=== PATIENT | female | born 1950 | race Caucasian/White ===

== ENCOUNTER 2017-06-02 19:44 | Inpatient (IN) | payer MEDICARE, OTHER ==
--- NOTE | 2017-06-02 22:15 | ED Physician Chart ---
ED Chief Complaint/HPI - Patient Information Date Seen:: 06/02/17 Time Seen:: 19:45 Chief Complaint:: Agitation History of Present Illness:: onset x one day of agitation and AMS; no report of trauma, H/As, neck pain, C/P , SOB, Abd. Pain, A/N/V/D/C, fever, chills, urinary s/s, or SIs Allergies:: Allergies Allergy/AdvReac Type Severity Reaction Status Date / Time chlorpromazine Allergy Verified 01/19/17 20:15 [From Thorazine] haloperidol [From Haldol] Allergy Verified 01/19/17 20:15 Vitals:: Vital Signs - 8 hr 06/02/17 19:48 Temp 97.8 F HR 50 RR 18 BP 130/63 O2 Sat % 95 Historian:: Patient, EMS Review:: Nurse's Note Reviewed, EMS run form Reviewed ED Review of Systems - Review of Systems General/Constitutional: No fever, No chills, No weight loss, No weakness, No diaphoresis, No edema, No loss of appetite Skin: No skin lesions, No rash, No bruising Head: No headache, No light-headedness Eyes: No loss of vision, No pain, No diplopia ENT: No earache, No nasal drainage, No sore throat, No tinnitus Neck: No neck pain, No swelling, No thyromegaly, No stiffness, No mass noted Cardio Vascular: No chest pain, No palpitations, No PND, No orthopnea, No edema Pulmonary: No SOB, No cough, No sputum, No wheezing GI: No nausea, No vomiting, No diarrhea, No pain, No melena, No hematochezia, No constipation, No hematemesis G/U: No dysuria, No frequency, No hematuria Musculoskeletal: No bone or joint pain, No back pain, No muscle pain Endocrine: Polyuria, Polydipsia Psychiatric: Prior psych history, Depression, Anxiety, No suicidal ideation, No homicidal ideation, Auditory hallucination, No visual hallucination Hematopoietic: No bruising, No lymphadenopathy Allergic/Immuno: No urticaria, No angioedema Neurological: No syncope, No focal symptoms, Weakness, No paresthesia, No headache, No seizure, No dizziness, Confusion, No vertigo ED Past Medical History - Past Medical History Obtainable: Yes Past Medical History: HTN, DM, Dyslipidemia, Thyroid disorder Family History: Diabetes Melitus, HTN Social History: Non Smoker, No Alcohol, No Drug Use, Single, Care Facility Surgical History: None Psychiatricy History: Depression, Schizophrenia, Bipolar Medication: Reviewed Family Medical History - Family Member Mother History Unknown: Yes ED Physical Exam - Physical Examination General/Constitutional: Awake, Well-developed, well-nourished, Alert, No distress, GCS 15, Non-toxic appearing, Ambulatory Head: Atraumatic Eyes: Lids, conjuctiva normal, PERRL, EOMI Skin: Nl inspection, No rash, No skin lesions, No ecchymosis, Well hydrated, No lymphadenopathy ENMT: External ears, nose nl, Nasal exam nl, Lips, teeth, gums nl Neck: Nontender, Full ROM w/o pain, No JVD, No nuchal rigidity, No bruit, No mass, No stridor Respiratory: Nl effort/Exclusion, Clear to Auscultation, No Wheeze/Rhonchi/Rales Cardio Vascular: RRR, No murmur, gallop, rubs, NL S1 S2 GI: No tenderness/rebounding/guarding, No organomegaly, No hernia, Normal BS's, Nondistended, No mass/bruits, No McBurney tenderness : No CVA tenderness Extremities: No tenderness or effusion, Full ROM, normal strength in all extremities, No edema, Normal digits & nails Neuro/Psych: Alert/oriented, DTR's symmetric, Normal sensory exam, Normal motor strength, Judgement/insight normal, Mood normal, Normal gait, No focal deficits Other Neuro/Psych comments:: + Psychomotor Agitation; no SIs Misc: Normal back, No paraspinal tenderness ED Labs/Radiology/EKG Results - EKG Interpretations EKG Time:: 20:05 Rate & Rhythm: 51; SB Comments:: non-specific st-t changes ED Septic Shock - . Is Septic Shock (SBP<90, OR Lactate>4 mmol\L) present?: No - <6hrs of presentation: Vital Signs: Vital Signs - 8 hr 06/02/17 19:48 Temp 97.8 F HR 50 RR 18 BP 130/63 O2 Sat % 95 ED Reassessment (Disposition) - Reassessment Reassessment Condition:: Improved - Diagnosis Diagnosis:: Schizophrenia; Agitation; AMS; BiPolar Disorder; Schiz-Affective Disorder - Aftercare/Follow up Instructions Aftercare/Follow-Up Instructions:: Counseled pt regarding lab results/diagnosis & need follow up, Counseled pt & family regarding lab results/diagnosis & need follow up - Patient Disposition Discharge/Transfer:: Acute Care w/in this hosp Accepting Physician:: Dr. Griffith Time Called:: 2029 Time Responded:: 20:30 Admitted to:: [facility] Spoke to:: Dr. Griffith Admitting Medical Physician:: Dr. Griffith Admitting Psych Physician:: Saba Kenny Condition at Disposition:: Stable, Improved
[2017-06-02 23:32] VITALS: BP 127/80
[2017-06-02] MEDS ORDERED: Maalox 30 mL Cup PO PRN ×2 (23:32)
[2017-06-03] MEDS: Multivitamin Tab PO SCH ×2 (09:00)
--- NOTE | 2017-06-03 13:50 | History & Physical ---
ADMIT DATE: 06/03/2017 CHIEF COMPLAINT: Increasing agitation. HISTORY OF PRESENT ILLNESS: This is a 66-year-old female with history of diabetes, hypertension, CAD, seizure, with breast CA, hypothyroidism, hypercholesterolemia, was admitted from nursing facility secondary to not taking any and all medication, patient not compliant, fighting with the nursing staff in the ER, refused blood tests, refused to be examined by Dr. Domingo. I saw the patient, placed on hold and admitted to psychiatric unit. PAST MEDICAL HISTORY: As mentioned in history present illness. PAST SURGICAL HISTORY: Status post breast surgery. ALLERGIES: PROMETHAZINE. MEDICATIONS: Atorvastatin, calcium, Donepezil, Lopid, Keppra, insulin sliding scale, magnesium hydroxide, multivitamin, Risperdal, and Ambien. FAMILY HISTORY: Noncontributory. SOCIAL HISTORY: The patient lives at residential requiring 24-hour total care. REVIEW OF SYSTEMS: The patient was just getting feel of injection, sensory agitations patient is in bed, seen with a female staff. ____ that she ____ does not want to go at this time. We will try to perform review of system at a later time. PHYSICAL EXAMINATION: VITAL SIGNS: Blood pressure 130/65, respirations 18, pulse 59, respirations 71. GENERAL: Elderly female, morbidly obese. NECK: Supple. No mass. LUNGS: Equal breath sounds, few rhonchi. HEART: Regular rate and rhythm with systolic ejection murmur. ABDOMEN: Soft, globular, positive bowel sounds. EXTREMITIES: Positive excoriations. NEUROLOGIC: Limited. LABORATORY DATA: There is none, all are pending. ASSESSMENT AND PLAN: Obesity, diabetes, hypertension, CAD, seizure, breast CA, hypothyroidism, hypercholesterolemia. We will go through the medicine reconciliation. We are still awaiting the results of labs that were ordered in the Emergency Room. Continue antiepileptic medications. Continue statin medications. Continue on insulin sliding scale. We will continue and monitor the patient closely. We will follow with Dr. Kenny. JOB# [id number]
[2017-06-03] MEDS: INSULIN ASPART, RECOMBINANT 100 UNITS/ML SUBQ SCH ×4 (17:06→20:08)
[2017-06-03] MEDS: Atorvastatin Calcium 10 MG TAB PO SCH ×2 (20:23)
--- NOTE | 2017-06-03 22:10 | Progress Notes ---
DATE: 06/03/2017 The patient is a 66-year-old woman, resident of [facility]. Information obtained by directly interviewing the patient as well as reviewing the admission papers. JUSTIFICATION OF HOSPITALIZATION: The patient is admitted on a voluntary basis in view of her acute agitation and bizarre behavior. CHIEF COMPLAINT: "I don't know, I need to look for something in here. Leave me alone". HISTORY OF PRESENT ILLNESS: This is one of multiple psychiatric hospitalizations for this patient who happened to be seen by me in January for a consultation. The patient has been screaming and yelling and agitated and could not be continued to a lower level of care and has been brought over here for stabilization. The patient is very busy looking for something through the trash pins and is not willing to sit in there and then give me much of any information. PAST PSYCHIATRIC HISTORY: Please refer to the above details about prior psychiatric hospitalizations, details are not known but this seems to be one of multiple psychiatric hospitalizations. MEDICAL HISTORY: Physical examination is as per Dr. Griffith. SUBSTANCE ABUSE HISTORY: None. PHYSICAL AND SEXUAL ABUSE HISTORY: None. LEGAL PROBLEMS: None at this time. STRENGTHS AND ASSETS: The patient is a 66-year-old, looking her stated age, moderately obese, superficially cooperative. Eye contact is poor. Mood is noted to be irritable. Affect is constricted. The patient is pacing most of the time on the unit. Insight and judgment at this time noted to be still impaired. Impulse control seems to be poor. The patient has paranoid delusions. The patient is not able to contract for safety. The patient is acting very bizarre and has been digging into the trash cans. The patient is actively responding to internal stimuli. The patient is alert and oriented x 3. Insight and judgment noted to be very much impaired at this time. DIAGNOSTIC IMPRESSION: AXIS I: Schizophrenia, chronic paranoid type with acute exacerbation. AXIS II: None. AXIS III: As per Dr. Griffith. IMMEDIATE TREATMENT PLAN: The patient is going to be observed on inpatient unit, provided with supportive psychotherapy. The patient is going to be closely monitored. Once stabilized, the patient is going to be discharged to be followed up on an outpatient basis. ASSESSMENT: The patient is going to be started on low dose of Seroquel and will be encouraged. [facility]# [id number]
[2017-06-04] MEDS: INSULIN ASPART, RECOMBINANT 100 UNITS/ML SUBQ SCH ×8 (06:38→21:29)
[2017-06-04] MEDS: Levothyroxine 0.15 Mg Tab PO SCH ×2 (06:39)
[2017-06-04] MEDS ORDERED: Non-Formulary Item 1 EA (Multivitamin [Multivitamins] 1 CAP) PO SCH ×2 (09:00)
[2017-06-04] MEDS: Calcium Carb/Vit D 500 mg/200 U Tab PO SCH ×2 (09:26)
[2017-06-04] MEDS: Multivitamin Tab PO SCH ×2 (09:26)
--- NOTE | 2017-06-04 12:54 | Internal Medicine Prog Note ---
Internal Medicine Subjective - Subjective Patient seen and examined:: with staff, chart reviewed Patient is:: awake, verbal, interactive Per staff patient has:: no adverse event, no episodes of fall, poor appetite, agitated, noncompliant, tolerating meds Internal Medicine Objective - Results Recent Labs: Laboratory Last Values POC Glucose 114 MG/DL (70 - 105) H 06/04/17 06:25 - Physical Exam Vitals and I&O: Vital Signs Temp 97.7 F 06/04/17 06:54 Pulse 61 06/04/17 06:54 Resp 18 06/04/17 06:54 BP 135/68 06/04/17 09:26 Pulse Ox 98 06/04/17 06:54 Intake & Output 06/03/17 06/04/17 06/04/17 18:59 06:59 18:59 Intake Total 120 Balance 120 Intake: Oral 120 Other: # Voids 3 Active Medications: Current Medications Acetaminophen (Tylenol) 650 mg PO Q4HR PRN PRN Reason: Mild Pain / Temp above 100 Stop: 08/01/17 23:31 Acetaminophen (Tylenol) 650 mg PO Q4H PRN PRN Reason: Mild Pain Or Fever above 101 Stop: 08/02/17 13:21 Al Hydrox/Mg Hydrox/Simethicone (Maalox) 30 ml PO Q4HR PRN PRN Reason: GI DISTRESS Stop: 08/01/17 23:31 Anastrozole (Arimidex) 1 mg PO DAILY CORAZON PRN Reason: Protocol Stop: 08/03/17 08:59 Last Admin: 06/04/17 09:26 Dose: 1 mg Atorvastatin Calcium (Lipitor) 10 mg PO HS CORAZON PRN Reason: Protocol Stop: 08/02/17 20:59 Last Admin: 06/03/17 20:23 Dose: 10 mg Calcium/Vitamin D (Oscal W/Vitamin D) 1 tab PO DAILY CORAZON Stop: 08/03/17 08:59 Last Admin: 06/04/17 09:26 Dose: 1 tab Docusate Sodium (Colace) 100 mg PO DAILY CORAZON Stop: 08/03/17 08:59 Last Admin: 06/04/17 09:26 Dose: 100 mg Donepezil HCl (Aricept) 5 mg PO HS CORAZON Stop: 08/02/17 20:59 Last Admin: 06/03/17 20:23 Dose: 5 mg Furosemide (Lasix) 20 mg PO DAILY CORAZON Stop: 08/03/17 08:59 Last Admin: 06/04/17 09:26 Dose: 20 mg Gemfibrozil (Lopid) 600 mg PO BID CORAZON Stop: 08/02/17 16:59 Last Admin: 06/04/17 09:26 Dose: 600 mg Insulin Aspart (Novolog) 0 units SUBQ ACHS CORAZON PRN Reason: Protocol Stop: 08/02/17 16:29 Last Admin: 06/04/17 11:36 Dose: Not Given Levetiracetam (Keppra) 500 mg PO BID CORAZON Stop: 08/02/17 16:59 Last Admin: 06/04/17 09:26 Dose: 500 mg Levothyroxine Sodium (Synthroid) 0.15 mg PO QDAC CORAZON Stop: 08/03/17 07:29 Last Admin: 06/04/17 06:39 Dose: Not Given Lorazepam (Ativan) 0.5 mg PO Q4HR PRN; Protocol PRN Reason: Anxiety Stop: 07/02/17 23:31 Lorazepam (Ativan) 0.5 mg PO Q6HR PRN; Protocol PRN Reason: Anxiety Stop: 08/02/17 13:21 Magnesium Hydroxide (Milk Of Magnesia) 30 ml PO HS PRN PRN Reason: Constipation Stop: 08/01/17 22:55 Multivitamins/Vitamin C (Theragran) 1 tab PO DAILY CORAZON Stop: 08/02/17 08:59 Last Admin: 06/04/17 09:26 Dose: 1 tab Risperidone (Risperdal) 2 mg PO BID CORAZON PRN Reason: Protocol Stop: 08/03/17 16:59 Zolpidem Tartrate (Ambien) 5 mg PO HS PRN PRN Reason: Insomnia Stop: 08/01/17 22:55 General: demented HEENT: NC/AT, PERRLA, EOMI Neck: Supple, No JVD, No LAD Lungs: CTAB, congested Cardiovascular: RRR, Normal S1, Normal S2, with murmur Abdomen: soft, non-tender, non-distended Extremities: excoriation, contracture Neurological: no change, disorganized Internal Medicine Assmt/Plan - Assessment Assessment: obesity dm htn r breast ca agitation, sad sz disorder - Plan Plan: cont on ada diet cont on aed fall precaution will titrate bp meds dw rn will review meds once they become available
[2017-06-04] MEDS: Atorvastatin Calcium 10 MG TAB PO SCH ×2 (21:29)
--- NOTE | 2017-06-04 22:39 | Progress Notes ---
DATE: 06/04/2017 SUBJECTIVE: Staff was spoken to. The patient is interviewed. Mood is noted to be irritable. Affect is constricted. The patient is acting very bizarre. The patient's coping skills are noted to be very poor. The patient has been trying to put a cream over her body and also trying to masturbate appropriately. The patient has no insight into her illness. Coping skills are noted to be extremely poor at this time. The patient is currently on risperidone 2 mg on a daily basis. Plan to increase the risperidone to 2 mg twice a day and follow the patient up with supportive therapy. The patient is still grossly psychotic and is not able to be discharged to a lower level of care yet. ASSESSMENT: The patient is still psychotic and acting very bizarre. PLAN: To continue the patient with the supportive therapy and consider possibly for a mood stabilizer if risperidone alone is not going to help the patient. The patient's blood work has pain noted today, the patient was noted to be still running high for the patient. JOB# [id number]
[2017-06-05] MEDS: INSULIN ASPART, RECOMBINANT 100 UNITS/ML SUBQ SCH ×8 (06:31→20:44)
[2017-06-05] MEDS: Levothyroxine 0.15 Mg Tab PO SCH ×2 (06:32)
[2017-06-05] MEDS: Calcium Carb/Vit D 500 mg/200 U Tab PO SCH ×2 (09:08)
[2017-06-05] MEDS: Multivitamin Tab PO SCH ×2 (09:09)
--- NOTE | 2017-06-05 15:26 | Internal Medicine Prog Note ---
Internal Medicine Subjective - Subjective Service Date: 06/05/17 Patient is:: awake, verbal, interactive Per staff patient has:: no adverse event, no episodes of fall, poor appetite, agitated, noncompliant, tolerating meds Internal Medicine Objective - Results Recent Labs: Laboratory Last Values POC Glucose 141 MG/DL (70 - 105) H 06/05/17 11:22 - Physical Exam Vitals and I&O: Vital Signs Temp 98 F 06/05/17 14:00 Pulse 95 06/05/17 14:00 Resp 20 06/05/17 14:00 BP 124/60 06/05/17 14:00 Pulse Ox 95 06/05/17 14:00 Intake & Output 06/04/17 06/05/17 06/05/17 18:59 06:59 18:59 Intake Total 1200 Balance 1200 Intake: Oral 1200 Other: # Voids 3 # Bowel Movements 1 0 Active Medications: Current Medications Acetaminophen (Tylenol) 650 mg PO Q4HR PRN PRN Reason: Mild Pain / Temp above 100 Stop: 08/01/17 23:31 Acetaminophen (Tylenol) 650 mg PO Q4H PRN PRN Reason: Mild Pain Or Fever above 101 Stop: 08/02/17 13:21 Al Hydrox/Mg Hydrox/Simethicone (Maalox) 30 ml PO Q4HR PRN PRN Reason: GI DISTRESS Stop: 08/01/17 23:31 Anastrozole (Arimidex) 1 mg PO DAILY CORAZON PRN Reason: Protocol Stop: 08/03/17 08:59 Last Admin: 06/05/17 09:38 Dose: 1 mg Atorvastatin Calcium (Lipitor) 10 mg PO HS CORAZON PRN Reason: Protocol Stop: 08/02/17 20:59 Last Admin: 06/04/17 21:29 Dose: 10 mg Calcium/Vitamin D (Oscal W/Vitamin D) 1 tab PO DAILY CORAOZN Stop: 08/03/17 08:59 Last Admin: 06/05/17 09:08 Dose: 1 tab Docusate Sodium (Colace) 100 mg PO DAILY CORAZON Stop: 08/03/17 08:59 Last Admin: 06/05/17 09:08 Dose: 100 mg Donepezil HCl (Aricept) 5 mg PO HS CORAZON Stop: 08/02/17 20:59 Last Admin: 06/04/17 21:29 Dose: 5 mg Furosemide (Lasix) 20 mg PO DAILY CORAZON Stop: 08/03/17 08:59 Last Admin: 06/05/17 09:09 Dose: 20 mg Gemfibrozil (Lopid) 600 mg PO BID CORAZON Stop: 08/02/17 16:59 Last Admin: 06/05/17 09:41 Dose: 600 mg Insulin Aspart (Novolog) 0 units SUBQ ACHS CORAZON PRN Reason: Protocol Stop: 08/02/17 16:29 Last Admin: 06/05/17 11:25 Dose: Not Given Levetiracetam (Keppra) 500 mg PO BID CORAZON Stop: 08/02/17 16:59 Last Admin: 06/05/17 09:08 Dose: 500 mg Levothyroxine Sodium (Synthroid) 0.15 mg PO QDAC CORAZON Stop: 08/03/17 07:29 Last Admin: 06/05/17 06:32 Dose: Not Given Lorazepam (Ativan) 0.5 mg PO Q4HR PRN; Protocol PRN Reason: Anxiety Stop: 07/02/17 23:31 Lorazepam (Ativan) 0.5 mg PO Q6HR PRN; Protocol PRN Reason: Anxiety Stop: 08/02/17 13:21 Magnesium Hydroxide (Milk Of Magnesia) 30 ml PO HS PRN PRN Reason: Constipation Stop: 08/01/17 22:55 Multivitamins/Vitamin C (Theragran) 1 tab PO DAILY CORAZON Stop: 08/02/17 08:59 Last Admin: 06/05/17 09:09 Dose: 1 tab Risperidone (Risperdal) 2 mg PO BID CORAZON PRN Reason: Protocol Stop: 08/03/17 16:59 Last Admin: 06/05/17 09:08 Dose: 2 mg Zolpidem Tartrate (Ambien) 5 mg PO HS PRN PRN Reason: Insomnia Stop: 08/01/17 22:55 Last Admin: 06/05/17 00:58 Dose: 5 mg General: demented HEENT: NC/AT, PERRLA, EOMI Neck: Supple, No JVD, No LAD Lungs: CTAB, congested Cardiovascular: RRR, Normal S1, Normal S2, with murmur Abdomen: soft, non-tender, non-distended Extremities: excoriation, contracture Neurological: no change, disorganized Internal Medicine Assmt/Plan - Assessment Assessment: obesity dm htn r breast ca agitation, sad sz disorder - Plan Plan: monitor glucose fall precautions continue plan of care
[2017-06-05] MEDS: Atorvastatin Calcium 10 MG TAB PO SCH ×2 (20:40)
--- NOTE | 2017-06-05 21:45 | Progress Notes ---
DATE: 06/05/2017 SUBJECTIVE: Staff was spoken to. Patient is interviewed. Mood is irritable. Affect is constricted. The patient's coping skills are noted to be very poor. The patient is acting very bizarre and has been trying to masturbate in public. The patient's coping skills are noted to be poor. Insight and judgment are noted to be impaired. Impulse control is noted to be poor. Coping skills are also noted to be poor. The patient has been having difficult time to cope with the stress. ASSESSMENT: The patient is still grossly psychotic and impulsive. PLAN: To continue the patient with supportive therapy. I encouraged the patient to verbalize the concerns rather than to act out. [facility]# [id number]
--- NOTE | 2017-06-05 21:45 | Progress Notes ---
DATE: 06/05/2017 SUBJECTIVE: Staff was spoken to. Patient is interviewed. Mood is irritable. Affect is constricted. The patient's coping skills are noted to be very poor. The patient is acting very bizarre and has been trying to masturbate in public. The patient's coping skills are noted to be poor. Insight and judgment are noted to be impaired. Impulse control is noted to be poor. Coping skills are also noted to be poor. The patient has been having difficult time to cope with the stress. ASSESSMENT: The patient is still grossly psychotic and impulsive. PLAN: To continue the patient with supportive therapy. I encouraged the patient to verbalize the concerns rather than to act out. [facility]# [id number]
[2017-06-06] MEDS: INSULIN ASPART, RECOMBINANT 100 UNITS/ML SUBQ SCH ×8 (06:47→21:34)
[2017-06-06] MEDS: Multivitamin Tab PO SCH ×2 (09:34)
[2017-06-06] MEDS: Calcium Carb/Vit D 500 mg/200 U Tab PO SCH ×2 (09:35)
[2017-06-06] MEDS: Levothyroxine 0.15 Mg Tab PO SCH ×2 (10:04)
--- NOTE | 2017-06-06 13:10 | Internal Medicine Prog Note ---
Internal Medicine Subjective - Subjective Service Date: 06/06/17 Patient is:: awake, verbal, interactive Per staff patient has:: no adverse event, no episodes of fall, poor appetite, agitated, noncompliant, tolerating meds Internal Medicine Objective - Results Recent Labs: Laboratory Last Values POC Glucose 144 MG/DL (70 - 105) H 06/06/17 11:05 - Physical Exam Vitals and I&O: Vital Signs Temp 97.9 F 06/05/17 20:34 Pulse 58 06/06/17 08:00 Resp 18 06/06/17 08:00 BP 133/74 06/06/17 09:58 Pulse Ox 97 06/05/17 20:34 Intake & Output 06/05/17 06/06/17 06/06/17 18:59 06:59 18:59 Intake Total 1200 240 Output Total 1 Balance 1199 240 Intake: Oral 1200 240 Output: Stool 1 Other: # Voids 1 Active Medications: Current Medications Acetaminophen (Tylenol) 650 mg PO Q4HR PRN PRN Reason: Mild Pain / Temp above 100 Stop: 08/01/17 23:31 Acetaminophen (Tylenol) 650 mg PO Q4H PRN PRN Reason: Mild Pain Or Fever above 101 Stop: 08/02/17 13:21 Al Hydrox/Mg Hydrox/Simethicone (Maalox) 30 ml PO Q4HR PRN PRN Reason: GI DISTRESS Stop: 08/01/17 23:31 Anastrozole (Arimidex) 1 mg PO DAILY CORAZON PRN Reason: Protocol Stop: 08/03/17 08:59 Last Admin: 06/06/17 09:40 Dose: 1 mg Atorvastatin Calcium (Lipitor) 10 mg PO HS CORAZON PRN Reason: Protocol Stop: 08/02/17 20:59 Last Admin: 06/05/17 20:40 Dose: Not Given Calcium/Vitamin D (Oscal W/Vitamin D) 1 tab PO DAILY CORAZON Stop: 08/03/17 08:59 Last Admin: 06/06/17 09:35 Dose: 1 tab Docusate Sodium (Colace) 100 mg PO DAILY CORAZON Stop: 08/03/17 08:59 Last Admin: 06/06/17 09:35 Dose: 100 mg Donepezil HCl (Aricept) 5 mg PO HS CORAZON Stop: 08/02/17 20:59 Last Admin: 06/05/17 20:40 Dose: Not Given Furosemide (Lasix) 20 mg PO DAILY CORAZON Stop: 08/03/17 08:59 Last Admin: 06/06/17 09:58 Dose: 20 mg Gemfibrozil (Lopid) 600 mg PO BID CORAZON Stop: 08/02/17 16:59 Last Admin: 06/06/17 09:35 Dose: 600 mg Insulin Aspart (Novolog) 0 units SUBQ ACHS CORAZON PRN Reason: Protocol Stop: 08/02/17 16:29 Last Admin: 06/06/17 11:33 Dose: Not Given Levetiracetam (Keppra) 500 mg PO BID CORAZON Stop: 08/02/17 16:59 Last Admin: 06/06/17 09:35 Dose: 500 mg Levothyroxine Sodium (Synthroid) 0.15 mg PO QDAC CORAZON Stop: 08/03/17 07:29 Last Admin: 06/06/17 10:04 Dose: Not Given Lorazepam (Ativan) 0.5 mg PO Q4HR PRN; Protocol PRN Reason: Anxiety Stop: 07/02/17 23:31 Last Admin: 06/06/17 09:35 Dose: 0.5 mg Lorazepam (Ativan) 0.5 mg PO Q6HR PRN; Protocol PRN Reason: Anxiety Stop: 08/02/17 13:21 Magnesium Hydroxide (Milk Of Magnesia) 30 ml PO HS PRN PRN Reason: Constipation Stop: 08/01/17 22:55 Multivitamins/Vitamin C (Theragran) 1 tab PO DAILY CORAZON Stop: 08/02/17 08:59 Last Admin: 06/06/17 09:34 Dose: 1 tab Risperidone (Risperdal) 2 mg PO BID CORAZON PRN Reason: Protocol Stop: 08/03/17 16:59 Last Admin: 06/06/17 09:35 Dose: 2 mg Zolpidem Tartrate (Ambien) 5 mg PO HS PRN PRN Reason: Insomnia Stop: 08/01/17 22:55 Last Admin: 06/05/17 00:58 Dose: 5 mg General: demented HEENT: NC/AT, PERRLA, EOMI Neck: Supple, No JVD, No LAD Lungs: CTAB, congested Cardiovascular: RRR, Normal S1, Normal S2, with murmur Abdomen: soft, non-tender, non-distended Extremities: excoriation, contracture Neurological: no change, disorganized Internal Medicine Assmt/Plan - Assessment Assessment: obesity dm htn r breast ca agitation, sad sz disorder - Plan Plan: monitor glucose fall precautions continue plan of care
[2017-06-06] MEDS: Atorvastatin Calcium 10 MG TAB PO SCH ×2 (21:22)
--- NOTE | 2017-06-07 03:42 | Progress Notes ---
DATE: 06/06/2017 SUBJECTIVE: Staff was spoken to. The patient is interviewed. Mood is noted to be irritable. Affect is constricted. The patient is still acting very bizarre. Insight and judgment at this time are noted to be still impaired. Impulse control seems to be limited. OBJECTIVE: The patient tends to scream and yell, and the patient is hard to be redirected. ASSESSMENT AND PLAN: The patient is currently on Risperdal 2 mg twice a day. In view of her mood swings, it is decided add the Depakote which is going to be given at 250 mg twice a day and the patient is going to be followed up with the supportive therapy. Please note that the patient is not ready to be discharged to a lower level of care yet. JOB# [id number]
[2017-06-07] MEDS: Levothyroxine 0.15 Mg Tab PO SCH ×2 (06:33)
[2017-06-07] MEDS: INSULIN ASPART, RECOMBINANT 100 UNITS/ML SUBQ SCH ×8 (06:51→20:53)
[2017-06-07] MEDS: Multivitamin Tab PO SCH ×2 (09:37)
[2017-06-07] MEDS: Magnesium Hydroxide (MOM) 30 mL UDC PO PRN ×2 (09:37)
[2017-06-07] MEDS: Calcium Carb/Vit D 500 mg/200 U Tab PO SCH ×2 (09:37)
--- NOTE | 2017-06-07 12:54 | Internal Medicine Prog Note ---
Internal Medicine Subjective - Subjective Service Date: 06/07/17 Patient is:: awake, verbal, interactive Per staff patient has:: no adverse event, no episodes of fall, poor appetite, agitated, noncompliant, tolerating meds Internal Medicine Objective - Results Recent Labs: Laboratory Last Values POC Glucose 147 MG/DL (70 - 105) H 06/07/17 11:57 - Physical Exam Vitals and I&O: Vital Signs Temp 97.9 F 06/07/17 06:24 Pulse 70 06/07/17 06:24 Resp 19 06/07/17 06:24 BP 143/80 06/07/17 09:37 Pulse Ox 97 06/07/17 06:24 Intake & Output 06/06/17 06/07/17 06/07/17 18:59 06:59 18:59 Intake Total 540 Balance 540 Intake: Oral 540 Other: # Voids 1 # Bowel Movements 0 Active Medications: Current Medications Acetaminophen (Tylenol) 650 mg PO Q4HR PRN PRN Reason: Mild Pain / Temp above 100 Stop: 08/01/17 23:31 Acetaminophen (Tylenol) 650 mg PO Q4H PRN PRN Reason: Mild Pain Or Fever above 101 Stop: 08/02/17 13:21 Al Hydrox/Mg Hydrox/Simethicone (Maalox) 30 ml PO Q4HR PRN PRN Reason: GI DISTRESS Stop: 08/01/17 23:31 Anastrozole (Arimidex) 1 mg PO DAILY CORAZON PRN Reason: Protocol Stop: 08/03/17 08:59 Last Admin: 06/06/17 09:40 Dose: 1 mg Atorvastatin Calcium (Lipitor) 10 mg PO HS CORAZON PRN Reason: Protocol Stop: 08/02/17 20:59 Last Admin: 06/06/17 21:22 Dose: 10 mg Calcium/Vitamin D (Oscal W/Vitamin D) 1 tab PO DAILY CORAZON Stop: 08/03/17 08:59 Last Admin: 06/07/17 09:37 Dose: 1 tab Divalproex Sodium (Depakote Dr) 250 mg PO BID CORAZON PRN Reason: Protocol Stop: 08/05/17 16:59 Last Admin: 06/07/17 09:37 Dose: 250 mg Docusate Sodium (Colace) 100 mg PO DAILY CORAZON Stop: 08/03/17 08:59 Last Admin: 06/07/17 09:37 Dose: 100 mg Donepezil HCl (Aricept) 5 mg PO HS CORAZON Stop: 08/02/17 20:59 Last Admin: 06/06/17 21:22 Dose: 5 mg Furosemide (Lasix) 20 mg PO DAILY CORAZON Stop: 08/03/17 08:59 Last Admin: 06/07/17 09:37 Dose: 20 mg Gemfibrozil (Lopid) 600 mg PO BID CORAZON Stop: 08/02/17 16:59 Last Admin: 06/07/17 09:37 Dose: 600 mg Insulin Aspart (Novolog) 0 units SUBQ ACHS CORAZON PRN Reason: Protocol Stop: 08/02/17 16:29 Last Admin: 06/07/17 06:51 Dose: Not Given Levetiracetam (Keppra) 500 mg PO BID CORAZON Stop: 08/02/17 16:59 Last Admin: 06/07/17 09:37 Dose: 500 mg Levothyroxine Sodium (Synthroid) 0.15 mg PO QDAC CORAZON Stop: 08/03/17 07:29 Last Admin: 06/07/17 06:33 Dose: Not Given Lorazepam (Ativan) 0.5 mg PO Q4HR PRN; Protocol PRN Reason: Anxiety Stop: 07/02/17 23:31 Last Admin: 06/07/17 06:34 Dose: 0.5 mg Lorazepam (Ativan) 0.5 mg PO Q6HR PRN; Protocol PRN Reason: Anxiety Stop: 08/02/17 13:21 Magnesium Hydroxide (Milk Of Magnesia) 30 ml PO HS PRN PRN Reason: Constipation Stop: 08/01/17 22:55 Last Admin: 06/07/17 09:37 Dose: 30 ml Multivitamins/Vitamin C (Theragran) 1 tab PO DAILY CORAZON Stop: 08/02/17 08:59 Last Admin: 06/07/17 09:37 Dose: 1 tab Risperidone (Risperdal) 2 mg PO BID CORAZON PRN Reason: Protocol Stop: 08/03/17 16:59 Last Admin: 06/07/17 09:37 Dose: 2 mg Zolpidem Tartrate (Ambien) 5 mg PO HS PRN PRN Reason: Insomnia Stop: 08/01/17 22:55 Last Admin: 06/06/17 21:23 Dose: 5 mg General: demented HEENT: NC/AT, PERRLA, EOMI Neck: Supple, No JVD, No LAD Lungs: CTAB, congested Cardiovascular: RRR, Normal S1, Normal S2, with murmur Abdomen: soft, non-tender, non-distended Extremities: excoriation, contracture Neurological: no change, disorganized Internal Medicine Assmt/Plan - Assessment Assessment: obesity dm htn r breast ca agitation, sad sz disorder - Plan Plan: monitor glucose fall precautions continue plan of care
--- NOTE | 2017-06-07 20:49 | Progress Notes ---
DATE: 06/07/2017 SUBJECTIVE: Staff was spoken to. The patient is interviewed. Mood is noted to be irritable. Affect is constricted. Insight and judgment are noted to be still impaired. The patient has been very, very aggressive with her behavior. The patient has been trying to take the diaper out. The patient has no insight into his illness. The patient is screaming and yelling at this time. No side effects to the medications are noted. The patient has been started on the Depakote yesterday, which is going to be gradually increased. ASSESSMENT: The patient is still grossly psychotic and impulsive. PLAN: To continue the patient with the current medications. I encouraged the patient to verbalize the concerns rather than to act out. JOB# [id number]
[2017-06-07] MEDS: Atorvastatin Calcium 10 MG TAB PO SCH ×2 (20:50)
[2017-06-08] MEDS: INSULIN ASPART, RECOMBINANT 100 UNITS/ML SUBQ SCH ×6 (06:52→21:30)
[2017-06-08] MEDS: Levothyroxine 0.15 Mg Tab PO SCH ×2 (06:53)
[2017-06-08] MEDS: Multivitamin Tab PO SCH ×2 (09:41)
[2017-06-08] MEDS: Calcium Carb/Vit D 500 mg/200 U Tab PO SCH ×2 (09:41)
--- NOTE | 2017-06-08 12:57 | Internal Medicine Prog Note ---
Internal Medicine Subjective - Subjective Service Date: 06/08/17 Patient is:: awake, verbal, interactive Per staff patient has:: no adverse event, no episodes of fall, poor appetite, agitated, noncompliant, tolerating meds Internal Medicine Objective - Results Recent Labs: Laboratory Last Values POC Glucose 174 MG/DL (70 - 105) H 06/08/17 12:09 - Physical Exam Vitals and I&O: Vital Signs Temp 98.1 F 06/07/17 20:17 Pulse 57 06/07/17 20:17 Resp 19 06/07/17 20:17 BP 130/78 06/08/17 09:42 Pulse Ox 96 06/07/17 20:17 Intake & Output 06/07/17 06/08/17 06/08/17 18:59 06:59 18:59 Intake Total 540 Balance 540 Intake: Oral 540 Other: # Voids 3 # Bowel Movements 1 Active Medications: Current Medications Acetaminophen (Tylenol) 650 mg PO Q4HR PRN PRN Reason: Mild Pain / Temp above 100 Stop: 08/01/17 23:31 Acetaminophen (Tylenol) 650 mg PO Q4H PRN PRN Reason: Mild Pain Or Fever above 101 Stop: 08/02/17 13:21 Al Hydrox/Mg Hydrox/Simethicone (Maalox) 30 ml PO Q4HR PRN PRN Reason: GI DISTRESS Stop: 08/01/17 23:31 Anastrozole (Arimidex) 1 mg PO DAILY CORAZON PRN Reason: Protocol Stop: 08/03/17 08:59 Last Admin: 06/08/17 09:41 Dose: 1 mg Atorvastatin Calcium (Lipitor) 10 mg PO HS CORAZON PRN Reason: Protocol Stop: 08/02/17 20:59 Last Admin: 06/07/17 20:50 Dose: 10 mg Calcium/Vitamin D (Oscal W/Vitamin D) 1 tab PO DAILY CORAZON Stop: 08/03/17 08:59 Last Admin: 06/08/17 09:41 Dose: 1 tab Divalproex Sodium (Depakote Dr) 250 mg PO BID CORAZON PRN Reason: Protocol Stop: 08/05/17 16:59 Last Admin: 06/08/17 09:42 Dose: 250 mg Docusate Sodium (Colace) 100 mg PO DAILY CORAZON Stop: 08/03/17 08:59 Last Admin: 06/08/17 09:41 Dose: 100 mg Donepezil HCl (Aricept) 5 mg PO HS CORAZON Stop: 08/02/17 20:59 Last Admin: 06/07/17 20:50 Dose: 5 mg Furosemide (Lasix) 20 mg PO DAILY CORAZON Stop: 08/03/17 08:59 Last Admin: 06/08/17 09:42 Dose: 20 mg Gemfibrozil (Lopid) 600 mg PO BID CORAZON Stop: 08/02/17 16:59 Last Admin: 06/08/17 09:41 Dose: 600 mg Insulin Aspart (Novolog) 0 units SUBQ ACHS CORAZON PRN Reason: Protocol Stop: 08/02/17 16:29 Last Admin: 06/08/17 06:52 Dose: Not Given Levetiracetam (Keppra) 500 mg PO BID CORAZON Stop: 08/02/17 16:59 Last Admin: 06/08/17 09:41 Dose: 500 mg Levothyroxine Sodium (Synthroid) 0.15 mg PO QDAC CORAZON Stop: 08/03/17 07:29 Last Admin: 06/08/17 06:53 Dose: Not Given Lorazepam (Ativan) 0.5 mg PO Q4HR PRN; Protocol PRN Reason: Anxiety Stop: 07/02/17 23:31 Last Admin: 06/08/17 09:47 Dose: 0.5 mg Lorazepam (Ativan) 0.5 mg PO Q6HR PRN; Protocol PRN Reason: Anxiety Stop: 08/02/17 13:21 Magnesium Hydroxide (Milk Of Magnesia) 30 ml PO HS PRN PRN Reason: Constipation Stop: 08/01/17 22:55 Last Admin: 06/07/17 09:37 Dose: 30 ml Multivitamins/Vitamin C (Theragran) 1 tab PO DAILY CORAZON Stop: 08/02/17 08:59 Last Admin: 06/08/17 09:41 Dose: 1 tab Risperidone (Risperdal) 2 mg PO BID CORAZON PRN Reason: Protocol Stop: 08/03/17 16:59 Last Admin: 06/08/17 09:43 Dose: 2 mg Zolpidem Tartrate (Ambien) 5 mg PO HS PRN PRN Reason: Insomnia Stop: 08/01/17 22:55 Last Admin: 06/07/17 20:50 Dose: 5 mg General: demented HEENT: NC/AT, PERRLA, EOMI Neck: Supple, No JVD, No LAD Lungs: CTAB, congested Cardiovascular: RRR, Normal S1, Normal S2, with murmur Abdomen: soft, non-tender, non-distended Extremities: excoriation, contracture Neurological: no change, disorganized Internal Medicine Assmt/Plan - Assessment Assessment: obesity dm htn r breast ca agitation, sad sz disorder - Plan Plan: monitor glucose fall precautions continue plan of care
--- NOTE | 2017-06-08 16:52 | Progress Notes ---
DATE: 06/08/2017 SUBJECTIVE: Staff was spoken to. The patient is interviewed. Mood is noted to be dysphoric. Coping skills are noted to be poor. The patient is screaming and yelling. The patient needs to be treated. The patient's coping skills are noted to be extremely poor. The patient, however, has been able to tolerate the Risperdal and then the Depakote. No side effects to the medications are noted. ASSESSMENT: The patient is still grossly psychotic. PLAN: To continue the patient with the current medications and follow up. JOB# [id number]
[2017-06-08] MEDS: Atorvastatin Calcium 10 MG TAB PO SCH ×2 (21:04)
[2017-06-09] MEDS: INSULIN ASPART, RECOMBINANT 100 UNITS/ML SUBQ SCH ×8 (06:43→21:12)
[2017-06-09] MEDS: Levothyroxine 0.15 Mg Tab PO SCH ×2 (06:56)
[2017-06-09] MEDS: Calcium Carb/Vit D 500 mg/200 U Tab PO SCH ×2 (08:06)
[2017-06-09] MEDS: Multivitamin Tab PO SCH ×2 (08:07)
--- NOTE | 2017-06-09 12:15 | Internal Medicine Prog Note ---
Internal Medicine Subjective - Subjective Service Date: 06/09/17 Patient is:: awake, verbal, interactive Per staff patient has:: no adverse event, no episodes of fall, poor appetite, agitated, noncompliant, tolerating meds Internal Medicine Objective - Results Recent Labs: Laboratory Last Values POC Glucose 157 MG/DL (70 - 105) H 06/09/17 11:51 - Physical Exam Vitals and I&O: Vital Signs Temp 98.4 F 06/09/17 06:00 Pulse 70 06/09/17 11:05 Resp 18 06/09/17 11:05 BP 114/64 06/09/17 08:08 Pulse Ox 97 06/09/17 06:00 Active Medications: Current Medications Acetaminophen (Tylenol) 650 mg PO Q4HR PRN PRN Reason: Mild Pain / Temp above 100 Stop: 08/01/17 23:31 Acetaminophen (Tylenol) 650 mg PO Q4H PRN PRN Reason: Mild Pain Or Fever above 101 Stop: 08/02/17 13:21 Al Hydrox/Mg Hydrox/Simethicone (Maalox) 30 ml PO Q4HR PRN PRN Reason: GI DISTRESS Stop: 08/01/17 23:31 Anastrozole (Arimidex) 1 mg PO DAILY CORAZON PRN Reason: Protocol Stop: 08/03/17 08:59 Last Admin: 06/09/17 08:08 Dose: 1 mg Atorvastatin Calcium (Lipitor) 10 mg PO HS CORAZON PRN Reason: Protocol Stop: 08/02/17 20:59 Last Admin: 06/08/17 21:04 Dose: 10 mg Calcium/Vitamin D (Oscal W/Vitamin D) 1 tab PO DAILY CORAZON Stop: 08/03/17 08:59 Last Admin: 06/09/17 08:06 Dose: 1 tab Divalproex Sodium (Depakote Dr) 250 mg PO BID CORAZON PRN Reason: Protocol Stop: 08/05/17 16:59 Last Admin: 06/09/17 08:11 Dose: 250 mg Docusate Sodium (Colace) 100 mg PO DAILY CORAZON Stop: 08/03/17 08:59 Last Admin: 06/09/17 08:09 Dose: 100 mg Donepezil HCl (Aricept) 5 mg PO HS CORAZON Stop: 08/02/17 20:59 Last Admin: 06/08/17 21:04 Dose: 5 mg Furosemide (Lasix) 20 mg PO DAILY CORAZON Stop: 08/03/17 08:59 Last Admin: 06/09/17 08:08 Dose: 20 mg Gemfibrozil (Lopid) 600 mg PO BID CORAZON Stop: 08/02/17 16:59 Last Admin: 06/09/17 08:09 Dose: 600 mg Insulin Aspart (Novolog) 0 units SUBQ ACHS CORAZON PRN Reason: Protocol Stop: 08/02/17 16:29 Last Admin: 06/09/17 11:55 Dose: Not Given Levetiracetam (Keppra) 500 mg PO BID CORAZON Stop: 08/02/17 16:59 Last Admin: 06/09/17 08:07 Dose: 500 mg Levothyroxine Sodium (Synthroid) 0.15 mg PO QDAC CORAZON Stop: 08/03/17 07:29 Last Admin: 06/09/17 06:56 Dose: Not Given Lorazepam (Ativan) 0.5 mg PO Q4HR PRN; Protocol PRN Reason: Anxiety Stop: 07/02/17 23:31 Last Admin: 06/09/17 08:07 Dose: 0.5 mg Lorazepam (Ativan) 0.5 mg PO Q6HR PRN; Protocol PRN Reason: Anxiety Stop: 08/02/17 13:21 Magnesium Hydroxide (Milk Of Magnesia) 30 ml PO HS PRN PRN Reason: Constipation Stop: 08/01/17 22:55 Last Admin: 06/07/17 09:37 Dose: 30 ml Multivitamins/Vitamin C (Theragran) 1 tab PO DAILY CORAZON Stop: 08/02/17 08:59 Last Admin: 06/09/17 08:07 Dose: 1 tab Risperidone (Risperdal) 2 mg PO BID CORAZON PRN Reason: Protocol Stop: 08/03/17 16:59 Last Admin: 06/09/17 08:06 Dose: 2 mg Zolpidem Tartrate (Ambien) 5 mg PO HS PRN PRN Reason: Insomnia Stop: 08/01/17 22:55 Last Admin: 06/07/17 20:50 Dose: 5 mg General: demented HEENT: NC/AT, PERRLA, EOMI Neck: Supple, No JVD, No LAD Lungs: CTAB, congested Cardiovascular: RRR, Normal S1, Normal S2, with murmur Abdomen: soft, non-tender, non-distended Extremities: excoriation, contracture Neurological: no change, disorganized Internal Medicine Assmt/Plan - Assessment Assessment: obesity dm htn r breast ca agitation, sad sz disorder - Plan Plan: monitor glucose fall precautions continue plan of care Nutritional Asmnt/Malnutr-PDOC - Dietary Evaluation Malnutrition Findings (Please click <Entered> for more info): Nutritional Asmnt/Malnutrition Start: 06/08/17 15: 31 Text: Status: Active Freq: Document 06/08/17 15:03 OFELIA (Rec: 06/08/17 15:[address] [id number] Nutritional Asmnt/Malnutrition Patient General Information Nutritional Screening Moderate Risk Screening Diagnosis psychosis Pertinent Medical Hx/Surgical Hx DM, HTN, CAD, Seizure, Breast Cancer, Hypothyroidism, Hypercholestolemia Subjective Information Pt is confused, disoriented, not appropriate to visit. Pt was living at detention per H&P. Current Diet Order/ Nutrition Support Mechanical Soft CHopped, NSA, CCHO Patient / S.O Not Indicated Pertinent Medications Vitamin D, Calcium, Colace, Lasix, Novolog, Synthroid, MVI , Vitamin C Pertinent Labs POC: 114-206 since admitted Nutritional Hx/Data Height 5 ft 7 in Height (Calculated Centimeters) 170.2 Current Weight (lbs) 243 lb Weight (Calculated Kilograms) 110.2 Weight (Calculated Grams) 972975.9 [place] Body Weight 135 % [place] Body Weight 180 Weight Status Obese GI Symptoms GI Symptoms None Food Allergies No Skin Integrity/Comment: intact Current %PO Good (75-100%) Estimated Nutritional Goals BEE in Kcals: Adj wt of IBW Calories/Kcals/Kg 25-30 Kcals Calculated 1841-2209kcal Protein: Adj wt of IBW Protein g/k Protein Calculated 74g Fluid: ml 1841-2209ml (1ml/kcal) Nutritional Problem 1. Problem Problem Altered nutrition related lab values Etiology DM Signs/Symptoms: POC 114-206 Malnutrition Alert Protein-Calorie Malnutrition N/A Is there a minimum of two criteria No selected? Query Text:Check all the applicable criteria. A minimum of two criteria are recommended for diagnosis of either severe or non-severe malnutrition. Intervention/Recommendation Comments 1. Continue current diet as ordered 2. Monitor glucose level Expected Outcomes/Goals Expected Outcomes/Goals Goals: pt to have improved glycemic control, wt stablity, skin to remain intact
[2017-06-09] MEDS: Atorvastatin Calcium 10 MG TAB PO SCH ×2 (20:54)
--- NOTE | 2017-06-10 01:33 | Progress Notes ---
DATE: 06/09/2017 SUBJECTIVE: Staff was spoken to. The patient is interviewed. The patient is noted to be irritable. Affect is constricted. The patient's insight and judgment are noted to be still impaired. Impulse control is noted to be poor. The patient has been screaming and yelling and has to be given an IM dose of medications this morning. The patient is currently on Risperdal 2 mg twice a day and also has been given the Haldol once before and patient has been placed on the valproic acid 220 mg twice a day. Even with this one, the patient has been having difficult time and hence I have decided to increase the dose on the Depakote to 250 mg 3 times a day and will follow through with the Depakote level later. ASSESSMENT: The patient is still grossly psychotic and impulsive. PLAN: To continue the patient with the supportive therapy. I encouraged the patient to verbalize the concerns rather than to act out. The patient is not ready to be discharged to a lower level of care yet. JOB# [id number]
[2017-06-10] MEDS: INSULIN ASPART, RECOMBINANT 100 UNITS/ML SUBQ SCH ×8 (06:42→21:31)
[2017-06-10] MEDS: Levothyroxine 0.15 Mg Tab PO SCH ×2 (06:42)
[2017-06-10] MEDS: Multivitamin Tab PO SCH ×2 (08:04)
[2017-06-10] MEDS: Calcium Carb/Vit D 500 mg/200 U Tab PO SCH ×2 (08:04)
--- NOTE | 2017-06-10 11:18 | Internal Medicine Prog Note ---
Internal Medicine Subjective - Subjective Service Date: 06/10/17 Patient is:: awake, verbal, interactive Per staff patient has:: no adverse event, no episodes of fall, poor appetite, agitated, noncompliant, tolerating meds Internal Medicine Objective - Results Recent Labs: Laboratory Last Values POC Glucose 170 MG/DL (70 - 105) H 06/09/17 16:27 - Physical Exam Vitals and I&O: Vital Signs Temp 97.9 F 06/10/17 06:37 Pulse 71 06/10/17 06:37 Resp 19 06/10/17 06:37 BP 120/59 06/10/17 08:04 Pulse Ox 98 06/10/17 06:37 Intake & Output 06/09/17 06/10/17 06/10/17 18:59 06:59 18:59 Intake Total 800 120 Balance 800 120 Intake: Oral 800 120 Other: # Voids 3 3 # Bowel Movements 0 Active Medications: Current Medications Acetaminophen (Tylenol) 650 mg PO Q4H PRN PRN Reason: Mild Pain Or Fever above 101 Stop: 08/02/17 13:21 Last Admin: 06/10/17 04:09 Dose: 650 mg Al Hydrox/Mg Hydrox/Simethicone (Maalox) 30 ml PO Q4HR PRN PRN Reason: GI DISTRESS Stop: 08/01/17 23:31 Anastrozole (Arimidex) 1 mg PO DAILY CORAZON PRN Reason: Protocol Stop: 08/03/17 08:59 Last Admin: 06/10/17 08:04 Dose: 1 mg Atorvastatin Calcium (Lipitor) 10 mg PO HS CORAZON PRN Reason: Protocol Stop: 08/02/17 20:59 Last Admin: 06/09/17 20:54 Dose: 10 mg Calcium/Vitamin D (Oscal W/Vitamin D) 1 tab PO DAILY CORAZON Stop: 08/03/17 08:59 Last Admin: 06/10/17 08:04 Dose: 1 tab Divalproex Sodium (Depakote Dr) 250 mg PO TID CORAZON PRN Reason: Protocol Stop: 08/08/17 20:59 Last Admin: 06/10/17 08:03 Dose: 250 mg Docusate Sodium (Colace) 100 mg PO DAILY CORAZON Stop: 08/03/17 08:59 Last Admin: 06/10/17 08:03 Dose: 100 mg Donepezil HCl (Aricept) 5 mg PO HS CORAZON Stop: 08/02/17 20:59 Last Admin: 06/09/17 20:54 Dose: 5 mg Furosemide (Lasix) 20 mg PO DAILY CORAZON Stop: 08/03/17 08:59 Last Admin: 06/10/17 08:04 Dose: 20 mg Gemfibrozil (Lopid) 600 mg PO BID CORAZON Stop: 08/02/17 16:59 Last Admin: 06/10/17 08:05 Dose: 600 mg Insulin Aspart (Novolog) 0 units SUBQ ACHS CORAZON PRN Reason: Protocol Stop: 08/02/17 16:29 Last Admin: 06/10/17 06:42 Dose: Not Given Levetiracetam (Keppra) 500 mg PO BID CORAZON Stop: 08/02/17 16:59 Last Admin: 06/10/17 08:04 Dose: 500 mg Levothyroxine Sodium (Synthroid) 0.15 mg PO QDAC CORAZON Stop: 08/03/17 07:29 Last Admin: 06/10/17 06:42 Dose: Not Given Lorazepam (Ativan) 0.5 mg PO Q4HR PRN; Protocol PRN Reason: Anxiety Stop: 07/02/17 23:31 Last Admin: 06/10/17 08:05 Dose: 0.5 mg Lorazepam (Ativan) 0.5 mg PO Q6HR PRN; Protocol PRN Reason: Anxiety Stop: 08/02/17 13:21 Magnesium Hydroxide (Milk Of Magnesia) 30 ml PO HS PRN PRN Reason: Constipation Stop: 08/01/17 22:55 Last Admin: 06/07/17 09:37 Dose: 30 ml Multivitamins/Vitamin C (Theragran) 1 tab PO DAILY CORAZON Stop: 08/02/17 08:59 Last Admin: 06/10/17 08:04 Dose: 1 tab Risperidone (Risperdal) 2 mg PO BID CORAZON PRN Reason: Protocol Stop: 08/03/17 16:59 Last Admin: 06/10/17 08:04 Dose: 2 mg Zolpidem Tartrate (Ambien) 5 mg PO HS PRN PRN Reason: Insomnia Stop: 08/01/17 22:55 Last Admin: 06/07/17 20:50 Dose: 5 mg General: demented HEENT: NC/AT, PERRLA, EOMI Neck: Supple, No JVD, No LAD Lungs: CTAB, congested Cardiovascular: RRR, Normal S1, Normal S2, with murmur Abdomen: soft, non-tender, non-distended Extremities: excoriation, contracture Neurological: no change, disorganized Internal Medicine Assmt/Plan - Assessment Assessment: obesity dm htn r breast ca agitation, sad sz disorder - Plan Plan: monitor glucose fall precautions continue plan of care Nutritional Asmnt/Malnutr-PDOC - Dietary Evaluation Malnutrition Findings (Please click <Entered> for more info): Nutritional Asmnt/Malnutrition Start: 06/08/17 15: 31 Text: Status: Active Freq: Document 06/08/17 15:03 RAYMUNDO (Rec: 06/08/17 15:20 [id number]) Nutritional Asmnt/Malnutrition Patient General Information Nutritional Screening Moderate Risk Screening Diagnosis psychosis Pertinent Medical Hx/Surgical Hx DM, HTN, CAD, Seizure, Breast Cancer, Hypothyroidism, Hypercholestolemia Subjective Information Pt is confused, disoriented, not appropriate to visit. Pt was living at residential per H&P. Current Diet Order/ Nutrition Support Mechanical Soft CHopped, NSA, CCHO Patient / S.O Not Indicated Pertinent Medications Vitamin D, Calcium, Colace, Lasix, Novolog, Synthroid, MVI , Vitamin C Pertinent Labs POC: 114-206 since admitted Nutritional Hx/Data Height 5 ft 7 in Height (Calculated Centimeters) 170.2 Current Weight (lbs) 243 lb Weight (Calculated Kilograms) 110.2 Weight (Calculated Grams) 018890.9 [place] Body Weight 135 % [place] Body Weight 180 Weight Status Obese GI Symptoms GI Symptoms None Food Allergies No Skin Integrity/Comment: intact Current %PO Good (75-100%) Estimated Nutritional Goals BEE in Kcals: Adj wt of IBW Calories/Kcals/Kg 25-30 Kcals Calculated 1841-2209kcal Protein: Adj wt of IBW Protein g/k Protein Calculated 74g Fluid: ml 1841-2209ml (1ml/kcal) Nutritional Problem 1. Problem Problem Altered nutrition related lab values Etiology DM Signs/Symptoms: POC 114-206 Malnutrition Alert Protein-Calorie Malnutrition N/A Is there a minimum of two criteria No selected? Query Text:Check all the applicable criteria. A minimum of two criteria are recommended for diagnosis of either severe or non-severe malnutrition. Intervention/Recommendation Comments 1. Continue current diet as ordered 2. Monitor glucose level Expected Outcomes/Goals Expected Outcomes/Goals Goals: pt to have improved glycemic control, wt stablity, skin to remain intact
[2017-06-10] MEDS: Magnesium Hydroxide (MOM) 30 mL UDC PO PRN ×2 (18:37)
[2017-06-10] MEDS: Atorvastatin Calcium 10 MG TAB PO SCH ×2 (21:09)
--- NOTE | 2017-06-10 23:14 | Progress Notes ---
DATE: 06/10/2017 SUBJECTIVE: Staff was spoken to. The patient is interviewed. Mood is noted to be irritable. Affect is constricted. The patient is very disruptive. The patient is not responding to Zyprexa and the patient is allergic to Thorazine, we cannot give it and hence it is decided to try the patient on Mellaril, but Mellaril is not available at this time. ASSESSMENT: The patient is still grossly psychotic and impulsive. PLAN: To continue the patient with Zyprexa and followup. JOB# [id number]
[2017-06-11] MEDS: INSULIN ASPART, RECOMBINANT 100 UNITS/ML SUBQ SCH ×8 (06:39→20:52)
[2017-06-11] MEDS: Levothyroxine 0.15 Mg Tab PO SCH ×2 (06:39)
[2017-06-11] MEDS: Multivitamin Tab PO SCH ×2 (09:54)
[2017-06-11] MEDS: Calcium Carb/Vit D 500 mg/200 U Tab PO SCH ×2 (09:54)
--- NOTE | 2017-06-11 11:38 | Internal Medicine Prog Note ---
Internal Medicine Subjective - Subjective Service Date: 06/11/17 Patient is:: awake, verbal, interactive Per staff patient has:: no adverse event, no episodes of fall, poor appetite, agitated, noncompliant, tolerating meds Internal Medicine Objective - Results Recent Labs: Laboratory Last Values POC Glucose 131 MG/DL (70 - 105) H 06/11/17 06:25 - Physical Exam Vitals and I&O: Vital Signs Temp 98.2 F 06/11/17 00:52 Pulse 57 06/11/17 00:52 Resp 18 06/11/17 00:52 BP 140/76 06/11/17 09:55 Pulse Ox 99 06/11/17 00:52 Intake & Output 06/10/17 06/11/17 06/11/17 18:59 06:59 18:59 Intake Total 1200 Balance 1200 Intake: Oral 1200 Other: # Bowel Movements 1 Active Medications: Current Medications Acetaminophen (Tylenol) 650 mg PO Q4H PRN PRN Reason: Mild Pain Or Fever above 101 Stop: 08/02/17 13:21 Last Admin: 06/10/17 04:09 Dose: 650 mg Al Hydrox/Mg Hydrox/Simethicone (Maalox) 30 ml PO Q4HR PRN PRN Reason: GI DISTRESS Stop: 08/01/17 23:31 Anastrozole (Arimidex) 1 mg PO DAILY CORAZON PRN Reason: Protocol Stop: 08/03/17 08:59 Last Admin: 06/10/17 08:04 Dose: 1 mg Atorvastatin Calcium (Lipitor) 10 mg PO HS CORAZON PRN Reason: Protocol Stop: 08/02/17 20:59 Last Admin: 06/10/17 21:09 Dose: 10 mg Calcium/Vitamin D (Oscal W/Vitamin D) 1 tab PO DAILY CORAZON Stop: 08/03/17 08:59 Last Admin: 06/11/17 09:54 Dose: 1 tab Divalproex Sodium (Depakote Dr) 250 mg PO TID CORAZON PRN Reason: Protocol Stop: 08/08/17 20:59 Last Admin: 06/11/17 09:54 Dose: 250 mg Docusate Sodium (Colace) 100 mg PO DAILY CORAZON Stop: 08/03/17 08:59 Last Admin: 06/11/17 09:55 Dose: 100 mg Donepezil HCl (Aricept) 5 mg PO HS CORAZON Stop: 08/02/17 20:59 Last Admin: 06/10/17 21:09 Dose: 5 mg Furosemide (Lasix) 20 mg PO DAILY CORAZON Stop: 08/03/17 08:59 Last Admin: 06/11/17 09:55 Dose: 20 mg Gemfibrozil (Lopid) 600 mg PO BID CORAZON Stop: 08/02/17 16:59 Last Admin: 06/11/17 09:54 Dose: 600 mg Insulin Aspart (Novolog) 0 units SUBQ ACHS CORAZON PRN Reason: Protocol Stop: 08/02/17 16:29 Last Admin: 06/11/17 06:39 Dose: Not Given Levetiracetam (Keppra) 500 mg PO BID CORAZON Stop: 08/02/17 16:59 Last Admin: 06/11/17 09:54 Dose: 500 mg Levothyroxine Sodium (Synthroid) 0.15 mg PO QDAC CORAZON Stop: 08/03/17 07:29 Last Admin: 06/11/17 06:39 Dose: Not Given Lorazepam (Ativan) 0.5 mg PO Q4HR PRN; Protocol PRN Reason: Anxiety Stop: 07/02/17 23:31 Last Admin: 06/10/17 08:05 Dose: 0.5 mg Lorazepam (Ativan) 0.5 mg PO Q6HR PRN; Protocol PRN Reason: Anxiety Stop: 08/02/17 13:21 Magnesium Hydroxide (Milk Of Magnesia) 30 ml PO HS PRN PRN Reason: Constipation Stop: 08/01/17 22:55 Last Admin: 06/10/17 18:37 Dose: 30 ml Multivitamins/Vitamin C (Theragran) 1 tab PO DAILY CORAZON Stop: 08/02/17 08:59 Last Admin: 06/11/17 09:54 Dose: 1 tab Risperidone (Risperdal) 2 mg PO BID CORAZON PRN Reason: Protocol Stop: 08/03/17 16:59 Last Admin: 06/11/17 09:54 Dose: 2 mg Zolpidem Tartrate (Ambien) 5 mg PO HS PRN PRN Reason: Insomnia Stop: 08/01/17 22:55 Last Admin: 06/07/17 20:50 Dose: 5 mg General: demented HEENT: NC/AT, PERRLA, EOMI Neck: Supple, No JVD, No LAD Lungs: CTAB, congested Cardiovascular: RRR, Normal S1, Normal S2, with murmur Abdomen: soft, non-tender, non-distended Extremities: excoriation, contracture Neurological: no change, disorganized Internal Medicine Assmt/Plan - Assessment Assessment: obesity dm htn r breast ca agitation, sad sz disorder - Plan Plan: monitor glucose fall precautions continue plan of care Nutritional Asmnt/Malnutr-PDOC - Dietary Evaluation Malnutrition Findings (Please click <Entered> for more info): Nutritional Asmnt/Malnutrition Start: 06/08/17 15: 31 Text: Status: Active Freq: Document 06/08/17 15:03 RAYMUNDO (Rec: 06/08/17 15:20 [id number]) Nutritional Asmnt/Malnutrition Patient General Information Nutritional Screening Moderate Risk Diagnosis psychosis Pertinent Medical Hx/Surgical Hx DM, HTN, CAD, Seizure, Breast Cancer, Hypothyroidism, Hypercholestolemia Subjective Information Pt is confused, disoriented, not appropriate to visit. Pt was living at longterm per H&P. Current Diet Order/ Nutrition Support Mechanical Soft CHopped, NSA, CCHO Patient / S.O Not Indicated Pertinent Medications Vitamin D, Calcium, Colace, Lasix, Novolog, Synthroid, MVI , Vitamin C Pertinent Labs POC: 114-206 since admitted Nutritional Hx/Data Height 5 ft 7 in Height (Calculated Centimeters) 170.2 Current Weight (lbs) 243 lb Weight (Calculated Kilograms) 110.2 Weight (Calculated Grams) 186864.9 [place] Body Weight 135 % [place] Body Weight 180 Weight Status Obese GI Symptoms GI Symptoms None Food Allergies No Skin Integrity/Comment: intact Current %PO Good (75-100%) Estimated Nutritional Goals BEE in Kcals: Adj wt of IBW Calories/Kcals/Kg 25-30 Kcals Calculated 1841-2209kcal Protein: Adj wt of IBW Protein g/k Protein Calculated 74g Fluid: ml 1841-2209ml (1ml/kcal) Nutritional Problem 1. Problem Problem Altered nutrition related lab values Etiology DM Signs/Symptoms: POC 114-206 Malnutrition Alert Protein-Calorie Malnutrition N/A Is there a minimum of two criteria No selected? Query Text:Check all the applicable criteria. A minimum of two criteria are recommended for diagnosis of either severe or non-severe malnutrition. Intervention/Recommendation Comments 1. Continue current diet as ordered 2. Monitor glucose level Expected Outcomes/Goals Expected Outcomes/Goals Goals: pt to have improved glycemic control, wt stablity, skin to remain intact
[2017-06-11] MEDS: Atorvastatin Calcium 10 MG TAB PO SCH ×2 (20:51)
--- NOTE | 2017-06-12 04:11 | Progress Notes ---
DATE: 06/11/2017 SUBJECTIVE: Staff was spoken to. The patient is interviewed. Mood is noted to be irritable. Affect is constricted. The patient is still acting very bizarre and has no insight into her illness. Coping skills are noted to be extremely poor. Sleep and appetite are also noted to be very poor. The patient has been screaming and yelling and becoming difficult to contain the patient's behavior. The patient has been on Depakote 250 mg 3 times a day and the patient is going to be placed on 500 mg twice a day and the patient is going to be followed up with supportive therapy. The patient is currently on Risperdal 2 mg along with it. ASSESSMENT: The patient is still psychotic. PLAN: To continue the patient with supportive therapy. Encouraged the patient to verbalize the concerns rather than to act out. JOB# [id number]
[2017-06-12] MEDS: INSULIN ASPART, RECOMBINANT 100 UNITS/ML SUBQ SCH ×8 (06:42→20:00)
[2017-06-12] MEDS: Levothyroxine 0.15 Mg Tab PO SCH ×2 (06:43)
[2017-06-12] MEDS: Multivitamin Tab PO SCH ×2 (09:49)
[2017-06-12] MEDS: Calcium Carb/Vit D 500 mg/200 U Tab PO SCH ×2 (09:50)
--- NOTE | 2017-06-12 19:50 | Internal Medicine Prog Note ---
Internal Medicine Subjective - Subjective Patient seen and examined:: with staff, chart reviewed Patient is:: awake, verbal, interactive Per staff patient has:: no adverse event, no episodes of fall, poor appetite, agitated, noncompliant, tolerating meds Internal Medicine Objective - Results Recent Labs: Laboratory Last Values POC Glucose 147 MG/DL (70 - 105) H 06/11/17 20:23 - Physical Exam Vitals and I&O: Vital Signs Temp 97.6 F 06/12/17 07:07 Pulse 69 06/12/17 07:07 Resp 19 06/12/17 07:07 BP 160/78 06/12/17 09:51 Pulse Ox 98 06/12/17 07:07 Intake & Output 06/12/17 06/12/17 06/13/17 06:59 18:59 05:59 Intake Total 120 Output Total 1 Balance 119 Intake: Oral 120 Output: Stool 1 Other: # Voids 1 Active Medications: Current Medications Acetaminophen (Tylenol) 650 mg PO Q4H PRN PRN Reason: Mild Pain Or Fever above 101 Stop: 08/02/17 13:21 Last Admin: 06/10/17 04:09 Dose: 650 mg Al Hydrox/Mg Hydrox/Simethicone (Maalox) 30 ml PO Q4HR PRN PRN Reason: GI DISTRESS Stop: 08/01/17 23:31 Anastrozole (Arimidex) 1 mg PO DAILY CORAZON PRN Reason: Protocol Stop: 08/03/17 08:59 Last Admin: 06/12/17 09:48 Dose: 1 mg Atorvastatin Calcium (Lipitor) 10 mg PO HS CORAZON PRN Reason: Protocol Stop: 08/02/17 20:59 Last Admin: 06/11/17 20:51 Dose: 10 mg Calcium/Vitamin D (Oscal W/Vitamin D) 1 tab PO DAILY CORAZON Stop: 08/03/17 08:59 Last Admin: 06/12/17 09:50 Dose: 1 tab Divalproex Sodium (Depakote Dr) 500 mg PO BID CORAZON PRN Reason: Protocol Stop: 08/11/17 08:59 Last Admin: 06/12/17 17:08 Dose: 500 mg Docusate Sodium (Colace) 100 mg PO DAILY CORAZON Stop: 08/03/17 08:59 Last Admin: 06/12/17 09:49 Dose: 100 mg Donepezil HCl (Aricept) 5 mg PO HS CORAZON Stop: 08/02/17 20:59 Last Admin: 06/11/17 20:51 Dose: 5 mg Furosemide (Lasix) 20 mg PO DAILY CORAZON Stop: 08/03/17 08:59 Last Admin: 06/12/17 09:51 Dose: 20 mg Gemfibrozil (Lopid) 600 mg PO BID CORAZON Stop: 08/02/17 16:59 Last Admin: 06/12/17 17:02 Dose: Not Given Insulin Aspart (Novolog) 0 units SUBQ ACHS CORAZON PRN Reason: Protocol Stop: 08/02/17 16:29 Last Admin: 06/12/17 16:26 Dose: Not Given Levetiracetam (Keppra) 500 mg PO BID CORAZON Stop: 08/02/17 16:59 Last Admin: 06/12/17 17:09 Dose: 500 mg Levothyroxine Sodium (Synthroid) 0.15 mg PO QDAC CORAZON Stop: 08/03/17 07:29 Last Admin: 06/12/17 06:43 Dose: Not Given Lorazepam (Ativan) 0.5 mg PO Q4HR PRN; Protocol PRN Reason: Anxiety Stop: 07/02/17 23:31 Last Admin: 06/12/17 02:52 Dose: 0.5 mg Lorazepam (Ativan) 0.5 mg PO Q6HR PRN; Protocol PRN Reason: Anxiety Stop: 08/02/17 13:21 Magnesium Hydroxide (Milk Of Magnesia) 30 ml PO HS PRN PRN Reason: Constipation Stop: 08/01/17 22:55 Last Admin: 06/10/17 18:37 Dose: 30 ml Multivitamins/Vitamin C (Theragran) 1 tab PO DAILY CORAZON Stop: 08/02/17 08:59 Last Admin: 06/12/17 09:49 Dose: 1 tab Olanzapine (Zyprexa) 10 mg PO BID CORAZON PRN Reason: Protocol Stop: 08/11/17 08:59 Last Admin: 06/12/17 17:08 Dose: 10 mg Zolpidem Tartrate (Ambien) 5 mg PO HS PRN PRN Reason: Insomnia Stop: 08/01/17 22:55 Last Admin: 06/11/17 20:51 Dose: 5 mg General: demented HEENT: NC/AT, PERRLA, EOMI Neck: Supple, No JVD, No LAD Lungs: CTAB, congested Cardiovascular: RRR, Normal S1, Normal S2, with murmur Abdomen: soft, non-tender, non-distended Extremities: excoriation, contracture Neurological: no change, disorganized Internal Medicine Assmt/Plan - Assessment Assessment: obesity dm htn r breast ca agitation, sad sz disorder - Plan Plan: cont on ada diet cont on aed fall precaution will titrate bp meds dw rn will review meds once they become available Nutritional Asmnt/Malnutr-PDOC - Dietary Evaluation Malnutrition Findings (Please click <Entered> for more info): Nutritional Asmnt/Malnutrition Start: 06/08/17 15: 31 Text: Status: Active Freq: Document 06/08/17 15:03 RAYMUNDO (Rec: 06/08/17 15:20 [id number]) Nutritional Asmnt/Malnutrition Patient General Information Nutritional Screening Moderate Risk Diagnosis psychosis Pertinent Medical Hx/Surgical Hx DM, HTN, CAD, Seizure, Breast Cancer, Hypothyroidism, Hypercholestolemia Subjective Information Pt is confused, disoriented, not appropriate to visit. Pt was living at half-way per H&P. Current Diet Order/ Nutrition Support Mechanical Soft CHopped, NSA, CCHO Patient / S.O Not Indicated Pertinent Medications Vitamin D, Calcium, Colace, Lasix, Novolog, Synthroid, MVI , Vitamin C Pertinent Labs POC: 114-206 since admitted Nutritional Hx/Data Height 1.7 m Height (Calculated Centimeters) 170.2 Current Weight (lbs) 110.223 kg Weight (Calculated Kilograms) 110.2 Weight (Calculated Grams) 634298.9 [place] Body Weight 135 % [place] Body Weight 180 Weight Status Obese GI Symptoms GI Symptoms None Food Allergies No Skin Integrity/Comment: intact Current %PO Good (75-100%) Estimated Nutritional Goals BEE in Kcals: Adj wt of IBW Calories/Kcals/Kg 25-30 Kcals Calculated 1841-2209kcal Protein: Adj wt of IBW Protein g/k Protein Calculated 74g Fluid: ml 1841-2209ml (1ml/kcal) Nutritional Problem 1. Problem Problem Altered nutrition related lab values Etiology DM Signs/Symptoms: POC 114-206 Malnutrition Alert Protein-Calorie Malnutrition N/A Is there a minimum of two criteria No selected? Query Text:Check all the applicable criteria. A minimum of two criteria are recommended for diagnosis of either severe or non-severe malnutrition. Intervention/Recommendation Comments 1. Continue current diet as ordered 2. Monitor glucose level Expected Outcomes/Goals Expected Outcomes/Goals Goals: pt to have improved glycemic control, wt stablity, skin to remain intact
[2017-06-12] MEDS: Atorvastatin Calcium 10 MG TAB PO SCH ×2 (20:04)
--- NOTE | 2017-06-13 01:47 | Progress Notes ---
DATE: 06/12/2017 PSYCHIATRIC PROGRESS NOTE SUBJECTIVE: Staff was spoken to. The patient is interviewed. Mood is noted to be irritable. Affect is constricted. The patient is very paranoid and has been accusing that people are killing other people and the patient is very much worried that her life is in danger here. The patient has been having difficult time to cope with the stress at this time. The patient has been pacing most of the time. ASSESSMENT: The patient is still grossly psychotic and has been impulsive. PLAN: To continue the patient with the supportive therapy. The patient is still impulsive and paranoid. Plan to increase the dose on the Seroquel and the Zyprexa to 10 mg twice a day and follow the patient with the supportive therapy. JOB# [id number]
[2017-06-13] MEDS: Levothyroxine 0.15 Mg Tab PO SCH ×2 (06:31)
[2017-06-13] MEDS: INSULIN ASPART, RECOMBINANT 100 UNITS/ML SUBQ SCH ×8 (06:31→20:59)
[2017-06-13] MEDS: Calcium Carb/Vit D 500 mg/200 U Tab PO SCH ×2 (08:08)
[2017-06-13] MEDS: Multivitamin Tab PO SCH ×2 (08:09)
[2017-06-13] MEDS: Atorvastatin Calcium 10 MG TAB PO SCH ×2 (20:57)
--- NOTE | 2017-06-13 20:58 | Internal Medicine Prog Note ---
Internal Medicine Subjective - Subjective Patient seen and examined:: with staff, chart reviewed Patient is:: awake, verbal, interactive Per staff patient has:: no adverse event, no episodes of fall, poor appetite, agitated, noncompliant, tolerating meds Internal Medicine Objective - Results Recent Labs: Laboratory Last Values POC Glucose 175 MG/DL (70 - 105) H 06/13/17 20:02 - Physical Exam Vitals and I&O: Vital Signs Temp 97.9 F 06/13/17 08:00 Pulse 57 06/13/17 08:00 Resp 19 06/13/17 08:00 BP 140/92 06/13/17 08:09 Pulse Ox 96 06/13/17 08:00 Intake & Output 06/13/17 06/13/17 06/14/17 06:59 18:59 06:59 Intake Total 60 Balance 60 Intake: Oral 60 Other: # Voids 1 # Bowel Movements 0 Active Medications: Current Medications Acetaminophen (Tylenol) 650 mg PO Q4H PRN PRN Reason: Mild Pain Or Fever above 101 Stop: 08/02/17 13:21 Last Admin: 06/10/17 04:09 Dose: 650 mg Al Hydrox/Mg Hydrox/Simethicone (Maalox) 30 ml PO Q4HR PRN PRN Reason: GI DISTRESS Stop: 08/01/17 23:31 Anastrozole (Arimidex) 1 mg PO DAILY CORAZON PRN Reason: Protocol Stop: 08/03/17 08:59 Last Admin: 06/13/17 08:08 Dose: 1 mg Atorvastatin Calcium (Lipitor) 10 mg PO HS CORAZON PRN Reason: Protocol Stop: 08/02/17 20:59 Last Admin: 06/12/17 20:04 Dose: 10 mg Calcium/Vitamin D (Oscal W/Vitamin D) 1 tab PO DAILY CORAZON Stop: 08/03/17 08:59 Last Admin: 06/13/17 08:08 Dose: 1 tab Divalproex Sodium (Depakote Dr) 500 mg PO BID CORAZON PRN Reason: Protocol Stop: 08/11/17 08:59 Last Admin: 06/13/17 16:29 Dose: Not Given Docusate Sodium (Colace) 100 mg PO DAILY CORAZON Stop: 08/03/17 08:59 Last Admin: 06/13/17 08:09 Dose: 100 mg Donepezil HCl (Aricept) 5 mg PO HS CORAZON Stop: 08/02/17 20:59 Last Admin: 06/12/17 20:04 Dose: 5 mg Furosemide (Lasix) 20 mg PO DAILY CORAZON Stop: 08/03/17 08:59 Last Admin: 06/13/17 08:09 Dose: 20 mg Gemfibrozil (Lopid) 600 mg PO BID CORAZON Stop: 08/02/17 16:59 Last Admin: 06/13/17 16:29 Dose: Not Given Insulin Aspart (Novolog) 0 units SUBQ ACHS CORAZON PRN Reason: Protocol Stop: 08/02/17 16:29 Last Admin: 06/13/17 16:29 Dose: Not Given Levetiracetam (Keppra) 500 mg PO BID CORAZON Stop: 08/02/17 16:59 Last Admin: 06/13/17 16:29 Dose: Not Given Levothyroxine Sodium (Synthroid) 0.15 mg PO QDAC CORAZON Stop: 08/03/17 07:29 Last Admin: 06/13/17 06:31 Dose: Not Given Lorazepam (Ativan) 0.5 mg PO Q4HR PRN; Protocol PRN Reason: Anxiety Stop: 07/02/17 23:31 Last Admin: 06/13/17 16:12 Dose: 0.5 mg Lorazepam (Ativan) 0.5 mg PO Q6HR PRN; Protocol PRN Reason: Anxiety Stop: 08/02/17 13:21 Magnesium Hydroxide (Milk Of Magnesia) 30 ml PO HS PRN PRN Reason: Constipation Stop: 08/01/17 22:55 Last Admin: 06/10/17 18:37 Dose: 30 ml Multivitamins/Vitamin C (Theragran) 1 tab PO DAILY CORAZON Stop: 08/02/17 08:59 Last Admin: 06/13/17 08:09 Dose: 1 tab Olanzapine (Zyprexa) 10 mg PO BID CORAZON PRN Reason: Protocol Stop: 08/11/17 08:59 Last Admin: 06/13/17 16:29 Dose: Not Given Zolpidem Tartrate (Ambien) 5 mg PO HS PRN PRN Reason: Insomnia Stop: 08/01/17 22:55 Last Admin: 06/12/17 21:25 Dose: 5 mg General: demented HEENT: NC/AT, PERRLA, EOMI Neck: Supple, No JVD, No LAD Lungs: CTAB, congested Cardiovascular: RRR, Normal S1, Normal S2, with murmur Abdomen: soft, non-tender, non-distended Extremities: excoriation, contracture Neurological: no change, disorganized Internal Medicine Assmt/Plan - Assessment Assessment: obesity dm htn r breast ca agitation, sad sz disorder - Plan Plan: cont on ada diet cont on aed fall precaution will titrate bp meds dw rn will review meds once they become available Nutritional Asmnt/Malnutr-PDOC - Dietary Evaluation Malnutrition Findings (Please click <Entered> for more info): Nutritional Asmnt/Malnutrition Start: 06/08/17 15: 31 Text: Status: Active Freq: Document 06/08/17 15:03 RAYMUNDO (Rec: 06/08/17 15:20 MARY ELLENG [id number]) Nutritional Asmnt/Malnutrition Patient General Information Nutritional Screening Moderate Risk Diagnosis psychosis Pertinent Medical Hx/Surgical Hx DM, HTN, CAD, Seizure, Breast Cancer, Hypothyroidism, Hypercholestolemia Subjective Information Pt is confused, disoriented, not appropriate to visit. Pt was living at shelter per H&P. Current Diet Order/ Nutrition Support Mechanical Soft CHopped, NSA, CCHO Patient / S.O Not Indicated Pertinent Medications Vitamin D, Calcium, Colace, Lasix, Novolog, Synthroid, MVI , Vitamin C Pertinent Labs POC: 114-206 since admitted Nutritional Hx/Data Height 1.7 m Height (Calculated Centimeters) 170.2 Current Weight (lbs) 110.223 kg Weight (Calculated Kilograms) 110.2 Weight (Calculated Grams) 684807.9 [place] Body Weight 135 % [place] Body Weight 180 Weight Status Obese GI Symptoms GI Symptoms None Food Allergies No Skin Integrity/Comment: intact Current %PO Good (75-100%) Estimated Nutritional Goals BEE in Kcals: Adj wt of IBW Calories/Kcals/Kg 25-30 Kcals Calculated 1841-2209kcal Protein: Adj wt of IBW Protein g/k Protein Calculated 74g Fluid: ml 1841-2209ml (1ml/kcal) Nutritional Problem 1. Problem Problem Altered nutrition related lab values Etiology DM Signs/Symptoms: POC 114-206 Malnutrition Alert Protein-Calorie Malnutrition N/A Is there a minimum of two criteria No selected? Query Text:Check all the applicable criteria. A minimum of two criteria are recommended for diagnosis of either severe or non-severe malnutrition. Intervention/Recommendation Comments 1. Continue current diet as ordered 2. Monitor glucose level Expected Outcomes/Goals Expected Outcomes/Goals Goals: pt to have improved glycemic control, wt stablity, skin to remain intact
--- NOTE | 2017-06-13 23:46 | Progress Notes ---
DATE: 06/13/2017 PSYCHIATRIC PROGRESS NOTE SUBJECTIVE: Staff was spoken to. The patient is interviewed. Mood is noted to be irritable. Affect is constricted. The patient is screaming and yelling. The patient has to be given a dose of the Zyprexa. The patient is currently on Zyprexa 10 mg twice a day and Depakote 500 mg twice a day. The patient is still having difficult time to comply. The patient has been very paranoid and has been getting into other people's rooms. ASSESSMENT: The patient is still grossly psychotic. PLAN: To continue to monitor the patient with the Zyprexa that is being given. JOB# [id number]
[2017-06-14] MEDS: INSULIN ASPART, RECOMBINANT 100 UNITS/ML SUBQ SCH ×8 (06:35→23:19)
[2017-06-14] MEDS: Levothyroxine 0.15 Mg Tab PO SCH ×2 (06:37)
[2017-06-14] MEDS: Multivitamin Tab PO SCH ×2 (08:22)
[2017-06-14] MEDS: Calcium Carb/Vit D 500 mg/200 U Tab PO SCH ×2 (08:22)
--- NOTE | 2017-06-14 12:55 | Internal Medicine Prog Note ---
Internal Medicine Subjective - Subjective Service Date: 06/14/17 Patient is:: awake, verbal, interactive Per staff patient has:: no adverse event, no episodes of fall, poor appetite, agitated, noncompliant, tolerating meds Internal Medicine Objective - Results Recent Labs: Laboratory Last Values POC Glucose 138 MG/DL (70 - 105) H 06/14/17 11:52 - Physical Exam Vitals and I&O: Vital Signs Temp 97.9 F 06/13/17 08:00 Pulse 55 06/14/17 10:47 Resp 19 06/13/17 08:00 BP 130/75 06/14/17 08:26 Pulse Ox 96 06/13/17 08:00 Intake & Output 06/13/17 06/14/17 06/14/17 18:59 06:59 18:59 Intake Total 60 Balance 60 Intake: Oral 60 Other: # Voids 1 # Bowel Movements 0 Active Medications: Current Medications Acetaminophen (Tylenol) 650 mg PO Q4H PRN PRN Reason: Mild Pain Or Fever above 101 Stop: 08/02/17 13:21 Last Admin: 06/10/17 04:09 Dose: 650 mg Al Hydrox/Mg Hydrox/Simethicone (Maalox) 30 ml PO Q4HR PRN PRN Reason: GI DISTRESS Stop: 08/01/17 23:31 Anastrozole (Arimidex) 1 mg PO DAILY CORAZON PRN Reason: Protocol Stop: 08/03/17 08:59 Last Admin: 06/14/17 08:22 Dose: 1 mg Atorvastatin Calcium (Lipitor) 10 mg PO HS CORAZON PRN Reason: Protocol Stop: 08/02/17 20:59 Last Admin: 06/13/17 20:57 Dose: 10 mg Calcium/Vitamin D (Oscal W/Vitamin D) 1 tab PO DAILY CORAZON Stop: 08/03/17 08:59 Last Admin: 06/14/17 08:22 Dose: 1 tab Divalproex Sodium (Depakote Dr) 500 mg PO BID CORAZON Stop: 08/13/17 16:59 Docusate Sodium (Colace) 100 mg PO DAILY CORAZON Stop: 08/03/17 08:59 Last Admin: 06/14/17 08:23 Dose: 100 mg Donepezil HCl (Aricept) 5 mg PO HS CORAZON Stop: 08/02/17 20:59 Last Admin: 06/13/17 20:57 Dose: 5 mg Furosemide (Lasix) 20 mg PO DAILY CORAZON Stop: 08/03/17 08:59 Last Admin: 06/14/17 08:26 Dose: 20 mg Gemfibrozil (Lopid) 600 mg PO BID CORAZON Stop: 08/02/17 16:59 Last Admin: 06/14/17 08:22 Dose: 600 mg Insulin Aspart (Novolog) 0 units SUBQ ACHS CORAZON PRN Reason: Protocol Stop: 08/02/17 16:29 Last Admin: 06/14/17 12:00 Dose: Not Given Levetiracetam (Keppra) 500 mg PO BID CORAZON Stop: 08/02/17 16:59 Last Admin: 06/14/17 08:23 Dose: 500 mg Levothyroxine Sodium (Synthroid) 0.15 mg PO QDAC CORAZON Stop: 08/03/17 07:29 Last Admin: 06/14/17 06:37 Dose: Not Given Lorazepam (Ativan) 0.5 mg PO Q6HR PRN; Protocol PRN Reason: Anxiety Stop: 08/02/17 13:21 Magnesium Hydroxide (Milk Of Magnesia) 30 ml PO HS PRN PRN Reason: Constipation Stop: 08/01/17 22:55 Last Admin: 06/10/17 18:37 Dose: 30 ml Multivitamins/Vitamin C (Theragran) 1 tab PO DAILY CORAZON Stop: 08/02/17 08:59 Last Admin: 06/14/17 08:22 Dose: 1 tab Olanzapine (Zyprexa) 10 mg PO BID CORAZON PRN Reason: Protocol Stop: 08/11/17 08:59 Last Admin: 06/14/17 08:22 Dose: 10 mg Zolpidem Tartrate (Ambien) 5 mg PO HS PRN PRN Reason: Insomnia Stop: 08/01/17 22:55 Last Admin: 06/13/17 20:57 Dose: 5 mg General: demented HEENT: NC/AT, PERRLA, EOMI Neck: Supple, No JVD, No LAD Lungs: CTAB, congested Cardiovascular: RRR, Normal S1, Normal S2, with murmur Abdomen: soft, non-tender, non-distended Extremities: excoriation, contracture Neurological: no change, disorganized Internal Medicine Assmt/Plan - Assessment Assessment: obesity dm htn r breast ca agitation, sad sz disorder - Plan Plan: monitor glucose fall precautions continue plan of care Nutritional Asmnt/Malnutr-PDOC - Dietary Evaluation Malnutrition Findings (Please click <Entered> for more info): Nutritional Asmnt/Malnutrition Start: 06/08/17 15: 31 Text: Status: Active Freq: Document 06/08/17 15:03 RAYMUNDO (Rec: 06/08/17 15:20 RAYMUNDO [id number]) Nutritional Asmnt/Malnutrition Patient General Information Nutritional Screening Moderate Risk Diagnosis psychosis Pertinent Medical Hx/Surgical Hx DM, HTN, CAD, Seizure, Breast Cancer, Hypothyroidism, Hypercholestolemia Subjective Information Pt is confused, disoriented, not appropriate to visit. [facility]&P. Current Diet Order/ Nutrition Support Mechanical Soft CHopped, NSA, CCHO Patient / S.O Not Indicated Pertinent Medications Vitamin D, Calcium, Colace, Lasix, Novolog, Synthroid, MVI , Vitamin C Pertinent Labs POC: 114-206 since admitted Nutritional Hx/Data Height 5 ft 7 in Height (Calculated Centimeters) 170.2 Current Weight (lbs) 243 lb Weight (Calculated Kilograms) 110.2 Weight (Calculated Grams) 462882.9 [place] Body Weight 135 % [place] Body Weight 180 Weight Status Obese GI Symptoms GI Symptoms None Food Allergies No Skin Integrity/Comment: intact Current %PO Good (75-100%) Estimated Nutritional Goals BEE in Kcals: Adj wt of IBW Calories/Kcals/Kg 25-30 Kcals Calculated 1841-2209kcal Protein: Adj wt of IBW Protein g/k Protein Calculated 74g Fluid: ml 1841-2209ml (1ml/kcal) Nutritional Problem 1. Problem Problem Altered nutrition related lab values Etiology DM Signs/Symptoms: POC 114-206 Malnutrition Alert Protein-Calorie Malnutrition N/A Is there a minimum of two criteria No selected? Query Text:Check all the applicable criteria. A minimum of two criteria are recommended for diagnosis of either severe or non-severe malnutrition. Intervention/Recommendation Comments 1. Continue current diet as ordered 2. Monitor glucose level Expected Outcomes/Goals Expected Outcomes/Goals Goals: pt to have improved glycemic control, wt stablity, skin to remain intact
[2017-06-14] MEDS: Atorvastatin Calcium 10 MG TAB PO SCH ×2 (20:23)
--- NOTE | 2017-06-14 21:02 | Progress Notes ---
DATE: 06/14/2017 SUBJECTIVE: Staff was spoken to. The patient is interviewed. Mood is noted to be irritable. Affect is constricted. The patient's insight and judgment at this time are noted to be still impaired. The patient is currently on 10 mg twice a day of olanzapine and 500 mg twice a day of valproic acid. Even with these medications, the patient has been having difficult time to comply with the treatment. The patient has been screaming and yelling. The patient could not be redirected. The patient has no insight into her illness. ASSESSMENT: The patient is still grossly psychotic and impulsive. The patient has to be given a dose of medication this morning. PLAN: To continue the patient with the supportive therapy. I encouraged the patient to verbalize the concerns rather than to act out. JOB# [id number]
[2017-06-15] MEDS: Multivitamin Tab PO SCH ×2 (08:37)
[2017-06-15] MEDS: Calcium Carb/Vit D 500 mg/200 U Tab PO SCH ×2 (08:38)
--- NOTE | 2017-06-15 11:28 | Internal Medicine Prog Note ---
Internal Medicine Subjective - Subjective Service Date: 06/15/17 Patient is:: awake, verbal, interactive Per staff patient has:: no adverse event, no episodes of fall, poor appetite, agitated, noncompliant, tolerating meds Internal Medicine Objective - Results Recent Labs: Laboratory Last Values POC Glucose 146 MG/DL (70 - 105) H 06/14/17 21:03 - Physical Exam Vitals and I&O: Vital Signs Temp 98.6 F 06/14/17 20:29 Pulse 51 06/14/17 20:29 Resp 18 06/14/17 20:29 BP 149/71 06/14/17 20:29 Pulse Ox 93 06/14/17 20:29 Intake & Output 06/14/17 06/15/17 06/15/17 18:59 06:59 18:59 Intake Total 360 Balance 360 Intake: Oral 360 Other: # Voids 2 # Bowel Movements 1 Active Medications: Current Medications Acetaminophen (Tylenol) 650 mg PO Q4H PRN PRN Reason: Mild Pain Or Fever above 101 Stop: 08/02/17 13:21 Last Admin: 06/10/17 04:09 Dose: 650 mg Al Hydrox/Mg Hydrox/Simethicone (Maalox) 30 ml PO Q4HR PRN PRN Reason: GI DISTRESS Stop: 08/01/17 23:31 Anastrozole (Arimidex) 1 mg PO DAILY CORAZON PRN Reason: Protocol Stop: 08/03/17 08:59 Last Admin: 06/15/17 08:37 Dose: 1 mg Atorvastatin Calcium (Lipitor) 10 mg PO HS CORAZON PRN Reason: Protocol Stop: 08/02/17 20:59 Last Admin: 06/14/17 20:23 Dose: 10 mg Calcium/Vitamin D (Oscal W/Vitamin D) 1 tab PO DAILY CORAZON Stop: 08/03/17 08:59 Last Admin: 06/15/17 08:38 Dose: 1 tab Divalproex Sodium (Depakote Dr) 500 mg PO BID CORAZON Stop: 08/13/17 16:59 Last Admin: 06/15/17 08:37 Dose: 500 mg Docusate Sodium (Colace) 100 mg PO DAILY CORAZON Stop: 08/03/17 08:59 Last Admin: 06/15/17 08:38 Dose: 100 mg Donepezil HCl (Aricept) 5 mg PO HS CORAZON Stop: 08/02/17 20:59 Last Admin: 06/14/17 20:23 Dose: 5 mg Furosemide (Lasix) 20 mg PO DAILY CORAZON Stop: 08/03/17 08:59 Last Admin: 06/15/17 08:38 Dose: Not Given Gemfibrozil (Lopid) 600 mg PO BID CORAZON Stop: 08/02/17 16:59 Last Admin: 06/15/17 08:38 Dose: 600 mg Insulin Aspart (Novolog) 0 units SUBQ ACHS CORAZON PRN Reason: Protocol Stop: 08/02/17 16:29 Last Admin: 06/14/17 23:19 Dose: Not Given Levetiracetam (Keppra) 500 mg PO BID CORAZON Stop: 08/02/17 16:59 Last Admin: 06/15/17 08:37 Dose: 500 mg Levothyroxine Sodium (Synthroid) 0.15 mg PO QDAC CORAZON Stop: 08/03/17 07:29 Last Admin: 06/14/17 06:37 Dose: Not Given Lorazepam (Ativan) 0.5 mg PO Q6HR PRN; Protocol PRN Reason: Anxiety Stop: 08/02/17 13:21 Magnesium Hydroxide (Milk Of Magnesia) 30 ml PO HS PRN PRN Reason: Constipation Stop: 08/01/17 22:55 Last Admin: 06/10/17 18:37 Dose: 30 ml Multivitamins/Vitamin C (Theragran) 1 tab PO DAILY CORAZON Stop: 08/02/17 08:59 Last Admin: 06/15/17 08:37 Dose: 1 tab Olanzapine (Zyprexa) 10 mg PO BID CORAZON PRN Reason: Protocol Stop: 08/11/17 08:59 Last Admin: 06/15/17 08:38 Dose: 10 mg Zolpidem Tartrate (Ambien) 5 mg PO HS PRN PRN Reason: Insomnia Stop: 08/01/17 22:55 Last Admin: 06/14/17 20:23 Dose: 5 mg General: demented HEENT: NC/AT, PERRLA, EOMI Neck: Supple, No JVD, No LAD Lungs: CTAB, congested Cardiovascular: RRR, Normal S1, Normal S2, with murmur Abdomen: soft, non-tender, non-distended Extremities: excoriation, contracture Neurological: no change, disorganized Internal Medicine Assmt/Plan - Assessment Assessment: obesity dm htn r breast ca agitation, sad sz disorder - Plan Plan: monitor glucose fall precautions continue plan of care Nutritional Asmnt/Malnutr-PDOC - Dietary Evaluation Malnutrition Findings (Please click <Entered> for more info): Nutritional Asmnt/Malnutrition Start: 06/08/17 15: 31 Text: Status: Active Freq: Document 06/08/17 15:03 NATOSENAIT (Rec: 06/08/17 15:20 LCSENAIT [id number]) Nutritional Asmnt/Malnutrition Patient General Information Nutritional Screening Moderate Risk Diagnosis psychosis Pertinent Medical Hx/Surgical Hx DM, HTN, CAD, Seizure, Breast Cancer, Hypothyroidism, Hypercholestolemia Subjective Information Pt is confused, disoriented, not appropriate to visit. Pt was living at skilled nursing per H&P. Current Diet Order/ Nutrition Support Mechanical Soft CHopped, NSA, CCHO Patient / S.O Not Indicated Pertinent Medications Vitamin D, Calcium, Colace, Lasix, Novolog, Synthroid, MVI , Vitamin C Pertinent Labs POC: 114-206 since admitted Nutritional Hx/Data Height 5 ft 7 in Height (Calculated Centimeters) 170.2 Current Weight (lbs) 243 lb Weight (Calculated Kilograms) 110.2 Weight (Calculated Grams) 999920.9 [place] Body Weight 135 % [place] Body Weight 180 Weight Status Obese GI Symptoms GI Symptoms None Food Allergies No Skin Integrity/Comment: intact Current %PO Good (75-100%) Estimated Nutritional Goals BEE in Kcals: Adj wt of IBW Calories/Kcals/Kg 25-30 Kcals Calculated 1841-2209kcal Protein: Adj wt of IBW Protein g/k Protein Calculated 74g Fluid: ml 1841-2209ml (1ml/kcal) Nutritional Problem 1. Problem Problem Altered nutrition related lab values Etiology DM Signs/Symptoms: POC 114-206 Malnutrition Alert Protein-Calorie Malnutrition N/A Is there a minimum of two criteria No selected? Query Text:Check all the applicable criteria. A minimum of two criteria are recommended for diagnosis of either severe or non-severe malnutrition. Intervention/Recommendation Comments 1. Continue current diet as ordered 2. Monitor glucose level Expected Outcomes/Goals Expected Outcomes/Goals Goals: pt to have improved glycemic control, wt stablity, skin to remain intact
[2017-06-15] MEDS: INSULIN ASPART, RECOMBINANT 100 UNITS/ML SUBQ SCH ×6 (11:31→20:49)
--- NOTE | 2017-06-15 20:06 | Progress Notes ---
DATE: 06/15/2017 SUBJECTIVE: Staff was spoken to. The patient is interviewed. Mood is noted to be irritable. Affect is constricted. Personal hygiene is noted to be poor. The patient is pacing most of the time on the unit. Insight and judgment at this time are noted to be very much impaired. Impulse control seems to be limited. The patient has been currently on Zyprexa and Depakote and has been able to tolerate the medication. ASSESSMENT: The patient is still psychotic. PLAN: To continue the patient with the supportive therapy. I encouraged the patient to verbalize the concerns rather than to act out. JOB# [id number]
[2017-06-15] MEDS: Atorvastatin Calcium 10 MG TAB PO SCH ×4 (20:51→21:05)
[2017-06-16] MEDS ORDERED: Levothyroxine 0.05 Mg Tab ONE ×2 (05:57)
[2017-06-16] MEDS: INSULIN ASPART, RECOMBINANT 100 UNITS/ML SUBQ SCH ×4 (06:33→14:31)
[2017-06-16] MEDS: Levothyroxine 0.15 Mg Tab PO SCH ×2 (06:44)
[2017-06-16] MEDS: Calcium Carb/Vit D 500 mg/200 U Tab PO SCH ×2 (08:17)
[2017-06-16] MEDS: Multivitamin Tab PO SCH ×2 (08:17)
--- NOTE | 2017-06-16 09:49 | Progress Notes ---
DATE: 06/16/2017 PSYCHIATRIC PROGRESS NOTE SUBJECTIVE: Staff was spoken to. The patient is interviewed. Mood is noted to be anxious. Affect is constricted. The patient is confused at this time and has been pacing most of the time. Insight and judgment at this time are noted to be still impaired. Impulse control seems to be limited. The patient has been screaming and yelling and needs to be redirected. The patient is currently on 10 mg twice a day with the olanzapine along with 500 mg twice a day and Depakote. The patient is being closely monitored at this time and her Depakote level has been requested. ASSESSMENT: The patient is not ready to be going to a lower level of care in view of her agitation. We will be planning to closely monitor the patient. If the patient starts to stabilize, possibly the patient is going to be discharged back to the facility once she is stabilized. JOB# [id number]
--- NOTE | 2017-06-16 12:15 | Internal Medicine Prog Note ---
Internal Medicine Subjective - Subjective Service Date: 06/16/17 Patient is:: awake, verbal, interactive Per staff patient has:: no adverse event, no episodes of fall, poor appetite, agitated, noncompliant, tolerating meds Internal Medicine Objective - Results Recent Labs: Laboratory Last Values POC Glucose 146 MG/DL (70 - 105) H 06/14/17 21:03 - Physical Exam Vitals and I&O: Vital Signs Temp 97.8 F 06/16/17 06:44 Pulse 94 06/16/17 06:44 Resp 18 06/16/17 06:44 BP 134/78 06/16/17 08:17 Pulse Ox 97 06/16/17 06:44 Intake & Output 06/15/17 06/16/17 06/16/17 18:59 06:59 18:59 Intake Total 1440 Balance 1440 Intake: Oral 1440 Other: # Voids 4 # Bowel Movements 1 Stool Characteristics Soft Formed Active Medications: Current Medications Acetaminophen (Tylenol) 650 mg PO Q4H PRN PRN Reason: Mild Pain Or Fever above 101 Stop: 08/02/17 13:21 Last Admin: 06/10/17 04:09 Dose: 650 mg Al Hydrox/Mg Hydrox/Simethicone (Maalox) 30 ml PO Q4HR PRN PRN Reason: GI DISTRESS Stop: 08/01/17 23:31 Anastrozole (Arimidex) 1 mg PO DAILY CORAZON PRN Reason: Protocol Stop: 08/03/17 08:59 Last Admin: 06/16/17 08:20 Dose: Not Given Atorvastatin Calcium (Lipitor) 10 mg PO HS CORAZON PRN Reason: Protocol Stop: 08/02/17 20:59 Last Admin: 06/15/17 21:05 Dose: 10 mg Calcium/Vitamin D (Oscal W/Vitamin D) 1 tab PO DAILY CORAZON Stop: 08/03/17 08:59 Last Admin: 06/16/17 08:17 Dose: 1 tab Divalproex Sodium (Depakote Dr) 500 mg PO BID CORAZON Stop: 08/13/17 16:59 Last Admin: 06/16/17 08:16 Dose: 500 mg Docusate Sodium (Colace) 100 mg PO DAILY CORAZON Stop: 08/03/17 08:59 Last Admin: 06/16/17 08:16 Dose: 100 mg Donepezil HCl (Aricept) 5 mg PO HS CORAZON Stop: 08/02/17 20:59 Last Admin: 06/15/17 21:05 Dose: 5 mg Furosemide (Lasix) 20 mg PO DAILY CORAZON Stop: 08/03/17 08:59 Last Admin: 06/16/17 08:17 Dose: 20 mg Gemfibrozil (Lopid) 600 mg PO BID CORAZON Stop: 08/02/17 16:59 Last Admin: 06/16/17 08:17 Dose: 600 mg Insulin Aspart (Novolog) 0 units SUBQ ACHS CORAZON PRN Reason: Protocol Stop: 08/02/17 16:29 Last Admin: 06/16/17 06:33 Dose: Not Given Levetiracetam (Keppra) 500 mg PO BID CORAZON Stop: 08/02/17 16:59 Last Admin: 06/16/17 08:17 Dose: 500 mg Levothyroxine Sodium (Synthroid) 0.15 mg PO QDAC CORAZON Stop: 08/03/17 07:29 Last Admin: 06/16/17 06:44 Dose: 0.15 mg Lorazepam (Ativan) 0.5 mg PO Q6HR PRN; Protocol PRN Reason: Anxiety Stop: 08/02/17 13:21 Last Admin: 06/16/17 08:17 Dose: 0.5 mg Magnesium Hydroxide (Milk Of Magnesia) 30 ml PO HS PRN PRN Reason: Constipation Stop: 08/01/17 22:55 Last Admin: 06/10/17 18:37 Dose: 30 ml Multivitamins/Vitamin C (Theragran) 1 tab PO DAILY CORAZON Stop: 08/02/17 08:59 Last Admin: 06/16/17 08:17 Dose: 1 tab Olanzapine (Zyprexa) 10 mg PO BID CORAZON PRN Reason: Protocol Stop: 08/11/17 08:59 Last Admin: 06/16/17 08:17 Dose: 10 mg Zolpidem Tartrate (Ambien) 5 mg PO HS PRN PRN Reason: Insomnia Stop: 08/01/17 22:55 Last Admin: 06/16/17 00:55 Dose: 5 mg General: demented HEENT: NC/AT, PERRLA, EOMI Neck: Supple, No JVD, No LAD Lungs: CTAB, congested Cardiovascular: RRR, Normal S1, Normal S2, with murmur Abdomen: soft, non-tender, non-distended Extremities: excoriation, contracture Neurological: no change, disorganized Internal Medicine Assmt/Plan - Assessment Assessment: obesity dm htn r breast ca agitation, sad sz disorder - Plan Plan: monitor glucose fall precautions continue plan of care Nutritional Asmnt/Malnutr-PDOC - Dietary Evaluation Malnutrition Findings (Please click <Entered> for more info): Nutritional Asmnt/Malnutrition Start: 06/08/17 15: 31 Text: Status: Active Freq: Document 06/08/17 15:03 OFELIA (Rec: 06/08/17 15:20 [facility] [id number]) Nutritional Asmnt/Malnutrition Patient General Information Nutritional Screening Moderate Risk Diagnosis psychosis Pertinent Medical Hx/Surgical Hx DM, HTN, CAD, Seizure, Breast Cancer, Hypothyroidism, Hypercholestolemia Subjective Information Pt is confused, disoriented, not appropriate to visit. Pt was living at [facility] per H&P. Current Diet Order/ Nutrition Support Mechanical Soft CHopped, NSA, CCHO Patient / S.O Not Indicated Pertinent Medications Vitamin D, Calcium, Colace, Lasix, Novolog, Synthroid, MVI , Vitamin C Pertinent Labs POC: 114-206 since admitted Nutritional Hx/Data Height 5 ft 7 in Height (Calculated Centimeters) 170.2 Current Weight (lbs) 243 lb Weight (Calculated Kilograms) 110.2 Weight (Calculated Grams) 301650.9 [place] Body Weight 135 % [place] Body Weight 180 Weight Status Obese GI Symptoms GI Symptoms None Food Allergies No Skin Integrity/Comment: intact Current %PO Good (75-100%) Estimated Nutritional Goals BEE in Kcals: Adj wt of IBW Calories/Kcals/Kg 25-30 Kcals Calculated 1841-2209kcal Protein: Adj wt of IBW Protein g/k Protein Calculated 74g Fluid: ml 1841-2209ml (1ml/kcal) Nutritional Problem 1. Problem Problem Altered nutrition related lab values Etiology DM Signs/Symptoms: POC 114-206 Malnutrition Alert Protein-Calorie Malnutrition N/A Is there a minimum of two criteria No selected? Query Text:Check all the applicable criteria. A minimum of two criteria are recommended for diagnosis of either severe or non-severe malnutrition. Intervention/Recommendation Comments 1. Continue current diet as ordered 2. Monitor glucose level Expected Outcomes/Goals Expected Outcomes/Goals Goals: pt to have improved glycemic control, wt stablity, skin to remain intact
== END 2017-06-16 14:45 | DRG 885 ==
LOC: ER 19:44 → GERO 22:20
PROVIDERS: ADMIT Psychiatry & Neurology Psychiatry; ATTEND Psychiatry & Neurology Psychiatry
DX: F20.0 Paranoid schizophrenia (principal); E66.01 Morbid (severe) obesity due to excess calories; I10 Essential (primary) hypertension; E11.9 Type 2 diabetes mellitus without complications; F31.9 Bipolar disorder, unspecified; I25.10 Atherosclerotic heart disease of native coronary artery without angina pectoris; G40.909 Epilepsy, unspecified, not intractable, without status epilepticus; E78.5 Hyperlipidemia, unspecified; E03.9 Hypothyroidism, unspecified; Z88.8 Allergy status to other drugs, medicaments and biological substances; Z83.3 Family history of diabetes mellitus; Z68.38 Body mass index [BMI] 38.0-38.9, adult; Z85.3 Personal history of malignant neoplasm of breast; Z82.49 Family history of ischemic heart disease and other diseases of the circulatory system; Z79.899 Other long term (current) drug therapy
CPT/HCPCS: 71010-TC; 82948-90; 93005; A4216; J1200; J1815; J2060; J7051; Z7610

== ENCOUNTER 2017-08-18 12:42 | Inpatient (IN) | payer MEDICARE, OTHER ==
--- NOTE | 2017-08-18 13:20 | ED Physician Chart ---
ED Chief Complaint/HPI - Patient Information Date Seen:: 08/18/17 Time Seen:: 12:52 Chief Complaint:: Agitation History of Present Illness:: onset x 2 days of agitation and aggressive behavior; pt denies SIs, H/As, neck pain, C/P, SOB, Abd. Pain, A/N/V/D/C, fever, chills, or urinary s/s Allergies:: Allergies Allergy/AdvReac Type Severity Reaction Status Date / Time chlorpromazine Allergy Verified 01/19/17 20:15 [From Thorazine] haloperidol [From Haldol] Allergy Verified 01/19/17 20:15 Vitals:: Vital Signs - 8 hr 08/18/17 12:52 Temp 97.4 F HR 64 RR 16 BP 140/90 O2 Sat % 95 Historian:: Patient, EMS Review:: Nurse's Note Reviewed, Old Chart Reviewed, EMS run form Reviewed ED Past Medical History - Past Medical History Obtainable: Yes Past Medical History: HTN, DM, Dyslipidemia, Thyroid disorder, Dementia Family History: Diabetes Melitus, HTN Social History: Non Smoker, No Alcohol, No Drug Use, Single, Care Facility Surgical History: None Psychiatricy History: Depression, Schizophrenia, Bipolar, Dementia Medication: Reviewed Family Medical History - Family Member Mother History Unknown: Yes Ethnicity: Unknown Living Status: Unknown Hx Family Cancer: (Unknown) Hx Family Coronary Artery Disease: (Unknown) Hx Family Congestive Heart Failure: (Unknown) Hx Family Hypertension: (Unknown) Hx Family Stroke: (Unknown) Hx Family Diabetes: (Unknown) Hx Family Seizures: (Unknown) Hx Family Dementia: (Unknown) Hx Family AIDS: (Unknown) Hx Family COPD: (Unknown) Hx Family Hepatitis: (Unknown) Hx Family Psychiatric Problems: (Unknown) Hx Family Tuberculosis: (Unknown) ED Physical Exam - Physical Examination General/Constitutional: Awake, Well-developed, well-nourished, Alert, No distress, GCS 15, Non-toxic appearing, Ambulatory Head: Atraumatic Eyes: Lids, conjuctiva normal, PERRL, EOMI Skin: Nl inspection, No rash, No skin lesions, No ecchymosis, Well hydrated, No lymphadenopathy ENMT: External ears, nose nl, Nasal exam nl, Lips, teeth, gums nl Neck: Nontender, Full ROM w/o pain, No JVD, No nuchal rigidity, No bruit, No mass, No stridor Respiratory: Nl effort/Exclusion, Clear to Auscultation, No Wheeze/Rhonchi/Rales Cardio Vascular: RRR, No murmur, gallop, rubs, NL S1 S2, Carotid/Femoral/Distal pulses equal bilaterally GI: No tenderness/rebounding/guarding, No organomegaly, No hernia, Normal BS's, Nondistended, No mass/bruits, No McBurney tenderness : No CVA tenderness Extremities: No tenderness or effusion, Full ROM, normal strength in all extremities, No edema, Normal digits & nails Neuro/Psych: Alert/oriented, DTR's symmetric, Normal sensory exam, Normal motor strength, Normal gait, No focal deficits Other Neuro/Psych comments:: + Psychomotor Agitation; Mood/Affect: Labile; no SIs Misc: Normal back, No paraspinal tenderness ED Labs/Radiology/EKG Results - Lab Results Comments:: unremarkable ED Septic Shock - . Is Septic Shock (SBP<90, OR Lactate>4 mmol\L) present?: No - <6hrs of presentation: Vital Signs: Vital Signs - 8 hr 08/18/17 12:52 Temp 97.4 F HR 64 RR 16 BP 140/90 O2 Sat % 95 ED Reassessment (Disposition) - Reassessment Reassessment Condition:: Improved - Diagnosis Diagnosis:: Agitation; Bipolar Disorder - Aftercare/Follow up Instructions Aftercare/Follow-Up Instructions:: Counseled pt regarding lab results/diagnosis & need follow up, Counseled pt & family regarding lab results/diagnosis & need follow up - Patient Disposition Discharge/Transfer:: Acute Care w/in this hosp Admitted to:: [facility] Condition at Disposition:: Stable, Improved
[2017-08-18 13:58] LABS: URINE MICROSCOPIC INDICATED? YES; URINE SOURCE CLEAN C
[2017-08-18 14:02] LABS: % BASOPHILS 0.8 % (0.0-2.0); % EOSINOPHILS 4.1 % (0.0-5.0); % LYMPHOCYTES 24.9 % (20.0-50.0); % MONOCYTES 9.6 % (2.0-10.0); % NEUTROPHILS 60.6 % (40.0-80.0); BASOPHILE ABSOLUTE 0.1 Th/cumm (0-0.2); EOSINOPHILE ABSOLUTE 0.3 Th/cmm (0.1-0.4); HEMOGLOBIN 13.1 gm/dL (12-16); MEAN CORPUSCULAR HEMOGLOBIN 30.9 pg (27.0-31.0); MEAN CORPUSCULAR HGB CONC 33.5 pg (28.0-36.0); MEAN PLATELET VOLUME 8.8 fl; MONOCYTE ABSOLUTE 0.8 Th/cmm (0.3-1.0); NEUTROPHILE ABSOLUTE 4.7 Th/cmm (1.8-8.0); RED BLOOD COUNT 4.23 Mil/cmm (3.80-5.20); RED CELL DISTRIBUTION WIDTH 14.1 % (11.5-20.0); WHITE BLOOD COUNT 7.9 Th/cmm (4.8-10.8)
[2017-08-18 14:03] LABS: URINE BILIRUBIN NEGATIVE (NEGATIVE); URINE BLOOD NEGATIVE (NEGATIVE); URINE GLUCOSE (UA) NEGATIVE (NEGATIVE); URINE KETONE NEGATIVE (NEGATIVE); URINE LEUKOCYTE ESTERASE NEGATIVE (NEGATIVE); URINE NITRATE NEGATIVE (NEGATIVE); URINE PH 5.5 (4.6 - 8.0); URINE PROTEIN NEGATIVE (NEGATIVE); URINE UROBILINOGEN 0.2 E.U./dL (0.2 - 1.0)
[2017-08-18 14:09] LABS: PLATELET COUNT 257 Th/cmm (150-400)
[2017-08-18 14:11] LABS: URINE CLARITY CLEAR (CLEAR); URINE COLOR YELLOW
[2017-08-18 14:12] LABS: URINE BACTERIA NONE SEEN /hpf (NONE SEEN); URINE EPITHELIAL CELLS NONE SEEN /lpf (FEW); URINE RBC NONE SEEN /hpf (0-5); URINE WBC NONE SEEN /hpf (0-5)
[2017-08-18 14:12] LABS: ALB/GLOB RATIO 1.3 (1.0-1.8); ALBUMIN 4.7 gm/dL (3.7-5.3); ALKALINE PHOSPHATASE 101 U/L (34-104); ANION GAP 13.6 (7.0-16.0); BILIRUBIN,TOTAL 0.5 mg/dL (0.3-1.0); BUN - UREA NITROGEN 21 mg/dL (7-25); CALCIUM SERUM 9.8 mg/dL (8.6-10.3); CARBON DIOXIDE 23.3 mEq/L (21.0-31.0); CHLORIDE 102 mEq/L (98-107); CHOLESTEROL 176 mg/dL (<200); CREATININE - SERUM 0.8 mg/dL (0.6-1.2); GFR AFRICAN-AMERICAN > 60.0 ml/min (>90); GFR NON AFRICAN-AMERICAN > 60.0 ml/min; GLUCOSE 164 mg/dL (70-105); HDL -HIGH DENSITY LIPOPROTEIN 38 mg/dL (23-92); POTASSIUM SERUM 3.9 mEq/L (3.5-5.1); SGOT 16 U/L (13-39); SGPT/ALT 10 U/L (7-52); SODIUM SERUM 135 mEq/L (136-145); TOTAL PROTEIN,SERUM 8.2 gm/dL (6.0-8.3); TRIGLYCERIDES 243 mg/dL (<150)
[2017-08-18 15:58] VITALS: BP 128/59
[2017-08-18] MEDS ORDERED: Magnesium Hydroxide (MOM) 30 mL UDC PO PRN (20:15)
[2017-08-18] MEDS ORDERED: VALPROIC ACID 250 MG PO SCH (21:00)
[2017-08-18] MEDS ORDERED: Maalox 30 mL Cup PO PRN (21:36)
[2017-08-19] MEDS: INSULIN ASPART SLIDING SCALE 100 UNITS/ML UNIT SUBQ SCH ×5 (06:34→21:18)
[2017-08-19] MEDS: Levothyroxine 0.075 Mg Tab PO SCH (06:35)
[2017-08-19] MEDS: Levothyroxine 0.1 Mg Tab PO SCH (06:35)
[2017-08-19] MEDS ORDERED: Levothyroxine 0.15 Mg Tab PO SCH (07:30)
[2017-08-19] MEDS ORDERED: PROSTAT SF PO SCH (09:00)
[2017-08-19] MEDS: Multivitamin Tab PO SCH (09:48)
[2017-08-19] MEDS: Calcium Carb/Vit D 500 mg/200 U Tab PO SCH (09:48)
--- NOTE | 2017-08-19 13:35 | Internal Medicine Prog Note ---
Internal Medicine Subjective - Subjective Service Date: 08/19/17 Internal Medicine Objective - Results Result Diagrams: 08/18/17 13:47 08/18/17 13:47 Recent Labs: Laboratory Last Values WBC 7.9 Th/cmm (4.8-10.8) 08/18/17 13:47 RBC 4.23 Mil/cmm (3.80-5.20) 08/18/17 13:47 Hgb 13.1 gm/dL (12-16) 08/18/17 13:47 Hct 39.0 % (41.0-60) L 08/18/17 13:47 MCV 92.0 fl (81-100) 08/18/17 13:47 MCH 30.9 pg (27.0-31.0) 08/18/17 13:47 MCHC Differential 33.5 pg (28.0-36.0) 08/18/17 13:47 RDW 14.1 % (11.5-20.0) 08/18/17 13:47 Plt Count 257 Th/cmm (150-400) D 08/18/17 13:47 MPV 8.8 fl 08/18/17 13:47 Neutrophils % 60.6 % (40.0-80.0) 08/18/17 13:47 Lymphocytes % 24.9 % (20.0-50.0) 08/18/17 13:47 Monocytes % 9.6 % (2.0-10.0) 08/18/17 13:47 Eosinophils % 4.1 % (0.0-5.0) 08/18/17 13:47 Basophils % 0.8 % (0.0-2.0) 08/18/17 13:47 Sodium 135 mEq/L (136-145) L 08/18/17 13:47 Potassium 3.9 mEq/L (3.5-5.1) 08/18/17 13:47 Chloride 102 mEq/L (98-107) 08/18/17 13:47 Carbon Dioxide 23.3 mEq/L (21.0-31.0) 08/18/17 13:47 Anion Gap 13.6 (7.0-16.0) 08/18/17 13:47 BUN 21 mg/dL (7-25) 08/18/17 13:47 Creatinine 0.8 mg/dL (0.6-1.2) 08/18/17 13:47 Est GFR ( Amer) > 60.0 ml/min (>90) 08/18/17 13:47 Est GFR (Non-Af Amer) > 60.0 ml/min 08/18/17 13:47 BUN/Creatinine Ratio 26.3 08/18/17 13:47 Glucose 164 mg/dL (70-105) H 08/18/17 13:47 Calcium 9.8 mg/dL (8.6-10.3) 08/18/17 13:47 Total Bilirubin 0.5 mg/dL (0.3-1.0) 08/18/17 13:47 AST 16 U/L (13-39) 08/18/17 13:47 ALT 10 U/L (7-52) 08/18/17 13:47 Alkaline Phosphatase 101 U/L (34-104) 08/18/17 13:47 Total Protein 8.2 gm/dL (6.0-8.3) 08/18/17 13:47 Albumin 4.7 gm/dL (3.7-5.3) 08/18/17 13:47 Globulin 3.5 gm/dL 08/18/17 13:47 Albumin/Globulin Ratio 1.3 (1.0-1.8) 08/18/17 13:47 Triglycerides 243 mg/dL (<150) H 08/18/17 13:47 Cholesterol 176 mg/dL (<200) 08/18/17 13:47 LDL Cholesterol Direct 128 mg/dL (75-193) 08/18/17 13:47 HDL Cholesterol 38 mg/dL (23-92) 08/18/17 13:47 TSH > 100.00 uIU/ml (0.34-5.60) H 08/18/17 13:47 Urine Source CLEAN C 08/18/17 13:55 Urine Color YELLOW 08/18/17 13:55 Urine Clarity CLEAR (CLEAR) 08/18/17 13:55 Urine pH 5.5 (4.6 - 8.0) 08/18/17 13:55 Ur Specific [place] <= 1.005 (1.005-1.030) 08/18/17 13:55 Urine Protein NEGATIVE mg/dL (NEGATIVE) 08/18/17 13:55 Urine Glucose (UA) NEGATIVE mg/dL (NEGATIVE) 08/18/17 13:55 Urine Ketones NEGATIVE mg/dL (NEGATIVE) 08/18/17 13:55 Urine Blood NEGATIVE (NEGATIVE) 08/18/17 13:55 Urine Nitrate NEGATIVE (NEGATIVE) 08/18/17 13:55 Urine Bilirubin NEGATIVE (NEGATIVE) 08/18/17 13:55 Urine Urobilinogen 0.2 E.U./dL (0.2 - 1.0) 08/18/17 13:55 Ur Leukocyte Esterase NEGATIVE (NEGATIVE) 08/18/17 13:55 Urine RBC NONE SEEN /hpf (0-5) 08/18/17 13:55 Urine WBC NONE SEEN /hpf (0-5) 08/18/17 13:55 Ur Epithelial Cells NONE SEEN /lpf (FEW) 08/18/17 13:55 Urine Bacteria NONE SEEN /hpf (NONE SEEN) 08/18/17 13:55 - Physical Exam Vitals and I&O: Vital Signs Temp 98.8 F 08/19/17 06:43 Pulse 70 08/19/17 06:43 Resp 20 08/19/17 06:43 BP 108/76 08/19/17 06:43 Pulse Ox 97 08/19/17 06:43 Intake & Output 08/18/17 08/19/17 08/19/17 18:59 06:59 18:59 Intake Total 240 120 Balance 240 120 Weight (lbs) 243 lb Intake: Oral 240 120 Other: # Voids 2 3 # Bowel Movements 0 Active Medications: Current Medications Acetaminophen (Tylenol) 650 mg PO Q4H PRN PRN Reason: Mild Pain Or Fever above 101 Stop: 10/17/17 21:35 Al Hydrox/Mg Hydrox/Simethicone (Maalox) 30 ml PO Q4HR PRN PRN Reason: GI DISTRESS Stop: 10/17/17 21:35 Anastrozole (Arimidex) 1 mg PO DAILY [facility] PRN Reason: Protocol Stop: 10/18/17 08:59 Last Admin: 08/19/17 09:48 Dose: Not Given Atorvastatin Calcium (Lipitor) 10 mg PO HS [facility] PRN Reason: Protocol Stop: 10/18/17 20:59 Calcium/Vitamin D (Oscal W/Vitamin D) 1 tab PO DAILY [facility] Stop: 10/18/17 08:59 Last Admin: 08/19/17 09:48 Dose: Not Given Divalproex Sodium (Depakote Dr) 250 mg PO BID [facility] Stop: 10/18/17 08:59 Last Admin: 08/19/17 09:48 Dose: Not Given Docusate Sodium (Colace) 100 mg PO DAILY [facility] Stop: 10/18/17 08:59 Last Admin: 08/19/17 09:48 Dose: Not Given Donepezil HCl (Aricept) 5 mg PO HS [facility] Stop: 10/18/17 20:59 Furosemide (Lasix) 20 mg PO DAILY [facility] Stop: 10/18/17 08:59 Last Admin: 08/19/17 09:48 Dose: Not Given Gemfibrozil (Lopid) 600 mg PO BID [facility] Stop: 10/18/17 08:59 Last Admin: 08/19/17 09:48 Dose: Not Given Insulin Aspart (Novolog Insulin Sliding Scale) 0 units SUBQ ACHS [facility] PRN Reason: Protocol Stop: 10/18/17 07:29 Last Admin: 08/19/17 11:41 Dose: Not Given Levetiracetam (Keppra) 500 mg PO BID [facility] Stop: 10/18/17 08:59 Last Admin: 08/19/17 09:48 Dose: Not Given Levothyroxine Sodium (Synthroid) 0.1 mg PO QDAC [facility] Stop: 10/18/17 07:29 Last Admin: 08/19/17 06:35 Dose: Not Given Levothyroxine Sodium (Synthroid) 0.075 mg PO QDAC [facility] Stop: 10/18/17 07:29 Last Admin: 08/19/17 06:35 Dose: Not Given Magnesium Hydroxide (Milk Of Magnesia) 30 ml PO HS PRN PRN Reason: Constipation Stop: 10/17/17 20:14 Multivitamins/Vitamin C (Theragran) 1 tab PO DAILY [facility] Stop: 10/18/17 08:59 Last Admin: 08/19/17 09:48 Dose: Not Given Olanzapine (Zyprexa) 2.5 mg PO BID [facility] PRN Reason: Protocol Stop: 10/18/17 08:59 Last Admin: 08/19/17 09:48 Dose: Not Given Olanzapine (Zyprexa) 10 mg PO BID [facility] Stop: 10/18/17 08:59 Last Admin: 08/19/17 09:49 Dose: Not Given Zolpidem Tartrate (Ambien) 5 mg PO HS PRN PRN Reason: Insomnia Stop: 10/17/17 22:01 Last Admin: 08/18/17 23:13 Dose: 5 mg Internal Medicine Assmt/Plan - Assessment Assessment: agitation htn dementia
--- NOTE | 2017-08-19 14:05 | History & Physical ---
ADMIT DATE: 08/19/[address] Juancho Griffith. CHIEF COMPLAINT: Agitation. HISTORY OF PRESENT ILLNESS: This is a 67-year-old female who is admitted to the Geropsych Unit. The patient is a [facility] resident due to agitation and aggressive behavior towards nursing staff. PAST MEDICAL HISTORY: Hypertension, diabetes, dyslipidemia, thyroid disorder, dementia. FAMILY HISTORY: Noncontributory. SOCIAL HISTORY: The patient is a [facility] resident, requiring 24-hour nursing care. MEDICATIONS: Please see medication reconciliation. REVIEW OF SYSTEMS: GENERAL: Denies any fevers or any chills. CARDIOVASCULAR: Denies chest pain. RESPIRATORY: Denies shortness of breath. GASTROINTESTINAL: Denies nausea, vomiting, abdominal pain. GENITOURINARY: Denies increased frequency or dysuria. NEUROLOGIC: No headaches, seizures, or syncope. All other systems are reviewed and are negative. PHYSICAL EXAMINATION: GENERAL: This is an elderly female, awake, alert with some confusion. No apparent distress. VITAL SIGNS: Temperature 99.8, heart rate 70, blood pressure 108/76, respirations 20, O2 97%. HEENT: Head: Normocephalic, atraumatic. NECK: Supple. No mass. LUNGS: Clear bilaterally. HEART: Regular rate and rhythm. ABDOMEN: Soft, nontender. LABORATORY DATA: WBC 7.9, H and H 13.1 and 39.0, platelets 257. Sodium 135, potassium 3.9, chloride 102, BUN 21, creatinine 0.8. ASSESSMENT: Agitation, hypothyroid, hypertension, diabetes, dyslipidemia, dementia. PLAN: The patient to be admitted to the Geropsych Unit. The patient to continue medications from the [facility]. We will continue to follow this patient. JOB# [id number]
[2017-08-19] MEDS: Atorvastatin Calcium 10 MG TAB PO SCH (21:18)
--- NOTE | 2017-08-19 23:21 | Psychosocial Evaluation ---
DATE OF SERVICE: 08/18/2017 IDENTIFYING DATA: The patient is a 67-year-old woman, resident of a retirement facility that is in [facility]. Information obtained by directly interviewing the patient as well as reviewing the admission papers. The patient is reported to have been getting out of control, screaming and yelling and not able to be contained at a lower level of care. The patient had to be referred over here for further stabilization. Prior to the hospitalization, the patient was reported to have been on Risperdal and the patient's compliance with the medication is noted to be very poor. PAST PSYCHIATRIC HISTORY: The patient was hospitalized under my care in 01/2017. MEDICAL HISTORY AND PHYSICAL EXAMINATION: Requested to be done by Dr. Griffith. SUBSTANCE ABUSE HISTORY: None. PHYSICAL OR SEXUAL ABUSE HISTORY: None. MENTAL STATUS EXAMINATION: The patient is a 67-year-old woman, looking her stated age, superficially cooperative. Eye contact is poor. Mood is noted to be irritable. Affect is constricted. Insight and judgment at this time are noted to be still impaired. Impulse control seems to be limited. The patient has been having a difficult time to cope with the stress. The patient tends to scream and yell. The patient has to be medicated with Depakote, which is going to be given 250 mg twice a day. The patient is going to be continued on the olanzapine 2.5 mg twice a day and the patient is going to be followed up with supportive therapy. The patient at this time is receiving the medications on a regular basis in here. The patient's short and long-term are noted to be tested and they are noted to be within normal limits. The patient is of average intelligence. The patient's behavior is likely a danger to self at this time. The patient is not able to contract for safety. The patient has no insight into her illness. DIAGNOSTIC IMPRESSION: AXIS I: Psychotic disorder, not otherwise specified, rule out schizoaffective disorder. AXIS II: None. AXIS III: As per Dr. Griffith. IMMEDIATE TREATMENT PLAN: The patient is going to be observed on inpatient unit, provide with supportive psychotherapy. The patient is going to be continued on Depakote and Zyprexa. ESTIMATED LENGTH OF STAY: Three to five days. DISCHARGE CRITERIA: When she no longer is a threat to self or others and be able to cope up with the stress. [facility]# [id number]
[2017-08-20] MEDS: Levothyroxine 0.1 Mg Tab PO SCH (06:31)
[2017-08-20] MEDS: INSULIN ASPART SLIDING SCALE 100 UNITS/ML UNIT SUBQ SCH ×4 (06:31→20:37)
[2017-08-20] MEDS: Levothyroxine 0.075 Mg Tab PO SCH (06:32)
[2017-08-20] MEDS: Multivitamin Tab PO SCH (08:07)
[2017-08-20] MEDS: Calcium Carb/Vit D 500 mg/200 U Tab PO SCH (08:08)
--- NOTE | 2017-08-20 11:48 | Progress Notes ---
DATE: 08/20/2017 Staff was spoken to. The patient is interviewed. Mood is noted to be irritable. Affect is constricted. Insight and judgment noted to be still impaired. Impulse control is poor. Coping skills are noted to be very poor. The patient has been acting very bizarre and has been exposing herself and the patient has been having difficult time to cope with the stress. No side effects to the medications are noted. The patient is currently on olanzapine 2.5 mg b.i.d. and it is going to be increased to 5 mg and the patient is going to be closely monitored. Once stabilized, the patient is going to be discharged to self. The patient at this time is ____. [facility]# [id number]
[2017-08-20] MEDS: Atorvastatin Calcium 10 MG TAB PO SCH (21:16)
[2017-08-21] MEDS: INSULIN ASPART SLIDING SCALE 100 UNITS/ML UNIT SUBQ SCH ×4 (06:51→21:42)
[2017-08-21] MEDS: Levothyroxine 0.1 Mg Tab PO SCH (06:52)
[2017-08-21] MEDS: Levothyroxine 0.075 Mg Tab PO SCH (06:53)
[2017-08-21] MEDS: Calcium Carb/Vit D 500 mg/200 U Tab PO SCH (08:59)
[2017-08-21] MEDS: Multivitamin Tab PO SCH (09:01)
--- NOTE | 2017-08-21 16:45 | Internal Medicine Prog Note ---
Internal Medicine Subjective - Subjective Service Date: 08/21/17 Patient seen and examined:: with staff Patient is:: awake Per staff patient has:: tolerating meds Internal Medicine Objective - Results Result Diagrams: 08/18/17 13:47 08/18/17 13:47 Recent Labs: Laboratory Last Values WBC 7.9 Th/cmm (4.8-10.8) 08/18/17 13:47 RBC 4.23 Mil/cmm (3.80-5.20) 08/18/17 13:47 Hgb 13.1 gm/dL (12-16) 08/18/17 13:47 Hct 39.0 % (41.0-60) L 08/18/17 13:47 MCV 92.0 fl (81-100) 08/18/17 13:47 MCH 30.9 pg (27.0-31.0) 08/18/17 13:47 MCHC Differential 33.5 pg (28.0-36.0) 08/18/17 13:47 RDW 14.1 % (11.5-20.0) 08/18/17 13:47 Plt Count 257 Th/cmm (150-400) D 08/18/17 13:47 MPV 8.8 fl 08/18/17 13:47 Neutrophils % 60.6 % (40.0-80.0) 08/18/17 13:47 Lymphocytes % 24.9 % (20.0-50.0) 08/18/17 13:47 Monocytes % 9.6 % (2.0-10.0) 08/18/17 13:47 Eosinophils % 4.1 % (0.0-5.0) 08/18/17 13:47 Basophils % 0.8 % (0.0-2.0) 08/18/17 13:47 Sodium 135 mEq/L (136-145) L 08/18/17 13:47 Potassium 3.9 mEq/L (3.5-5.1) 08/18/17 13:47 Chloride 102 mEq/L (98-107) 08/18/17 13:47 Carbon Dioxide 23.3 mEq/L (21.0-31.0) 08/18/17 13:47 Anion Gap 13.6 (7.0-16.0) 08/18/17 13:47 BUN 21 mg/dL (7-25) 08/18/17 13:47 Creatinine 0.8 mg/dL (0.6-1.2) 08/18/17 13:47 Est GFR ( Amer) > 60.0 ml/min (>90) 08/18/17 13:47 Est GFR (Non-Af Amer) > 60.0 ml/min 08/18/17 13:47 BUN/Creatinine Ratio 26.3 08/18/17 13:47 Glucose 164 mg/dL (70-105) H 08/18/17 13:47 Calcium 9.8 mg/dL (8.6-10.3) 08/18/17 13:47 Total Bilirubin 0.5 mg/dL (0.3-1.0) 08/18/17 13:47 AST 16 U/L (13-39) 08/18/17 13:47 ALT 10 U/L (7-52) 08/18/17 13:47 Alkaline Phosphatase 101 U/L (34-104) 08/18/17 13:47 Total Protein 8.2 gm/dL (6.0-8.3) 08/18/17 13:47 Albumin 4.7 gm/dL (3.7-5.3) 08/18/17 13:47 Globulin 3.5 gm/dL 08/18/17 13:47 Albumin/Globulin Ratio 1.3 (1.0-1.8) 08/18/17 13:47 Triglycerides 243 mg/dL (<150) H 08/18/17 13:47 Cholesterol 176 mg/dL (<200) 08/18/17 13:47 LDL Cholesterol Direct 128 mg/dL (75-193) 08/18/17 13:47 HDL Cholesterol 38 mg/dL (23-92) 08/18/17 13:47 TSH > 100.00 uIU/ml (0.34-5.60) H 08/18/17 13:47 Urine Source CLEAN C 08/18/17 13:55 Urine Color YELLOW 08/18/17 13:55 Urine Clarity CLEAR (CLEAR) 08/18/17 13:55 Urine pH 5.5 (4.6 - 8.0) 08/18/17 13:55 Ur Specific [place] <= 1.005 (1.005-1.030) 08/18/17 13:55 Urine Protein NEGATIVE mg/dL (NEGATIVE) 08/18/17 13:55 Urine Glucose (UA) NEGATIVE mg/dL (NEGATIVE) 08/18/17 13:55 Urine Ketones NEGATIVE mg/dL (NEGATIVE) 08/18/17 13:55 Urine Blood NEGATIVE (NEGATIVE) 08/18/17 13:55 Urine Nitrate NEGATIVE (NEGATIVE) 08/18/17 13:55 Urine Bilirubin NEGATIVE (NEGATIVE) 08/18/17 13:55 Urine Urobilinogen 0.2 E.U./dL (0.2 - 1.0) 08/18/17 13:55 Ur Leukocyte Esterase NEGATIVE (NEGATIVE) 08/18/17 13:55 Urine RBC NONE SEEN /hpf (0-5) 08/18/17 13:55 Urine WBC NONE SEEN /hpf (0-5) 08/18/17 13:55 Ur Epithelial Cells NONE SEEN /lpf (FEW) 08/18/17 13:55 Urine Bacteria NONE SEEN /hpf (NONE SEEN) 08/18/17 13:55 - Physical Exam Vitals and I&O: Vital Signs Temp 98.4 F 08/20/17 15:07 Pulse 69 08/20/17 15:07 Resp 18 08/20/17 15:07 BP 133/89 08/21/17 09:00 Pulse Ox 97 08/20/17 15:07 Intake & Output 08/20/17 08/21/17 08/21/17 18:59 06:59 18:59 Intake Total 1200 240 Balance 1200 240 Intake: Oral 1200 240 Other: # Voids 3 1 Active Medications: Current Medications Acetaminophen (Tylenol) 650 mg PO Q4H PRN PRN Reason: Mild Pain Or Fever above 101 Stop: 10/17/17 21:35 Al Hydrox/Mg Hydrox/Simethicone (Maalox) 30 ml PO Q4HR PRN PRN Reason: GI DISTRESS Stop: 10/17/17 21:35 Anastrozole (Arimidex) 1 mg PO DAILY [facility] PRN Reason: Protocol Stop: 10/18/17 08:59 Last Admin: 08/21/17 13:19 Dose: Not Given Atorvastatin Calcium (Lipitor) 10 mg PO HS [facility] PRN Reason: Protocol Stop: 10/18/17 20:59 Last Admin: 08/20/17 21:16 Dose: 10 mg Calcium/Vitamin D (Oscal W/Vitamin D) 1 tab PO DAILY [facility] Stop: 10/18/17 08:59 Last Admin: 08/21/17 08:59 Dose: 1 tab Divalproex Sodium (Depakote Dr) 250 mg PO BID [facility] Stop: 10/18/17 08:59 Last Admin: 08/21/17 08:59 Dose: 250 mg Docusate Sodium (Colace) 100 mg PO DAILY [facility] Stop: 10/18/17 08:59 Last Admin: 08/21/17 09:01 Dose: 100 mg Donepezil HCl (Aricept) 5 mg PO HS [facility] Stop: 10/18/17 20:59 Last Admin: 08/20/17 21:16 Dose: 5 mg Furosemide (Lasix) 20 mg PO DAILY [facility] Stop: 10/18/17 08:59 Last Admin: 08/21/17 09:00 Dose: 20 mg Gemfibrozil (Lopid) 600 mg PO BID [facility] Stop: 10/18/17 08:59 Last Admin: 08/21/17 09:02 Dose: 600 mg Insulin Aspart (Novolog Insulin Sliding Scale) 0 units SUBQ ACHS [facility] PRN Reason: Protocol Stop: 10/18/17 07:29 Last Admin: 08/21/17 15:44 Dose: Not Given Levetiracetam (Keppra) 500 mg PO BID [facility] Stop: 10/18/17 08:59 Last Admin: 08/21/17 09:02 Dose: 500 mg Levothyroxine Sodium (Synthroid) 0.1 mg PO QDAC [facility] Stop: 10/18/17 07:29 Last Admin: 08/21/17 06:52 Dose: 0.1 mg Levothyroxine Sodium (Synthroid) 0.075 mg PO QDAC [facility] Stop: 10/18/17 07:29 Last Admin: 08/21/17 06:53 Dose: 0.075 mg Magnesium Hydroxide (Milk Of Magnesia) 30 ml PO HS PRN PRN Reason: Constipation Stop: 10/17/17 20:14 Multivitamins/Vitamin C (Theragran) 1 tab PO DAILY [facility] Stop: 10/18/17 08:59 Last Admin: 08/21/17 09:01 Dose: 1 tab Olanzapine (Zyprexa) 5 mg PO BID [facility] PRN Reason: Protocol Stop: 10/18/17 08:59 Last Admin: 08/21/17 09:01 Dose: 5 mg Zolpidem Tartrate (Ambien) 5 mg PO HS PRN PRN Reason: Insomnia Stop: 10/17/17 22:01 Last Admin: 08/19/17 22:02 Dose: 5 mg General: weak HEENT: PERRLA Lungs: CTAB Cardiovascular: RRR, Normal S1, Normal S2 Abdomen: soft, non-tender, non-distended, positive bowel sound Neurological: alert Internal Medicine Assmt/Plan - Assessment Assessment: agitation htn dementia - Plan Plan: safety precautions continue current plan of care
--- NOTE | 2017-08-21 17:18 | Progress Notes ---
DATE: 08/21/2017 SUBJECTIVE: Staff was spoken to. The patient is interviewed. Mood is noted to be irritable. Affect is constricted. Coping skills at this time are noted to be very poor. The patient has been very impulsive and needs to be redirected. No side effects to the medications are noted. ASSESSMENT: The patient is still impulsive and psychotic. PLAN: To continue the patient with the valproic acid and olanzapine and encouraged the patient to verbalize the concerns rather than to act out. JOB# [id number]
[2017-08-21] MEDS: Atorvastatin Calcium 10 MG TAB PO SCH (21:42)
[2017-08-22] MEDS: Levothyroxine 0.1 Mg Tab PO SCH (06:54)
[2017-08-22] MEDS: INSULIN ASPART SLIDING SCALE 100 UNITS/ML UNIT SUBQ SCH ×3 (06:54→20:27)
[2017-08-22] MEDS: Levothyroxine 0.075 Mg Tab PO SCH (06:55)
[2017-08-22] MEDS: Multivitamin Tab PO SCH (09:45)
[2017-08-22] MEDS: Calcium Carb/Vit D 500 mg/200 U Tab PO SCH (11:56)
--- NOTE | 2017-08-22 13:32 | Internal Medicine Prog Note ---
Internal Medicine Subjective - Subjective Service Date: 08/22/17 Patient is:: awake Per staff patient has:: tolerating meds Internal Medicine Objective - Results Result Diagrams: 08/18/17 13:47 08/18/17 13:47 Recent Labs: Laboratory Last Values WBC 7.9 Th/cmm (4.8-10.8) 08/18/17 13:47 RBC 4.23 Mil/cmm (3.80-5.20) 08/18/17 13:47 Hgb 13.1 gm/dL (12-16) 08/18/17 13:47 Hct 39.0 % (41.0-60) L 08/18/17 13:47 MCV 92.0 fl (81-100) 08/18/17 13:47 MCH 30.9 pg (27.0-31.0) 08/18/17 13:47 MCHC Differential 33.5 pg (28.0-36.0) 08/18/17 13:47 RDW 14.1 % (11.5-20.0) 08/18/17 13:47 Plt Count 257 Th/cmm (150-400) D 08/18/17 13:47 MPV 8.8 fl 08/18/17 13:47 Neutrophils % 60.6 % (40.0-80.0) 08/18/17 13:47 Lymphocytes % 24.9 % (20.0-50.0) 08/18/17 13:47 Monocytes % 9.6 % (2.0-10.0) 08/18/17 13:47 Eosinophils % 4.1 % (0.0-5.0) 08/18/17 13:47 Basophils % 0.8 % (0.0-2.0) 08/18/17 13:47 Sodium 135 mEq/L (136-145) L 08/18/17 13:47 Potassium 3.9 mEq/L (3.5-5.1) 08/18/17 13:47 Chloride 102 mEq/L (98-107) 08/18/17 13:47 Carbon Dioxide 23.3 mEq/L (21.0-31.0) 08/18/17 13:47 Anion Gap 13.6 (7.0-16.0) 08/18/17 13:47 BUN 21 mg/dL (7-25) 08/18/17 13:47 Creatinine 0.8 mg/dL (0.6-1.2) 08/18/17 13:47 Est GFR ( Amer) > 60.0 ml/min (>90) 08/18/17 13:47 Est GFR (Non-Af Amer) > 60.0 ml/min 08/18/17 13:47 BUN/Creatinine Ratio 26.3 08/18/17 13:47 Glucose 164 mg/dL (70-105) H 08/18/17 13:47 Calcium 9.8 mg/dL (8.6-10.3) 08/18/17 13:47 Total Bilirubin 0.5 mg/dL (0.3-1.0) 08/18/17 13:47 AST 16 U/L (13-39) 08/18/17 13:47 ALT 10 U/L (7-52) 08/18/17 13:47 Alkaline Phosphatase 101 U/L (34-104) 08/18/17 13:47 Total Protein 8.2 gm/dL (6.0-8.3) 08/18/17 13:47 Albumin 4.7 gm/dL (3.7-5.3) 08/18/17 13:47 Globulin 3.5 gm/dL 08/18/17 13:47 Albumin/Globulin Ratio 1.3 (1.0-1.8) 08/18/17 13:47 Triglycerides 243 mg/dL (<150) H 08/18/17 13:47 Cholesterol 176 mg/dL (<200) 08/18/17 13:47 LDL Cholesterol Direct 128 mg/dL (75-193) 08/18/17 13:47 HDL Cholesterol 38 mg/dL (23-92) 08/18/17 13:47 TSH > 100.00 uIU/ml (0.34-5.60) H 08/18/17 13:47 Urine Source CLEAN C 08/18/17 13:55 Urine Color YELLOW 08/18/17 13:55 Urine Clarity CLEAR (CLEAR) 08/18/17 13:55 Urine pH 5.5 (4.6 - 8.0) 08/18/17 13:55 Ur Specific [place] <= 1.005 (1.005-1.030) 08/18/17 13:55 Urine Protein NEGATIVE mg/dL (NEGATIVE) 08/18/17 13:55 Urine Glucose (UA) NEGATIVE mg/dL (NEGATIVE) 08/18/17 13:55 Urine Ketones NEGATIVE mg/dL (NEGATIVE) 08/18/17 13:55 Urine Blood NEGATIVE (NEGATIVE) 08/18/17 13:55 Urine Nitrate NEGATIVE (NEGATIVE) 08/18/17 13:55 Urine Bilirubin NEGATIVE (NEGATIVE) 08/18/17 13:55 Urine Urobilinogen 0.2 E.U./dL (0.2 - 1.0) 08/18/17 13:55 Ur Leukocyte Esterase NEGATIVE (NEGATIVE) 08/18/17 13:55 Urine RBC NONE SEEN /hpf (0-5) 08/18/17 13:55 Urine WBC NONE SEEN /hpf (0-5) 08/18/17 13:55 Ur Epithelial Cells NONE SEEN /lpf (FEW) 08/18/17 13:55 Urine Bacteria NONE SEEN /hpf (NONE SEEN) 08/18/17 13:55 - Physical Exam Vitals and I&O: Vital Signs Temp 97.9 F 08/21/17 21:28 Pulse 60 08/21/17 21:28 Resp 22 08/21/17 21:28 BP 106/48 08/21/17 21:28 Pulse Ox 95 08/21/17 21:28 Intake & Output 08/21/17 08/22/17 08/22/17 18:59 06:59 18:59 Intake Total 120 240 Balance 120 240 Intake: Oral 120 240 Other: # Voids 3 Active Medications: Current Medications Acetaminophen (Tylenol) 650 mg PO Q4H PRN PRN Reason: Mild Pain Or Fever above 101 Stop: 10/17/17 21:35 Al Hydrox/Mg Hydrox/Simethicone (Maalox) 30 ml PO Q4HR PRN PRN Reason: GI DISTRESS Stop: 10/17/17 21:35 Anastrozole (Arimidex) 1 mg PO DAILY [facility] PRN Reason: Protocol Stop: 10/18/17 08:59 Last Admin: 08/22/17 09:44 Dose: Not Given Atorvastatin Calcium (Lipitor) 10 mg PO HS [facility] PRN Reason: Protocol Stop: 10/18/17 20:59 Last Admin: 08/21/17 21:42 Dose: Not Given Calcium/Vitamin D (Oscal W/Vitamin D) 1 tab PO DAILY [facility] Stop: 10/18/17 08:59 Last Admin: 08/22/17 11:56 Dose: Not Given Divalproex Sodium (Depakote Dr) 250 mg PO BID [facility] Stop: 10/18/17 08:59 Last Admin: 08/22/17 09:44 Dose: Not Given Docusate Sodium (Colace) 100 mg PO DAILY [facility] Stop: 10/18/17 08:59 Last Admin: 08/22/17 09:49 Dose: Not Given Donepezil HCl (Aricept) 5 mg PO HS [facility] Stop: 10/18/17 20:59 Last Admin: 08/21/17 21:42 Dose: Not Given Furosemide (Lasix) 20 mg PO DAILY [facility] Stop: 10/18/17 08:59 Last Admin: 08/22/17 09:45 Dose: Not Given Gemfibrozil (Lopid) 600 mg PO BID [facility] Stop: 10/18/17 08:59 Last Admin: 08/22/17 09:44 Dose: Not Given Insulin Aspart (Novolog Insulin Sliding Scale) 0 units SUBQ ACHS [facility] PRN Reason: Protocol Stop: 10/18/17 07:29 Last Admin: 08/22/17 06:54 Dose: Not Given Levetiracetam (Keppra) 500 mg PO BID [facility] Stop: 10/18/17 08:59 Last Admin: 08/22/17 09:45 Dose: Not Given Levothyroxine Sodium (Synthroid) 0.1 mg PO QDAC [facility] Stop: 10/18/17 07:29 Last Admin: 08/22/17 06:54 Dose: Not Given Levothyroxine Sodium (Synthroid) 0.075 mg PO QDAC [facility] Stop: 10/18/17 07:29 Last Admin: 08/22/17 06:55 Dose: Not Given Magnesium Hydroxide (Milk Of Magnesia) 30 ml PO HS PRN PRN Reason: Constipation Stop: 10/17/17 20:14 Multivitamins/Vitamin C (Theragran) 1 tab PO DAILY [facility] Stop: 10/18/17 08:59 Last Admin: 08/22/17 09:45 Dose: Not Given Olanzapine (Zyprexa) 5 mg PO BID [facility] PRN Reason: Protocol Stop: 10/18/17 08:59 Last Admin: 01/14/18 09:44 Dose: Not Given Zolpidem Tartrate (Ambien) 5 mg PO HS PRN PRN Reason: Insomnia Stop: 10/17/17 22:01 Last Admin: 08/19/17 22:02 Dose: 5 mg General: weak HEENT: PERRLA Lungs: CTAB Cardiovascular: RRR, Normal S1, Normal S2 Abdomen: soft, non-tender, non-distended, positive bowel sound Neurological: alert Internal Medicine Assmt/Plan - Assessment Assessment: agitation htn dementia - Plan Plan: safety precautions continue current plan of care
[2017-08-22] MEDS ORDERED: Haloperidol Lactate 5 mg/mL 1mL Vial IM ONE (14:40)
[2017-08-22] MEDS ORDERED: Haloperidol Lactate 5 mg/mL 1mL Vial ONE (14:41)
--- NOTE | 2017-08-22 19:59 | Progress Notes ---
DATE: 08/22/2017 SUBJECTIVE: Staff was spoken to. The patient is interviewed. Mood is noted to be irritable. Affect is constricted. Insight and judgment at this time are noted to be still impaired. Impulse control seems to be poor. Coping skills are also noted to be poor. The patient has been having difficult time to cope with the stress. The patient is screaming and yelling at this time. The patient is not able to contract for safety. The patient has been offered to take the medication by mouth and has been refusing for no reason. The patient is getting easily agitated. ASSESSMENT: The patient is still impulsive. PLAN: To continue patient with the supportive therapy and followup. JOB# [id number]
[2017-08-22] MEDS: Atorvastatin Calcium 10 MG TAB PO SCH (20:27)
[2017-08-23] MEDS: Levothyroxine 0.075 Mg Tab PO SCH (06:31)
[2017-08-23] MEDS: INSULIN ASPART SLIDING SCALE 100 UNITS/ML UNIT SUBQ SCH ×4 (06:32→21:17)
[2017-08-23] MEDS: Levothyroxine 0.1 Mg Tab PO SCH (06:32)
[2017-08-23] MEDS ORDERED: Haloperidol Lactate 5 mg/mL 1mL Vial IM ONE (09:00)
[2017-08-23] MEDS: Calcium Carb/Vit D 500 mg/200 U Tab PO SCH ×2 (11:30→13:02)
[2017-08-23] MEDS: Multivitamin Tab PO SCH ×2 (11:33→13:03)
--- NOTE | 2017-08-23 12:05 | Progress Notes ---
DATE: 08/23/2017 SUBJECTIVE: Staff was spoken to. The patient is interviewed. Mood is noted to be irritable. The patient tends to scream and yell and has no insight into her illness. The patient has been given a dose of Haldol, Benadryl and Ativan yesterday to contain her agitation. The patient is currently on 250 mg of the Depakote, which she is receiving twice a day and it is decided to increase the dose on the Depakote to 500 mg twice a day and ____ patient with the supportive therapy. The patient is not ready to be discharged to a lower level of care in view of her acute mood swings and impulsivity. ASSESSMENT: The patient is still impulsive and psychotic. PLAN: To continue the patient with the supportive therapy and followup. JOB# [id number]
--- NOTE | 2017-08-23 15:00 | Internal Medicine Prog Note ---
Internal Medicine Subjective - Subjective Patient seen and examined:: with staff, chart reviewed Patient is:: awake, verbal, interactive Per staff patient has:: no adverse event, no episodes of fall, confused, tolerating meds Internal Medicine Objective - Results Result Diagrams: 08/18/17 13:47 08/18/17 13:47 Recent Labs: Laboratory Last Values WBC 7.9 Th/cmm (4.8-10.8) 08/18/17 13:47 RBC 4.23 Mil/cmm (3.80-5.20) 08/18/17 13:47 Hgb 13.1 gm/dL (12-16) 08/18/17 13:47 Hct 39.0 % (41.0-60) L 08/18/17 13:47 MCV 92.0 fl (81-100) 08/18/17 13:47 MCH 30.9 pg (27.0-31.0) 08/18/17 13:47 MCHC Differential 33.5 pg (28.0-36.0) 08/18/17 13:47 RDW 14.1 % (11.5-20.0) 08/18/17 13:47 Plt Count 257 Th/cmm (150-400) D 08/18/17 13:47 MPV 8.8 fl 08/18/17 13:47 Neutrophils % 60.6 % (40.0-80.0) 08/18/17 13:47 Lymphocytes % 24.9 % (20.0-50.0) 08/18/17 13:47 Monocytes % 9.6 % (2.0-10.0) 08/18/17 13:47 Eosinophils % 4.1 % (0.0-5.0) 08/18/17 13:47 Basophils % 0.8 % (0.0-2.0) 08/18/17 13:47 Sodium 135 mEq/L (136-145) L 08/18/17 13:47 Potassium 3.9 mEq/L (3.5-5.1) 08/18/17 13:47 Chloride 102 mEq/L (98-107) 08/18/17 13:47 Carbon Dioxide 23.3 mEq/L (21.0-31.0) 08/18/17 13:47 Anion Gap 13.6 (7.0-16.0) 08/18/17 13:47 BUN 21 mg/dL (7-25) 08/18/17 13:47 Creatinine 0.8 mg/dL (0.6-1.2) 08/18/17 13:47 Est GFR ( Amer) > 60.0 ml/min (>90) 08/18/17 13:47 Est GFR (Non-Af Amer) > 60.0 ml/min 08/18/17 13:47 BUN/Creatinine Ratio 26.3 08/18/17 13:47 Glucose 164 mg/dL (70-105) H 08/18/17 13:47 Calcium 9.8 mg/dL (8.6-10.3) 08/18/17 13:47 Total Bilirubin 0.5 mg/dL (0.3-1.0) 08/18/17 13:47 AST 16 U/L (13-39) 08/18/17 13:47 ALT 10 U/L (7-52) 08/18/17 13:47 Alkaline Phosphatase 101 U/L (34-104) 08/18/17 13:47 Total Protein 8.2 gm/dL (6.0-8.3) 08/18/17 13:47 Albumin 4.7 gm/dL (3.7-5.3) 08/18/17 13:47 Globulin 3.5 gm/dL 08/18/17 13:47 Albumin/Globulin Ratio 1.3 (1.0-1.8) 08/18/17 13:47 Triglycerides 243 mg/dL (<150) H 08/18/17 13:47 Cholesterol 176 mg/dL (<200) 08/18/17 13:47 LDL Cholesterol Direct 128 mg/dL (75-193) 08/18/17 13:47 HDL Cholesterol 38 mg/dL (23-92) 08/18/17 13:47 TSH > 100.00 uIU/ml (0.34-5.60) H 08/18/17 13:47 Urine Source CLEAN C 08/18/17 13:55 Urine Color YELLOW 08/18/17 13:55 Urine Clarity CLEAR (CLEAR) 08/18/17 13:55 Urine pH 5.5 (4.6 - 8.0) 08/18/17 13:55 Ur Specific [place] <= 1.005 (1.005-1.030) 08/18/17 13:55 Urine Protein NEGATIVE mg/dL (NEGATIVE) 08/18/17 13:55 Urine Glucose (UA) NEGATIVE mg/dL (NEGATIVE) 08/18/17 13:55 Urine Ketones NEGATIVE mg/dL (NEGATIVE) 08/18/17 13:55 Urine Blood NEGATIVE (NEGATIVE) 08/18/17 13:55 Urine Nitrate NEGATIVE (NEGATIVE) 08/18/17 13:55 Urine Bilirubin NEGATIVE (NEGATIVE) 08/18/17 13:55 Urine Urobilinogen 0.2 E.U./dL (0.2 - 1.0) 08/18/17 13:55 Ur Leukocyte Esterase NEGATIVE (NEGATIVE) 08/18/17 13:55 Urine RBC NONE SEEN /hpf (0-5) 08/18/17 13:55 Urine WBC NONE SEEN /hpf (0-5) 08/18/17 13:55 Ur Epithelial Cells NONE SEEN /lpf (FEW) 08/18/17 13:55 Urine Bacteria NONE SEEN /hpf (NONE SEEN) 08/18/17 13:55 - Physical Exam Vitals and I&O: Vital Signs Temp 98.3 F 08/22/17 20:00 Pulse 71 08/22/17 20:00 Resp 19 08/22/17 20:00 BP 140/68 08/22/17 20:00 Pulse Ox 97 08/22/17 20:00 Intake & Output 08/22/17 08/23/17 08/23/17 18:59 06:59 18:59 Intake Total 1140 120 Balance 1140 120 Intake: Oral 1140 120 Other: # Voids 3 3 # Bowel Movements 1 Active Medications: Current Medications Acetaminophen (Tylenol) 650 mg PO Q4H PRN PRN Reason: Mild Pain Or Fever above 101 Stop: 10/17/17 21:35 Al Hydrox/Mg Hydrox/Simethicone (Maalox) 30 ml PO Q4HR PRN PRN Reason: GI DISTRESS Stop: 10/17/17 21:35 Anastrozole (Arimidex) 1 mg PO DAILY CORAZON PRN Reason: Protocol Stop: 10/18/17 08:59 Last Admin: 08/23/17 13:02 Dose: 1 mg Atorvastatin Calcium (Lipitor) 10 mg PO HS CORAZON PRN Reason: Protocol Stop: 10/18/17 20:59 Last Admin: 08/22/17 20:27 Dose: Not Given Calcium/Vitamin D (Oscal W/Vitamin D) 1 tab PO DAILY CORAZON Stop: 10/18/17 08:59 Last Admin: 08/23/17 13:02 Dose: 1 tab Divalproex Sodium (Depakote Dr) 500 mg PO BID CORAZON Stop: 10/18/17 09:29 Last Admin: 08/23/17 13:03 Dose: 500 mg Docusate Sodium (Colace) 100 mg PO DAILY CORAZON Stop: 10/18/17 08:59 Last Admin: 08/23/17 13:03 Dose: 100 mg Donepezil HCl (Aricept) 5 mg PO HS CORAZON Stop: 10/18/17 20:59 Last Admin: 08/22/17 20:27 Dose: Not Given Furosemide (Lasix) 20 mg PO DAILY CORAZON Stop: 10/18/17 08:59 Last Admin: 08/23/17 11:31 Dose: Not Given Gemfibrozil (Lopid) 600 mg PO BID CORAZON Stop: 10/18/17 08:59 Last Admin: 08/23/17 13:01 Dose: 600 mg Insulin Aspart (Novolog Insulin Sliding Scale) 0 units SUBQ ACHS CORAZON PRN Reason: Protocol Stop: 10/18/17 07:29 Last Admin: 08/23/17 12:51 Dose: Not Given Levetiracetam (Keppra) 500 mg PO BID CORAZON Stop: 10/18/17 08:59 Last Admin: 08/23/17 13:01 Dose: 500 mg Levothyroxine Sodium (Synthroid) 0.1 mg PO QDAC CORAZON Stop: 10/18/17 07:29 Last Admin: 08/23/17 06:32 Dose: 0.1 mg Levothyroxine Sodium (Synthroid) 0.075 mg PO QDAC CORAZON Stop: 10/18/17 07:29 Last Admin: 08/23/17 06:31 Dose: 0.075 mg Magnesium Hydroxide (Milk Of Magnesia) 30 ml PO HS PRN PRN Reason: Constipation Stop: 10/17/17 20:14 Multivitamins/Vitamin C (Theragran) 1 tab PO DAILY CORAZON Stop: 10/18/17 08:59 Last Admin: 08/23/17 13:03 Dose: 1 tab Olanzapine (Zyprexa) 5 mg PO BID CORAZON PRN Reason: Protocol Stop: 10/18/17 08:59 Last Admin: 08/23/17 13:02 Dose: 5 mg Zolpidem Tartrate (Ambien) 5 mg PO HS PRN PRN Reason: Insomnia Stop: 10/17/17 22:01 Last Admin: 08/22/17 20:27 Dose: 5 mg General: weak HEENT: PERRLA Lungs: CTAB Cardiovascular: RRR, Normal S1, Normal S2 Abdomen: soft, non-tender, non-distended, positive bowel sound Neurological: disorganized Internal Medicine Assmt/Plan - Assessment Assessment: agitation htn dementia - Plan Plan: safety precautions continue current plan of care will monitor and titrate bp meds dw rn - Plan Plan: cpm Nutritional Asmnt/Malnutr-PDOC - Dietary Evaluation Malnutrition Findings (Please click <Entered> for more info): Nutritional Asmnt/Malnutrition Start: 08/23/17 14: 20 Text: Status: Complete Freq: Document 08/23/17 14:21 RAYMUNDO (Rec: 08/23/17 14:24 [email or web address] Nutritional Asmnt/Malnutrition Patient General Information Nutritional Screening Moderate Risk Diagnosis psychosis Pertinent Medical Hx/Surgical Hx HTN, DM, dyslipidemia, thyroidism, dementia Subjective Information Pt seen sitting in dining room . Per notes, PO intake 100%. Current Diet Order/ Nutrition Support mech soft chopped, CCHO 60gm, RIAZ Pertinent Medications calcium, vitamin D, colace, lasix, novolog, synthroid, theragran Pertinent Labs 08/18 Na 135, K 3.9, Cl 102, BUN 21, Cr 0.8, Glucose 164 Nutritional Hx/Data Height 1.7 m Height (Calculated Centimeters) 170.2 Current Weight (lbs) 110.223 kg Weight (Calculated Kilograms) 110.2 Weight (Calculated Grams) 368407.9 [place] Body Weight 135 % [place] Body Weight 180 Body Mass Index (BMI) 38.0 Weight Status Obese GI Symptoms GI Symptoms None Last BM 08/22 Difficult in: None Skin Integrity/Comment: intact Current %PO Good (75-100%) Estimated Nutritional Goals BEE in Kcals: Adj wt of IBW Calories/Kcals/Kg 25-30 Kcals Calculated 3862-0564 Protein: Adj wt of IBW Protein g/k Protein Calculated 74 Fluid: ml 1850-2220ml (1ml/kcal) Nutritional Problem 1. Problem Problem altered nutrition related lab values Etiology hx of DM Signs/Symptoms: glucose 164 Malnutrition Alert Protein-Calorie Malnutrition N/A Is there a minimum of two criteria No selected? Query Text:Check all the applicable criteria. A minimum of two criteria are recommended for diagnosis of either severe or non-severe malnutrition. Intervention/Recommendation Comments 1. Continue with current diet as ordered. 2. Monitor PO intake, wt, labs and skin integrity 3. F/U as low risk in 7 days, 08/30 Expected Outcomes/Goals Expected Outcomes/Goals 1. PO intake to meet at least 75% of nutritional needs. 2. Wt stability, skin to remain intact, labs to approach WNL.
[2017-08-23] MEDS: Atorvastatin Calcium 10 MG TAB PO SCH (20:25)
[2017-08-24] MEDS: INSULIN ASPART SLIDING SCALE 100 UNITS/ML UNIT SUBQ SCH ×4 (06:43→20:50)
[2017-08-24] MEDS: Levothyroxine 0.1 Mg Tab PO SCH (06:52)
[2017-08-24] MEDS: Levothyroxine 0.075 Mg Tab PO SCH (06:52)
[2017-08-24] MEDS: Calcium Carb/Vit D 500 mg/200 U Tab PO SCH (08:57)
[2017-08-24] MEDS: Multivitamin Tab PO SCH (08:57)
--- NOTE | 2017-08-24 16:57 | Progress Notes ---
DATE: 08/24/2017 PSYCHIATRIC PROGRESS NOTE SUBJECTIVE: Staff was spoken to. The patient is interviewed. Mood is noted to be anxious. Affect is constricted. The patient is screaming and yelling and has been testing the limits. The patient tends to be very impulsive. The patient is not ready to be discharged to a lower level of care. ASSESSMENT: The patient is still grossly psychotic. PLAN: To continue the patient with the supportive therapy and followup. [facility]# [id number]
--- NOTE | 2017-08-24 17:37 | Internal Medicine Prog Note ---
Internal Medicine Subjective - Subjective Service Date: 08/24/17 Patient is:: awake, verbal, interactive Per staff patient has:: no adverse event, no episodes of fall, confused, tolerating meds Internal Medicine Objective - Results Result Diagrams: 08/18/17 13:47 08/18/17 13:47 Recent Labs: Laboratory Last Values WBC 7.9 Th/cmm (4.8-10.8) 08/18/17 13:47 RBC 4.23 Mil/cmm (3.80-5.20) 08/18/17 13:47 Hgb 13.1 gm/dL (12-16) 08/18/17 13:47 Hct 39.0 % (41.0-60) L 08/18/17 13:47 MCV 92.0 fl (81-100) 08/18/17 13:47 MCH 30.9 pg (27.0-31.0) 08/18/17 13:47 MCHC Differential 33.5 pg (28.0-36.0) 08/18/17 13:47 RDW 14.1 % (11.5-20.0) 08/18/17 13:47 Plt Count 257 Th/cmm (150-400) D 08/18/17 13:47 MPV 8.8 fl 08/18/17 13:47 Neutrophils % 60.6 % (40.0-80.0) 08/18/17 13:47 Lymphocytes % 24.9 % (20.0-50.0) 08/18/17 13:47 Monocytes % 9.6 % (2.0-10.0) 08/18/17 13:47 Eosinophils % 4.1 % (0.0-5.0) 08/18/17 13:47 Basophils % 0.8 % (0.0-2.0) 08/18/17 13:47 Sodium 135 mEq/L (136-145) L 08/18/17 13:47 Potassium 3.9 mEq/L (3.5-5.1) 08/18/17 13:47 Chloride 102 mEq/L (98-107) 08/18/17 13:47 Carbon Dioxide 23.3 mEq/L (21.0-31.0) 08/18/17 13:47 Anion Gap 13.6 (7.0-16.0) 08/18/17 13:47 BUN 21 mg/dL (7-25) 08/18/17 13:47 Creatinine 0.8 mg/dL (0.6-1.2) 08/18/17 13:47 Est GFR ( Amer) > 60.0 ml/min (>90) 08/18/17 13:47 Est GFR (Non-Af Amer) > 60.0 ml/min 08/18/17 13:47 BUN/Creatinine Ratio 26.3 08/18/17 13:47 Glucose 164 mg/dL (70-105) H 08/18/17 13:47 Calcium 9.8 mg/dL (8.6-10.3) 08/18/17 13:47 Total Bilirubin 0.5 mg/dL (0.3-1.0) 08/18/17 13:47 AST 16 U/L (13-39) 08/18/17 13:47 ALT 10 U/L (7-52) 08/18/17 13:47 Alkaline Phosphatase 101 U/L (34-104) 08/18/17 13:47 Total Protein 8.2 gm/dL (6.0-8.3) 08/18/17 13:47 Albumin 4.7 gm/dL (3.7-5.3) 08/18/17 13:47 Globulin 3.5 gm/dL 08/18/17 13:47 Albumin/Globulin Ratio 1.3 (1.0-1.8) 08/18/17 13:47 Triglycerides 243 mg/dL (<150) H 08/18/17 13:47 Cholesterol 176 mg/dL (<200) 08/18/17 13:47 LDL Cholesterol Direct 128 mg/dL (75-193) 08/18/17 13:47 HDL Cholesterol 38 mg/dL (23-92) 08/18/17 13:47 TSH > 100.00 uIU/ml (0.34-5.60) H 08/18/17 13:47 Urine Source CLEAN C 08/18/17 13:55 Urine Color YELLOW 08/18/17 13:55 Urine Clarity CLEAR (CLEAR) 08/18/17 13:55 Urine pH 5.5 (4.6 - 8.0) 08/18/17 13:55 Ur Specific [place] <= 1.005 (1.005-1.030) 08/18/17 13:55 Urine Protein NEGATIVE mg/dL (NEGATIVE) 08/18/17 13:55 Urine Glucose (UA) NEGATIVE mg/dL (NEGATIVE) 08/18/17 13:55 Urine Ketones NEGATIVE mg/dL (NEGATIVE) 08/18/17 13:55 Urine Blood NEGATIVE (NEGATIVE) 08/18/17 13:55 Urine Nitrate NEGATIVE (NEGATIVE) 08/18/17 13:55 Urine Bilirubin NEGATIVE (NEGATIVE) 08/18/17 13:55 Urine Urobilinogen 0.2 E.U./dL (0.2 - 1.0) 08/18/17 13:55 Ur Leukocyte Esterase NEGATIVE (NEGATIVE) 08/18/17 13:55 Urine RBC NONE SEEN /hpf (0-5) 08/18/17 13:55 Urine WBC NONE SEEN /hpf (0-5) 08/18/17 13:55 Ur Epithelial Cells NONE SEEN /lpf (FEW) 08/18/17 13:55 Urine Bacteria NONE SEEN /hpf (NONE SEEN) 08/18/17 13:55 RPR NONREACTIVE (NONREACTIVE) 08/18/17 13:47 - Physical Exam Vitals and I&O: Vital Signs Temp 98.3 F 08/24/17 15:43 Pulse 46 08/24/17 15:43 Resp 20 08/24/17 15:43 BP 103/49 08/24/17 15:43 Pulse Ox 95 08/24/17 15:43 Intake & Output 08/23/17 08/24/17 08/24/17 18:59 06:59 18:59 Intake Total 1200 600 Output Total 1 Balance 1200 599 Intake: Oral 1200 600 Output: Stool 1 Other: # Voids 3 2 # Bowel Movements 1 Active Medications: Current Medications Acetaminophen (Tylenol) 650 mg PO Q4H PRN PRN Reason: Mild Pain Or Fever above 101 Stop: 10/17/17 21:35 Al Hydrox/Mg Hydrox/Simethicone (Maalox) 30 ml PO Q4HR PRN PRN Reason: GI DISTRESS Stop: 10/17/17 21:35 Anastrozole (Arimidex) 1 mg PO DAILY CORAZON PRN Reason: Protocol Stop: 10/18/17 08:59 Last Admin: 08/24/17 09:13 Dose: 1 mg Atorvastatin Calcium (Lipitor) 10 mg PO HS CORAZON PRN Reason: Protocol Stop: 10/18/17 20:59 Last Admin: 08/23/17 20:25 Dose: 10 mg Calcium/Vitamin D (Oscal W/Vitamin D) 1 tab PO DAILY CORAZON Stop: 10/18/17 08:59 Last Admin: 08/24/17 08:57 Dose: 1 tab Divalproex Sodium (Depakote Dr) 500 mg PO BID CORAZON Stop: 10/18/17 09:29 Last Admin: 08/24/17 17:33 Dose: 500 mg Docusate Sodium (Colace) 100 mg PO DAILY CORAZON Stop: 10/18/17 08:59 Last Admin: 08/24/17 08:57 Dose: 100 mg Donepezil HCl (Aricept) 5 mg PO HS CORAZON Stop: 10/18/17 20:59 Last Admin: 08/23/17 20:25 Dose: 5 mg Furosemide (Lasix) 20 mg PO DAILY CORAZON Stop: 10/18/17 08:59 Last Admin: 08/24/17 09:10 Dose: Not Given Gemfibrozil (Lopid) 600 mg PO BID CORAZON Stop: 10/18/17 08:59 Last Admin: 08/24/17 17:33 Dose: 600 mg Insulin Aspart (Novolog Insulin Sliding Scale) 0 units SUBQ ACHS CORAZON PRN Reason: Protocol Stop: 10/18/17 07:29 Last Admin: 08/24/17 16:54 Dose: Not Given Levetiracetam (Keppra) 500 mg PO BID CORAZON Stop: 10/18/17 08:59 Last Admin: 08/24/17 17:33 Dose: 500 mg Levothyroxine Sodium (Synthroid) 0.1 mg PO QDAC CORAZON Stop: 10/18/17 07:29 Last Admin: 08/24/17 06:52 Dose: Not Given Levothyroxine Sodium (Synthroid) 0.075 mg PO QDAC CORAZON Stop: 10/18/17 07:29 Last Admin: 08/24/17 06:52 Dose: Not Given Magnesium Hydroxide (Milk Of Magnesia) 30 ml PO HS PRN PRN Reason: Constipation Stop: 10/17/17 20:14 Multivitamins/Vitamin C (Theragran) 1 tab PO DAILY CORAZON Stop: 10/18/17 08:59 Last Admin: 08/24/17 08:57 Dose: 1 tab Olanzapine (Zyprexa) 5 mg PO BID CORAZON PRN Reason: Protocol Stop: 10/18/17 08:59 Last Admin: 08/24/17 17:33 Dose: 5 mg Zolpidem Tartrate (Ambien) 5 mg PO HS PRN PRN Reason: Insomnia Stop: 10/17/17 22:01 Last Admin: 08/23/17 20:30 Dose: 5 mg General: weak HEENT: PERRLA Lungs: CTAB Cardiovascular: RRR, Normal S1, Normal S2 Abdomen: soft, non-tender, non-distended, positive bowel sound Neurological: disorganized Internal Medicine Assmt/Plan - Assessment Assessment: agitation htn dementia - Plan Plan: safety precautions continue current plan of care Nutritional Asmnt/Malnutr-PDOC - Dietary Evaluation Malnutrition Findings (Please click <Entered> for more info): Nutritional Asmnt/Malnutrition Start: 08/23/17 14: 20 Text: Status: Complete Freq: Document 08/23/17 14:21 RAYMUNDO (Rec: 08/23/17 14:24 [email or web address]) Nutritional Asmnt/Malnutrition Patient General Information Nutritional Screening Moderate Risk Diagnosis psychosis Pertinent Medical Hx/Surgical Hx HTN, DM, dyslipidemia, thyroidism, dementia Subjective Information Pt seen sitting in dining room . Per notes, PO intake 100%. Current Diet Order/ Nutrition Support mech soft chopped, CCHO 60gm, RIAZ Pertinent Medications calcium, vitamin D, colace, lasix, novolog, synthroid, theragran Pertinent Labs 08/18 Na 135, K 3.9, Cl 102, BUN 21, Cr 0.8, Glucose 164 Nutritional Hx/Data Height 5 ft 7 in Height (Calculated Centimeters) 170.2 Current Weight (lbs) 243 lb Weight (Calculated Kilograms) 110.2 Weight (Calculated Grams) 918100.9 [place] Body Weight 135 % [place] Body Weight 180 Body Mass Index (BMI) 38.0 Weight Status Obese GI Symptoms GI Symptoms None Last BM 08/22 Difficult in: None Skin Integrity/Comment: intact Current %PO Good (75-100%) Estimated Nutritional Goals BEE in Kcals: Adj wt of IBW Calories/Kcals/Kg 25-30 Kcals Calculated 2464-1230 Protein: Adj wt of IBW Protein g/k Protein Calculated 74 Fluid: ml 1850-2220ml (1ml/kcal) Nutritional Problem 1. Problem Problem altered nutrition related lab values Etiology hx of DM Signs/Symptoms: glucose 164 Malnutrition Alert Protein-Calorie Malnutrition N/A Is there a minimum of two criteria No selected? Query Text:Check all the applicable criteria. A minimum of two criteria are recommended for diagnosis of either severe or non-severe malnutrition. Intervention/Recommendation Comments 1. Continue with current diet as ordered. 2. Monitor PO intake, wt, labs and skin integrity 3. F/U as low risk in 7 days, 08/30 Expected Outcomes/Goals Expected Outcomes/Goals 1. PO intake to meet at least 75% of nutritional needs. 2. Wt stability, skin to remain intact, labs to approach WNL.
[2017-08-24] MEDS: Atorvastatin Calcium 10 MG TAB PO SCH (20:43)
[2017-08-25] MEDS: Levothyroxine 0.075 Mg Tab PO SCH (06:54)
[2017-08-25] MEDS: Levothyroxine 0.1 Mg Tab PO SCH (06:55)
[2017-08-25] MEDS: INSULIN ASPART SLIDING SCALE 100 UNITS/ML UNIT SUBQ SCH ×3 (06:58→21:00)
[2017-08-25] MEDS: Calcium Carb/Vit D 500 mg/200 U Tab PO SCH (09:39)
[2017-08-25] MEDS: Multivitamin Tab PO SCH (09:40)
--- NOTE | 2017-08-25 13:46 | Internal Medicine Prog Note ---
Internal Medicine Subjective - Subjective Service Date: 08/25/17 Patient is:: awake, verbal, interactive Per staff patient has:: no adverse event, no episodes of fall, confused, tolerating meds Internal Medicine Objective - Results Result Diagrams: 08/18/17 13:47 08/18/17 13:47 Recent Labs: Laboratory Last Values WBC 7.9 Th/cmm (4.8-10.8) 08/18/17 13:47 RBC 4.23 Mil/cmm (3.80-5.20) 08/18/17 13:47 Hgb 13.1 gm/dL (12-16) 08/18/17 13:47 Hct 39.0 % (41.0-60) L 08/18/17 13:47 MCV 92.0 fl (81-100) 08/18/17 13:47 MCH 30.9 pg (27.0-31.0) 08/18/17 13:47 MCHC Differential 33.5 pg (28.0-36.0) 08/18/17 13:47 RDW 14.1 % (11.5-20.0) 08/18/17 13:47 Plt Count 257 Th/cmm (150-400) D 08/18/17 13:47 MPV 8.8 fl 08/18/17 13:47 Neutrophils % 60.6 % (40.0-80.0) 08/18/17 13:47 Lymphocytes % 24.9 % (20.0-50.0) 08/18/17 13:47 Monocytes % 9.6 % (2.0-10.0) 08/18/17 13:47 Eosinophils % 4.1 % (0.0-5.0) 08/18/17 13:47 Basophils % 0.8 % (0.0-2.0) 08/18/17 13:47 Sodium 135 mEq/L (136-145) L 08/18/17 13:47 Potassium 3.9 mEq/L (3.5-5.1) 08/18/17 13:47 Chloride 102 mEq/L (98-107) 08/18/17 13:47 Carbon Dioxide 23.3 mEq/L (21.0-31.0) 08/18/17 13:47 Anion Gap 13.6 (7.0-16.0) 08/18/17 13:47 BUN 21 mg/dL (7-25) 08/18/17 13:47 Creatinine 0.8 mg/dL (0.6-1.2) 08/18/17 13:47 Est GFR ( Amer) > 60.0 ml/min (>90) 08/18/17 13:47 Est GFR (Non-Af Amer) > 60.0 ml/min 08/18/17 13:47 BUN/Creatinine Ratio 26.3 08/18/17 13:47 Glucose 164 mg/dL (70-105) H 08/18/17 13:47 Calcium 9.8 mg/dL (8.6-10.3) 08/18/17 13:47 Total Bilirubin 0.5 mg/dL (0.3-1.0) 08/18/17 13:47 AST 16 U/L (13-39) 08/18/17 13:47 ALT 10 U/L (7-52) 08/18/17 13:47 Alkaline Phosphatase 101 U/L (34-104) 08/18/17 13:47 Total Protein 8.2 gm/dL (6.0-8.3) 08/18/17 13:47 Albumin 4.7 gm/dL (3.7-5.3) 08/18/17 13:47 Globulin 3.5 gm/dL 08/18/17 13:47 Albumin/Globulin Ratio 1.3 (1.0-1.8) 08/18/17 13:47 Triglycerides 243 mg/dL (<150) H 08/18/17 13:47 Cholesterol 176 mg/dL (<200) 08/18/17 13:47 LDL Cholesterol Direct 128 mg/dL (75-193) 08/18/17 13:47 HDL Cholesterol 38 mg/dL (23-92) 08/18/17 13:47 TSH > 100.00 uIU/ml (0.34-5.60) H 08/18/17 13:47 Urine Source CLEAN C 08/18/17 13:55 Urine Color YELLOW 08/18/17 13:55 Urine Clarity CLEAR (CLEAR) 08/18/17 13:55 Urine pH 5.5 (4.6 - 8.0) 08/18/17 13:55 Ur Specific [place] <= 1.005 (1.005-1.030) 08/18/17 13:55 Urine Protein NEGATIVE mg/dL (NEGATIVE) 08/18/17 13:55 Urine Glucose (UA) NEGATIVE mg/dL (NEGATIVE) 08/18/17 13:55 Urine Ketones NEGATIVE mg/dL (NEGATIVE) 08/18/17 13:55 Urine Blood NEGATIVE (NEGATIVE) 08/18/17 13:55 Urine Nitrate NEGATIVE (NEGATIVE) 08/18/17 13:55 Urine Bilirubin NEGATIVE (NEGATIVE) 08/18/17 13:55 Urine Urobilinogen 0.2 E.U./dL (0.2 - 1.0) 08/18/17 13:55 Ur Leukocyte Esterase NEGATIVE (NEGATIVE) 08/18/17 13:55 Urine RBC NONE SEEN /hpf (0-5) 08/18/17 13:55 Urine WBC NONE SEEN /hpf (0-5) 08/18/17 13:55 Ur Epithelial Cells NONE SEEN /lpf (FEW) 08/18/17 13:55 Urine Bacteria NONE SEEN /hpf (NONE SEEN) 08/18/17 13:55 RPR NONREACTIVE (NONREACTIVE) 08/18/17 13:47 - Physical Exam Vitals and I&O: Vital Signs Temp 98.1 F 08/24/17 20:26 Pulse 69 08/24/17 20:26 Resp 20 08/24/17 20:26 BP 126/77 08/24/17 20:26 Pulse Ox 95 08/24/17 20:26 Intake & Output 08/24/17 08/25/17 08/25/17 18:59 06:59 18:59 Intake Total 950 300 Balance 950 300 Intake: Oral 950 300 Other: # Voids 4 2 # Bowel Movements 0 1 Active Medications: Current Medications Acetaminophen (Tylenol) 650 mg PO Q4H PRN PRN Reason: Mild Pain Or Fever above 101 Stop: 10/17/17 21:35 Al Hydrox/Mg Hydrox/Simethicone (Maalox) 30 ml PO Q4HR PRN PRN Reason: GI DISTRESS Stop: 10/17/17 21:35 Anastrozole (Arimidex) 1 mg PO DAILY CORAZON PRN Reason: Protocol Stop: 10/18/17 08:59 Last Admin: 08/25/17 09:39 Dose: Not Given Atorvastatin Calcium (Lipitor) 10 mg PO HS CORAZON PRN Reason: Protocol Stop: 10/18/17 20:59 Last Admin: 08/24/17 20:43 Dose: 10 mg Calcium/Vitamin D (Oscal W/Vitamin D) 1 tab PO DAILY CORAZON Stop: 10/18/17 08:59 Last Admin: 08/25/17 09:39 Dose: Not Given Divalproex Sodium (Depakote Dr) 500 mg PO BID CORAZON Stop: 10/18/17 09:29 Last Admin: 08/25/17 09:40 Dose: Not Given Docusate Sodium (Colace) 100 mg PO DAILY CORAZON Stop: 10/18/17 08:59 Last Admin: 08/25/17 09:40 Dose: Not Given Donepezil HCl (Aricept) 5 mg PO HS CORAZON Stop: 10/18/17 20:59 Last Admin: 08/24/17 20:43 Dose: 5 mg Furosemide (Lasix) 20 mg PO DAILY CORAZON Stop: 10/18/17 08:59 Last Admin: 08/25/17 09:40 Dose: Not Given Gemfibrozil (Lopid) 600 mg PO BID CORAZON Stop: 10/18/17 08:59 Last Admin: 08/25/17 09:39 Dose: Not Given Insulin Aspart (Novolog Insulin Sliding Scale) 0 units SUBQ ACHS CORAZON PRN Reason: Protocol Stop: 10/18/17 07:29 Last Admin: 08/25/17 13:02 Dose: Not Given Levetiracetam (Keppra) 500 mg PO BID CORAZON Stop: 10/18/17 08:59 Last Admin: 08/25/17 09:39 Dose: Not Given Levothyroxine Sodium (Synthroid) 0.1 mg PO QDAC CORAZON Stop: 10/18/17 07:29 Last Admin: 08/25/17 06:55 Dose: Not Given Levothyroxine Sodium (Synthroid) 0.075 mg PO QDAC CORAZON Stop: 10/18/17 07:29 Last Admin: 08/25/17 06:54 Dose: Not Given Magnesium Hydroxide (Milk Of Magnesia) 30 ml PO HS PRN PRN Reason: Constipation Stop: 10/17/17 20:14 Multivitamins/Vitamin C (Theragran) 1 tab PO DAILY CORAZON Stop: 10/18/17 08:59 Last Admin: 08/25/17 09:40 Dose: Not Given Olanzapine (Zyprexa) 5 mg PO BID CORAZON PRN Reason: Protocol Stop: 10/18/17 08:59 Last Admin: 08/25/17 09:41 Dose: Not Given Zolpidem Tartrate (Ambien) 5 mg PO HS PRN PRN Reason: Insomnia Stop: 10/17/17 22:01 Last Admin: 08/24/17 20:44 Dose: 5 mg General: weak HEENT: PERRLA Lungs: CTAB Cardiovascular: RRR, Normal S1, Normal S2 Abdomen: soft, non-tender, non-distended, positive bowel sound Neurological: disorganized Internal Medicine Assmt/Plan - Assessment Assessment: agitation htn dementia - Plan Plan: safety precautions continue current plan of care Nutritional Asmnt/Malnutr-PDOC - Dietary Evaluation Malnutrition Findings (Please click <Entered> for more info): Nutritional Asmnt/Malnutrition Start: 08/23/17 14: 20 Text: Status: Complete Freq: Document 08/23/17 14:21 [email or web address] (Rec: 08/23/17 14:24 [email or web address] Nutritional Asmnt/Malnutrition Patient General Information Nutritional Screening Moderate Risk Diagnosis psychosis Pertinent Medical Hx/Surgical Hx HTN, DM, dyslipidemia, thyroidism, dementia Subjective Information Pt seen sitting in dining room . Per notes, PO intake 100%. Current Diet Order/ Nutrition Support mech soft chopped, CCHO 60gm, RIAZ Pertinent Medications calcium, vitamin D, colace, lasix, novolog, synthroid, theragran Pertinent Labs 08/18 Na 135, K 3.9, Cl 102, BUN 21, Cr 0.8, Glucose 164 Nutritional Hx/Data Height 5 ft 7 in Height (Calculated Centimeters) 170.2 Current Weight (lbs) 243 lb Weight (Calculated Kilograms) 110.2 Weight (Calculated Grams) 569189.9 [place] Body Weight 135 % [place] Body Weight 180 Body Mass Index (BMI) 38.0 Weight Status Obese GI Symptoms GI Symptoms None Last BM 08/22 Difficult in: None Skin Integrity/Comment: intact Current %PO Good (75-100%) Estimated Nutritional Goals BEE in Kcals: Adj wt of IBW Calories/Kcals/Kg 25-30 Kcals Calculated 4634-8841 Protein: Adj wt of IBW Protein g/k Protein Calculated 74 Fluid: ml 1850-2220ml (1ml/kcal) Nutritional Problem 1. Problem Problem altered nutrition related lab values Etiology hx of DM Signs/Symptoms: glucose 164 Malnutrition Alert Protein-Calorie Malnutrition N/A Is there a minimum of two criteria No selected? Query Text:Check all the applicable criteria. A minimum of two criteria are recommended for diagnosis of either severe or non-severe malnutrition. Intervention/Recommendation Comments 1. Continue with current diet as ordered. 2. Monitor PO intake, wt, labs and skin integrity 3. F/U as low risk in 7 days, 08/30 Expected Outcomes/Goals Expected Outcomes/Goals 1. PO intake to meet at least 75% of nutritional needs. 2. Wt stability, skin to remain intact, labs to approach WNL.
[2017-08-25] MEDS: Atorvastatin Calcium 10 MG TAB PO SCH (21:07)
--- NOTE | 2017-08-25 23:28 | Progress Notes ---
DATE: 08/25/2017 PSYCHIATRIC PROGRESS NOTE SUBJECTIVE: Staff was spoken to. Patient was interviewed. Mood is noted to be labile. The patient has been screaming and yelling. The patient is currently on 500 mg twice a day of the Depakote. The patient is also getting the olanzapine 5 mg twice a day. The patient has been able to tolerate the medications. No side effects to the medications are noted and patient is being closely monitored. I encouraged to verbalize the concerns rather than to act out. The patient still is testing the limits. PLAN: To continue the patient with the current medications and request for Depakote level tomorrow. JOB# [id number]
[2017-08-26] MEDS: INSULIN ASPART SLIDING SCALE 100 UNITS/ML UNIT SUBQ SCH ×4 (06:31→21:53)
[2017-08-26] MEDS: Levothyroxine 0.075 Mg Tab PO SCH (06:32)
[2017-08-26] MEDS: Levothyroxine 0.1 Mg Tab PO SCH (06:32)
[2017-08-26] MEDS: Multivitamin Tab PO SCH (09:50)
[2017-08-26] MEDS: Calcium Carb/Vit D 500 mg/200 U Tab PO SCH (09:50)
--- NOTE | 2017-08-26 13:31 | Internal Medicine Prog Note ---
Internal Medicine Subjective - Subjective Service Date: 08/26/17 Patient is:: awake, verbal, interactive Per staff patient has:: no adverse event, no episodes of fall, confused, tolerating meds Internal Medicine Objective - Results Result Diagrams: 08/18/17 13:47 08/18/17 13:47 Recent Labs: Laboratory Last Values WBC 7.9 Th/cmm (4.8-10.8) 08/18/17 13:47 RBC 4.23 Mil/cmm (3.80-5.20) 08/18/17 13:47 Hgb 13.1 gm/dL (12-16) 08/18/17 13:47 Hct 39.0 % (41.0-60) L 08/18/17 13:47 MCV 92.0 fl (81-100) 08/18/17 13:47 MCH 30.9 pg (27.0-31.0) 08/18/17 13:47 MCHC Differential 33.5 pg (28.0-36.0) 08/18/17 13:47 RDW 14.1 % (11.5-20.0) 08/18/17 13:47 Plt Count 257 Th/cmm (150-400) D 08/18/17 13:47 MPV 8.8 fl 08/18/17 13:47 Neutrophils % 60.6 % (40.0-80.0) 08/18/17 13:47 Lymphocytes % 24.9 % (20.0-50.0) 08/18/17 13:47 Monocytes % 9.6 % (2.0-10.0) 08/18/17 13:47 Eosinophils % 4.1 % (0.0-5.0) 08/18/17 13:47 Basophils % 0.8 % (0.0-2.0) 08/18/17 13:47 Sodium 135 mEq/L (136-145) L 08/18/17 13:47 Potassium 3.9 mEq/L (3.5-5.1) 08/18/17 13:47 Chloride 102 mEq/L (98-107) 08/18/17 13:47 Carbon Dioxide 23.3 mEq/L (21.0-31.0) 08/18/17 13:47 Anion Gap 13.6 (7.0-16.0) 08/18/17 13:47 BUN 21 mg/dL (7-25) 08/18/17 13:47 Creatinine 0.8 mg/dL (0.6-1.2) 08/18/17 13:47 Est GFR ( Amer) > 60.0 ml/min (>90) 08/18/17 13:47 Est GFR (Non-Af Amer) > 60.0 ml/min 08/18/17 13:47 BUN/Creatinine Ratio 26.3 08/18/17 13:47 Glucose 164 mg/dL (70-105) H 08/18/17 13:47 POC Glucose 153 MG/DL (70 - 105) H 08/25/17 17:41 Calcium 9.8 mg/dL (8.6-10.3) 08/18/17 13:47 Total Bilirubin 0.5 mg/dL (0.3-1.0) 08/18/17 13:47 AST 16 U/L (13-39) 08/18/17 13:47 ALT 10 U/L (7-52) 08/18/17 13:47 Alkaline Phosphatase 101 U/L (34-104) 08/18/17 13:47 Total Protein 8.2 gm/dL (6.0-8.3) 08/18/17 13:47 Albumin 4.7 gm/dL (3.7-5.3) 08/18/17 13:47 Globulin 3.5 gm/dL 08/18/17 13:47 Albumin/Globulin Ratio 1.3 (1.0-1.8) 08/18/17 13:47 Triglycerides 243 mg/dL (<150) H 08/18/17 13:47 Cholesterol 176 mg/dL (<200) 08/18/17 13:47 LDL Cholesterol Direct 128 mg/dL (75-193) 08/18/17 13:47 HDL Cholesterol 38 mg/dL (23-92) 08/18/17 13:47 TSH > 100.00 uIU/ml (0.34-5.60) H 08/18/17 13:47 Urine Source CLEAN C 08/18/17 13:55 Urine Color YELLOW 08/18/17 13:55 Urine Clarity CLEAR (CLEAR) 08/18/17 13:55 Urine pH 5.5 (4.6 - 8.0) 08/18/17 13:55 Ur Specific [place] <= 1.005 (1.005-1.030) 08/18/17 13:55 Urine Protein NEGATIVE mg/dL (NEGATIVE) 08/18/17 13:55 Urine Glucose (UA) NEGATIVE mg/dL (NEGATIVE) 08/18/17 13:55 Urine Ketones NEGATIVE mg/dL (NEGATIVE) 08/18/17 13:55 Urine Blood NEGATIVE (NEGATIVE) 08/18/17 13:55 Urine Nitrate NEGATIVE (NEGATIVE) 08/18/17 13:55 Urine Bilirubin NEGATIVE (NEGATIVE) 08/18/17 13:55 Urine Urobilinogen 0.2 E.U./dL (0.2 - 1.0) 08/18/17 13:55 Ur Leukocyte Esterase NEGATIVE (NEGATIVE) 08/18/17 13:55 Urine RBC NONE SEEN /hpf (0-5) 08/18/17 13:55 Urine WBC NONE SEEN /hpf (0-5) 08/18/17 13:55 Ur Epithelial Cells NONE SEEN /lpf (FEW) 08/18/17 13:55 Urine Bacteria NONE SEEN /hpf (NONE SEEN) 08/18/17 13:55 Valproic Acid 48.0 ug/mL (50.0-100.0) L 08/25/17 21:41 RPR NONREACTIVE (NONREACTIVE) 08/18/17 13:47 - Physical Exam Vitals and I&O: Vital Signs Temp 97.6 F 08/25/17 14:00 Pulse 76 08/25/17 14:00 Resp 20 08/25/17 14:00 BP 163/76 08/25/17 14:00 Pulse Ox 98 08/25/17 14:00 Intake & Output 08/25/17 08/26/17 08/26/17 18:59 06:59 18:59 Intake Total 1000 240 Balance 1000 240 Intake: Oral 1000 240 Other: # Voids 4 3 # Bowel Movements 1 Active Medications: Current Medications Acetaminophen (Tylenol) 650 mg PO Q4H PRN PRN Reason: Mild Pain Or Fever above 101 Stop: 10/17/17 21:35 Al Hydrox/Mg Hydrox/Simethicone (Maalox) 30 ml PO Q4HR PRN PRN Reason: GI DISTRESS Stop: 10/17/17 21:35 Last Admin: 08/26/17 12:28 Dose: 30 ml Anastrozole (Arimidex) 1 mg PO DAILY CORAZON PRN Reason: Protocol Stop: 10/18/17 08:59 Last Admin: 08/26/17 09:50 Dose: Not Given Atorvastatin Calcium (Lipitor) 10 mg PO HS CORAZON PRN Reason: Protocol Stop: 10/18/17 20:59 Last Admin: 08/25/17 21:07 Dose: 10 mg Calcium/Vitamin D (Oscal W/Vitamin D) 1 tab PO DAILY CORAZON Stop: 10/18/17 08:59 Last Admin: 08/26/17 09:50 Dose: Not Given Divalproex Sodium (Depakote Dr) 500 mg PO BID CORAZON Stop: 10/18/17 09:29 Last Admin: 08/26/17 09:50 Dose: Not Given Docusate Sodium (Colace) 100 mg PO DAILY CORAZON Stop: 10/18/17 08:59 Last Admin: 08/26/17 09:50 Dose: Not Given Donepezil HCl (Aricept) 5 mg PO HS CORAZON Stop: 10/18/17 20:59 Last Admin: 08/25/17 21:07 Dose: 5 mg Furosemide (Lasix) 20 mg PO DAILY CORAZON Stop: 10/18/17 08:59 Last Admin: 08/26/17 09:50 Dose: Not Given Gemfibrozil (Lopid) 600 mg PO BID CORAZON Stop: 10/18/17 08:59 Last Admin: 08/26/17 09:49 Dose: Not Given Insulin Aspart (Novolog Insulin Sliding Scale) 0 units SUBQ ACHS CORAZON PRN Reason: Protocol Stop: 10/18/17 07:29 Last Admin: 08/26/17 11:18 Dose: Not Given Levetiracetam (Keppra) 500 mg PO BID CORAZON Stop: 10/18/17 08:59 Last Admin: 08/26/17 09:49 Dose: Not Given Levothyroxine Sodium (Synthroid) 0.1 mg PO QDAC CORAZON Stop: 10/18/17 07:29 Last Admin: 08/26/17 06:32 Dose: Not Given Levothyroxine Sodium (Synthroid) 0.075 mg PO QDAC CORAZON Stop: 10/18/17 07:29 Last Admin: 08/26/17 06:32 Dose: Not Given Lorazepam (Ativan) 1 mg PO Q6HR PRN; Protocol PRN Reason: Anxiety Stop: 10/25/17 08:45 Magnesium Hydroxide (Milk Of Magnesia) 30 ml PO HS PRN PRN Reason: Constipation Stop: 10/17/17 20:14 Multivitamins/Vitamin C (Theragran) 1 tab PO DAILY CORAZON Stop: 10/18/17 08:59 Last Admin: 08/26/17 09:50 Dose: Not Given Olanzapine (Zyprexa) 5 mg PO BID CORAZON PRN Reason: Protocol Stop: 10/18/17 08:59 Last Admin: 08/26/17 09:51 Dose: Not Given Zolpidem Tartrate (Ambien) 5 mg PO HS PRN PRN Reason: Insomnia Stop: 10/17/17 22:01 Last Admin: 08/24/17 20:44 Dose: 5 mg General: weak HEENT: PERRLA Lungs: CTAB Cardiovascular: RRR, Normal S1, Normal S2 Abdomen: soft, non-tender, non-distended, positive bowel sound Neurological: disorganized Internal Medicine Assmt/Plan - Assessment Assessment: agitation htn dementia - Plan Plan: safety precautions continue current plan of care Nutritional Asmnt/Malnutr-PDOC - Dietary Evaluation Malnutrition Findings (Please click <Entered> for more info): Nutritional Asmnt/Malnutrition Start: 08/23/17 14: 20 Text: Status: Complete Freq: Document 08/23/17 14:21 HEN (Rec: 08/23/17 14:24 [email or web address]) Nutritional Asmnt/Malnutrition Patient General Information Nutritional Screening Moderate Risk Diagnosis psychosis Pertinent Medical Hx/Surgical Hx HTN, DM, dyslipidemia, thyroidism, dementia Subjective Information Pt seen sitting in dining room . Per notes, PO intake 100%. Current Diet Order/ Nutrition Support mech soft chopped, CCHO 60gm, RIAZ Pertinent Medications calcium, vitamin D, colace, lasix, novolog, synthroid, theragran Pertinent Labs 08/18 Na 135, K 3.9, Cl 102, BUN 21, Cr 0.8, Glucose 164 Nutritional Hx/Data Height 5 ft 7 in Height (Calculated Centimeters) 170.2 Current Weight (lbs) 243 lb Weight (Calculated Kilograms) 110.2 Weight (Calculated Grams) 573249.9 [place] Body Weight 135 % [place] Body Weight 180 Body Mass Index (BMI) 38.0 Weight Status Obese GI Symptoms GI Symptoms None Last BM 08/22 Difficult in: None Skin Integrity/Comment: intact Current %PO Good (75-100%) Estimated Nutritional Goals BEE in Kcals: Adj wt of IBW Calories/Kcals/Kg 25-30 Kcals Calculated 1460-5098 Protein: Adj wt of IBW Protein g/k Protein Calculated 74 Fluid: ml 1850-2220ml (1ml/kcal) Nutritional Problem 1. Problem Problem altered nutrition related lab values Etiology hx of DM Signs/Symptoms: glucose 164 Malnutrition Alert Protein-Calorie Malnutrition N/A Is there a minimum of two criteria No selected? Query Text:Check all the applicable criteria. A minimum of two criteria are recommended for diagnosis of either severe or non-severe malnutrition. Intervention/Recommendation Comments 1. Continue with current diet as ordered. 2. Monitor PO intake, wt, labs and skin integrity 3. F/U as low risk in 7 days, 08/30 Expected Outcomes/Goals Expected Outcomes/Goals 1. PO intake to meet at least 75% of nutritional needs. 2. Wt stability, skin to remain intact, labs to approach WNL.
--- NOTE | 2017-08-26 15:15 | Progress Notes ---
DATE: 08/26/2017 Staff was spoken to. The patient is interviewed. Mood is noted to be irritable. Affect is constricted. Insight and judgment at this time are noted to be very much impaired. Impulse control is noted to be poor. Coping skills are noted to be very poor. The patient is screaming and yelling. The patient has no insight into her illness. The patient has been having difficult time with the agitation and hence the patient is going to be started on the Ativan on a p.r.n. basis and the patient is going to be followed up with the supportive therapy. The patient is not ready to be discharged to a lower level of care in view of her out of control behavior. [facility]# [id number]
[2017-08-26] MEDS: Atorvastatin Calcium 10 MG TAB PO SCH (21:30)
[2017-08-27] MEDS: INSULIN ASPART SLIDING SCALE 100 UNITS/ML UNIT SUBQ SCH ×4 (06:33→21:04)
[2017-08-27] MEDS: Levothyroxine 0.075 Mg Tab PO SCH (06:34)
[2017-08-27] MEDS: Levothyroxine 0.1 Mg Tab PO SCH (06:34)
[2017-08-27] MEDS: Multivitamin Tab PO SCH (08:56)
[2017-08-27] MEDS: Calcium Carb/Vit D 500 mg/200 U Tab PO SCH (08:57)
--- NOTE | 2017-08-27 14:08 | Internal Medicine Prog Note ---
Internal Medicine Subjective - Subjective Service Date: 08/27/17 Patient is:: awake, verbal, interactive Per staff patient has:: no adverse event, no episodes of fall, confused, tolerating meds Internal Medicine Objective - Results Result Diagrams: 08/18/17 13:47 08/18/17 13:47 Recent Labs: Laboratory Last Values WBC 7.9 Th/cmm (4.8-10.8) 08/18/17 13:47 RBC 4.23 Mil/cmm (3.80-5.20) 08/18/17 13:47 Hgb 13.1 gm/dL (12-16) 08/18/17 13:47 Hct 39.0 % (41.0-60) L 08/18/17 13:47 MCV 92.0 fl (81-100) 08/18/17 13:47 MCH 30.9 pg (27.0-31.0) 08/18/17 13:47 MCHC Differential 33.5 pg (28.0-36.0) 08/18/17 13:47 RDW 14.1 % (11.5-20.0) 08/18/17 13:47 Plt Count 257 Th/cmm (150-400) D 08/18/17 13:47 MPV 8.8 fl 08/18/17 13:47 Neutrophils % 60.6 % (40.0-80.0) 08/18/17 13:47 Lymphocytes % 24.9 % (20.0-50.0) 08/18/17 13:47 Monocytes % 9.6 % (2.0-10.0) 08/18/17 13:47 Eosinophils % 4.1 % (0.0-5.0) 08/18/17 13:47 Basophils % 0.8 % (0.0-2.0) 08/18/17 13:47 Sodium 135 mEq/L (136-145) L 08/18/17 13:47 Potassium 3.9 mEq/L (3.5-5.1) 08/18/17 13:47 Chloride 102 mEq/L (98-107) 08/18/17 13:47 Carbon Dioxide 23.3 mEq/L (21.0-31.0) 08/18/17 13:47 Anion Gap 13.6 (7.0-16.0) 08/18/17 13:47 BUN 21 mg/dL (7-25) 08/18/17 13:47 Creatinine 0.8 mg/dL (0.6-1.2) 08/18/17 13:47 Est GFR ( Amer) > 60.0 ml/min (>90) 08/18/17 13:47 Est GFR (Non-Af Amer) > 60.0 ml/min 08/18/17 13:47 BUN/Creatinine Ratio 26.3 08/18/17 13:47 Glucose 164 mg/dL (70-105) H 08/18/17 13:47 POC Glucose 153 MG/DL (70 - 105) H 08/25/17 17:41 Calcium 9.8 mg/dL (8.6-10.3) 08/18/17 13:47 Total Bilirubin 0.5 mg/dL (0.3-1.0) 08/18/17 13:47 AST 16 U/L (13-39) 08/18/17 13:47 ALT 10 U/L (7-52) 08/18/17 13:47 Alkaline Phosphatase 101 U/L (34-104) 08/18/17 13:47 Total Protein 8.2 gm/dL (6.0-8.3) 08/18/17 13:47 Albumin 4.7 gm/dL (3.7-5.3) 08/18/17 13:47 Globulin 3.5 gm/dL 08/18/17 13:47 Albumin/Globulin Ratio 1.3 (1.0-1.8) 08/18/17 13:47 Triglycerides 243 mg/dL (<150) H 08/18/17 13:47 Cholesterol 176 mg/dL (<200) 08/18/17 13:47 LDL Cholesterol Direct 128 mg/dL (75-193) 08/18/17 13:47 HDL Cholesterol 38 mg/dL (23-92) 08/18/17 13:47 TSH > 100.00 uIU/ml (0.34-5.60) H 08/18/17 13:47 Urine Source CLEAN C 08/18/17 13:55 Urine Color YELLOW 08/18/17 13:55 Urine Clarity CLEAR (CLEAR) 08/18/17 13:55 Urine pH 5.5 (4.6 - 8.0) 08/18/17 13:55 Ur Specific [place] <= 1.005 (1.005-1.030) 08/18/17 13:55 Urine Protein NEGATIVE mg/dL (NEGATIVE) 08/18/17 13:55 Urine Glucose (UA) NEGATIVE mg/dL (NEGATIVE) 08/18/17 13:55 Urine Ketones NEGATIVE mg/dL (NEGATIVE) 08/18/17 13:55 Urine Blood NEGATIVE (NEGATIVE) 08/18/17 13:55 Urine Nitrate NEGATIVE (NEGATIVE) 08/18/17 13:55 Urine Bilirubin NEGATIVE (NEGATIVE) 08/18/17 13:55 Urine Urobilinogen 0.2 E.U./dL (0.2 - 1.0) 08/18/17 13:55 Ur Leukocyte Esterase NEGATIVE (NEGATIVE) 08/18/17 13:55 Urine RBC NONE SEEN /hpf (0-5) 08/18/17 13:55 Urine WBC NONE SEEN /hpf (0-5) 08/18/17 13:55 Ur Epithelial Cells NONE SEEN /lpf (FEW) 08/18/17 13:55 Urine Bacteria NONE SEEN /hpf (NONE SEEN) 08/18/17 13:55 Valproic Acid 48.0 ug/mL (50.0-100.0) L 08/25/17 21:41 RPR NONREACTIVE (NONREACTIVE) 08/18/17 13:47 - Physical Exam Vitals and I&O: Vital Signs Temp 98.4 F 08/26/17 16:05 Pulse 60 08/26/17 16:05 Resp 20 08/26/17 16:05 BP 133/60 08/26/17 16:05 Pulse Ox 96 08/26/17 16:05 Intake & Output 08/26/17 08/27/17 08/27/17 18:59 06:59 18:59 Intake Total 1200 320 Balance 1200 320 Intake: Oral 1200 320 Other: # Voids 3 3 Active Medications: Current Medications Acetaminophen (Tylenol) 650 mg PO Q4H PRN PRN Reason: Mild Pain Or Fever above 101 Stop: 10/17/17 21:35 Al Hydrox/Mg Hydrox/Simethicone (Maalox) 30 ml PO Q4HR PRN PRN Reason: GI DISTRESS Stop: 10/17/17 21:35 Last Admin: 08/26/17 12:28 Dose: 30 ml Anastrozole (Arimidex) 1 mg PO DAILY CORAZON PRN Reason: Protocol Stop: 10/18/17 08:59 Last Admin: 08/27/17 10:05 Dose: 1 mg Atorvastatin Calcium (Lipitor) 10 mg PO HS CORAZON PRN Reason: Protocol Stop: 10/18/17 20:59 Last Admin: 08/26/17 21:30 Dose: 10 mg Calcium/Vitamin D (Oscal W/Vitamin D) 1 tab PO DAILY CORAZON Stop: 10/18/17 08:59 Last Admin: 08/27/17 08:57 Dose: 1 tab Divalproex Sodium (Depakote Dr) 500 mg PO BID CORAZON Stop: 10/18/17 09:29 Last Admin: 08/27/17 08:57 Dose: 500 mg Docusate Sodium (Colace) 100 mg PO DAILY CORAZON Stop: 10/18/17 08:59 Last Admin: 08/27/17 08:57 Dose: 100 mg Donepezil HCl (Aricept) 5 mg PO HS CORAZON Stop: 10/18/17 20:59 Last Admin: 08/26/17 21:30 Dose: 5 mg Furosemide (Lasix) 20 mg PO DAILY CORAZON Stop: 10/18/17 08:59 Last Admin: 08/27/17 09:04 Dose: Not Given Gemfibrozil (Lopid) 600 mg PO BID CORAZON Stop: 10/18/17 08:59 Last Admin: 08/27/17 09:32 Dose: 600 mg Insulin Aspart (Novolog Insulin Sliding Scale) 0 units SUBQ ACHS CORAZON PRN Reason: Protocol Stop: 10/18/17 07:29 Last Admin: 08/27/17 12:24 Dose: Not Given Levetiracetam (Keppra) 500 mg PO BID CORAZON Stop: 10/18/17 08:59 Last Admin: 08/27/17 08:56 Dose: 500 mg Levothyroxine Sodium (Synthroid) 0.1 mg PO QDAC CORAZON Stop: 10/18/17 07:29 Last Admin: 08/27/17 06:34 Dose: Not Given Levothyroxine Sodium (Synthroid) 0.075 mg PO QDAC CORAZON Stop: 10/18/17 07:29 Last Admin: 08/27/17 06:34 Dose: Not Given Lorazepam (Ativan) 1 mg PO Q6HR PRN; Protocol PRN Reason: Anxiety Stop: 10/25/17 08:45 Last Admin: 08/27/17 08:57 Dose: 1 mg Magnesium Hydroxide (Milk Of Magnesia) 30 ml PO HS PRN PRN Reason: Constipation Stop: 10/17/17 20:14 Multivitamins/Vitamin C (Theragran) 1 tab PO DAILY CORAZON Stop: 10/18/17 08:59 Last Admin: 08/27/17 08:56 Dose: 1 tab Olanzapine (Zyprexa) 5 mg PO BID CORAZON PRN Reason: Protocol Stop: 10/18/17 08:59 Last Admin: 08/27/17 08:57 Dose: 5 mg Zolpidem Tartrate (Ambien) 5 mg PO HS PRN PRN Reason: Insomnia Stop: 10/17/17 22:01 Last Admin: 08/26/17 23:15 Dose: 5 mg General: weak HEENT: PERRLA Lungs: CTAB Cardiovascular: RRR, Normal S1, Normal S2 Abdomen: soft, non-tender, non-distended, positive bowel sound Neurological: disorganized Internal Medicine Assmt/Plan - Assessment Assessment: agitation htn dementia - Plan Plan: safety precautions continue current plan of care Nutritional Asmnt/Malnutr-PDOC - Dietary Evaluation Malnutrition Findings (Please click <Entered> for more info): Nutritional Asmnt/Malnutrition Start: 08/23/17 14: 20 Text: Status: Complete Freq: Document 08/23/17 14:21 LCHENG (Rec: 08/23/17 14:24 [email or web address]) Nutritional Asmnt/Malnutrition Patient General Information Nutritional Screening Moderate Risk Diagnosis psychosis Pertinent Medical Hx/Surgical Hx HTN, DM, dyslipidemia, thyroidism, dementia Subjective Information Pt seen sitting in dining room . Per notes, PO intake 100%. Current Diet Order/ Nutrition Support mech soft chopped, CCHO 60gm, RIAZ Pertinent Medications calcium, vitamin D, colace, lasix, novolog, synthroid, theragran Pertinent Labs 08/18 Na 135, K 3.9, Cl 102, BUN 21, Cr 0.8, Glucose 164 Nutritional Hx/Data Height 5 ft 7 in Height (Calculated Centimeters) 170.2 Current Weight (lbs) 243 lb Weight (Calculated Kilograms) 110.2 Weight (Calculated Grams) 466278.9 [place] Body Weight 135 % [place] Body Weight 180 Body Mass Index (BMI) 38.0 Weight Status Obese GI Symptoms GI Symptoms None Last BM 08/22 Difficult in: None Skin Integrity/Comment: intact Current %PO Good (75-100%) Estimated Nutritional Goals BEE in Kcals: Adj wt of IBW Calories/Kcals/Kg 25-30 Kcals Calculated 8294-0125 Protein: Adj wt of IBW Protein g/k Protein Calculated 74 Fluid: ml 1850-2220ml (1ml/kcal) Nutritional Problem 1. Problem Problem altered nutrition related lab values Etiology hx of DM Signs/Symptoms: glucose 164 Malnutrition Alert Protein-Calorie Malnutrition N/A Is there a minimum of two criteria No selected? Query Text:Check all the applicable criteria. A minimum of two criteria are recommended for diagnosis of either severe or non-severe malnutrition. Intervention/Recommendation Comments 1. Continue with current diet as ordered. 2. Monitor PO intake, wt, labs and skin integrity 3. F/U as low risk in 7 days, 08/30 Expected Outcomes/Goals Expected Outcomes/Goals 1. PO intake to meet at least 75% of nutritional needs. 2. Wt stability, skin to remain intact, labs to approach WNL.
[2017-08-27] MEDS: Atorvastatin Calcium 10 MG TAB PO SCH (21:00)
--- NOTE | 2017-08-27 22:09 | Progress Notes ---
DATE: 08/27/2017 SUBJECTIVE: Staff was spoken to. The patient is interviewed. Mood is noted to be irritable. Affect is constricted. The patient is screaming and yelling. The patient has no insight into her illness. The patient has been going off on the nursing staff as the patient has been noted to be very paranoid. Personal hygiene continues to be very poor. ASSESSMENT: The patient is still grossly psychotic and impulsive. PLAN: To continue the patient with the current medications. The patient had to be given a dose of Ativan to calm her down. The patient at this time is not ready to be discharged. The patient is currently on the ____ acid 500 mg twice a day and is also receiving the olanzapine 5 mg twice a day. The patient is going to be closely monitored and the dose is going to be gradually increased. JOB# [id number]
[2017-08-28] MEDS: Levothyroxine 0.075 Mg Tab PO SCH (06:41)
[2017-08-28] MEDS: Levothyroxine 0.1 Mg Tab PO SCH (06:41)
[2017-08-28] MEDS: Calcium Carb/Vit D 500 mg/200 U Tab PO SCH (08:01)
[2017-08-28] MEDS: Multivitamin Tab PO SCH (08:02)
[2017-08-28] MEDS ORDERED: Haloperidol Lactate 5 mg/mL 1mL Vial ONE (10:29)
[2017-08-28] MEDS ORDERED: Haloperidol Lactate 5 mg/mL 1mL Vial IM ONE (10:35)
[2017-08-28] MEDS: INSULIN ASPART SLIDING SCALE 100 UNITS/ML UNIT SUBQ SCH ×4 (12:09→21:58)
--- NOTE | 2017-08-28 14:41 | Progress Notes ---
DATE: 08/28/2017 PSYCHIATRIC PROGRESS NOTE SUBJECTIVE: Staff was spoken to. The patient is interviewed. Mood is noted to be irritable. Affect is constricted. The patient is screaming and yelling at the staff members. The patient has no insight into her illness. Coping skills at this time are noted to be very poor. ASSESSMENT: The patient is still psychotic. PLAN: To continue the patient with the supportive therapy and followup. [facility]# [id number]
--- NOTE | 2017-08-28 15:55 | Internal Medicine Prog Note ---
Internal Medicine Subjective - Subjective Service Date: 08/28/17 Patient is:: awake, verbal, interactive Per staff patient has:: no adverse event, no episodes of fall, confused, tolerating meds Internal Medicine Objective - Results Result Diagrams: 08/18/17 13:47 08/18/17 13:47 Recent Labs: Laboratory Last Values WBC 7.9 Th/cmm (4.8-10.8) 08/18/17 13:47 RBC 4.23 Mil/cmm (3.80-5.20) 08/18/17 13:47 Hgb 13.1 gm/dL (12-16) 08/18/17 13:47 Hct 39.0 % (41.0-60) L 08/18/17 13:47 MCV 92.0 fl (81-100) 08/18/17 13:47 MCH 30.9 pg (27.0-31.0) 08/18/17 13:47 MCHC Differential 33.5 pg (28.0-36.0) 08/18/17 13:47 RDW 14.1 % (11.5-20.0) 08/18/17 13:47 Plt Count 257 Th/cmm (150-400) D 08/18/17 13:47 MPV 8.8 fl 08/18/17 13:47 Neutrophils % 60.6 % (40.0-80.0) 08/18/17 13:47 Lymphocytes % 24.9 % (20.0-50.0) 08/18/17 13:47 Monocytes % 9.6 % (2.0-10.0) 08/18/17 13:47 Eosinophils % 4.1 % (0.0-5.0) 08/18/17 13:47 Basophils % 0.8 % (0.0-2.0) 08/18/17 13:47 Sodium 135 mEq/L (136-145) L 08/18/17 13:47 Potassium 3.9 mEq/L (3.5-5.1) 08/18/17 13:47 Chloride 102 mEq/L (98-107) 08/18/17 13:47 Carbon Dioxide 23.3 mEq/L (21.0-31.0) 08/18/17 13:47 Anion Gap 13.6 (7.0-16.0) 08/18/17 13:47 BUN 21 mg/dL (7-25) 08/18/17 13:47 Creatinine 0.8 mg/dL (0.6-1.2) 08/18/17 13:47 Est GFR ( Amer) > 60.0 ml/min (>90) 08/18/17 13:47 Est GFR (Non-Af Amer) > 60.0 ml/min 08/18/17 13:47 BUN/Creatinine Ratio 26.3 08/18/17 13:47 Glucose 164 mg/dL (70-105) H 08/18/17 13:47 POC Glucose 88 MG/DL (70 - 105) 08/28/17 06:08 Calcium 9.8 mg/dL (8.6-10.3) 08/18/17 13:47 Total Bilirubin 0.5 mg/dL (0.3-1.0) 08/18/17 13:47 AST 16 U/L (13-39) 08/18/17 13:47 ALT 10 U/L (7-52) 08/18/17 13:47 Alkaline Phosphatase 101 U/L (34-104) 08/18/17 13:47 Total Protein 8.2 gm/dL (6.0-8.3) 08/18/17 13:47 Albumin 4.7 gm/dL (3.7-5.3) 08/18/17 13:47 Globulin 3.5 gm/dL 08/18/17 13:47 Albumin/Globulin Ratio 1.3 (1.0-1.8) 08/18/17 13:47 Triglycerides 243 mg/dL (<150) H 08/18/17 13:47 Cholesterol 176 mg/dL (<200) 08/18/17 13:47 LDL Cholesterol Direct 128 mg/dL (75-193) 08/18/17 13:47 HDL Cholesterol 38 mg/dL (23-92) 08/18/17 13:47 TSH > 100.00 uIU/ml (0.34-5.60) H 08/18/17 13:47 Urine Source CLEAN C 08/18/17 13:55 Urine Color YELLOW 08/18/17 13:55 Urine Clarity CLEAR (CLEAR) 08/18/17 13:55 Urine pH 5.5 (4.6 - 8.0) 08/18/17 13:55 Ur Specific [place] <= 1.005 (1.005-1.030) 08/18/17 13:55 Urine Protein NEGATIVE mg/dL (NEGATIVE) 08/18/17 13:55 Urine Glucose (UA) NEGATIVE mg/dL (NEGATIVE) 08/18/17 13:55 Urine Ketones NEGATIVE mg/dL (NEGATIVE) 08/18/17 13:55 Urine Blood NEGATIVE (NEGATIVE) 08/18/17 13:55 Urine Nitrate NEGATIVE (NEGATIVE) 08/18/17 13:55 Urine Bilirubin NEGATIVE (NEGATIVE) 08/18/17 13:55 Urine Urobilinogen 0.2 E.U./dL (0.2 - 1.0) 08/18/17 13:55 Ur Leukocyte Esterase NEGATIVE (NEGATIVE) 08/18/17 13:55 Urine RBC NONE SEEN /hpf (0-5) 08/18/17 13:55 Urine WBC NONE SEEN /hpf (0-5) 08/18/17 13:55 Ur Epithelial Cells NONE SEEN /lpf (FEW) 08/18/17 13:55 Urine Bacteria NONE SEEN /hpf (NONE SEEN) 08/18/17 13:55 Valproic Acid 48.0 ug/mL (50.0-100.0) L 08/25/17 21:41 RPR NONREACTIVE (NONREACTIVE) 08/18/17 13:47 - Physical Exam Vitals and I&O: Vital Signs Temp 97 F 08/28/17 14:00 Pulse 73 08/28/17 14:00 Resp 18 08/28/17 14:00 BP 111/55 08/28/17 14:00 Pulse Ox 96 08/28/17 14:00 Intake & Output 08/27/17 08/28/17 08/28/17 18:59 06:59 18:59 Intake Total 1200 Balance 1200 Intake: Oral 1200 Other: # Voids 4 Active Medications: Current Medications Acetaminophen (Tylenol) 650 mg PO Q4H PRN PRN Reason: Mild Pain Or Fever above 101 Stop: 10/17/17 21:35 Al Hydrox/Mg Hydrox/Simethicone (Maalox) 30 ml PO Q4HR PRN PRN Reason: GI DISTRESS Stop: 10/17/17 21:35 Last Admin: 08/26/17 12:28 Dose: 30 ml Anastrozole (Arimidex) 1 mg PO DAILY CORAZON PRN Reason: Protocol Stop: 10/18/17 08:59 Last Admin: 08/28/17 08:02 Dose: 1 mg Atorvastatin Calcium (Lipitor) 10 mg PO HS CORAZON PRN Reason: Protocol Stop: 10/18/17 20:59 Last Admin: 08/27/17 21:00 Dose: 10 mg Calcium/Vitamin D (Oscal W/Vitamin D) 1 tab PO DAILY CORAZON Stop: 10/18/17 08:59 Last Admin: 08/28/17 08:01 Dose: 1 tab Divalproex Sodium (Depakote Dr) 500 mg PO BID CORAZON Stop: 10/18/17 09:29 Last Admin: 08/28/17 08:01 Dose: 500 mg Docusate Sodium (Colace) 100 mg PO DAILY CORAZON Stop: 10/18/17 08:59 Last Admin: 08/28/17 08:01 Dose: 100 mg Donepezil HCl (Aricept) 5 mg PO HS CORAZON Stop: 10/18/17 20:59 Last Admin: 08/27/17 21:00 Dose: 5 mg Furosemide (Lasix) 20 mg PO DAILY CORAZON Stop: 10/18/17 08:59 Last Admin: 08/28/17 08:07 Dose: Not Given Gemfibrozil (Lopid) 600 mg PO BID CORAZON Stop: 10/18/17 08:59 Last Admin: 08/28/17 08:01 Dose: 600 mg Insulin Aspart (Novolog Insulin Sliding Scale) 0 units SUBQ ACHS CORAZON PRN Reason: Protocol Stop: 10/18/17 07:29 Last Admin: 08/28/17 12:09 Dose: 4 units Levetiracetam (Keppra) 500 mg PO BID CORAZON Stop: 10/18/17 08:59 Last Admin: 08/28/17 08:01 Dose: 500 mg Levothyroxine Sodium (Synthroid) 0.1 mg PO QDAC CORAZON Stop: 10/18/17 07:29 Last Admin: 08/28/17 06:41 Dose: Not Given Levothyroxine Sodium (Synthroid) 0.075 mg PO QDAC CORAZON Stop: 10/18/17 07:29 Last Admin: 08/28/17 06:41 Dose: Not Given Lorazepam (Ativan) 1 mg PO Q6HR PRN; Protocol PRN Reason: Anxiety Stop: 10/25/17 08:45 Last Admin: 08/28/17 08:02 Dose: 1 mg Magnesium Hydroxide (Milk Of Magnesia) 30 ml PO HS PRN PRN Reason: Constipation Stop: 10/17/17 20:14 Last Admin: 08/27/17 16:29 Dose: 30 ml Multivitamins/Vitamin C (Theragran) 1 tab PO DAILY CORAZON Stop: 10/18/17 08:59 Last Admin: 08/28/17 08:02 Dose: 1 tab Olanzapine (Zyprexa) 5 mg PO BID CORAZON PRN Reason: Protocol Stop: 10/18/17 08:59 Last Admin: 08/28/17 08:02 Dose: 5 mg Zolpidem Tartrate (Ambien) 5 mg PO HS PRN PRN Reason: Insomnia Stop: 10/17/17 22:01 Last Admin: 08/26/17 23:15 Dose: 5 mg General: weak HEENT: PERRLA Lungs: CTAB Cardiovascular: RRR, Normal S1, Normal S2 Abdomen: soft, non-tender, non-distended, positive bowel sound Neurological: disorganized Internal Medicine Assmt/Plan - Assessment Assessment: agitation htn dementia - Plan Plan: safety precautions continue current plan of care Nutritional Asmnt/Malnutr-PDOC - Dietary Evaluation Malnutrition Findings (Please click <Entered> for more info): Nutritional Asmnt/Malnutrition Start: 08/23/17 14: 20 Text: Status: Complete Freq: Document 08/23/17 14:21 LCHENG (Rec: 08/23/17 14:24 [email or web address]) Nutritional Asmnt/Malnutrition Patient General Information Nutritional Screening Moderate Risk Diagnosis psychosis Pertinent Medical Hx/Surgical Hx HTN, DM, dyslipidemia, thyroidism, dementia Subjective Information Pt seen sitting in dining room . Per notes, PO intake 100%. Current Diet Order/ Nutrition Support mech soft chopped, CCHO 60gm, RIAZ Pertinent Medications calcium, vitamin D, colace, lasix, novolog, synthroid, theragran Pertinent Labs 08/18 Na 135, K 3.9, Cl 102, BUN 21, Cr 0.8, Glucose 164 Nutritional Hx/Data Height 5 ft 7 in Height (Calculated Centimeters) 170.2 Current Weight (lbs) 243 lb Weight (Calculated Kilograms) 110.2 Weight (Calculated Grams) 940994.9 [place] Body Weight 135 % [place] Body Weight 180 Body Mass Index (BMI) 38.0 Weight Status Obese GI Symptoms GI Symptoms None Last BM 08/22 Difficult in: None Skin Integrity/Comment: intact Current %PO Good (75-100%) Estimated Nutritional Goals BEE in Kcals: Adj wt of IBW Calories/Kcals/Kg 25-30 Kcals Calculated 2597-6095 Protein: Adj wt of IBW Protein g/k Protein Calculated 74 Fluid: ml 1850-2220ml (1ml/kcal) Nutritional Problem 1. Problem Problem altered nutrition related lab values Etiology hx of DM Signs/Symptoms: glucose 164 Malnutrition Alert Protein-Calorie Malnutrition N/A Is there a minimum of two criteria No selected? Query Text:Check all the applicable criteria. A minimum of two criteria are recommended for diagnosis of either severe or non-severe malnutrition. Intervention/Recommendation Comments 1. Continue with current diet as ordered. 2. Monitor PO intake, wt, labs and skin integrity 3. F/U as low risk in 7 days, 08/30 Expected Outcomes/Goals Expected Outcomes/Goals 1. PO intake to meet at least 75% of nutritional needs. 2. Wt stability, skin to remain intact, labs to approach WNL.
[2017-08-28] MEDS: Atorvastatin Calcium 10 MG TAB PO SCH (21:50)
[2017-08-29] MEDS: INSULIN ASPART SLIDING SCALE 100 UNITS/ML UNIT SUBQ SCH ×4 (06:57→20:29)
[2017-08-29] MEDS: Levothyroxine 0.1 Mg Tab PO SCH (07:02)
[2017-08-29] MEDS: Levothyroxine 0.075 Mg Tab PO SCH (07:02)
[2017-08-29] MEDS: Multivitamin Tab PO SCH (08:44)
[2017-08-29] MEDS: Calcium Carb/Vit D 500 mg/200 U Tab PO SCH (08:47)
--- NOTE | 2017-08-29 09:03 | Progress Notes ---
DATE: 08/29/2017 SUBJECTIVE: Staff was spoken to. The patient is interviewed. Mood is noted to be irritable. Affect is constricted. The patient has to be kept in the GD chair because the patient is not enough to other people's rooms and has been very screaming, yelling and demanding. The patient has no insight into her illness. The patient is currently on valproic acid and olanzapine and has been able to tolerate the medications. No side effects to the medications are noted. ASSESSMENT: The patient is stabilizing. PLAN: The plan to continue the patient with the current medications. I encouraged the patient to verbalize the concerns rather than to act out. JOB# [id number]
--- NOTE | 2017-08-29 13:37 | Internal Medicine Prog Note ---
Internal Medicine Subjective - Subjective Service Date: 08/29/17 Patient is:: awake, verbal, interactive Per staff patient has:: no adverse event, no episodes of fall, confused, tolerating meds Internal Medicine Objective - Results Result Diagrams: 08/18/17 13:47 08/18/17 13:47 Recent Labs: Laboratory Last Values WBC 7.9 Th/cmm (4.8-10.8) 08/18/17 13:47 RBC 4.23 Mil/cmm (3.80-5.20) 08/18/17 13:47 Hgb 13.1 gm/dL (12-16) 08/18/17 13:47 Hct 39.0 % (41.0-60) L 08/18/17 13:47 MCV 92.0 fl (81-100) 08/18/17 13:47 MCH 30.9 pg (27.0-31.0) 08/18/17 13:47 MCHC Differential 33.5 pg (28.0-36.0) 08/18/17 13:47 RDW 14.1 % (11.5-20.0) 08/18/17 13:47 Plt Count 257 Th/cmm (150-400) D 08/18/17 13:47 MPV 8.8 fl 08/18/17 13:47 Neutrophils % 60.6 % (40.0-80.0) 08/18/17 13:47 Lymphocytes % 24.9 % (20.0-50.0) 08/18/17 13:47 Monocytes % 9.6 % (2.0-10.0) 08/18/17 13:47 Eosinophils % 4.1 % (0.0-5.0) 08/18/17 13:47 Basophils % 0.8 % (0.0-2.0) 08/18/17 13:47 Sodium 135 mEq/L (136-145) L 08/18/17 13:47 Potassium 3.9 mEq/L (3.5-5.1) 08/18/17 13:47 Chloride 102 mEq/L (98-107) 08/18/17 13:47 Carbon Dioxide 23.3 mEq/L (21.0-31.0) 08/18/17 13:47 Anion Gap 13.6 (7.0-16.0) 08/18/17 13:47 BUN 21 mg/dL (7-25) 08/18/17 13:47 Creatinine 0.8 mg/dL (0.6-1.2) 08/18/17 13:47 Est GFR ( Amer) > 60.0 ml/min (>90) 08/18/17 13:47 Est GFR (Non-Af Amer) > 60.0 ml/min 08/18/17 13:47 BUN/Creatinine Ratio 26.3 08/18/17 13:47 Glucose 164 mg/dL (70-105) H 08/18/17 13:47 POC Glucose 176 MG/DL (70 - 105) H 08/29/17 11:58 Calcium 9.8 mg/dL (8.6-10.3) 08/18/17 13:47 Total Bilirubin 0.5 mg/dL (0.3-1.0) 08/18/17 13:47 AST 16 U/L (13-39) 08/18/17 13:47 ALT 10 U/L (7-52) 08/18/17 13:47 Alkaline Phosphatase 101 U/L (34-104) 08/18/17 13:47 Total Protein 8.2 gm/dL (6.0-8.3) 08/18/17 13:47 Albumin 4.7 gm/dL (3.7-5.3) 08/18/17 13:47 Globulin 3.5 gm/dL 08/18/17 13:47 Albumin/Globulin Ratio 1.3 (1.0-1.8) 08/18/17 13:47 Triglycerides 243 mg/dL (<150) H 08/18/17 13:47 Cholesterol 176 mg/dL (<200) 08/18/17 13:47 LDL Cholesterol Direct 128 mg/dL (75-193) 08/18/17 13:47 HDL Cholesterol 38 mg/dL (23-92) 08/18/17 13:47 TSH > 100.00 uIU/ml (0.34-5.60) H 08/18/17 13:47 Urine Source CLEAN C 08/18/17 13:55 Urine Color YELLOW 08/18/17 13:55 Urine Clarity CLEAR (CLEAR) 08/18/17 13:55 Urine pH 5.5 (4.6 - 8.0) 08/18/17 13:55 Ur Specific [place] <= 1.005 (1.005-1.030) 08/18/17 13:55 Urine Protein NEGATIVE mg/dL (NEGATIVE) 08/18/17 13:55 Urine Glucose (UA) NEGATIVE mg/dL (NEGATIVE) 08/18/17 13:55 Urine Ketones NEGATIVE mg/dL (NEGATIVE) 08/18/17 13:55 Urine Blood NEGATIVE (NEGATIVE) 08/18/17 13:55 Urine Nitrate NEGATIVE (NEGATIVE) 08/18/17 13:55 Urine Bilirubin NEGATIVE (NEGATIVE) 08/18/17 13:55 Urine Urobilinogen 0.2 E.U./dL (0.2 - 1.0) 08/18/17 13:55 Ur Leukocyte Esterase NEGATIVE (NEGATIVE) 08/18/17 13:55 Urine RBC NONE SEEN /hpf (0-5) 08/18/17 13:55 Urine WBC NONE SEEN /hpf (0-5) 08/18/17 13:55 Ur Epithelial Cells NONE SEEN /lpf (FEW) 08/18/17 13:55 Urine Bacteria NONE SEEN /hpf (NONE SEEN) 08/18/17 13:55 Valproic Acid 48.0 ug/mL (50.0-100.0) L 08/25/17 21:41 RPR NONREACTIVE (NONREACTIVE) 08/18/17 13:47 - Physical Exam Vitals and I&O: Vital Signs Temp 98.1 F 08/29/17 06:36 Pulse 58 08/29/17 11:12 Resp 20 08/29/17 11:12 BP 155/62 08/29/17 08:44 Pulse Ox 97 08/29/17 06:36 Intake & Output 08/28/17 08/29/17 08/29/17 18:59 06:59 18:59 Intake Total 1200 480 Output Total 2 Balance 1200 478 Intake: Oral 1200 480 Output: Stool 2 Other: # Voids 1 # Bowel Movements 1 Active Medications: Current Medications Acetaminophen (Tylenol) 650 mg PO Q4H PRN PRN Reason: Mild Pain Or Fever above 101 Stop: 10/17/17 21:35 Al Hydrox/Mg Hydrox/Simethicone (Maalox) 30 ml PO Q4HR PRN PRN Reason: GI DISTRESS Stop: 10/17/17 21:35 Last Admin: 08/26/17 12:28 Dose: 30 ml Anastrozole (Arimidex) 1 mg PO DAILY CORAZON PRN Reason: Protocol Stop: 10/18/17 08:59 Last Admin: 08/29/17 08:44 Dose: 1 mg Atorvastatin Calcium (Lipitor) 10 mg PO HS CORAZON PRN Reason: Protocol Stop: 10/18/17 20:59 Last Admin: 08/28/17 21:50 Dose: 10 mg Calcium/Vitamin D (Oscal W/Vitamin D) 1 tab PO DAILY CORAZON Stop: 10/18/17 08:59 Last Admin: 08/29/17 08:47 Dose: 1 tab Divalproex Sodium (Depakote Dr) 500 mg PO BID CORAZON Stop: 10/18/17 09:29 Last Admin: 08/29/17 08:55 Dose: 500 mg Docusate Sodium (Colace) 100 mg PO DAILY CORAZON Stop: 10/18/17 08:59 Last Admin: 08/29/17 08:44 Dose: 100 mg Donepezil HCl (Aricept) 5 mg PO HS CORAZON Stop: 10/18/17 20:59 Last Admin: 08/28/17 21:50 Dose: 5 mg Furosemide (Lasix) 20 mg PO DAILY CORAZON Stop: 10/18/17 08:59 Last Admin: 08/29/17 08:44 Dose: 20 mg Gemfibrozil (Lopid) 600 mg PO BID CORAZON Stop: 10/18/17 08:59 Last Admin: 08/29/17 08:44 Dose: 600 mg Insulin Aspart (Novolog Insulin Sliding Scale) 0 units SUBQ ACHS CORAZON PRN Reason: Protocol Stop: 10/18/17 07:29 Last Admin: 08/29/17 12:45 Dose: 2 units Levetiracetam (Keppra) 500 mg PO BID CORAZON Stop: 10/18/17 08:59 Last Admin: 08/29/17 08:47 Dose: 500 mg Levothyroxine Sodium (Synthroid) 0.1 mg PO QDAC CORAZON Stop: 10/18/17 07:29 Last Admin: 08/29/17 07:02 Dose: Not Given Levothyroxine Sodium (Synthroid) 0.075 mg PO QDAC CORAZON Stop: 10/18/17 07:29 Last Admin: 08/29/17 07:02 Dose: Not Given Lorazepam (Ativan) 1 mg PO Q6HR PRN; Protocol PRN Reason: Anxiety Stop: 10/25/17 08:45 Last Admin: 08/28/17 08:02 Dose: 1 mg Magnesium Hydroxide (Milk Of Magnesia) 30 ml PO HS PRN PRN Reason: Constipation Stop: 10/17/17 20:14 Last Admin: 08/27/17 16:29 Dose: 30 ml Multivitamins/Vitamin C (Theragran) 1 tab PO DAILY CORAZON Stop: 10/18/17 08:59 Last Admin: 08/29/17 08:44 Dose: 1 tab Olanzapine (Zyprexa) 5 mg PO BID CORAZON PRN Reason: Protocol Stop: 10/18/17 08:59 Last Admin: 08/29/17 08:44 Dose: 5 mg Zolpidem Tartrate (Ambien) 5 mg PO HS PRN PRN Reason: Insomnia Stop: 10/17/17 22:01 Last Admin: 08/26/17 23:15 Dose: 5 mg General: weak HEENT: PERRLA Lungs: CTAB Cardiovascular: RRR, Normal S1, Normal S2 Abdomen: soft, non-tender, non-distended, positive bowel sound Neurological: disorganized Internal Medicine Assmt/Plan - Assessment Assessment: agitation htn dementia - Plan Plan: safety precautions continue current plan of care Nutritional Asmnt/Malnutr-PDOC - Dietary Evaluation Malnutrition Findings (Please click <Entered> for more info): Nutritional Asmnt/Malnutrition Start: 08/23/17 14: 20 Text: Status: Complete Freq: Document 08/23/17 14:21 [email or web address] (Rec: 08/23/17 14:24 SENAIT [email or web address]) Nutritional Asmnt/Malnutrition Patient General Information Nutritional Screening Moderate Risk Diagnosis psychosis Pertinent Medical Hx/Surgical Hx HTN, DM, dyslipidemia, thyroidism, dementia Subjective Information Pt seen sitting in dining room . Per notes, PO intake 100%. Current Diet Order/ Nutrition Support mech soft chopped, CCHO 60gm, RIAZ Pertinent Medications calcium, vitamin D, colace, lasix, novolog, synthroid, theragran Pertinent Labs 08/18 Na 135, K 3.9, Cl 102, BUN 21, Cr 0.8, Glucose 164 Nutritional Hx/Data Height 5 ft 7 in Height (Calculated Centimeters) 170.2 Current Weight (lbs) 243 lb Weight (Calculated Kilograms) 110.2 Weight (Calculated Grams) 496102.9 [place] Body Weight 135 % [place] Body Weight 180 Body Mass Index (BMI) 38.0 Weight Status Obese GI Symptoms GI Symptoms None Last BM 08/22 Difficult in: None Skin Integrity/Comment: intact Current %PO Good (75-100%) Estimated Nutritional Goals BEE in Kcals: Adj wt of IBW Calories/Kcals/Kg 25-30 Kcals Calculated 8435-6964 Protein: Adj wt of IBW Protein g/k Protein Calculated 74 Fluid: ml 1850-2220ml (1ml/kcal) Nutritional Problem 1. Problem Problem altered nutrition related lab values Etiology hx of DM Signs/Symptoms: glucose 164 Malnutrition Alert Protein-Calorie Malnutrition N/A Is there a minimum of two criteria No selected? Query Text:Check all the applicable criteria. A minimum of two criteria are recommended for diagnosis of either severe or non-severe malnutrition. Intervention/Recommendation Comments 1. Continue with current diet as ordered. 2. Monitor PO intake, wt, labs and skin integrity 3. F/U as low risk in 7 days, 08/30 Expected Outcomes/Goals Expected Outcomes/Goals 1. PO intake to meet at least 75% of nutritional needs. 2. Wt stability, skin to remain intact, labs to approach WNL.
[2017-08-29] MEDS: Atorvastatin Calcium 10 MG TAB PO SCH (20:29)
[2017-08-30] MEDS: Levothyroxine 0.1 Mg Tab PO SCH (06:31)
[2017-08-30] MEDS: Levothyroxine 0.075 Mg Tab PO SCH (06:31)
[2017-08-30] MEDS: INSULIN ASPART SLIDING SCALE 100 UNITS/ML UNIT SUBQ SCH ×4 (06:31→21:01)
--- NOTE | 2017-08-30 13:37 | Internal Medicine Prog Note ---
Internal Medicine Subjective - Subjective Patient seen and examined:: with staff, chart reviewed Patient is:: awake, verbal, interactive Per staff patient has:: no adverse event, no episodes of fall, confused, tolerating meds Internal Medicine Objective - Results Result Diagrams: 08/18/17 13:47 08/18/17 13:47 Recent Labs: Laboratory Last Values WBC 7.9 Th/cmm (4.8-10.8) 08/18/17 13:47 RBC 4.23 Mil/cmm (3.80-5.20) 08/18/17 13:47 Hgb 13.1 gm/dL (12-16) 08/18/17 13:47 Hct 39.0 % (41.0-60) L 08/18/17 13:47 MCV 92.0 fl (81-100) 08/18/17 13:47 MCH 30.9 pg (27.0-31.0) 08/18/17 13:47 MCHC Differential 33.5 pg (28.0-36.0) 08/18/17 13:47 RDW 14.1 % (11.5-20.0) 08/18/17 13:47 Plt Count 257 Th/cmm (150-400) D 08/18/17 13:47 MPV 8.8 fl 08/18/17 13:47 Neutrophils % 60.6 % (40.0-80.0) 08/18/17 13:47 Lymphocytes % 24.9 % (20.0-50.0) 08/18/17 13:47 Monocytes % 9.6 % (2.0-10.0) 08/18/17 13:47 Eosinophils % 4.1 % (0.0-5.0) 08/18/17 13:47 Basophils % 0.8 % (0.0-2.0) 08/18/17 13:47 Sodium 135 mEq/L (136-145) L 08/18/17 13:47 Potassium 3.9 mEq/L (3.5-5.1) 08/18/17 13:47 Chloride 102 mEq/L (98-107) 08/18/17 13:47 Carbon Dioxide 23.3 mEq/L (21.0-31.0) 08/18/17 13:47 Anion Gap 13.6 (7.0-16.0) 08/18/17 13:47 BUN 21 mg/dL (7-25) 08/18/17 13:47 Creatinine 0.8 mg/dL (0.6-1.2) 08/18/17 13:47 Est GFR ( Amer) > 60.0 ml/min (>90) 08/18/17 13:47 Est GFR (Non-Af Amer) > 60.0 ml/min 08/18/17 13:47 BUN/Creatinine Ratio 26.3 08/18/17 13:47 Glucose 164 mg/dL (70-105) H 08/18/17 13:47 POC Glucose 167 MG/DL (70 - 105) H 08/29/17 19:47 Calcium 9.8 mg/dL (8.6-10.3) 08/18/17 13:47 Total Bilirubin 0.5 mg/dL (0.3-1.0) 08/18/17 13:47 AST 16 U/L (13-39) 08/18/17 13:47 ALT 10 U/L (7-52) 08/18/17 13:47 Alkaline Phosphatase 101 U/L (34-104) 08/18/17 13:47 Total Protein 8.2 gm/dL (6.0-8.3) 08/18/17 13:47 Albumin 4.7 gm/dL (3.7-5.3) 08/18/17 13:47 Globulin 3.5 gm/dL 08/18/17 13:47 Albumin/Globulin Ratio 1.3 (1.0-1.8) 08/18/17 13:47 Triglycerides 243 mg/dL (<150) H 08/18/17 13:47 Cholesterol 176 mg/dL (<200) 08/18/17 13:47 LDL Cholesterol Direct 128 mg/dL (75-193) 08/18/17 13:47 HDL Cholesterol 38 mg/dL (23-92) 08/18/17 13:47 TSH > 100.00 uIU/ml (0.34-5.60) H 08/18/17 13:47 Urine Source CLEAN C 08/18/17 13:55 Urine Color YELLOW 08/18/17 13:55 Urine Clarity CLEAR (CLEAR) 08/18/17 13:55 Urine pH 5.5 (4.6 - 8.0) 08/18/17 13:55 Ur Specific [place] <= 1.005 (1.005-1.030) 08/18/17 13:55 Urine Protein NEGATIVE mg/dL (NEGATIVE) 08/18/17 13:55 Urine Glucose (UA) NEGATIVE mg/dL (NEGATIVE) 08/18/17 13:55 Urine Ketones NEGATIVE mg/dL (NEGATIVE) 08/18/17 13:55 Urine Blood NEGATIVE (NEGATIVE) 08/18/17 13:55 Urine Nitrate NEGATIVE (NEGATIVE) 08/18/17 13:55 Urine Bilirubin NEGATIVE (NEGATIVE) 08/18/17 13:55 Urine Urobilinogen 0.2 E.U./dL (0.2 - 1.0) 08/18/17 13:55 Ur Leukocyte Esterase NEGATIVE (NEGATIVE) 08/18/17 13:55 Urine RBC NONE SEEN /hpf (0-5) 08/18/17 13:55 Urine WBC NONE SEEN /hpf (0-5) 08/18/17 13:55 Ur Epithelial Cells NONE SEEN /lpf (FEW) 08/18/17 13:55 Urine Bacteria NONE SEEN /hpf (NONE SEEN) 08/18/17 13:55 Valproic Acid 48.0 ug/mL (50.0-100.0) L 08/25/17 21:41 RPR NONREACTIVE (NONREACTIVE) 08/18/17 13:47 - Physical Exam Vitals and I&O: Vital Signs Temp 98.5 F 08/30/17 06:09 Pulse 50 08/30/17 06:09 Resp 20 08/30/17 06:09 BP 117/58 08/30/17 06:09 Pulse Ox 95 08/30/17 06:09 Intake & Output 08/29/17 08/30/17 08/30/17 18:59 06:59 18:59 Intake Total 1200 300 Output Total 1 Balance 1199 300 Intake: Oral 1200 300 Output: Stool 1 Other: # Voids 3 2 # Bowel Movements 0 Active Medications: Current Medications Acetaminophen (Tylenol) 650 mg PO Q4H PRN PRN Reason: Mild Pain Or Fever above 101 Stop: 10/17/17 21:35 Al Hydrox/Mg Hydrox/Simethicone (Maalox) 30 ml PO Q4HR PRN PRN Reason: GI DISTRESS Stop: 10/17/17 21:35 Last Admin: 08/26/17 12:28 Dose: 30 ml Anastrozole (Arimidex) 1 mg PO DAILY CORAZON PRN Reason: Protocol Stop: 10/18/17 08:59 Last Admin: 08/29/17 08:44 Dose: 1 mg Atorvastatin Calcium (Lipitor) 10 mg PO HS CORAZON PRN Reason: Protocol Stop: 10/18/17 20:59 Last Admin: 08/29/17 20:29 Dose: 10 mg Calcium/Vitamin D (Oscal W/Vitamin D) 1 tab PO DAILY CORAZON Stop: 10/18/17 08:59 Last Admin: 08/29/17 08:47 Dose: 1 tab Divalproex Sodium (Depakote Dr) 500 mg PO BID CORAZON Stop: 10/18/17 09:29 Last Admin: 08/29/17 16:49 Dose: 500 mg Docusate Sodium (Colace) 100 mg PO DAILY CORAZON Stop: 10/18/17 08:59 Last Admin: 08/29/17 08:44 Dose: 100 mg Donepezil HCl (Aricept) 5 mg PO HS CORAZON Stop: 10/18/17 20:59 Last Admin: 08/29/17 20:29 Dose: 5 mg Furosemide (Lasix) 20 mg PO DAILY CORAZON Stop: 10/18/17 08:59 Last Admin: 08/29/17 08:44 Dose: 20 mg Gemfibrozil (Lopid) 600 mg PO BID CORAZON Stop: 10/18/17 08:59 Last Admin: 08/29/17 16:49 Dose: 600 mg Insulin Aspart (Novolog Insulin Sliding Scale) 0 units SUBQ ACHS CORAZON PRN Reason: Protocol Stop: 10/18/17 07:29 Last Admin: 08/30/17 13:31 Dose: Not Given Levetiracetam (Keppra) 500 mg PO BID CORAZON Stop: 10/18/17 08:59 Last Admin: 08/29/17 16:49 Dose: 500 mg Levothyroxine Sodium (Synthroid) 0.1 mg PO QDAC CORAZON Stop: 10/18/17 07:29 Last Admin: 08/30/17 06:31 Dose: 0.1 mg Levothyroxine Sodium (Synthroid) 0.075 mg PO QDAC CORAZON Stop: 10/18/17 07:29 Last Admin: 08/30/17 06:31 Dose: 0.075 mg Lorazepam (Ativan) 1 mg PO Q6HR PRN; Protocol PRN Reason: Anxiety Stop: 10/25/17 08:45 Last Admin: 08/28/17 08:02 Dose: 1 mg Magnesium Hydroxide (Milk Of Magnesia) 30 ml PO HS PRN PRN Reason: Constipation Stop: 10/17/17 20:14 Last Admin: 08/27/17 16:29 Dose: 30 ml Multivitamins/Vitamin C (Theragran) 1 tab PO DAILY CORAZON Stop: 10/18/17 08:59 Last Admin: 08/29/17 08:44 Dose: 1 tab Olanzapine (Zyprexa) 5 mg PO BID CORAZON PRN Reason: Protocol Stop: 10/18/17 08:59 Last Admin: 08/29/17 16:49 Dose: 5 mg Zolpidem Tartrate (Ambien) 5 mg PO HS PRN PRN Reason: Insomnia Stop: 10/17/17 22:01 Last Admin: 08/29/17 21:42 Dose: 5 mg General: weak, demented HEENT: PERRLA Lungs: CTAB Cardiovascular: RRR, Normal S1, Normal S2 Abdomen: soft, non-tender, non-distended, positive bowel sound Neurological: disorganized Internal Medicine Assmt/Plan - Assessment Assessment: agitation htn dementia dm - Plan Plan: safety precautions continue current plan of care will monitor and titrate bp meds molly rn - Plan Plan: cpm Nutritional Asmnt/Malnutr-PDOC - Dietary Evaluation Malnutrition Findings (Please click <Entered> for more info): Nutritional Asmnt/Malnutrition Start: 08/23/17 14: 20 Text: Status: Complete Freq: Document 08/23/17 14:21 [email or web address] (Rec: 08/23/17 14:24 LCHENG [email or web address]) Nutritional Asmnt/Malnutrition Patient General Information Nutritional Screening Moderate Risk Diagnosis psychosis Pertinent Medical Hx/Surgical Hx HTN, DM, dyslipidemia, thyroidism, dementia Subjective Information Pt seen sitting in dining room . Per notes, PO intake 100%. Current Diet Order/ Nutrition Support mech soft chopped, CCHO 60gm, RIAZ Pertinent Medications calcium, vitamin D, colace, lasix, novolog, synthroid, theragran Pertinent Labs 08/18 Na 135, K 3.9, Cl 102, BUN 21, Cr 0.8, Glucose 164 Nutritional Hx/Data Height 1.7 m Height (Calculated Centimeters) 170.2 Current Weight (lbs) 110.223 kg Weight (Calculated Kilograms) 110.2 Weight (Calculated Grams) 433525.9 [place] Body Weight 135 % [place] Body Weight 180 Body Mass Index (BMI) 38.0 Weight Status Obese GI Symptoms GI Symptoms None Last BM 08/22 Difficult in: None Skin Integrity/Comment: intact Current %PO Good (75-100%) Estimated Nutritional Goals BEE in Kcals: Adj wt of IBW Calories/Kcals/Kg 25-30 Kcals Calculated 6302-5338 Protein: Adj wt of IBW Protein g/k Protein Calculated 74 Fluid: ml 1850-2220ml (1ml/kcal) Nutritional Problem 1. Problem Problem altered nutrition related lab values Etiology hx of DM Signs/Symptoms: glucose 164 Malnutrition Alert Protein-Calorie Malnutrition N/A Is there a minimum of two criteria No selected? Query Text:Check all the applicable criteria. A minimum of two criteria are recommended for diagnosis of either severe or non-severe malnutrition. Intervention/Recommendation Comments 1. Continue with current diet as ordered. 2. Monitor PO intake, wt, labs and skin integrity 3. F/U as low risk in 7 days, 08/30 Expected Outcomes/Goals Expected Outcomes/Goals 1. PO intake to meet at least 75% of nutritional needs. 2. Wt stability, skin to remain intact, labs to approach WNL.
[2017-08-30] MEDS: Calcium Carb/Vit D 500 mg/200 U Tab PO SCH (14:14)
[2017-08-30] MEDS: Multivitamin Tab PO SCH (17:01)
--- NOTE | 2017-08-30 20:19 | Progress Notes ---
DATE: 08/30/2017 PROGRESS NOTE SUBJECTIVE: Staff was spoken to. The patient is interviewed. Mood is noted to be irritable. Affect is constricted. Coping skills are noted to be poor. The patient is banging on the chair. The patient has to be redirected. No side effects to the medications are noted at this time. ASSESSMENT: The patient is still grossly psychotic and impulsive. PLAN: To continue the patient with the current medications and follow. JOB# [id number]
[2017-08-30] MEDS: Atorvastatin Calcium 10 MG TAB PO SCH (21:02)
[2017-08-31] MEDS: Levothyroxine 0.075 Mg Tab PO SCH (06:29)
[2017-08-31] MEDS: Levothyroxine 0.1 Mg Tab PO SCH (06:29)
[2017-08-31] MEDS: INSULIN ASPART SLIDING SCALE 100 UNITS/ML UNIT SUBQ SCH ×4 (06:29→21:05)
[2017-08-31] MEDS: Calcium Carb/Vit D 500 mg/200 U Tab PO SCH (11:12)
[2017-08-31] MEDS: Multivitamin Tab PO SCH (11:13)
--- NOTE | 2017-08-31 13:05 | Internal Medicine Prog Note ---
Internal Medicine Subjective - Subjective Patient seen and examined:: with staff, chart reviewed Patient is:: awake, verbal, interactive Per staff patient has:: no adverse event, no episodes of fall, confused, tolerating meds Internal Medicine Objective - Results Result Diagrams: 08/18/17 13:47 08/18/17 13:47 Recent Labs: Laboratory Last Values WBC 7.9 Th/cmm (4.8-10.8) 08/18/17 13:47 RBC 4.23 Mil/cmm (3.80-5.20) 08/18/17 13:47 Hgb 13.1 gm/dL (12-16) 08/18/17 13:47 Hct 39.0 % (41.0-60) L 08/18/17 13:47 MCV 92.0 fl (81-100) 08/18/17 13:47 MCH 30.9 pg (27.0-31.0) 08/18/17 13:47 MCHC Differential 33.5 pg (28.0-36.0) 08/18/17 13:47 RDW 14.1 % (11.5-20.0) 08/18/17 13:47 Plt Count 257 Th/cmm (150-400) D 08/18/17 13:47 MPV 8.8 fl 08/18/17 13:47 Neutrophils % 60.6 % (40.0-80.0) 08/18/17 13:47 Lymphocytes % 24.9 % (20.0-50.0) 08/18/17 13:47 Monocytes % 9.6 % (2.0-10.0) 08/18/17 13:47 Eosinophils % 4.1 % (0.0-5.0) 08/18/17 13:47 Basophils % 0.8 % (0.0-2.0) 08/18/17 13:47 Sodium 135 mEq/L (136-145) L 08/18/17 13:47 Potassium 3.9 mEq/L (3.5-5.1) 08/18/17 13:47 Chloride 102 mEq/L (98-107) 08/18/17 13:47 Carbon Dioxide 23.3 mEq/L (21.0-31.0) 08/18/17 13:47 Anion Gap 13.6 (7.0-16.0) 08/18/17 13:47 BUN 21 mg/dL (7-25) 08/18/17 13:47 Creatinine 0.8 mg/dL (0.6-1.2) 08/18/17 13:47 Est GFR ( Amer) > 60.0 ml/min (>90) 08/18/17 13:47 Est GFR (Non-Af Amer) > 60.0 ml/min 08/18/17 13:47 BUN/Creatinine Ratio 26.3 08/18/17 13:47 Glucose 164 mg/dL (70-105) H 08/18/17 13:47 POC Glucose 204 MG/DL (70 - 105) H 08/30/17 20:10 Calcium 9.8 mg/dL (8.6-10.3) 08/18/17 13:47 Total Bilirubin 0.5 mg/dL (0.3-1.0) 08/18/17 13:47 AST 16 U/L (13-39) 08/18/17 13:47 ALT 10 U/L (7-52) 08/18/17 13:47 Alkaline Phosphatase 101 U/L (34-104) 08/18/17 13:47 Total Protein 8.2 gm/dL (6.0-8.3) 08/18/17 13:47 Albumin 4.7 gm/dL (3.7-5.3) 08/18/17 13:47 Globulin 3.5 gm/dL 08/18/17 13:47 Albumin/Globulin Ratio 1.3 (1.0-1.8) 08/18/17 13:47 Triglycerides 243 mg/dL (<150) H 08/18/17 13:47 Cholesterol 176 mg/dL (<200) 08/18/17 13:47 LDL Cholesterol Direct 128 mg/dL (75-193) 08/18/17 13:47 HDL Cholesterol 38 mg/dL (23-92) 08/18/17 13:47 TSH > 100.00 uIU/ml (0.34-5.60) H 08/18/17 13:47 Urine Source CLEAN C 08/18/17 13:55 Urine Color YELLOW 08/18/17 13:55 Urine Clarity CLEAR (CLEAR) 08/18/17 13:55 Urine pH 5.5 (4.6 - 8.0) 08/18/17 13:55 Ur Specific [place] <= 1.005 (1.005-1.030) 08/18/17 13:55 Urine Protein NEGATIVE mg/dL (NEGATIVE) 08/18/17 13:55 Urine Glucose (UA) NEGATIVE mg/dL (NEGATIVE) 08/18/17 13:55 Urine Ketones NEGATIVE mg/dL (NEGATIVE) 08/18/17 13:55 Urine Blood NEGATIVE (NEGATIVE) 08/18/17 13:55 Urine Nitrate NEGATIVE (NEGATIVE) 08/18/17 13:55 Urine Bilirubin NEGATIVE (NEGATIVE) 08/18/17 13:55 Urine Urobilinogen 0.2 E.U./dL (0.2 - 1.0) 08/18/17 13:55 Ur Leukocyte Esterase NEGATIVE (NEGATIVE) 08/18/17 13:55 Urine RBC NONE SEEN /hpf (0-5) 08/18/17 13:55 Urine WBC NONE SEEN /hpf (0-5) 08/18/17 13:55 Ur Epithelial Cells NONE SEEN /lpf (FEW) 08/18/17 13:55 Urine Bacteria NONE SEEN /hpf (NONE SEEN) 08/18/17 13:55 Valproic Acid 48.0 ug/mL (50.0-100.0) L 08/25/17 21:41 RPR NONREACTIVE (NONREACTIVE) 08/18/17 13:47 - Physical Exam Vitals and I&O: Vital Signs Temp 0 F 08/31/17 06:11 Pulse 90 08/30/17 19:56 Resp 20 08/30/17 19:56 BP 135/89 08/31/17 11:12 Pulse Ox 97 08/30/17 19:56 Intake & Output 08/30/17 08/31/17 08/31/17 18:59 06:59 18:59 Other: # Voids 3 # Bowel Movements 0 Stool Characteristics Formed Active Medications: Current Medications Acetaminophen (Tylenol) 650 mg PO Q4H PRN PRN Reason: Mild Pain Or Fever above 101 Stop: 10/17/17 21:35 Al Hydrox/Mg Hydrox/Simethicone (Maalox) 30 ml PO Q4HR PRN PRN Reason: GI DISTRESS Stop: 10/17/17 21:35 Last Admin: 08/26/17 12:28 Dose: 30 ml Anastrozole (Arimidex) 1 mg PO DAILY CORAZON PRN Reason: Protocol Stop: 10/18/17 08:59 Last Admin: 08/31/17 11:09 Dose: 1 mg Atorvastatin Calcium (Lipitor) 10 mg PO HS CORAZON PRN Reason: Protocol Stop: 10/18/17 20:59 Last Admin: 08/30/17 21:02 Dose: Not Given Calcium/Vitamin D (Oscal W/Vitamin D) 1 tab PO DAILY CORAZON Stop: 10/18/17 08:59 Last Admin: 08/31/17 11:12 Dose: 1 tab Divalproex Sodium (Depakote Dr) 500 mg PO BID CORAZON Stop: 10/18/17 09:29 Last Admin: 08/31/17 11:09 Dose: 500 mg Docusate Sodium (Colace) 100 mg PO DAILY CORAZON Stop: 10/18/17 08:59 Last Admin: 08/31/17 11:12 Dose: 100 mg Donepezil HCl (Aricept) 5 mg PO HS CORAZON Stop: 10/18/17 20:59 Last Admin: 08/30/17 21:24 Dose: Not Given Furosemide (Lasix) 20 mg PO DAILY CORAZON Stop: 10/18/17 08:59 Last Admin: 08/31/17 11:12 Dose: 20 mg Gemfibrozil (Lopid) 600 mg PO BID CORAZON Stop: 10/18/17 08:59 Last Admin: 08/31/17 11:12 Dose: 600 mg Insulin Aspart (Novolog Insulin Sliding Scale) 0 units SUBQ ACHS CORAZON PRN Reason: Protocol Stop: 10/18/17 07:29 Last Admin: 08/31/17 10:51 Dose: Not Given Levetiracetam (Keppra) 500 mg PO BID CORAZON Stop: 10/18/17 08:59 Last Admin: 08/31/17 11:12 Dose: 500 mg Levothyroxine Sodium (Synthroid) 0.1 mg PO QDAC CORAZON Stop: 10/18/17 07:29 Last Admin: 08/31/17 06:29 Dose: 0.1 mg Levothyroxine Sodium (Synthroid) 0.075 mg PO QDAC CORAZON Stop: 10/18/17 07:29 Last Admin: 08/31/17 06:29 Dose: 0.075 mg Lorazepam (Ativan) 1 mg PO Q6HR PRN; Protocol PRN Reason: Anxiety Stop: 10/25/17 08:45 Last Admin: 08/31/17 11:10 Dose: 1 mg Magnesium Hydroxide (Milk Of Magnesia) 30 ml PO HS PRN PRN Reason: Constipation Stop: 10/17/17 20:14 Last Admin: 08/27/17 16:29 Dose: 30 ml Multivitamins/Vitamin C (Theragran) 1 tab PO DAILY CORAZON Stop: 10/18/17 08:59 Last Admin: 08/31/17 11:13 Dose: 1 tab Olanzapine (Zyprexa) 5 mg PO BID CORAZON PRN Reason: Protocol Stop: 10/18/17 08:59 Last Admin: 08/31/17 11:12 Dose: 5 mg Zolpidem Tartrate (Ambien) 5 mg PO HS PRN PRN Reason: Insomnia Stop: 10/17/17 22:01 Last Admin: 08/30/17 21:24 Dose: 5 mg General: weak, demented HEENT: PERRLA Lungs: CTAB Cardiovascular: RRR, Normal S1, Normal S2 Abdomen: soft, non-tender, non-distended, positive bowel sound Neurological: disorganized Internal Medicine Assmt/Plan - Assessment Assessment: agitation htn dementia dm - Plan Plan: safety precautions continue current plan of care will monitor and titrate bp meds molly rn - Plan Plan: cpm Nutritional Asmnt/Malnutr-PDOC - Dietary Evaluation Malnutrition Findings (Please click <Entered> for more info): Nutritional Asmnt/Malnutrition Start: 08/23/17 14: 20 Text: Status: Complete Freq: Document 08/23/17 14:21 LCOFELIA (Rec: 08/23/17 14:24 [id number] Nutritional Asmnt/Malnutrition Patient General Information Nutritional Screening Moderate Risk Diagnosis psychosis Pertinent Medical Hx/Surgical Hx HTN, DM, dyslipidemia, thyroidism, dementia Subjective Information Pt seen sitting in dining room . Per notes, PO intake 100%. Current Diet Order/ Nutrition Support mech soft chopped, CCHO 60gm, RIAZ Pertinent Medications calcium, vitamin D, colace, lasix, novolog, synthroid, theragran Pertinent Labs 08/18 Na 135, K 3.9, Cl 102, BUN 21, Cr 0.8, Glucose 164 Nutritional Hx/Data Height 1.7 m Height (Calculated Centimeters) 170.2 Current Weight (lbs) 110.223 kg Weight (Calculated Kilograms) 110.2 Weight (Calculated Grams) 640319.9 [place] Body Weight 135 % [place] Body Weight 180 Body Mass Index (BMI) 38.0 Weight Status Obese GI Symptoms GI Symptoms None Last BM 08/22 Difficult in: None Skin Integrity/Comment: intact Current %PO Good (75-100%) Estimated Nutritional Goals BEE in Kcals: Adj wt of IBW Calories/Kcals/Kg 25-30 Kcals Calculated 2519-1853 Protein: Adj wt of IBW Protein g/k Protein Calculated 74 Fluid: ml 1850-2220ml (1ml/kcal) Nutritional Problem 1. Problem Problem altered nutrition related lab values Etiology hx of DM Signs/Symptoms: glucose 164 Malnutrition Alert Protein-Calorie Malnutrition N/A Is there a minimum of two criteria No selected? Query Text:Check all the applicable criteria. A minimum of two criteria are recommended for diagnosis of either severe or non-severe malnutrition. Intervention/Recommendation Comments 1. Continue with current diet as ordered. 2. Monitor PO intake, wt, labs and skin integrity 3. F/U as low risk in 7 days, 08/30 Expected Outcomes/Goals Expected Outcomes/Goals 1. PO intake to meet at least 75% of nutritional needs. 2. Wt stability, skin to remain intact, labs to approach WNL.
[2017-08-31] MEDS: Atorvastatin Calcium 10 MG TAB PO SCH (20:49)
--- NOTE | 2017-09-01 03:41 | Progress Notes ---
DATE: 08/31/2017 SUBJECTIVE: Staff was spoken to. The patient is interviewed. Mood is noted to be irritable. Affect is constricted. Coping skills are noted to be still poor. The patient has been currently on 500 mg twice a day of the Depakote and patient has been also on Zyprexa 5 mg twice a day. The patient has been able to tolerate medications. No side effects to the medications are noted. Depakote level is noted to be 48 and that was done on 08/25/2017. Possibly, patient is going to be requested to have the Depakote level and that is going to be ordered for tomorrow. Please note that the patient is not ready yet for followup. The patient is not ready yet for discharge, for followup on outpatient basis in view of her acute mood swings. ASSESSMENT: The patient is still having mood swings. PLAN: To continue the patient with the supportive therapy. I encouraged the patient to verbalize the concerns rather than to act out. [facility]# [id number]
[2017-09-01] MEDS: INSULIN ASPART SLIDING SCALE 100 UNITS/ML UNIT SUBQ SCH ×3 (06:43→17:04)
[2017-09-01] MEDS: Levothyroxine 0.1 Mg Tab PO SCH (08:17)
[2017-09-01] MEDS: Multivitamin Tab PO SCH (08:17)
[2017-09-01] MEDS: Calcium Carb/Vit D 500 mg/200 U Tab PO SCH (08:17)
[2017-09-01] MEDS: Levothyroxine 0.075 Mg Tab PO SCH (08:21)
--- NOTE | 2017-09-01 13:44 | Internal Medicine Prog Note ---
Internal Medicine Subjective - Subjective Service Date: 09/01/17 Patient is:: awake, verbal, interactive Per staff patient has:: no adverse event, no episodes of fall, confused, tolerating meds Internal Medicine Objective - Results Result Diagrams: 08/18/17 13:47 08/18/17 13:47 Recent Labs: Laboratory Last Values WBC 7.9 Th/cmm (4.8-10.8) 08/18/17 13:47 RBC 4.23 Mil/cmm (3.80-5.20) 08/18/17 13:47 Hgb 13.1 gm/dL (12-16) 08/18/17 13:47 Hct 39.0 % (41.0-60) L 08/18/17 13:47 MCV 92.0 fl (81-100) 08/18/17 13:47 MCH 30.9 pg (27.0-31.0) 08/18/17 13:47 MCHC Differential 33.5 pg (28.0-36.0) 08/18/17 13:47 RDW 14.1 % (11.5-20.0) 08/18/17 13:47 Plt Count 257 Th/cmm (150-400) D 08/18/17 13:47 MPV 8.8 fl 08/18/17 13:47 Neutrophils % 60.6 % (40.0-80.0) 08/18/17 13:47 Lymphocytes % 24.9 % (20.0-50.0) 08/18/17 13:47 Monocytes % 9.6 % (2.0-10.0) 08/18/17 13:47 Eosinophils % 4.1 % (0.0-5.0) 08/18/17 13:47 Basophils % 0.8 % (0.0-2.0) 08/18/17 13:47 Sodium 135 mEq/L (136-145) L 08/18/17 13:47 Potassium 3.9 mEq/L (3.5-5.1) 08/18/17 13:47 Chloride 102 mEq/L (98-107) 08/18/17 13:47 Carbon Dioxide 23.3 mEq/L (21.0-31.0) 08/18/17 13:47 Anion Gap 13.6 (7.0-16.0) 08/18/17 13:47 BUN 21 mg/dL (7-25) 08/18/17 13:47 Creatinine 0.8 mg/dL (0.6-1.2) 08/18/17 13:47 Est GFR ( Amer) > 60.0 ml/min (>90) 08/18/17 13:47 Est GFR (Non-Af Amer) > 60.0 ml/min 08/18/17 13:47 BUN/Creatinine Ratio 26.3 08/18/17 13:47 Glucose 164 mg/dL (70-105) H 08/18/17 13:47 POC Glucose 204 MG/DL (70 - 105) H 08/30/17 20:10 Calcium 9.8 mg/dL (8.6-10.3) 08/18/17 13:47 Total Bilirubin 0.5 mg/dL (0.3-1.0) 08/18/17 13:47 AST 16 U/L (13-39) 08/18/17 13:47 ALT 10 U/L (7-52) 08/18/17 13:47 Alkaline Phosphatase 101 U/L (34-104) 08/18/17 13:47 Total Protein 8.2 gm/dL (6.0-8.3) 08/18/17 13:47 Albumin 4.7 gm/dL (3.7-5.3) 08/18/17 13:47 Globulin 3.5 gm/dL 08/18/17 13:47 Albumin/Globulin Ratio 1.3 (1.0-1.8) 08/18/17 13:47 Triglycerides 243 mg/dL (<150) H 08/18/17 13:47 Cholesterol 176 mg/dL (<200) 08/18/17 13:47 LDL Cholesterol Direct 128 mg/dL (75-193) 08/18/17 13:47 HDL Cholesterol 38 mg/dL (23-92) 08/18/17 13:47 TSH > 100.00 uIU/ml (0.34-5.60) H 08/18/17 13:47 Urine Source CLEAN C 08/18/17 13:55 Urine Color YELLOW 08/18/17 13:55 Urine Clarity CLEAR (CLEAR) 08/18/17 13:55 Urine pH 5.5 (4.6 - 8.0) 08/18/17 13:55 Ur Specific [place] <= 1.005 (1.005-1.030) 08/18/17 13:55 Urine Protein NEGATIVE mg/dL (NEGATIVE) 08/18/17 13:55 Urine Glucose (UA) NEGATIVE mg/dL (NEGATIVE) 08/18/17 13:55 Urine Ketones NEGATIVE mg/dL (NEGATIVE) 08/18/17 13:55 Urine Blood NEGATIVE (NEGATIVE) 08/18/17 13:55 Urine Nitrate NEGATIVE (NEGATIVE) 08/18/17 13:55 Urine Bilirubin NEGATIVE (NEGATIVE) 08/18/17 13:55 Urine Urobilinogen 0.2 E.U./dL (0.2 - 1.0) 08/18/17 13:55 Ur Leukocyte Esterase NEGATIVE (NEGATIVE) 08/18/17 13:55 Urine RBC NONE SEEN /hpf (0-5) 08/18/17 13:55 Urine WBC NONE SEEN /hpf (0-5) 08/18/17 13:55 Ur Epithelial Cells NONE SEEN /lpf (FEW) 08/18/17 13:55 Urine Bacteria NONE SEEN /hpf (NONE SEEN) 08/18/17 13:55 Valproic Acid 48.0 ug/mL (50.0-100.0) L 08/25/17 21:41 RPR NONREACTIVE (NONREACTIVE) 08/18/17 13:47 - Physical Exam Vitals and I&O: Vital Signs Temp 97.2 F 09/01/17 06:10 Pulse 76 09/01/17 06:10 Resp 19 09/01/17 06:10 BP 140/75 09/01/17 08:18 Pulse Ox 98 09/01/17 06:10 Intake & Output 08/31/17 09/01/17 09/01/17 18:59 06:59 18:59 Intake Total 240 Balance 240 Intake: Oral 240 Other: # Voids 2 # Bowel Movements 1 Active Medications: Current Medications Acetaminophen (Tylenol) 650 mg PO Q4H PRN PRN Reason: Mild Pain Or Fever above 101 Stop: 10/17/17 21:35 Al Hydrox/Mg Hydrox/Simethicone (Maalox) 30 ml PO Q4HR PRN PRN Reason: GI DISTRESS Stop: 10/17/17 21:35 Last Admin: 08/26/17 12:28 Dose: 30 ml Anastrozole (Arimidex) 1 mg PO DAILY CORAZON PRN Reason: Protocol Stop: 10/18/17 08:59 Last Admin: 08/31/17 11:09 Dose: 1 mg Atorvastatin Calcium (Lipitor) 10 mg PO HS CORAZON PRN Reason: Protocol Stop: 10/18/17 20:59 Last Admin: 08/31/17 20:49 Dose: 10 mg Calcium/Vitamin D (Oscal W/Vitamin D) 1 tab PO DAILY CORAZON Stop: 10/18/17 08:59 Last Admin: 09/01/17 08:17 Dose: 1 tab Divalproex Sodium (Depakote Dr) 500 mg PO BID CORAZON Stop: 10/18/17 09:29 Last Admin: 09/01/17 08:18 Dose: 500 mg Docusate Sodium (Colace) 100 mg PO DAILY CORAZON Stop: 10/18/17 08:59 Last Admin: 09/01/17 08:19 Dose: 100 mg Donepezil HCl (Aricept) 5 mg PO HS CORAZON Stop: 10/18/17 20:59 Last Admin: 08/31/17 20:49 Dose: 5 mg Furosemide (Lasix) 20 mg PO DAILY CORZAON Stop: 10/18/17 08:59 Last Admin: 09/01/17 08:18 Dose: 20 mg Gemfibrozil (Lopid) 600 mg PO BID CORAZON Stop: 10/18/17 08:59 Last Admin: 09/01/17 08:18 Dose: 600 mg Insulin Aspart (Novolog Insulin Sliding Scale) 0 units SUBQ ACHS CORAZON PRN Reason: Protocol Stop: 10/18/17 07:29 Last Admin: 09/01/17 11:30 Dose: Not Given Levetiracetam (Keppra) 500 mg PO BID CORAZON Stop: 10/18/17 08:59 Last Admin: 09/01/17 08:17 Dose: 500 mg Levothyroxine Sodium (Synthroid) 0.1 mg PO QDAC CORAZON Stop: 10/18/17 07:29 Last Admin: 09/01/17 08:17 Dose: 0.1 mg Levothyroxine Sodium (Synthroid) 0.075 mg PO QDAC CORAZON Stop: 10/18/17 07:29 Last Admin: 09/01/17 08:21 Dose: 0.075 mg Lorazepam (Ativan) 1 mg PO Q6HR PRN; Protocol PRN Reason: Anxiety Stop: 10/25/17 08:45 Last Admin: 09/01/17 08:19 Dose: 1 mg Magnesium Hydroxide (Milk Of Magnesia) 30 ml PO HS PRN PRN Reason: Constipation Stop: 10/17/17 20:14 Last Admin: 08/27/17 16:29 Dose: 30 ml Multivitamins/Vitamin C (Theragran) 1 tab PO DAILY CORAZON Stop: 10/18/17 08:59 Last Admin: 09/01/17 08:17 Dose: 1 tab Olanzapine (Zyprexa) 5 mg PO BID CORAZON PRN Reason: Protocol Stop: 10/18/17 08:59 Last Admin: 09/01/17 08:18 Dose: 5 mg Zolpidem Tartrate (Ambien) 5 mg PO HS PRN PRN Reason: Insomnia Stop: 10/17/17 22:01 Last Admin: 08/31/17 21:27 Dose: 5 mg General: weak, demented HEENT: PERRLA Lungs: CTAB Cardiovascular: RRR, Normal S1, Normal S2 Abdomen: soft, non-tender, non-distended, positive bowel sound Neurological: disorganized Internal Medicine Assmt/Plan - Assessment Assessment: agitation htn dementia - Plan Plan: safety precautions continue current plan of care Nutritional Asmnt/Malnutr-PDOC - Dietary Evaluation Malnutrition Findings (Please click <Entered> for more info): Nutritional Asmnt/Malnutrition Start: 08/23/17 14: 20 Text: Status: Complete Freq: Document 08/23/17 14:21 [email or web address] (Rec: 08/23/17 14:24 [email or web address] Nutritional Asmnt/Malnutrition Patient General Information Nutritional Screening Moderate Risk Diagnosis psychosis Pertinent Medical Hx/Surgical Hx HTN, DM, dyslipidemia, thyroidism, dementia Subjective Information Pt seen sitting in dining room . Per notes, PO intake 100%. Current Diet Order/ Nutrition Support mech soft chopped, CCHO 60gm, RIAZ Pertinent Medications calcium, vitamin D, colace, lasix, novolog, synthroid, theragran Pertinent Labs 08/18 Na 135, K 3.9, Cl 102, BUN 21, Cr 0.8, Glucose 164 Nutritional Hx/Data Height 5 ft 7 in Height (Calculated Centimeters) 170.2 Current Weight (lbs) 243 lb Weight (Calculated Kilograms) 110.2 Weight (Calculated Grams) 002160.9 [place] Body Weight 135 % [place] Body Weight 180 Body Mass Index (BMI) 38.0 Weight Status Obese GI Symptoms GI Symptoms None Last BM 08/22 Difficult in: None Skin Integrity/Comment: intact Current %PO Good (75-100%) Estimated Nutritional Goals BEE in Kcals: Adj wt of IBW Calories/Kcals/Kg 25-30 Kcals Calculated 6111-9498 Protein: Adj wt of IBW Protein g/k Protein Calculated 74 Fluid: ml 1850-2220ml (1ml/kcal) Nutritional Problem 1. Problem Problem altered nutrition related lab values Etiology hx of DM Signs/Symptoms: glucose 164 Malnutrition Alert Protein-Calorie Malnutrition N/A Is there a minimum of two criteria No selected? Query Text:Check all the applicable criteria. A minimum of two criteria are recommended for diagnosis of either severe or non-severe malnutrition. Intervention/Recommendation Comments 1. Continue with current diet as ordered. 2. Monitor PO intake, wt, labs and skin integrity 3. F/U as low risk in 7 days, 08/30 Expected Outcomes/Goals Expected Outcomes/Goals 1. PO intake to meet at least 75% of nutritional needs. 2. Wt stability, skin to remain intact, labs to approach WNL.
--- NOTE | 2017-09-01 14:55 | Progress Notes ---
DATE: 09/01/2017 SUBJECTIVE: Staff was spoken to. The patient is interviewed. Mood is noted to be irritable. Affect is constricted. The patient's insight and judgment are noted to be still impaired. Coping skills are noted to be poor. The patient is currently on olanzapine 5 mg twice a day and Depakote 500 mg twice a day. The patient has been requested to have the Depakote level. The patient is going to be closely monitored at this time. No side effects to the medications are noted. Mood swings are still an issue and the patient is not ready to be discharged yet. JOB# [id number]
[2017-09-01] MEDS: Atorvastatin Calcium 10 MG TAB PO SCH (21:29)
[2017-09-02] MEDS: INSULIN ASPART SLIDING SCALE 100 UNITS/ML UNIT SUBQ SCH ×4 (07:14→21:23)
[2017-09-02] MEDS: Calcium Carb/Vit D 500 mg/200 U Tab PO SCH ×2 (08:14→09:43)
[2017-09-02] MEDS: Levothyroxine 0.075 Mg Tab PO SCH ×2 (08:14→09:43)
[2017-09-02] MEDS: Levothyroxine 0.1 Mg Tab PO SCH ×2 (08:14→09:42)
[2017-09-02] MEDS: Multivitamin Tab PO SCH ×2 (08:16→09:44)
--- NOTE | 2017-09-02 15:21 | Internal Medicine Prog Note ---
Internal Medicine Subjective - Subjective Service Date: 09/02/17 Patient is:: awake, verbal, interactive Per staff patient has:: no adverse event, no episodes of fall, confused, tolerating meds Internal Medicine Objective - Results Result Diagrams: 08/18/17 13:47 08/18/17 13:47 Recent Labs: Laboratory Last Values WBC 7.9 Th/cmm (4.8-10.8) 08/18/17 13:47 RBC 4.23 Mil/cmm (3.80-5.20) 08/18/17 13:47 Hgb 13.1 gm/dL (12-16) 08/18/17 13:47 Hct 39.0 % (41.0-60) L 08/18/17 13:47 MCV 92.0 fl (81-100) 08/18/17 13:47 MCH 30.9 pg (27.0-31.0) 08/18/17 13:47 MCHC Differential 33.5 pg (28.0-36.0) 08/18/17 13:47 RDW 14.1 % (11.5-20.0) 08/18/17 13:47 Plt Count 257 Th/cmm (150-400) D 08/18/17 13:47 MPV 8.8 fl 08/18/17 13:47 Neutrophils % 60.6 % (40.0-80.0) 08/18/17 13:47 Lymphocytes % 24.9 % (20.0-50.0) 08/18/17 13:47 Monocytes % 9.6 % (2.0-10.0) 08/18/17 13:47 Eosinophils % 4.1 % (0.0-5.0) 08/18/17 13:47 Basophils % 0.8 % (0.0-2.0) 08/18/17 13:47 Sodium 135 mEq/L (136-145) L 08/18/17 13:47 Potassium 3.9 mEq/L (3.5-5.1) 08/18/17 13:47 Chloride 102 mEq/L (98-107) 08/18/17 13:47 Carbon Dioxide 23.3 mEq/L (21.0-31.0) 08/18/17 13:47 Anion Gap 13.6 (7.0-16.0) 08/18/17 13:47 BUN 21 mg/dL (7-25) 08/18/17 13:47 Creatinine 0.8 mg/dL (0.6-1.2) 08/18/17 13:47 Est GFR ( Amer) > 60.0 ml/min (>90) 08/18/17 13:47 Est GFR (Non-Af Amer) > 60.0 ml/min 08/18/17 13:47 BUN/Creatinine Ratio 26.3 08/18/17 13:47 Glucose 164 mg/dL (70-105) H 08/18/17 13:47 POC Glucose 169 MG/DL (70 - 105) H 09/01/17 16:13 Calcium 9.8 mg/dL (8.6-10.3) 08/18/17 13:47 Total Bilirubin 0.5 mg/dL (0.3-1.0) 08/18/17 13:47 AST 16 U/L (13-39) 08/18/17 13:47 ALT 10 U/L (7-52) 08/18/17 13:47 Alkaline Phosphatase 101 U/L (34-104) 08/18/17 13:47 Total Protein 8.2 gm/dL (6.0-8.3) 08/18/17 13:47 Albumin 4.7 gm/dL (3.7-5.3) 08/18/17 13:47 Globulin 3.5 gm/dL 08/18/17 13:47 Albumin/Globulin Ratio 1.3 (1.0-1.8) 08/18/17 13:47 Triglycerides 243 mg/dL (<150) H 08/18/17 13:47 Cholesterol 176 mg/dL (<200) 08/18/17 13:47 LDL Cholesterol Direct 128 mg/dL (75-193) 08/18/17 13:47 HDL Cholesterol 38 mg/dL (23-92) 08/18/17 13:47 TSH > 100.00 uIU/ml (0.34-5.60) H 08/18/17 13:47 Urine Source CLEAN C 08/18/17 13:55 Urine Color YELLOW 08/18/17 13:55 Urine Clarity CLEAR (CLEAR) 08/18/17 13:55 Urine pH 5.5 (4.6 - 8.0) 08/18/17 13:55 Ur Specific [place] <= 1.005 (1.005-1.030) 08/18/17 13:55 Urine Protein NEGATIVE mg/dL (NEGATIVE) 08/18/17 13:55 Urine Glucose (UA) NEGATIVE mg/dL (NEGATIVE) 08/18/17 13:55 Urine Ketones NEGATIVE mg/dL (NEGATIVE) 08/18/17 13:55 Urine Blood NEGATIVE (NEGATIVE) 08/18/17 13:55 Urine Nitrate NEGATIVE (NEGATIVE) 08/18/17 13:55 Urine Bilirubin NEGATIVE (NEGATIVE) 08/18/17 13:55 Urine Urobilinogen 0.2 E.U./dL (0.2 - 1.0) 08/18/17 13:55 Ur Leukocyte Esterase NEGATIVE (NEGATIVE) 08/18/17 13:55 Urine RBC NONE SEEN /hpf (0-5) 08/18/17 13:55 Urine WBC NONE SEEN /hpf (0-5) 08/18/17 13:55 Ur Epithelial Cells NONE SEEN /lpf (FEW) 08/18/17 13:55 Urine Bacteria NONE SEEN /hpf (NONE SEEN) 08/18/17 13:55 Valproic Acid 48.0 ug/mL (50.0-100.0) L 08/25/17 21:41 RPR NONREACTIVE (NONREACTIVE) 08/18/17 13:47 - Physical Exam Vitals and I&O: Vital Signs Temp 98 F 09/01/17 14:00 Pulse 67 09/01/17 14:00 Resp 18 09/01/17 14:00 BP 144/79 09/01/17 14:00 Pulse Ox 97 09/01/17 14:00 Intake & Output 09/01/17 09/02/17 09/02/17 18:59 06:59 18:59 Intake Total 1200 Balance 1200 Intake: Oral 1200 Other: # Bowel Movements 1 Active Medications: Current Medications Acetaminophen (Tylenol) 650 mg PO Q4H PRN PRN Reason: Mild Pain Or Fever above 101 Stop: 10/17/17 21:35 Last Admin: 09/01/17 15:45 Dose: 650 mg Al Hydrox/Mg Hydrox/Simethicone (Maalox) 30 ml PO Q4HR PRN PRN Reason: GI DISTRESS Stop: 10/17/17 21:35 Last Admin: 08/26/17 12:28 Dose: 30 ml Anastrozole (Arimidex) 1 mg PO DAILY CORAZON PRN Reason: Protocol Stop: 10/18/17 08:59 Last Admin: 09/02/17 09:42 Dose: Not Given Atorvastatin Calcium (Lipitor) 10 mg PO HS CORAZON PRN Reason: Protocol Stop: 10/18/17 20:59 Last Admin: 09/01/17 21:29 Dose: 10 mg Calcium/Vitamin D (Oscal W/Vitamin D) 1 tab PO DAILY CORAZON Stop: 10/18/17 08:59 Last Admin: 09/02/17 09:43 Dose: Not Given Divalproex Sodium (Depakote Dr) 500 mg PO BID CORAZON Stop: 10/18/17 09:29 Last Admin: 09/02/17 09:42 Dose: Not Given Docusate Sodium (Colace) 100 mg PO DAILY CORAZON Stop: 10/18/17 08:59 Last Admin: 09/02/17 09:44 Dose: Not Given Donepezil HCl (Aricept) 5 mg PO HS CORAZON Stop: 10/18/17 20:59 Last Admin: 09/01/17 21:29 Dose: 5 mg Furosemide (Lasix) 20 mg PO DAILY CORAZON Stop: 10/18/17 08:59 Last Admin: 09/02/17 08:17 Dose: Not Given Gemfibrozil (Lopid) 600 mg PO BID CORAZON Stop: 10/18/17 08:59 Last Admin: 09/02/17 09:42 Dose: Not Given Insulin Aspart (Novolog Insulin Sliding Scale) 0 units SUBQ ACHS CORAZON PRN Reason: Protocol Stop: 10/18/17 07:29 Last Admin: 09/02/17 11:04 Dose: Not Given Levetiracetam (Keppra) 500 mg PO BID CORAZON Stop: 10/18/17 08:59 Last Admin: 09/02/17 09:42 Dose: Not Given Levothyroxine Sodium (Synthroid) 0.1 mg PO QDAC CORAZON Stop: 10/18/17 07:29 Last Admin: 09/02/17 09:42 Dose: Not Given Levothyroxine Sodium (Synthroid) 0.075 mg PO QDAC CORAZON Stop: 10/18/17 07:29 Last Admin: 09/02/17 09:43 Dose: Not Given Lorazepam (Ativan) 1 mg PO Q6HR PRN; Protocol PRN Reason: Anxiety Stop: 10/25/17 08:45 Last Admin: 09/02/17 14:44 Dose: 1 mg Magnesium Hydroxide (Milk Of Magnesia) 30 ml PO HS PRN PRN Reason: Constipation Stop: 10/17/17 20:14 Last Admin: 08/27/17 16:29 Dose: 30 ml Multivitamins/Vitamin C (Theragran) 1 tab PO DAILY CORAZON Stop: 10/18/17 08:59 Last Admin: 09/02/17 09:44 Dose: Not Given Olanzapine (Zyprexa) 5 mg PO BID CORAZON PRN Reason: Protocol Stop: 10/18/17 08:59 Last Admin: 09/02/17 09:42 Dose: Not Given Zolpidem Tartrate (Ambien) 5 mg PO HS PRN PRN Reason: Insomnia Stop: 10/17/17 22:01 Last Admin: 09/02/17 01:26 Dose: 5 mg General: weak, demented HEENT: PERRLA Lungs: CTAB Cardiovascular: RRR, Normal S1, Normal S2 Abdomen: soft, non-tender, non-distended, positive bowel sound Neurological: disorganized Internal Medicine Assmt/Plan - Assessment Assessment: agitation htn dementia - Plan Plan: safety precautions continue current plan of care Nutritional Asmnt/Malnutr-PDOC - Dietary Evaluation Malnutrition Findings (Please click <Entered> for more info): Nutritional Asmnt/Malnutrition Start: 08/23/17 14: 20 Text: Status: Complete Freq: Document 08/23/17 14:21 RAYMUNDO (Rec: 08/23/17 14:24 SENAIT [email or web address]) Nutritional Asmnt/Malnutrition Patient General Information Nutritional Screening Moderate Risk Diagnosis psychosis Pertinent Medical Hx/Surgical Hx HTN, DM, dyslipidemia, thyroidism, dementia Subjective Information Pt seen sitting in dining room . Per notes, PO intake 100%. Current Diet Order/ Nutrition Support mech soft chopped, CCHO 60gm, RIAZ Pertinent Medications calcium, vitamin D, colace, lasix, novolog, synthroid, theragran Pertinent Labs 08/18 Na 135, K 3.9, Cl 102, BUN 21, Cr 0.8, Glucose 164 Nutritional Hx/Data Height 5 ft 7 in Height (Calculated Centimeters) 170.2 Current Weight (lbs) 243 lb Weight (Calculated Kilograms) 110.2 Weight (Calculated Grams) 650385.9 [place] Body Weight 135 % [place] Body Weight 180 Body Mass Index (BMI) 38.0 Weight Status Obese GI Symptoms GI Symptoms None Last BM 08/22 Difficult in: None Skin Integrity/Comment: intact Current %PO Good (75-100%) Estimated Nutritional Goals BEE in Kcals: Adj wt of IBW Calories/Kcals/Kg 25-30 Kcals Calculated 5936-4297 Protein: Adj wt of IBW Protein g/k Protein Calculated 74 Fluid: ml 1850-2220ml (1ml/kcal) Nutritional Problem 1. Problem Problem altered nutrition related lab values Etiology hx of DM Signs/Symptoms: glucose 164 Malnutrition Alert Protein-Calorie Malnutrition N/A Is there a minimum of two criteria No selected? Query Text:Check all the applicable criteria. A minimum of two criteria are recommended for diagnosis of either severe or non-severe malnutrition. Intervention/Recommendation Comments 1. Continue with current diet as ordered. 2. Monitor PO intake, wt, labs and skin integrity 3. F/U as low risk in 7 days, 08/30 Expected Outcomes/Goals Expected Outcomes/Goals 1. PO intake to meet at least 75% of nutritional needs. 2. Wt stability, skin to remain intact, labs to approach WNL.
[2017-09-02] MEDS: Atorvastatin Calcium 10 MG TAB PO SCH (21:24)
--- NOTE | 2017-09-03 01:42 | Progress Notes ---
DATE: 09/02/2017 PSYCHIATRIC PROGRESS NOTE SUBJECTIVE: Staff was spoken to. The patient is interviewed. Mood is noted to be irritable. Affect is constricted. Coping skills are noted to be poor. The patient is still pacing most of the time. The patient has no insight into her illness. The patient has been able to tolerate a mood stabilizer as well as antipsychotic medications. Sleep is noted to be improving. Appetite is noted to be fair. ASSESSMENT: The patient is still impulsive and having mood swings. PLAN: To continue the patient with the supportive therapy and encouraged the patient to verbalize the concerns rather than to act out. [facility]# [id number]
[2017-09-03] MEDS: INSULIN ASPART SLIDING SCALE 100 UNITS/ML UNIT SUBQ SCH ×2 (06:35→11:18)
[2017-09-03] MEDS: Levothyroxine 0.1 Mg Tab PO SCH (06:35)
[2017-09-03] MEDS: Levothyroxine 0.075 Mg Tab PO SCH (06:36)
[2017-09-03] MEDS: Calcium Carb/Vit D 500 mg/200 U Tab PO SCH (08:36)
[2017-09-03] MEDS: Multivitamin Tab PO SCH (08:37)
--- NOTE | 2017-09-03 13:23 | Internal Medicine Prog Note ---
Internal Medicine Subjective - Subjective Service Date: 09/03/17 Patient is:: awake, verbal, interactive Per staff patient has:: no adverse event, no episodes of fall, confused, tolerating meds Internal Medicine Objective - Results Result Diagrams: 08/18/17 13:47 08/18/17 13:47 Recent Labs: Laboratory Last Values WBC 7.9 Th/cmm (4.8-10.8) 08/18/17 13:47 RBC 4.23 Mil/cmm (3.80-5.20) 08/18/17 13:47 Hgb 13.1 gm/dL (12-16) 08/18/17 13:47 Hct 39.0 % (41.0-60) L 08/18/17 13:47 MCV 92.0 fl (81-100) 08/18/17 13:47 MCH 30.9 pg (27.0-31.0) 08/18/17 13:47 MCHC Differential 33.5 pg (28.0-36.0) 08/18/17 13:47 RDW 14.1 % (11.5-20.0) 08/18/17 13:47 Plt Count 257 Th/cmm (150-400) D 08/18/17 13:47 MPV 8.8 fl 08/18/17 13:47 Neutrophils % 60.6 % (40.0-80.0) 08/18/17 13:47 Lymphocytes % 24.9 % (20.0-50.0) 08/18/17 13:47 Monocytes % 9.6 % (2.0-10.0) 08/18/17 13:47 Eosinophils % 4.1 % (0.0-5.0) 08/18/17 13:47 Basophils % 0.8 % (0.0-2.0) 08/18/17 13:47 Sodium 135 mEq/L (136-145) L 08/18/17 13:47 Potassium 3.9 mEq/L (3.5-5.1) 08/18/17 13:47 Chloride 102 mEq/L (98-107) 08/18/17 13:47 Carbon Dioxide 23.3 mEq/L (21.0-31.0) 08/18/17 13:47 Anion Gap 13.6 (7.0-16.0) 08/18/17 13:47 BUN 21 mg/dL (7-25) 08/18/17 13:47 Creatinine 0.8 mg/dL (0.6-1.2) 08/18/17 13:47 Est GFR ( Amer) > 60.0 ml/min (>90) 08/18/17 13:47 Est GFR (Non-Af Amer) > 60.0 ml/min 08/18/17 13:47 BUN/Creatinine Ratio 26.3 08/18/17 13:47 Glucose 164 mg/dL (70-105) H 08/18/17 13:47 POC Glucose 169 MG/DL (70 - 105) H 09/01/17 16:13 Calcium 9.8 mg/dL (8.6-10.3) 08/18/17 13:47 Total Bilirubin 0.5 mg/dL (0.3-1.0) 08/18/17 13:47 AST 16 U/L (13-39) 08/18/17 13:47 ALT 10 U/L (7-52) 08/18/17 13:47 Alkaline Phosphatase 101 U/L (34-104) 08/18/17 13:47 Total Protein 8.2 gm/dL (6.0-8.3) 08/18/17 13:47 Albumin 4.7 gm/dL (3.7-5.3) 08/18/17 13:47 Globulin 3.5 gm/dL 08/18/17 13:47 Albumin/Globulin Ratio 1.3 (1.0-1.8) 08/18/17 13:47 Triglycerides 243 mg/dL (<150) H 08/18/17 13:47 Cholesterol 176 mg/dL (<200) 08/18/17 13:47 LDL Cholesterol Direct 128 mg/dL (75-193) 08/18/17 13:47 HDL Cholesterol 38 mg/dL (23-92) 08/18/17 13:47 TSH > 100.00 uIU/ml (0.34-5.60) H 08/18/17 13:47 Urine Source CLEAN C 08/18/17 13:55 Urine Color YELLOW 08/18/17 13:55 Urine Clarity CLEAR (CLEAR) 08/18/17 13:55 Urine pH 5.5 (4.6 - 8.0) 08/18/17 13:55 Ur Specific [place] <= 1.005 (1.005-1.030) 08/18/17 13:55 Urine Protein NEGATIVE mg/dL (NEGATIVE) 08/18/17 13:55 Urine Glucose (UA) NEGATIVE mg/dL (NEGATIVE) 08/18/17 13:55 Urine Ketones NEGATIVE mg/dL (NEGATIVE) 08/18/17 13:55 Urine Blood NEGATIVE (NEGATIVE) 08/18/17 13:55 Urine Nitrate NEGATIVE (NEGATIVE) 08/18/17 13:55 Urine Bilirubin NEGATIVE (NEGATIVE) 08/18/17 13:55 Urine Urobilinogen 0.2 E.U./dL (0.2 - 1.0) 08/18/17 13:55 Ur Leukocyte Esterase NEGATIVE (NEGATIVE) 08/18/17 13:55 Urine RBC NONE SEEN /hpf (0-5) 08/18/17 13:55 Urine WBC NONE SEEN /hpf (0-5) 08/18/17 13:55 Ur Epithelial Cells NONE SEEN /lpf (FEW) 08/18/17 13:55 Urine Bacteria NONE SEEN /hpf (NONE SEEN) 08/18/17 13:55 Valproic Acid 48.0 ug/mL (50.0-100.0) L 08/25/17 21:41 RPR NONREACTIVE (NONREACTIVE) 08/18/17 13:47 - Physical Exam Vitals and I&O: Vital Signs Temp 97.3 F 09/03/17 12:25 Pulse 59 09/03/17 12:25 Resp 20 09/03/17 12:25 BP 151/75 09/03/17 12:25 Pulse Ox 95 09/03/17 12:25 Intake & Output 09/02/17 09/03/17 09/03/17 18:59 06:59 18:59 Intake Total 1000 500 Balance 1000 500 Intake: Oral 1000 500 Other: # Voids 3 2 # Bowel Movements 0 0 Active Medications: Current Medications Acetaminophen (Tylenol) 650 mg PO Q4H PRN PRN Reason: Mild Pain Or Fever above 101 Stop: 10/17/17 21:35 Last Admin: 09/01/17 15:45 Dose: 650 mg Al Hydrox/Mg Hydrox/Simethicone (Maalox) 30 ml PO Q4HR PRN PRN Reason: GI DISTRESS Stop: 10/17/17 21:35 Last Admin: 08/26/17 12:28 Dose: 30 ml Anastrozole (Arimidex) 1 mg PO DAILY CORAZON PRN Reason: Protocol Stop: 10/18/17 08:59 Last Admin: 09/03/17 08:33 Dose: 1 mg Atorvastatin Calcium (Lipitor) 10 mg PO HS CORAZON PRN Reason: Protocol Stop: 10/18/17 20:59 Last Admin: 09/02/17 21:24 Dose: 10 mg Calcium/Vitamin D (Oscal W/Vitamin D) 1 tab PO DAILY CORAZON Stop: 10/18/17 08:59 Last Admin: 09/03/17 08:36 Dose: 1 tab Divalproex Sodium (Depakote Dr) 500 mg PO BID CORAZON Stop: 10/18/17 09:29 Last Admin: 09/03/17 08:35 Dose: 500 mg Docusate Sodium (Colace) 100 mg PO DAILY CORAZON Stop: 10/18/17 08:59 Last Admin: 09/03/17 08:36 Dose: 100 mg Donepezil HCl (Aricept) 5 mg PO HS CORAZON Stop: 10/18/17 20:59 Last Admin: 09/02/17 21:25 Dose: 5 mg Furosemide (Lasix) 20 mg PO DAILY CORAZON Stop: 10/18/17 08:59 Last Admin: 09/03/17 08:37 Dose: 20 mg Gemfibrozil (Lopid) 600 mg PO BID CORAZON Stop: 10/18/17 08:59 Last Admin: 09/03/17 08:35 Dose: 600 mg Insulin Aspart (Novolog Insulin Sliding Scale) 0 units SUBQ ACHS CORAZON PRN Reason: Protocol Stop: 10/18/17 07:29 Last Admin: 09/03/17 11:18 Dose: Not Given Levetiracetam (Keppra) 500 mg PO BID CORAZON Stop: 10/18/17 08:59 Last Admin: 09/03/17 08:35 Dose: 500 mg Levothyroxine Sodium (Synthroid) 0.1 mg PO QDAC CORAZON Stop: 10/18/17 07:29 Last Admin: 09/03/17 06:35 Dose: 0.1 mg Levothyroxine Sodium (Synthroid) 0.075 mg PO QDAC CORAZON Stop: 10/18/17 07:29 Last Admin: 09/03/17 06:36 Dose: 0.075 mg Lorazepam (Ativan) 1 mg PO Q6HR PRN; Protocol PRN Reason: Anxiety Stop: 10/25/17 08:45 Last Admin: 09/03/17 08:34 Dose: 1 mg Magnesium Hydroxide (Milk Of Magnesia) 30 ml PO HS PRN PRN Reason: Constipation Stop: 10/17/17 20:14 Last Admin: 08/27/17 16:29 Dose: 30 ml Multivitamins/Vitamin C (Theragran) 1 tab PO DAILY CORAZON Stop: 10/18/17 08:59 Last Admin: 09/03/17 08:37 Dose: 1 tab Olanzapine (Zyprexa) 5 mg PO BID CORAZON PRN Reason: Protocol Stop: 10/18/17 08:59 Last Admin: 09/03/17 08:43 Dose: 5 mg Zolpidem Tartrate (Ambien) 5 mg PO HS PRN PRN Reason: Insomnia Stop: 10/17/17 22:01 Last Admin: 09/02/17 21:25 Dose: 5 mg General: weak, demented HEENT: PERRLA Lungs: CTAB Cardiovascular: RRR, Normal S1, Normal S2 Abdomen: soft, non-tender, non-distended, positive bowel sound Neurological: disorganized Internal Medicine Assmt/Plan - Assessment Assessment: agitation htn dementia - Plan Plan: safety precautions continue current plan of care Nutritional Asmnt/Malnutr-PDOC - Dietary Evaluation Malnutrition Findings (Please click <Entered> for more info): Nutritional Asmnt/Malnutrition Start: 08/23/17 14: 20 Text: Status: Complete Freq: Document 08/23/17 14:21 OFELIA (Rec: 08/23/17 14:24 OFELIA [email or web address]) Nutritional Asmnt/Malnutrition Patient General Information Nutritional Screening Moderate Risk Diagnosis psychosis Pertinent Medical Hx/Surgical Hx HTN, DM, dyslipidemia, thyroidism, dementia Subjective Information Pt seen sitting in dining room . Per notes, PO intake 100%. Current Diet Order/ Nutrition Support mech soft chopped, CCHO 60gm, RIAZ Pertinent Medications calcium, vitamin D, colace, lasix, novolog, synthroid, theragran Pertinent Labs 08/18 Na 135, K 3.9, Cl 102, BUN 21, Cr 0.8, Glucose 164 Nutritional Hx/Data Height 5 ft 7 in Height (Calculated Centimeters) 170.2 Current Weight (lbs) 243 lb Weight (Calculated Kilograms) 110.2 Weight (Calculated Grams) 188367.9 [place] Body Weight 135 % [place] Body Weight 180 Body Mass Index (BMI) 38.0 Weight Status Obese GI Symptoms GI Symptoms None Last BM 08/22 Difficult in: None Skin Integrity/Comment: intact Current %PO Good (75-100%) Estimated Nutritional Goals BEE in Kcals: Adj wt of IBW Calories/Kcals/Kg 25-30 Kcals Calculated 2787-3927 Protein: Adj wt of IBW Protein g/k Protein Calculated 74 Fluid: ml 1850-2220ml (1ml/kcal) Nutritional Problem 1. Problem Problem altered nutrition related lab values Etiology hx of DM Signs/Symptoms: glucose 164 Malnutrition Alert Protein-Calorie Malnutrition N/A Is there a minimum of two criteria No selected? Query Text:Check all the applicable criteria. A minimum of two criteria are recommended for diagnosis of either severe or non-severe malnutrition. Intervention/Recommendation Comments 1. Continue with current diet as ordered. 2. Monitor PO intake, wt, labs and skin integrity 3. F/U as low risk in 7 days, 08/30 Expected Outcomes/Goals Expected Outcomes/Goals 1. PO intake to meet at least 75% of nutritional needs. 2. Wt stability, skin to remain intact, labs to approach WNL.
--- NOTE | 2017-09-03 17:35 | Discharge Summary ---
DATE OF DISCHARGE: 09/03/2017 IDENTIFYING DATA: The patient is a 67-year-old woman, resident of a snf facility that is [facility]. JUSTIFICATION OF HOSPITALIZATION: The patient is admitted here on a voluntary basis in view of her acute agitation and noncompliance with her medication. DIAGNOSES AT THE TIME OF ADMISSION: AXIS I: Psychotic disorder, not otherwise specified, rule out schizoaffective disorder. AXIS II: None. AXIS III: As per Dr. Griffith. HISTORY OF PRESENT ILLNESS: Please refer to the 08/19/2017 dictation done by me. Physical examination at the time of admission was done by Dr. Nacho Junior's associate and the patient has been diagnosed to have hypertension, diabetes, dyslipidemia. The lab studies done at the hospitalization have been reviewed by Dr. Griffith's group and the patient started to do fairly well and the patient has been placed on the valproic acid, which was given 500 mg twice a day and haloperidol has been going on a p.r.n. basis. Olanzapine has been 5 mg twice a day with these medications. The patient was observed and was noted to be doing fairly well. The psychosis started to resolve and the patient was discharged with recommendation that she is going to be seeking treatment on an outpatient basis. MENTAL STATUS EXAMINATION: At the time of the discharge, the patient noted to be less irritable. Affect is appropriate. Not suicidal or homicidal. Insight and judgment are noted to be fair. Impulse control is also noted to be fair. No side effects to the medications are noted at the time of discharge. CONDITION: At the time of discharge are noted to be stable. DIAGNOSES AT THE TIME OF DISCHARGE: AXIS I: Schizoaffective disorder. AXIS II: None. AXIS III: Diabetes mellitus, hypertension, and dyslipidemia. AFTERCARE PLAN: The patient is discharged to [facility] to be followed up on an outpatient basis. [facility]# [id number]
== END 2017-09-03 14:00 | disposition home or self-care (01) | DRG 885 ==
LOC: ER 12:42 → GERO 14:45
PROVIDERS: ADMIT Psychiatry & Neurology Psychiatry; ATTEND Psychiatry & Neurology Psychiatry
DX: F25.9 Schizoaffective disorder, unspecified (principal); F03.90 Unspecified dementia, unspecified severity, without behavioral disturbance, psychotic disturbance, mood disturbance, and anxiety; E11.9 Type 2 diabetes mellitus without complications; F29 Unspecified psychosis not due to a substance or known physiological condition; E03.9 Hypothyroidism, unspecified; E78.5 Hyperlipidemia, unspecified; I10 Essential (primary) hypertension; Z83.3 Family history of diabetes mellitus; Z88.8 Allergy status to other drugs, medicaments and biological substances; Z82.49 Family history of ischemic heart disease and other diseases of the circulatory system
CPT/HCPCS: 36415-UA; 80053-TC; 80061-TC; 80164-TC; 81001-TC; 82948-90; 84443-TC; 85025-TC; 86592-TC; G0410; J1200; J1630; J1631; J1815; J2060; J7051; Z7610

== ENCOUNTER 2017-10-23 23:35 | Inpatient (IN) | payer MEDICARE, OTHER ==
[2017-10-23] MEDS ORDERED: Haloperidol Lactate 5 mg/mL 1mL Vial IM STA (23:39)
--- NOTE | 2017-10-24 00:06 | ED Physician Chart ---
ED Chief Complaint/HPI - Patient Information Date Seen:: 10/23/17 Time Seen:: 23:55 Chief Complaint:: COMBATIVE History of Present Illness:: THIS IS A 67 YO OLD FEMALE PSYCH PATIENT WAS SENT HERE FROM A [facility] FOR TREATMENT OF HER AGGRESSIVE BEHAVIOR. SHE IS COMBATIVE AND UNCOOPERATIVE. SHE HAS A HISTORY OF DIABETES, HYPERTENSION, THYROID DISEASE, OBESITY AND PSYCHOSIS. Allergies:: Allergies Allergy/AdvReac Type Severity Reaction Status Date / Time chlorpromazine Allergy Verified 10/23/17 23:51 [From Thorazine] haloperidol [From Haldol] Allergy Verified 10/23/17 23:52 Vitals:: Vital Signs - 8 hr 10/23/17 23:35 Temp 98.0 F HR 60 RR 18 BP 135/69 O2 Sat % 97 Historian:: Patient, Medical Records Review:: Nurse's Note Reviewed, Old Chart Reviewed ED Review of Systems - Review of Systems General/Constitutional: Other (THE PATIENT IS UNCOOPERATIVE AND WILL NOT GIVE A REVIEW OF SYSTEMS.) ED Past Medical History - Past Medical History Obtainable: Yes Past Medical History: HTN, DM, Dyslipidemia, Thyroid disorder Family History: None Social History: Smoker, No Alcohol, No Drug Use, Care Facility Family Medical History - Family Member Mother History Unknown: Yes Ethnicity: Unknown Living Status: Unknown Hx Family Cancer: (Unknown) Hx Family Coronary Artery Disease: (Unknown) Hx Family Congestive Heart Failure: (Unknown) Hx Family Hypertension: (Unknown) Hx Family Stroke: (Unknown) Hx Family Diabetes: (Unknown) Hx Family Seizures: (Unknown) Hx Family Dementia: (Unknown) Hx Family AIDS: (Unknown) Hx Family COPD: (Unknown) Hx Family Hepatitis: (Unknown) Hx Family Psychiatric Problems: (Unknown) Hx Family Tuberculosis: (Unknown) ED Physical Exam - Physical Examination General/Constitutional: Awake, Well-developed, well-nourished, Alert, No distress, GCS 15, Non-toxic appearing, Ambulatory Other Gen/Cons comments:: AGGRESSIVE BEHAVIOR, STRIKING OUT AND DEMANDING TO SMOKE Head: Atraumatic Eyes: Lids, conjuctiva normal, PERRL, EOMI Skin: Nl inspection, No rash, No skin lesions, No ecchymosis, Well hydrated, No lymphadenopathy ENMT: External ears, nose nl, Nasal exam nl, Lips, teeth, gums nl Neck: Nontender, Full ROM w/o pain, No JVD, No nuchal rigidity, No bruit, No mass, No stridor Respiratory: Nl effort/Exclusion, Clear to Auscultation, No Wheeze/Rhonchi/Rales Cardio Vascular: RRR, No murmur, gallop, rubs, NL S1 S2 GI: No tenderness/rebounding/guarding, No organomegaly, No hernia, Normal BS's, Nondistended, No mass/bruits, No McBurney tenderness : No CVA tenderness Extremities: No tenderness or effusion, Full ROM, normal strength in all extremities, No edema, Normal digits & nails Neuro/Psych: Alert/oriented, DTR's symmetric, Normal sensory exam, Normal motor strength, Judgement/insight normal, Mood normal, Normal gait, No focal deficits Misc: Normal back, No paraspinal tenderness ED Labs/Radiology/EKG Results - Lab Results Results: Abnormal Lab Results 10/24/17 10/24/17 10/24/17 00:29 00:29 00:29 WBC 7.1 RBC 3.71 L Hgb 11.7 L Hct 33.9 L MCV 91.5 MCH 31.7 H MCHC Differential 34.6 RDW 13.0 Plt Count 237 MPV 9.1 Neutrophils % 51.7 Lymphocytes % 30.9 Monocytes % 11.7 H Eosinophils % 5.2 H Basophils % 0.5 PT 9.9 INR 0.95 Sodium 139 Potassium 3.5 Chloride 100 Carbon Dioxide 30.9 Anion Gap 11.6 BUN 24 Creatinine 0.8 Est GFR ( Amer) > 60.0 Est GFR (Non-Af Amer) > 60.0 BUN/Creatinine Ratio 30.0 Glucose 209 H Calcium 9.5 Total Bilirubin 0.4 AST 14 ALT 11 Alkaline Phosphatase 109 H Total Protein 7.3 Albumin 4.1 Globulin 3.2 Albumin/Globulin Ratio 1.3 - EKG Interpretations EKG Time:: 00:45 Rate & Rhythm: 56 NORMAL SINUS [place]: RIGHT AXIS ED Assessment - Assessment General Assessment: PSYCHOSIS ED Septic Shock - . Is Septic Shock (SBP<90, OR Lactate>4 mmol\L) present?: No - <6hrs of presentation: Vital Signs: Vital Signs - 8 hr 10/23/17 23:35 Temp 98.0 F HR 60 RR 18 BP 135/69 O2 Sat % 97 ED Reassessment (Disposition) - Reassessment Reassessment Condition:: Improved - Diagnosis Diagnosis:: PSYCHOSIS - Patient Disposition Discharge/Transfer:: Acute Care w/in this hosp Admitted to:: Med/Surg Admitting Medical Physician:: Juancho Griffith Admitting Psych Physician:: Saba Kenny Condition at Disposition:: Improved ED Discharge Plan - Patient Disposition Admit/Discharge/Transfer: Acute Care w/in this hosp Condition at Disposition: Improved
[2017-10-24 01:02] LABS: % BASOPHILS 0.5 % (0.0-2.0); % EOSINOPHILS 5.2 % (0.0-5.0); % LYMPHOCYTES 30.9 % (20.0-50.0); % MONOCYTES 11.7 % (2.0-10.0); % NEUTROPHILS 51.7 % (40.0-80.0); EOSINOPHILE ABSOLUTE 0.4 Th/cmm (0.1-0.4); HEMATOCRIT 33.9 % (41.0-60); HEMOGLOBIN 11.7 gm/dL (12-16); LYMPHOCYTE ABSOLUTE 2.2 Th/cmm (1.5-3.0); MEAN CELL VOLUME 91.5 fl (81-100); MEAN CORPUSCULAR HEMOGLOBIN 31.7 pg (27.0-31.0); MEAN CORPUSCULAR HGB CONC 34.6 pg (28.0-36.0); MEAN PLATELET VOLUME 9.1 fl; MONOCYTE ABSOLUTE 0.8 Th/cmm (0.3-1.0); NEUTROPHILE ABSOLUTE 3.7 Th/cmm (1.8-8.0); PLATELET COUNT 237 Th/cmm (150-400); RED BLOOD COUNT 3.71 Mil/cmm (3.80-5.20); WHITE BLOOD COUNT 7.1 Th/cmm (4.8-10.8)
[2017-10-24 01:07] LABS: ALB/GLOB RATIO 1.3 (1.0-1.8); ALBUMIN 4.1 gm/dL (3.7-5.3); ALKALINE PHOSPHATASE 109 U/L (34-104); ANION GAP 11.6 (7.0-16.0); BILIRUBIN,TOTAL 0.4 mg/dL (0.3-1.0); BUN - UREA NITROGEN 24 mg/dL (7-25); CALCIUM SERUM 9.5 mg/dL (8.6-10.3); CARBON DIOXIDE 30.9 mEq/L (21.0-31.0); CHLORIDE 100 mEq/L (98-107); CREATININE - SERUM 0.8 mg/dL (0.6-1.2); GFR AFRICAN-AMERICAN > 60.0 ml/min (>90); GFR NON AFRICAN-AMERICAN > 60.0 ml/min; GLUCOSE 209 mg/dL (70-105); POTASSIUM SERUM 3.5 mEq/L (3.5-5.1); SGOT 14 U/L (13-39); SGPT/ALT 11 U/L (7-52); SODIUM SERUM 139 mEq/L (136-145); TOTAL PROTEIN,SERUM 7.3 gm/dL (6.0-8.3)
[2017-10-24 01:10] LABS: INR 0.95 (0.5-1.4); PROTHROMBIN TIME (TEST) 9.9 SECONDS (9.5-11.5)
[2017-10-24 02:46] VITALS: BP 135/75
[2017-10-24] MEDS ORDERED: Magnesium Hydroxide (MOM) 30 mL UDC PO PRN ×2 (02:47→10:26)
[2017-10-24] MEDS ORDERED: Maalox 30 mL Cup PO PRN ×2 (02:47→10:26)
[2017-10-24] MEDS: Levothyroxine 0.15 Mg Tab PO SCH (06:55)
[2017-10-24] MEDS: Calcium Carb/Vit D 500 mg/200 U Tab PO SCH (08:54)
--- NOTE | 2017-10-24 11:01 | History & Physical ---
ADMIT DATE: 10/24/2017 CHIEF COMPLAINT: Aggressive behavior. HISTORY OF PRESENT ILLNESS: This is a 67-year-old female with a history of hypertension, diabetes, hypercholesterolemia, hypothyroidism, and dementia, admitted secondary to above complaints under service of Dr. Kenny. The patient is a poor historian. Denies chest pain or shortness of breath. PAST MEDICAL HISTORY: As mentioned in history of present illness. PAST SURGICAL HISTORY: Denies surgeries in the past. ALLERGIES: CHLORPROMAZINE AND HALDOL. MEDICATIONS: The patient is on Tylenol, calcium, Colace, Lasix, gemfibrozil, Haldol, Synthroid, lorazepam, Depakote, and Zyprexa. FAMILY HISTORY: Noncontributory. SOCIAL HISTORY: The patient lives in a fci. The patient requiring 24-hour total care. REVIEW OF SYSTEMS: This is limited secondary to the patient's comatose. We will try to obtain more detailed review of systems at a later date by talking to family members. PHYSICAL EXAMINATION: VITAL SIGNS: Blood pressure 135/74, respirations 20, pulse 55, temperature 97.9. GENERAL: Elderly female, appears her stated age.obese NECK: Supple. No mass. LUNGS: Equal breath sounds, few rhonchi. HEART: Regular rate and rhythm with systolic ejection without appreciable murmurs. ABDOMEN: Soft, globular. EXTREMITIES: Positive excoriations. NEUROLOGIC: Limited, moving 4 extremities. LABORATORY DATA: WBC 7.8, hemoglobin 11, platelets 237, BUN and creatinine 24 and 0.8, blood sugar 208. AST and ALT, within normal range. TSH 52. ASSESSMENT AND PLAN: Diabetes, hypertension, hypothyroidism, hypercholesterolemia, and dementia. We will continue the patient on ADA diet and insulin sliding scale. We will adjust the patient's Synthroid. Apparently not been compliant with her levothyroxine, the patient is on 150 mcg. We will monitor this closely and continue with current care and follow the patient closely. JOB# [id number] [facility]ITAL[facility]
[2017-10-24 20:25] LABS: A1C % 7.9 % (4.0-6.0)
[2017-10-24] MEDS: Atorvastatin Calcium 10 MG TAB PO SCH (21:44)
--- NOTE | 2017-10-25 04:38 | Psychosocial Evaluation ---
DATE OF SERVICE: 10/24/2017 PSYCHIATRIC PROGRESS NOTE Staff was spoken to. The patient is interviewed. Mood is noted to be irritable. Affect is constricted. REASON FOR HOSPITALIZATION: Aggressive behavior and psychosis. HISTORY OF PRESENT ILLNESS: This is one of multiple psychiatric hospitalizations for this 67-year-old woman, who is a resident of a longterm facility in [facility]. Information obtained by directly interviewing the patient as well as reviewing the admission papers. As per the information, the patient has been out of control, screaming, and yelling at the top of her lungs and the patient has been brought over here for stabilization. Staff was spoken to. The patient is interviewed. The patient is still screaming and is not able to contract for safety. Coping skills are noted to be very poor at this time. The patient is crying for no reason. The patient, however, has been reported to have been compliant with the medications. PAST PSYCHIATRIC HISTORY: Please refer to the above. The patient was hospitalized under my care in 08/2017. MEDICAL HISTORY AND PHYSICAL EXAMINATION: Requested to be done by Dr. Griffith. SUBSTANCE ABUSE HISTORY: None. PHYSICAL OR SEXUAL ABUSE HISTORY: None. LEGAL PROBLEMS: None at this time. STRENGTH AND ASSETS: The patient is motivated. MENTAL STATUS EXAMINATION: The patient is a 67-year-old woman, looking moderately obese, superficially cooperative. The patient is screaming and yelling at the top of her lungs. I am not able to get a detailed history. The patient continues to be paranoid. The patient has no insight into her illness. Coping skills are noted to be very poor. The patient has paranoid delusions. The patient is having acute mood swings. Insight and judgment at this time are noted to be very much impaired. The patient is not clearly articulating the reason for her to be upset. The patient's attention span and concentration are noted to be poor at this time. The patient is currently on olanzapine 12.5 mg twice a day and Depakote the patient is getting 250 mg twice a day. Even with all the medications, the patient has been having difficult time. It is becoming difficult for us to get a detailed history from the patient because the patient is continuously crying. The patient is acutely psychotic at this time, we are not getting much of any information. The patient at this time is going to be continued on the Zyprexa and Depakote and a dose of the medication is going to be gradually titrated. The patient's behavior is likely a danger to self and others and the patient is not able to care for self. The patient is fully aware that she is in the hospital and the patient's attention span and concentration as mentioned earlier are noted to be poor and the patient is not calming down to get any information. DIAGNOSTIC IMPRESSION: AXIS I: Schizoaffective disorder. AXIS II: None. AXIS III: As per Dr. Griffith. IMMEDIATE TREATMENT PLAN: The patient is going to be observed on the inpatient unit and provided with supportive psychotherapy. The patient is going to be closely monitored. Once stabilized, the patient is going to be discharged to [facility] to be followed up on an outpatient basis. JOB# [id number]
[2017-10-25] MEDS: Levothyroxine 0.15 Mg Tab PO SCH (06:31)
[2017-10-25] MEDS: Calcium Carb/Vit D 500 mg/200 U Tab PO SCH ×2 (09:51→10:17)
--- NOTE | 2017-10-25 11:32 | Internal Medicine Prog Note ---
Internal Medicine Subjective - Subjective Service Date: 10/25/17 Patient seen and examined:: with staff Patient is:: awake Per staff patient has:: tolerating meds Internal Medicine Objective - Results Result Diagrams: 10/24/17 00:29 10/24/17 00:29 Recent Labs: Laboratory Last Values WBC 7.1 Th/cmm (4.8-10.8) 10/24/17 00:29 RBC 3.71 Mil/cmm (3.80-5.20) L 10/24/17 00:29 Hgb 11.7 gm/dL (12-16) L 10/24/17 00:29 Hct 33.9 % (41.0-60) L 10/24/17 00: MCV 91.5 fl (81-100) 10/24/17 00: MCH 31.7 pg (27.0-31.0) H 10/24/17 00: MCHC Differential 34.6 pg (28.0-36.0) 10/24/17 00: RDW 13.0 % (11.5-20.0) 10/24/17 00: Plt Count 237 Th/cmm (150-400) 10/24/17 00: MPV 9.1 fl 10/24/17 00: Neutrophils % 51.7 % (40.0-80.0) 10/24/17 00: Lymphocytes % 30.9 % (20.0-50.0) 10/24/17 00: Monocytes % 11.7 % (2.0-10.0) H 10/24/17 00: Eosinophils % 5.2 % (0.0-5.0) H 10/24/17 00: Basophils % 0.5 % (0.0-2.0) 10/24/17 00: PT 9.9 SECONDS (9.5-11.5) 10/24/17 00:29 INR 0.95 (0.5-1.4) 10/24/17 00:29 Sodium 139 mEq/L (136-145) 10/24/17 00:29 Potassium 3.5 mEq/L (3.5-5.1) 10/24/17 00: Chloride 100 mEq/L (98-107) 10/24/17 00:29 Carbon Dioxide 30.9 mEq/L (21.0-31.0) 10/24/17 00: Anion Gap 11.6 (7.0-16.0) 10/24/17 00:29 BUN 24 mg/dL (7-25) 10/24/17 00:29 Creatinine 0.8 mg/dL (0.6-1.2) 10/24/17 00: Est GFR ( Amer) > 60.0 ml/min (>90) 10/24/17 00: Est GFR (Non-Af Amer) > 60.0 ml/min 10/24/17 00:29 BUN/Creatinine Ratio 30.0 10/24/17 00:29 Glucose 209 mg/dL (70-105) H 10/24/17 00: Hemoglobin A1c % 7.9 % (4.0-6.0) H 10/24/17 00: Calcium 9.5 mg/dL (8.6-10.3) 10/24/17 00: Total Bilirubin 0.4 mg/dL (0.3-1.0) 10/24/17 00:29 AST 14 U/L (13-39) 10/24/17 00:29 ALT 11 U/L (7-52) 10/24/17 00:29 Alkaline Phosphatase 109 U/L (34-104) H 10/24/17 00:29 Troponin I < 0.01 ng/mL (0.01-0.05) L 10/24/17 00: Total Protein 7.3 gm/dL (6.0-8.3) 10/24/17 00:29 Albumin 4.1 gm/dL (3.7-5.3) 10/24/17 00:29 Globulin 3.2 gm/dL 10/24/17 00:29 Albumin/Globulin Ratio 1.3 (1.0-1.8) 10/24/17 00: TSH 52.16 uIU/ml (0.34-5.60) H 10/24/17 00:29 Valproic Acid 36.2 ug/mL (50.0-100.0) L 10/24/17 00:29 - Physical Exam Vitals and I&O: Vital Signs Temp 98 F 10/25/17 05:54 Pulse 60 10/25/17 05:54 Resp 19 10/25/17 05:54 BP 113/52 10/25/17 05:54 Pulse Ox 96 10/25/17 05:54 Intake & Output 10/24/17 10/25/17 10/25/17 18:59 06:59 18:59 Intake Total 1740 Output Total 1 Balance 1739 Intake: Oral 1740 Output: Stool 1 Other: # Voids 1 # Bowel Movements 2 Active Medications: Current Medications Acetaminophen (Tylenol) 650 mg PO Q4HR PRN PRN Reason: Mild Pain / Temp above 100 Stop: 12/23/17 02:46 Acetaminophen (Tylenol) 650 mg PO Q4H PRN PRN Reason: Mild Pain Or Fever above 101 Stop: 12/23/17 10:25 Al Hydrox/Mg Hydrox/Simethicone (Maalox) 30 ml PO Q4HR PRN PRN Reason: GI DISTRESS Stop: 12/23/17 02:46 Al Hydrox/Mg Hydrox/Simethicone (Maalox) 30 ml PO Q4HR PRN PRN Reason: GI DISTRESS Stop: 12/23/17 10:25 Anastrozole (Arimidex) 1 mg PO DAILY CORAZON PRN Reason: Protocol Stop: 12/23/17 08:59 Last Admin: 10/25/17 10:16 Dose: Not Given Atorvastatin Calcium (Lipitor) 10 mg PO HS CORAZON PRN Reason: Protocol Stop: 12/23/17 20:59 Last Admin: 10/24/17 21:44 Dose: 10 mg Calcium/Vitamin D (Oscal W/Vitamin D) 1 tab PO DAILY CORAZON Stop: 12/23/17 08:59 Last Admin: 10/25/17 10:17 Dose: Not Given Docusate Sodium (Colace) 100 mg PO DAILY CORAZON Stop: 12/23/17 08:59 Last Admin: 10/25/17 10:17 Dose: Not Given Donepezil HCl (Aricept) 5 mg PO HS CORAZON Stop: 12/23/17 20:59 Last Admin: 10/24/17 21:44 Dose: 5 mg Furosemide (Lasix) 20 mg PO DAILY CORAZON Stop: 12/23/17 08:59 Last Admin: 10/25/17 10:16 Dose: Not Given Gemfibrozil (Lopid) 600 mg PO BID CORAZON Stop: 12/23/17 08:59 Last Admin: 10/25/17 10:17 Dose: Not Given Levetiracetam (Keppra) 500 mg PO BID CORAZON Stop: 12/23/17 08:59 Last Admin: 10/25/17 10:17 Dose: Not Given Levothyroxine Sodium (Synthroid) 0.15 mg PO QDAC CORAZON Stop: 12/23/17 07:29 Last Admin: 10/25/17 06:31 Dose: Not Given Lorazepam (Ativan) 0.5 mg PO Q4HR PRN; Protocol PRN Reason: Anxiety Stop: 11/23/17 02:46 Magnesium Hydroxide (Milk Of Magnesia) 30 ml PO HS PRN PRN Reason: Constipation Magnesium Hydroxide (Milk Of Magnesia) 30 ml PO HS PRN PRN Reason: Constipation Stop: 12/23/17 10:25 Olanzapine (Zyprexa) 10 mg PO BID CORAZON PRN Reason: Protocol Stop: 12/23/17 14:01 Last Admin: 10/25/17 10:17 Dose: Not Given Valproate Sodium (Depakene) 250 mg PO TID CORAZON PRN Reason: Protocol Stop: 12/23/17 08:59 Last Admin: 10/25/17 10:17 Dose: Not Given Zolpidem Tartrate (Ambien) 5 mg PO HS PRN PRN Reason: Insomnia Stop: 12/23/17 02:46 Last Admin: 10/24/17 21:46 Dose: 5 mg General: alert HEENT: NC/AT, PERRLA Neck: Supple Lungs: CTAB Cardiovascular: RRR, Normal S1, Normal S2, without murmur Abdomen: soft, non-tender, non-distended, positive bowel sound Neurological: alert Internal Medicine Assmt/Plan - Assessment Assessment: dm2 htn hypothyroidism hypercholesteremia dementia - Plan Plan: continue with ada diet monitor glucose continue current plan of care
[2017-10-25] MEDS: INSULIN ASPART, RECOMBINANT 100 UNITS/ML SUBQ SCH ×2 (16:28→20:37)
[2017-10-25] MEDS: Atorvastatin Calcium 10 MG TAB PO SCH (20:20)
--- NOTE | 2017-10-26 01:14 | Progress Notes ---
DATE: 10/25/2017 SUBJECTIVE: Staff was spoken to. The patient is interviewed. Mood is noted to be irritable. Affect is constricted. Continues to be paranoid. The patient is screaming and yelling at the top of her lungs. The patient has no insight into her illness. The patient is currently on olanzapine 10 mg twice a day and the patient is able to tolerate the medication, but the patient has no reason to scream and yell, but the patient continues to be doing the same. ASSESSMENT: The patient is still grossly psychotic. PLAN: To continue the patient with the supportive therapy. I encouraged the patient to verbalize the concerns rather than to act out. Please note that the patient is not ready to be discharged to a lower level of care. JOB# [id number]
[2017-10-26] MEDS: INSULIN ASPART, RECOMBINANT 100 UNITS/ML SUBQ SCH ×4 (07:22→20:57)
[2017-10-26] MEDS: Levothyroxine 0.15 Mg Tab PO SCH (07:23)
[2017-10-26] MEDS: Calcium Carb/Vit D 500 mg/200 U Tab PO SCH (10:59)
--- NOTE | 2017-10-26 12:11 | Internal Medicine Prog Note ---
Internal Medicine Subjective - Subjective Patient seen and examined:: with staff, chart reviewed Patient is:: awake, verbal, interactive Per staff patient has:: no adverse event, no episodes of fall, poor appetite, agitated, combative, tolerating meds Internal Medicine Objective - Results Result Diagrams: 10/24/17 00:29 10/24/17 00: Recent Labs: Laboratory Last Values WBC 7.1 Th/cmm (4.8-10.8) 10/24/17 00: RBC 3.71 Mil/cmm (3.80-5.20) L 10/24/17: Hgb 11.7 gm/dL (12-16) L 10/24/17: Hct 33.9 % (41.0-60) L 10/24/17: MCV 91.5 fl (81-100) 10/24/17 00: MCH 31.7 pg (27.0-31.0) H 10/24/17: MCHC Differential 34.6 pg (28.0-36.0) 10/24/17: RDW 13.0 % (11.5-20.0) 10/24/17: Plt Count 237 Th/cmm (150-400) 10/24/17: MPV 9.1 fl 10/24/17: Neutrophils % 51.7 % (40.0-80.0) 10/24/17: Lymphocytes % 30.9 % (20.0-50.0) 10/24/17: Monocytes % 11.7 % (2.0-10.0) H 10/24/17: Eosinophils % 5.2 % (0.0-5.0) H 10/24/17: Basophils % 0.5 % (0.0-2.0) 10/24/17: PT 9.9 SECONDS (9.5-11.5) 10/24/17: INR 0.95 (0.5-1.4) 10/24/17: Sodium 139 mEq/L (136-145) 10/24/17: Potassium 3.5 mEq/L (3.5-5.1) 10/24/17:29 Chloride 100 mEq/L (98-107) 10/24/17 00: Carbon Dioxide 30.9 mEq/L (21.0-31.0) 10/24/17 00: Anion Gap 11.6 (7.0-16.0) 10/24/17 00:29 BUN 24 mg/dL (7-25) 10/24/17: Creatinine 0.8 mg/dL (0.6-1.2) 10/24/17 00: Est GFR ( Amer) > 60.0 ml/min (>90) 10/24/17 00: Est GFR (Non-Af Amer) > 60.0 ml/min 10/24/17 00: BUN/Creatinine Ratio 30.0 10/24/17 00:29 Glucose 209 mg/dL (70-105) H 10/24/17 00: POC Glucose 198 MG/DL (70 - 105) H 10/25/17 20:26 Hemoglobin A1c % 7.9 % (4.0-6.0) H 10/24/17 00: Calcium 9.5 mg/dL (8.6-10.3) 10/24/17 00: Total Bilirubin 0.4 mg/dL (0.3-1.0) 10/24/17 00: AST 14 U/L (13-39) 10/24/17 00: ALT 11 U/L (7-52) 10/24/17 00: Alkaline Phosphatase 109 U/L (34-104) H 10/24/17 00: Troponin I < 0.01 ng/mL (0.01-0.05) L 10/24/17: Total Protein 7.3 gm/dL (6.0-8.3) 10/24/17 00: Albumin 4.1 gm/dL (3.7-5.3) 10/24/17: Globulin 3.2 gm/dL 10/24/17: Albumin/Globulin Ratio 1.3 (1.0-1.8) 10/24/17 00: TSH 52.16 uIU/ml (0.34-5.60) H 10/24/17: Valproic Acid 36.2 ug/mL (50.0-100.0) L 10/24/17 00:29 - Physical Exam Vitals and I&O: Vital Signs Temp 97.6 F 10/26/17 06:32 Pulse 78 10/26/17 06:32 Resp 20 10/26/17 06:32 BP 141/71 10/26/17 06:32 Pulse Ox 96 10/26/17 06:32 Intake & Output 10/25/17 10/26/17 10/26/17 18:59 06:59 18:59 Intake Total 900 Balance 900 Intake: Oral 900 Other: # Voids 4 3 # Bowel Movements 2 0 Active Medications: Current Medications Acetaminophen (Tylenol) 650 mg PO Q4HR PRN PRN Reason: Mild Pain / Temp above 100 Stop: 12/23/17 02:46 Acetaminophen (Tylenol) 650 mg PO Q4H PRN PRN Reason: Mild Pain Or Fever above 101 Stop: 12/23/17 10:25 Al Hydrox/Mg Hydrox/Simethicone (Maalox) 30 ml PO Q4HR PRN PRN Reason: GI DISTRESS Stop: 12/23/17 02:46 Al Hydrox/Mg Hydrox/Simethicone (Maalox) 30 ml PO Q4HR PRN PRN Reason: GI DISTRESS Stop: 12/23/17 10:25 Anastrozole (Arimidex) 1 mg PO DAILY CORAZON PRN Reason: Protocol Stop: 12/23/17 08:59 Last Admin: 10/26/17 10:59 Dose: 1 mg Atorvastatin Calcium (Lipitor) 10 mg PO HS CORAZON PRN Reason: Protocol Stop: 12/23/17 20:59 Last Admin: 10/25/17 20:20 Dose: 10 mg Calcium/Vitamin D (Oscal W/Vitamin D) 1 tab PO DAILY CORAZON Stop: 12/23/17 08:59 Last Admin: 10/26/17 10:59 Dose: 1 tab Docusate Sodium (Colace) 100 mg PO DAILY CORAZON Stop: 12/23/17 08:59 Last Admin: 10/26/17 09:54 Dose: 100 mg Donepezil HCl (Aricept) 5 mg PO HS CORAZON Stop: 12/23/17 20:59 Last Admin: 10/25/17 20:20 Dose: 5 mg Furosemide (Lasix) 20 mg PO DAILY CORAZON Stop: 12/23/17 08:59 Last Admin: 10/26/17 10:59 Dose: 20 mg Gemfibrozil (Lopid) 600 mg PO BID CORAZON Stop: 12/23/17 08:59 Last Admin: 10/26/17 09:54 Dose: 600 mg Insulin Aspart (Novolog) 0 units SUBQ ACHS CORAZON PRN Reason: Protocol Stop: 12/24/17 16:29 Last Admin: 10/26/17 07:22 Dose: Not Given Levetiracetam (Keppra) 500 mg PO BID CORAZON Stop: 12/23/17 08:59 Last Admin: 10/26/17 09:54 Dose: 500 mg Levothyroxine Sodium (Synthroid) 0.15 mg PO QDAC [facility] Stop: 12/23/17 07:29 Last Admin: 10/26/17 07:23 Dose: Not Given Lorazepam (Ativan) 0.5 mg PO Q4HR PRN; Protocol PRN Reason: Anxiety Stop: 11/23/17 02:46 Last Admin: 10/26/17 10:58 Dose: 0.5 mg Magnesium Hydroxide (Milk Of Magnesia) 30 ml PO HS PRN PRN Reason: Constipation Magnesium Hydroxide (Milk Of Magnesia) 30 ml PO HS PRN PRN Reason: Constipation Stop: 12/23/17 10:25 Olanzapine (Zyprexa) 10 mg PO BID CORAZON PRN Reason: Protocol Stop: 12/23/17 14:01 Last Admin: 10/26/17 09:54 Dose: 10 mg Valproate Sodium (Depakene) 250 mg PO TID CORAZON PRN Reason: Protocol Stop: 12/23/17 08:59 Last Admin: 10/26/17 09:53 Dose: 250 mg Zolpidem Tartrate (Ambien) 5 mg PO HS PRN PRN Reason: Insomnia Stop: 12/23/17 02:46 Last Admin: 10/25/17 20:20 Dose: 5 mg General: alert HEENT: NC/AT, PERRLA Neck: Supple Lungs: CTAB Cardiovascular: RRR, Normal S1, Normal S2, without murmur Abdomen: soft, non-tender, non-distended, positive bowel sound Extremities: excoriation Neurological: alert, disorganized Internal Medicine Assmt/Plan - Assessment Assessment: - Assessment Assessment: dm2 htn hypothyroidism hypercholesteremia dementia - Plan Plan: continue with ada diet monitor glucose continue current plan of care - Plan Plan: cpm fall precaution dw rn Nutritional Asmnt/Malnutr-PDOC - Dietary Evaluation Malnutrition Findings (Please click <Entered> for more info): Nutritional Asmnt/Malnutrition Start: 10/25/17 11: 29 Text: Status: Complete Freq: Document 10/25/17 11:29 RAYMUNDO (Rec: 10/25/17 11:36 LCHEN [email or web address]) Nutritional Asmnt/Malnutrition Patient General Information Nutritional Screening High Risk Diagnosis psychosis NOS Pertinent Medical Hx/Surgical Hx HTN, DM, hyperchlesterolemia, hypothroidism, dementia Subjective Information Per EMR, PO intake 100% x 3 meals on 10/24. Per nurse note, pt is confused and forgetful. Current Diet Order/ Nutrition Support RIAZ, CCHO, mech soft chopped Pertinent Medications oscal w/vit D, colace, lasix, synthroid Pertinent Labs 10/24 glucose 209. A1c 7.9 Nutritional Hx/Data Height 1.7 m Height (Calculated Centimeters) 170.2 Current Weight (lbs) 110.223 kg Weight (Calculated Kilograms) 110.2 Weight (Calculated Grams) 228616.9 [place] Body Weight 148 Body Mass Index (BMI) 38.0 Weight Status Obese GI Symptoms GI Symptoms None Last BM 10/24 x 2 Difficult in: None Skin Integrity/Comment: intact Current %PO Good (75-100%) Estimated Nutritional Goals BEE in Kcals: Adj wt of IBW Calories/Kcals/Kg 25-30 Kcals Calculated [id number] Protein: Adj wt of IBW Protein g/k.8-1 Protein Calculated 62-78 Fluid: ml 1950-2340ml (1ml/kcal) Nutritional Problem 1. Problem Problem altered nutrition related lab values Etiology hx of DM Signs/Symptoms: glucose 209. A1c 7.9 Intervention/Recommendation Comments 1. Continue with current diet as ordered. 2. Monitor PO intake, wt, labs and skin integrity 3. F/U as moderate risk in 3-5 days, 10/28-10/30 Expected Outcomes/Goals Expected Outcomes/Goals 1. PO intake to meet at least 75% of nutritional needs. 2. Wt stability, skin to remain intact, labs to approach WNL.
--- NOTE | 2017-10-26 18:59 | Consultation ---
DATE OF CONSULTATION: 10/25/2017 TYPE OF CONSULTATION: Psychology. REQUESTING PHYSICIAN: Dr. Saba Mercedes. HISTORY OF PRESENT ILLNESS: Following is by review of medical record and by patient's self report. The patient is known to this proposal manager writer from previous a hospitalization. According to record review, the patient is a 67-year-old female who is being admitted for aggressive behavior and active psychosis. According to the staff at the patient's facility, the patient had been out of control, screaming, and yelling. At the time of the interview, the patient was having difficulty responding to the clinical interview questions. The patient's mood seems to fluctuate from agitation and irritability to tearful episodes. The patient was unable to specify any reason for crying. The patient denied any suicidal ideation, plan or intention. PAST MEDICAL HISTORY: Please see history and physical by Dr. Griffith. PAST PSYCHIATRIC HISTORY: The patient has a history of multiple previous hospitalizations and her last hospitalization was here in August of 2017. The patient is under the care of psychiatrist at her assisted facility. SUBSTANCE ABUSE HISTORY: None. CURRENT MEDICATIONS: Please see admission reconciliation. ALLERGIES: Chlorpromazine and Haldol. PSYCHOSOCIAL HISTORY: The patient is a resident of [facility]. The patient did not answer questions about occupational or educational history or baptist affiliation. The patient did not answer questions about support system or family history or family relationships. MENTAL STATUS EXAMINATION: The patient appears to be her stated age. The patient's attitude is superficially cooperative. Eye contact is poor. Speech is loud. The patient is screaming and yelling. The patient presents with paranoid ideation and suspiciousness. The patient possibly has persecutory delusions. This needs further evaluation. The patient was not participating in most of the mental status examination. Mood is easily agitated, irritable, and fluctuating. Affect is animated. The patient denied suicidal ideation or homicidal ideation. Impulse control is impaired. Concentration is poor. The patient did not participate in the memory evaluation. Memory seems to be impaired for all three dimensions. Sensorium is alert and oriented to self and place only. The patient did not respond to de-escalation. The patient did not participate in the interpretation of proverbs or answer any other clinical questions. Insight is impaired. Judgment is impaired. DIAGNOSTIC IMPRESSION: AXIS I: History of schizoaffective disorder. AXIS II: Deferred. AXIS III: Please see history and physical by Dr. Griffith. TREATMENT PLAN: The patient has been seen by Dr. Kenny for psychiatric evaluation and for the management of the patient's psychotropic medications. We will provide supportive psychotherapy to include immediate de-escalation. We will provide motivational enhancement with behavioral management to increase the patient's compliance with all aspects of her care and treatment plan as well as to follow through with staff direction. We will provide coping strategies for chronic severe mental illness as well as phase of life issues. We will provide reality orientation, reality differentiation, and reality integration. We will continue to provide positive reinforcement for the patient to appropriately interact with staff here on the unit as well as at her placement. We will provide stress management skills to increase the patient's frustration tolerance. Thank you, Dr. Kenny for this consult and the opportunity to participate with you in this patient's care. JOB# [id number] [facility]
[2017-10-26] MEDS: Atorvastatin Calcium 10 MG TAB PO SCH (20:48)
--- NOTE | 2017-10-27 01:25 | Progress Notes ---
DATE: 10/26/2017 PSYCHIATRIC PROGRESS NOTE SUBJECTIVE: Staff was spoken to. The patient is interviewed. Mood is noted to be irritable. Affect is constricted. Insight and judgment at this time are noted to be still impaired. Continues to be paranoid, screaming and yelling at this time. No side effects to the medications are noted. The patient has been having difficult time to cope with the stress. ASSESSMENT: The patient is still psychotic. PLAN: To continue the patient with the supportive therapy, encouraged the patient to verbalize the concerns rather than to act out. JOB# [id number]
[2017-10-27] MEDS: Levothyroxine 0.15 Mg Tab PO SCH (06:49)
[2017-10-27] MEDS: INSULIN ASPART, RECOMBINANT 100 UNITS/ML SUBQ SCH ×4 (06:49→20:30)
[2017-10-27] MEDS: Calcium Carb/Vit D 500 mg/200 U Tab PO SCH (08:34)
--- NOTE | 2017-10-27 13:51 | Internal Medicine Prog Note ---
Internal Medicine Subjective - Subjective Service Date: 10/27/17 Patient is:: awake, verbal, interactive Per staff patient has:: no adverse event, no episodes of fall, poor appetite, agitated, combative, tolerating meds Internal Medicine Objective - Results Result Diagrams: 10/24/17 00:29 10/24/17 00: Recent Labs: Laboratory Last Values WBC 7.1 Th/cmm (4.8-10.8) 10/24/17 00: RBC 3.71 Mil/cmm (3.80-5.20) L 10/24/17: Hgb 11.7 gm/dL (12-16) L 10/24/17: Hct 33.9 % (41.0-60) L 10/24/17: MCV 91.5 fl (81-100) 10/24/17 00: MCH 31.7 pg (27.0-31.0) H 10/24/17: MCHC Differential 34.6 pg (28.0-36.0) 10/24/17: RDW 13.0 % (11.5-20.0) 10/24/17: Plt Count 237 Th/cmm (150-400) 10/24/17: MPV 9.1 fl 10/24/17: Neutrophils % 51.7 % (40.0-80.0) 10/24/17: Lymphocytes % 30.9 % (20.0-50.0) 10/24/17: Monocytes % 11.7 % (2.0-10.0) H 10/24/17: Eosinophils % 5.2 % (0.0-5.0) H 10/24/17: Basophils % 0.5 % (0.0-2.0) 10/24/17: PT 9.9 SECONDS (9.5-11.5) 10/24/17: INR 0.95 (0.5-1.4) 10/24/17 00: Sodium 139 mEq/L (136-145) 10/24/17: Potassium 3.5 mEq/L (3.5-5.1) 10/24/17: Chloride 100 mEq/L (98-107) 10/24/17 00: Carbon Dioxide 30.9 mEq/L (21.0-31.0) 10/24/17 00: Anion Gap 11.6 (7.0-16.0) 10/24/17 00: BUN 24 mg/dL (7-25) 10/24/17: Creatinine 0.8 mg/dL (0.6-1.2) 10/24/17 00: Est GFR ( Amer) > 60.0 ml/min (>90) 10/24/17 00: Est GFR (Non-Af Amer) > 60.0 ml/min 10/24/17 00: BUN/Creatinine Ratio 30.0 10/24/17 00: Glucose 209 mg/dL (70-105) H 10/24/17 00: POC Glucose 213 MG/DL (70 - 105) H 10/26/17 20:47 Hemoglobin A1c % 7.9 % (4.0-6.0) H 10/24/17: Calcium 9.5 mg/dL (8.6-10.3) 10/24/17 00: Total Bilirubin 0.4 mg/dL (0.3-1.0) 10/24/17 00: AST 14 U/L (13-39) 10/24/17 00: ALT 11 U/L (7-52) 10/24/17 00: Alkaline Phosphatase 109 U/L (34-104) H 10/24/17 00: Troponin I < 0.01 ng/mL (0.01-0.05) L 10/24/17: Total Protein 7.3 gm/dL (6.0-8.3) 10/24/17 00: Albumin 4.1 gm/dL (3.7-5.3) 10/24/17: Globulin 3.2 gm/dL 10/24/17: Albumin/Globulin Ratio 1.3 (1.0-1.8) 10/24/17 00: TSH 52.16 uIU/ml (0.34-5.60) H 10/24/17: Valproic Acid 36.2 ug/mL (50.0-100.0) L 10/24/17 00:29 Levetiracetam 6.0 ug/mL (10.0-40.0) L 10/24/17 00:29 - Physical Exam Vitals and I&O: Vital Signs Temp 98.5 F 10/26/17 20:00 Pulse 62 10/26/17 20:00 Resp 20 10/26/17 20:00 BP 135/75 10/26/17 20:00 Pulse Ox 98 10/26/17 20:00 Intake & Output 10/26/17 10/27/17 10/27/17 18:59 06:59 18:59 Intake Total 1500 120 Balance 1500 120 Intake: Oral 1500 120 Other: # Voids 3 3 Active Medications: Current Medications Acetaminophen (Tylenol) 650 mg PO Q4HR PRN PRN Reason: Mild Pain / Temp above 100 Stop: 12/23/17 02:46 Acetaminophen (Tylenol) 650 mg PO Q4H PRN PRN Reason: Mild Pain Or Fever above 101 Stop: 12/23/17 10:25 Al Hydrox/Mg Hydrox/Simethicone (Maalox) 30 ml PO Q4HR PRN PRN Reason: GI DISTRESS Stop: 12/23/17 02:46 Al Hydrox/Mg Hydrox/Simethicone (Maalox) 30 ml PO Q4HR PRN PRN Reason: GI DISTRESS Stop: 12/23/17 10:25 Anastrozole (Arimidex) 1 mg PO DAILY [facility] PRN Reason: Protocol Stop: 12/23/17 08:59 Last Admin: 10/27/17 08:36 Dose: 1 mg Atorvastatin Calcium (Lipitor) 10 mg PO HS [facility] PRN Reason: Protocol Stop: 12/23/17 20:59 Last Admin: 10/26/17 20:48 Dose: 10 mg Calcium/Vitamin D (Oscal W/Vitamin D) 1 tab PO DAILY [facility] Stop: 12/23/17 08:59 Last Admin: 10/27/17 08:34 Dose: 1 tab Docusate Sodium (Colace) 100 mg PO DAILY [facility] Stop: 12/23/17 08:59 Last Admin: 10/27/17 08:33 Dose: 100 mg Donepezil HCl (Aricept) 5 mg PO HS [facility] Stop: 12/23/17 20:59 Last Admin: 10/26/17 20:48 Dose: 5 mg Furosemide (Lasix) 20 mg PO DAILY [facility] Stop: 12/23/17 08:59 Last Admin: 10/27/17 08:33 Dose: 20 mg Gemfibrozil (Lopid) 600 mg PO BID [facility] Stop: 12/23/17 08:59 Last Admin: 10/27/17 08:33 Dose: 600 mg Insulin Aspart (Novolog) 0 units SUBQ ACHS [facility] PRN Reason: Protocol Stop: 12/24/17 16:29 Last Admin: 10/27/17 11:25 Dose: Not Given Levetiracetam (Keppra) 500 mg PO BID [facility] Stop: 12/23/17 08:59 Last Admin: 10/27/17 08:33 Dose: 500 mg Levothyroxine Sodium (Synthroid) 0.15 mg PO QDAC [facility] Stop: 12/23/17 07:29 Last Admin: 10/27/17 06:49 Dose: Not Given Lorazepam (Ativan) 0.5 mg PO Q4HR PRN; Protocol PRN Reason: Anxiety Stop: 11/23/17 02:46 Last Admin: 10/26/17 20:48 Dose: 0.5 mg Magnesium Hydroxide (Milk Of Magnesia) 30 ml PO HS PRN PRN Reason: Constipation Magnesium Hydroxide (Milk Of Magnesia) 30 ml PO HS PRN PRN Reason: Constipation Stop: 12/23/17 10:25 Olanzapine (Zyprexa) 10 mg PO BID [facility] PRN Reason: Protocol Stop: 12/23/17 14:01 Last Admin: 10/27/17 08:33 Dose: 10 mg Valproate Sodium (Depakene) 250 mg PO TID [facility] PRN Reason: Protocol Stop: 12/23/17 08:59 Last Admin: 10/27/17 08:32 Dose: 250 mg Zolpidem Tartrate (Ambien) 5 mg PO HS PRN PRN Reason: Insomnia Stop: 12/23/17 02:46 Last Admin: 10/26/17 20:48 Dose: 5 mg General: alert HEENT: NC/AT, PERRLA Neck: Supple Lungs: CTAB Cardiovascular: RRR, Normal S1, Normal S2, without murmur Abdomen: soft, non-tender, non-distended, positive bowel sound Extremities: excoriation Neurological: alert, disorganized Internal Medicine Assmt/Plan - Assessment Assessment: dm2 htn hypothyroidism hypercholesteremia dementia - Plan Plan: continue with ada diet monitor glucose continue current plan of care Nutritional Asmnt/Malnutr-PDOC - Dietary Evaluation Malnutrition Findings (Please click <Entered> for more info): Nutritional Asmnt/Malnutrition Start: 10/25/17 11: 29 Text: Status: Complete Freq: Document 10/25/17 11:29 NATOSENAIT (Rec: 10/25/17 11:36 LCSENAIT [email or web address]) Nutritional Asmnt/Malnutrition Patient General Information Nutritional Screening High Risk Diagnosis psychosis NOS Pertinent Medical Hx/Surgical Hx HTN, DM, hyperchlesterolemia, hypothroidism, dementia Subjective Information Per EMR, PO intake 100% x 3 meals on 10/24. Per nurse note, pt is confused and forgetful. Current Diet Order/ Nutrition Support RIAZ, CCHO, mech soft chopped Pertinent Medications oscal w/vit D, colace, lasix, synthroid Pertinent Labs 10/24 glucose 209. A1c 7.9 Nutritional Hx/Data Height 5 ft 7 in Height (Calculated Centimeters) 170.2 Current Weight (lbs) 243 lb Weight (Calculated Kilograms) 110.2 Weight (Calculated Grams) 113951.9 [place] Body Weight 148 Body Mass Index (BMI) 38.0 Weight Status Obese GI Symptoms GI Symptoms None Last BM 10/24 x 2 Difficult in: None Skin Integrity/Comment: intact Current %PO Good (75-100%) Estimated Nutritional Goals BEE in Kcals: Adj wt of IBW Calories/Kcals/Kg 25-30 Kcals Calculated 4486-6251 Protein: Adj wt of IBW Protein g/k.8-1 Protein Calculated 62-78 Fluid: ml 1950-2340ml (1ml/kcal) Nutritional Problem 1. Problem Problem altered nutrition related lab values Etiology hx of DM Signs/Symptoms: glucose 209. A1c 7.9 Intervention/Recommendation Comments 1. Continue with current diet as ordered. 2. Monitor PO intake, wt, labs and skin integrity 3. F/U as moderate risk in 3-5 days, 10/28-10/30 Expected Outcomes/Goals Expected Outcomes/Goals 1. PO intake to meet at least 75% of nutritional needs. 2. Wt stability, skin to remain intact, labs to approach WNL.
[2017-10-27] MEDS: Atorvastatin Calcium 10 MG TAB PO SCH (20:23)
--- NOTE | 2017-10-28 03:27 | Progress Notes ---
DATE: 10/27/2017 SUBJECTIVE: Staff was spoken to. The patient is interviewed. Mood is noted to be irritable. Affect is constricted. The patient has been getting easily upset and paranoid and is accusing the staff that they know everything and they have been playing the games behind her back. The patient is screaming and yelling at this time. PLAN OF CARE: The patient is currently on olanzapine and Depakote. The Depakote is going to be increased to 500 mg twice a day and the patient is going to be closely monitored and the patient is going to be encouraged to verbalize the concerns rather than to act out. The patient at this time is not ready to be discharged to a lower level of care in view of her aggressive behavior. The patient at this time is not able to contract for safety. The valproic acid level is noted to be 36.2 and the patient's Depakote level has been increased and the patient is going to be followed up. JOB# [id number]
[2017-10-28] MEDS: INSULIN ASPART, RECOMBINANT 100 UNITS/ML SUBQ SCH ×4 (06:55→21:27)
[2017-10-28] MEDS: Levothyroxine 0.15 Mg Tab PO SCH (06:55)
[2017-10-28] MEDS: Calcium Carb/Vit D 500 mg/200 U Tab PO SCH (08:19)
--- NOTE | 2017-10-28 13:42 | Internal Medicine Prog Note ---
Internal Medicine Subjective - Subjective Service Date: 10/28/17 Patient is:: awake, verbal, interactive Per staff patient has:: no adverse event, no episodes of fall, poor appetite, agitated, combative, tolerating meds Internal Medicine Objective - Results Result Diagrams: 10/24/17 00:29 10/24/17 00: Recent Labs: Laboratory Last Values WBC 7.1 Th/cmm (4.8-10.8) 10/24/17 00: RBC 3.71 Mil/cmm (3.80-5.20) L 10/24/17: Hgb 11.7 gm/dL (12-16) L 10/24/17: Hct 33.9 % (41.0-60) L 10/24/17: MCV 91.5 fl (81-100) 10/24/17 00: MCH 31.7 pg (27.0-31.0) H 10/24/17: MCHC Differential 34.6 pg (28.0-36.0) 10/24/17: RDW 13.0 % (11.5-20.0) 10/24/17: Plt Count 237 Th/cmm (150-400) 10/24/17: MPV 9.1 fl 10/24/17: Neutrophils % 51.7 % (40.0-80.0) 10/24/17: Lymphocytes % 30.9 % (20.0-50.0) 10/24/17: Monocytes % 11.7 % (2.0-10.0) H 10/24/17: Eosinophils % 5.2 % (0.0-5.0) H 10/24/17: Basophils % 0.5 % (0.0-2.0) 10/24/17: PT 9.9 SECONDS (9.5-11.5) 10/24/17: INR 0.95 (0.5-1.4) 10/24/17 00: Sodium 139 mEq/L (136-145) 10/24/17: Potassium 3.5 mEq/L (3.5-5.1) 10/24/17: Chloride 100 mEq/L (98-107) 10/24/17 00: Carbon Dioxide 30.9 mEq/L (21.0-31.0) 10/24/17 00: Anion Gap 11.6 (7.0-16.0) 10/24/17 00:29 BUN 24 mg/dL (7-25) 10/24/17: Creatinine 0.8 mg/dL (0.6-1.2) 10/24/17 00: Est GFR ( Amer) > 60.0 ml/min (>90) 10/24/17 00: Est GFR (Non-Af Amer) > 60.0 ml/min 10/24/17 00: BUN/Creatinine Ratio 30.0 10/24/17 00:29 Glucose 209 mg/dL (70-105) H 10/24/17 00: POC Glucose 125 MG/DL (70 - 105) H 10/28/17 11:56 Hemoglobin A1c % 7.9 % (4.0-6.0) H 10/24/17 00: Calcium 9.5 mg/dL (8.6-10.3) 10/24/17 00:29 Total Bilirubin 0.4 mg/dL (0.3-1.0) 10/24/17 00: AST 14 U/L (13-39) 10/24/17 00:29 ALT 11 U/L (7-52) 10/24/17 00: Alkaline Phosphatase 109 U/L (34-104) H 10/24/17 00: Troponin I < 0.01 ng/mL (0.01-0.05) L 10/24/17: Total Protein 7.3 gm/dL (6.0-8.3) 10/24/17 00: Albumin 4.1 gm/dL (3.7-5.3) 10/24/17 00: Globulin 3.2 gm/dL 10/24/17 00: Albumin/Globulin Ratio 1.3 (1.0-1.8) 10/24/17 00:29 TSH 52.16 uIU/ml (0.34-5.60) H 10/24/17 00: Valproic Acid 36.2 ug/mL (50.0-100.0) L 10/24/17 00:29 Levetiracetam 6.0 ug/mL (10.0-40.0) L 10/24/17 00:29 RPR NONREACTIVE (NONREACTIVE) 10/24/17 00:29 - Physical Exam Vitals and I&O: Vital Signs Temp 98 F 10/27/17 20:00 Pulse 69 10/27/17 20:00 Resp 20 10/27/17 20:00 BP 120/85 10/28/17 08:20 Pulse Ox 97 10/27/17 20:00 Intake & Output 10/27/17 10/28/17 10/28/17 18:59 06:59 18:59 Intake Total 1620 Balance 1620 Intake: Oral 1620 Other: # Voids 3 Active Medications: Current Medications Acetaminophen (Tylenol) 650 mg PO Q4HR PRN PRN Reason: Mild Pain / Temp above 100 Stop: 12/23/17 02:46 Acetaminophen (Tylenol) 650 mg PO Q4H PRN PRN Reason: Mild Pain Or Fever above 101 Stop: 12/23/17 10:25 Al Hydrox/Mg Hydrox/Simethicone (Maalox) 30 ml PO Q4HR PRN PRN Reason: GI DISTRESS Stop: 12/23/17 02:46 Al Hydrox/Mg Hydrox/Simethicone (Maalox) 30 ml PO Q4HR PRN PRN Reason: GI DISTRESS Stop: 12/23/17 10:25 Anastrozole (Arimidex) 1 mg PO DAILY [facility] PRN Reason: Protocol Stop: 12/23/17 08:59 Last Admin: 10/28/17 08:26 Dose: 1 mg Atorvastatin Calcium (Lipitor) 10 mg PO HS [facility] PRN Reason: Protocol Stop: 12/23/17 20:59 Last Admin: 10/27/17 20:23 Dose: 10 mg Calcium/Vitamin D (Oscal W/Vitamin D) 1 tab PO DAILY [facility] Stop: 12/23/17 08:59 Last Admin: 10/28/17 08:19 Dose: 1 tab Docusate Sodium (Colace) 100 mg PO DAILY [facility] Stop: 12/23/17 08:59 Last Admin: 10/28/17 08:19 Dose: 100 mg Donepezil HCl (Aricept) 5 mg PO HS [facility] Stop: 12/23/17 20:59 Last Admin: 10/27/17 20:23 Dose: 5 mg Furosemide (Lasix) 20 mg PO DAILY [facility] Stop: 12/23/17 08:59 Last Admin: 10/28/17 08:20 Dose: 20 mg Gemfibrozil (Lopid) 600 mg PO BID [facility] Stop: 12/23/17 08:59 Last Admin: 10/28/17 08:20 Dose: 600 mg Insulin Aspart (Novolog) 0 units SUBQ ACHS [facility] PRN Reason: Protocol Stop: 12/24/17 16:29 Last Admin: 10/28/17 12:23 Dose: Not Given Levetiracetam (Keppra) 500 mg PO BID [facility] Stop: 12/23/17 08:59 Last Admin: 10/28/17 08:19 Dose: 500 mg Levothyroxine Sodium (Synthroid) 0.15 mg PO QDAC [facility] Stop: 12/23/17 07:29 Last Admin: 10/28/17 06:55 Dose: Not Given Lorazepam (Ativan) 0.5 mg PO Q4HR PRN; Protocol PRN Reason: Anxiety Stop: 11/23/17 02:46 Last Admin: 10/28/17 08:20 Dose: 0.5 mg Magnesium Hydroxide (Milk Of Magnesia) 30 ml PO HS PRN PRN Reason: Constipation Magnesium Hydroxide (Milk Of Magnesia) 30 ml PO HS PRN PRN Reason: Constipation Stop: 12/23/17 10:25 Olanzapine (Zyprexa) 10 mg PO BID [facility] PRN Reason: Protocol Stop: 12/23/17 14:01 Last Admin: 10/28/17 08:19 Dose: 10 mg Valproate Sodium (Depakene) 500 mg PO BID [facility] PRN Reason: Protocol Stop: 12/27/17 08:59 Last Admin: 10/28/17 08:19 Dose: 500 mg Zolpidem Tartrate (Ambien) 5 mg PO HS PRN PRN Reason: Insomnia Stop: 12/23/17 02:46 Last Admin: 10/27/17 20:23 Dose: 5 mg General: alert HEENT: NC/AT, PERRLA Neck: Supple Lungs: CTAB Cardiovascular: RRR, Normal S1, Normal S2, without murmur Abdomen: soft, non-tender, non-distended, positive bowel sound Extremities: excoriation Neurological: alert, disorganized Internal Medicine Assmt/Plan - Assessment Assessment: dm2 htn hypothyroidism hypercholesteremia dementia - Plan Plan: continue with ada diet monitor glucose continue current plan of care Nutritional Asmnt/Malnutr-PDOC - Dietary Evaluation Malnutrition Findings (Please click <Entered> for more info): Nutritional Asmnt/Malnutrition Start: 10/25/17 11: 29 Text: Status: Complete Freq: Document 10/25/17 11:29 RAYMUNDO (Rec: 10/25/17 11:36 LCHENAyde [email or web address]) Nutritional Asmnt/Malnutrition Patient General Information Nutritional Screening High Risk Diagnosis psychosis NOS Pertinent Medical Hx/Surgical Hx HTN, DM, hyperchlesterolemia, hypothroidism, dementia Subjective Information Per EMR, PO intake 100% x 3 meals on 10/24. Per nurse note, pt is confused and forgetful. Current Diet Order/ Nutrition Support RIAZ, CCHO, mech soft chopped Pertinent Medications oscal w/vit D, colace, lasix, synthroid Pertinent Labs 10/24 glucose 209. A1c 7.9 Nutritional Hx/Data Height 5 ft 7 in Height (Calculated Centimeters) 170.2 Current Weight (lbs) 243 lb Weight (Calculated Kilograms) 110.2 Weight (Calculated Grams) 709480.9 [place] Body Weight 148 Body Mass Index (BMI) 38.0 Weight Status Obese GI Symptoms GI Symptoms None Last BM 10/24 x 2 Difficult in: None Skin Integrity/Comment: intact Current %PO Good (75-100%) Estimated Nutritional Goals BEE in Kcals: Adj wt of IBW Calories/Kcals/Kg 25-30 Kcals Calculated 3274-7349 Protein: Adj wt of IBW Protein g/k.8-1 Protein Calculated 62-78 Fluid: ml 1950-2340ml (1ml/kcal) Nutritional Problem 1. Problem Problem altered nutrition related lab values Etiology hx of DM Signs/Symptoms: glucose 209. A1c 7.9 Intervention/Recommendation Comments 1. Continue with current diet as ordered. 2. Monitor PO intake, wt, labs and skin integrity 3. F/U as moderate risk in 3-5 days, 10/28-10/30 Expected Outcomes/Goals Expected Outcomes/Goals 1. PO intake to meet at least 75% of nutritional needs. 2. Wt stability, skin to remain intact, labs to approach WNL.
[2017-10-28] MEDS: Atorvastatin Calcium 10 MG TAB PO SCH (20:49)
--- NOTE | 2017-10-29 04:48 | Progress Notes ---
DATE: 10/28/2017 SUBJECTIVE: Staff was spoken to. The patient is interviewed. Mood is noted to be irritable. Affect is constricted. The patient is accusing the staff members that they have been doing things behind her back. The patient has no insight into her illness. Coping skills are noted to be extremely poor. The patient is screaming and yelling at the staff members. The patient needs to be redirected. ASSESSMENT: The patient is still grossly psychotic. PLAN: To continue the patient with antipsychotic medications and mood stabilizer. I encouraged the patient to verbalize the concerns rather than to act out. JOB# [id number]
[2017-10-29] MEDS: INSULIN ASPART, RECOMBINANT 100 UNITS/ML SUBQ SCH ×4 (06:33→20:55)
[2017-10-29] MEDS: Levothyroxine 0.15 Mg Tab PO SCH (06:33)
[2017-10-29] MEDS: Calcium Carb/Vit D 500 mg/200 U Tab PO SCH (09:06)
--- NOTE | 2017-10-29 15:58 | Internal Medicine Prog Note ---
Internal Medicine Subjective - Subjective Service Date: 10/29/17 Patient is:: awake, verbal, interactive Per staff patient has:: no adverse event, no episodes of fall, poor appetite, agitated, combative, tolerating meds Internal Medicine Objective - Results Result Diagrams: 10/24/17 00:29 10/24/17 00: Recent Labs: Laboratory Last Values WBC 7.1 Th/cmm (4.8-10.8) 10/24/17 00: RBC 3.71 Mil/cmm (3.80-5.20) L 10/24/17: Hgb 11.7 gm/dL (12-16) L 10/24/17: Hct 33.9 % (41.0-60) L 10/24/17: MCV 91.5 fl (81-100) 10/24/17 00: MCH 31.7 pg (27.0-31.0) H 10/24/17: MCHC Differential 34.6 pg (28.0-36.0) 10/24/17: RDW 13.0 % (11.5-20.0) 10/24/17: Plt Count 237 Th/cmm (150-400) 10/24/17: MPV 9.1 fl 10/24/17: Neutrophils % 51.7 % (40.0-80.0) 10/24/17: Lymphocytes % 30.9 % (20.0-50.0) 10/24/17: Monocytes % 11.7 % (2.0-10.0) H 10/24/17: Eosinophils % 5.2 % (0.0-5.0) H 10/24/17: Basophils % 0.5 % (0.0-2.0) 10/24/17: PT 9.9 SECONDS (9.5-11.5) 10/24/17: INR 0.95 (0.5-1.4) 10/24/17 00: Sodium 139 mEq/L (136-145) 10/24/17: Potassium 3.5 mEq/L (3.5-5.1) 10/24/17: Chloride 100 mEq/L (98-107) 10/24/17 00: Carbon Dioxide 30.9 mEq/L (21.0-31.0) 10/24/17 00: Anion Gap 11.6 (7.0-16.0) 10/24/17 00: BUN 24 mg/dL (7-25) 10/24/17: Creatinine 0.8 mg/dL (0.6-1.2) 10/24/17: Est GFR ( Amer) > 60.0 ml/min (>90) 10/24/17 00: Est GFR (Non-Af Amer) > 60.0 ml/min 10/24/17 00: BUN/Creatinine Ratio 30.0 10/24/17 00: Glucose 209 mg/dL (70-105) H 10/24/17 00: POC Glucose 160 MG/DL (70 - 105) H 10/28/17 20:55 Hemoglobin A1c % 7.9 % (4.0-6.0) H 10/24/17: Calcium 9.5 mg/dL (8.6-10.3) 10/24/17 00: Total Bilirubin 0.4 mg/dL (0.3-1.0) 10/24/17 00: AST 14 U/L (13-39) 10/24/17 00: ALT 11 U/L (7-52) 10/24/17 00: Alkaline Phosphatase 109 U/L (34-104) H 10/24/17 00: Troponin I < 0.01 ng/mL (0.01-0.05) L 10/24/17: Total Protein 7.3 gm/dL (6.0-8.3) 10/24/17 00: Albumin 4.1 gm/dL (3.7-5.3) 10/24/17: Globulin 3.2 gm/dL 10/24/17: Albumin/Globulin Ratio 1.3 (1.0-1.8) 10/24/17 00: TSH 52.16 uIU/ml (0.34-5.60) H 10/24/17: Valproic Acid 36.2 ug/mL (50.0-100.0) L 10/24/17 00:29 Levetiracetam 6.0 ug/mL (10.0-40.0) L 10/24/17 00:29 RPR NONREACTIVE (NONREACTIVE) 10/24/17 00:29 - Physical Exam Vitals and I&O: Vital Signs Temp 97.7 F 10/29/17 14:48 Pulse 59 10/29/17 14:48 Resp 18 10/29/17 14:48 BP 114/57 10/29/17 14:48 Pulse Ox 97 10/29/17 14:48 Intake & Output 10/28/17 10/29/17 10/29/17 18:59 06:59 18:59 Intake Total 1500 320 Balance 1500 320 Intake: Oral 1500 320 Other: # Voids 3 1 # Bowel Movements 1 Active Medications: Current Medications Acetaminophen (Tylenol) 650 mg PO Q4HR PRN PRN Reason: Mild Pain / Temp above 100 Stop: 12/23/17 02:46 Acetaminophen (Tylenol) 650 mg PO Q4H PRN PRN Reason: Mild Pain Or Fever above 101 Stop: 12/23/17 10:25 Al Hydrox/Mg Hydrox/Simethicone (Maalox) 30 ml PO Q4HR PRN PRN Reason: GI DISTRESS Stop: 12/23/17 10:25 Anastrozole (Arimidex) 1 mg PO DAILY [facility] PRN Reason: Protocol Stop: 12/23/17 08:59 Last Admin: 10/29/17 09:04 Dose: Not Given Atorvastatin Calcium (Lipitor) 10 mg PO HS [facility] PRN Reason: Protocol Stop: 12/23/17 20:59 Last Admin: 10/28/17 20:49 Dose: 10 mg Calcium/Vitamin D (Oscal W/Vitamin D) 1 tab PO DAILY [facility] Stop: 12/23/17 08:59 Last Admin: 10/29/17 09:06 Dose: Not Given Docusate Sodium (Colace) 100 mg PO DAILY [facility] Stop: 12/23/17 08:59 Last Admin: 10/29/17 09:05 Dose: Not Given Donepezil HCl (Aricept) 5 mg PO HS [facility] Stop: 12/23/17 20:59 Last Admin: 10/28/17 20:49 Dose: 5 mg Furosemide (Lasix) 20 mg PO DAILY [facility] Stop: 12/23/17 08:59 Last Admin: 10/29/17 09:09 Dose: Not Given Gemfibrozil (Lopid) 600 mg PO BID [facility] Stop: 12/23/17 08:59 Last Admin: 10/29/17 09:04 Dose: Not Given Insulin Aspart (Novolog) 0 units SUBQ ACHS [facility] PRN Reason: Protocol Stop: 12/24/17 16:29 Last Admin: 10/29/17 11:44 Dose: Not Given Levetiracetam (Keppra) 500 mg PO BID [facility] Stop: 12/23/17 08:59 Last Admin: 10/29/17 09:05 Dose: Not Given Levothyroxine Sodium (Synthroid) 0.15 mg PO QDAC [facility] Stop: 12/23/17 07:29 Last Admin: 10/29/17 06:33 Dose: Not Given Lorazepam (Ativan) 0.5 mg PO Q4HR PRN; Protocol PRN Reason: Anxiety Stop: 11/23/17 02:46 Last Admin: 10/28/17 08:20 Dose: 0.5 mg Magnesium Hydroxide (Milk Of Magnesia) 30 ml PO HS PRN PRN Reason: Constipation Magnesium Hydroxide (Milk Of Magnesia) 30 ml PO HS PRN PRN Reason: Constipation Stop: 12/23/17 10:25 Olanzapine (Zyprexa) 10 mg PO BID [facility] PRN Reason: Protocol Stop: 12/23/17 14:01 Last Admin: 10/29/17 09:06 Dose: Not Given Valproate Sodium (Depakene) 500 mg PO BID [facility] PRN Reason: Protocol Stop: 12/27/17 08:59 Last Admin: 10/29/17 09:06 Dose: 500 mg Zolpidem Tartrate (Ambien) 5 mg PO HS PRN PRN Reason: Insomnia Stop: 12/23/17 02:46 Last Admin: 10/28/17 20:49 Dose: 5 mg General: alert HEENT: NC/AT, PERRLA Neck: Supple Lungs: CTAB Cardiovascular: RRR, Normal S1, Normal S2, without murmur Abdomen: soft, non-tender, non-distended, positive bowel sound Extremities: excoriation Neurological: alert, disorganized Internal Medicine Assmt/Plan - Assessment Assessment: dm2 htn hypothyroidism hypercholesteremia dementia - Plan Plan: continue with ada diet monitor glucose continue current plan of care Nutritional Asmnt/Malnutr-PDOC - Dietary Evaluation Malnutrition Findings (Please click <Entered> for more info): Nutritional Asmnt/Malnutrition Start: 10/25/17 11: 29 Text: Status: Complete Freq: Document 10/25/17 11:29 [email or web address] (Rec: 10/25/17 11:36 OFELIA [email or web address]) Nutritional Asmnt/Malnutrition Patient General Information Nutritional Screening High Risk Diagnosis psychosis NOS Pertinent Medical Hx/Surgical Hx HTN, DM, hyperchlesterolemia, hypothroidism, dementia Subjective Information Per EMR, PO intake 100% x 3 meals on 10/24. Per nurse note, pt is confused and forgetful. Current Diet Order/ Nutrition Support RIAZ, CCHO, mech soft chopped Pertinent Medications oscal w/vit D, colace, lasix, synthroid Pertinent Labs 10/24 glucose 209. A1c 7.9 Nutritional Hx/Data Height 5 ft 7 in Height (Calculated Centimeters) 170.2 Current Weight (lbs) 243 lb Weight (Calculated Kilograms) 110.2 Weight (Calculated Grams) 993691.9 [place] Body Weight 148 Body Mass Index (BMI) 38.0 Weight Status Obese GI Symptoms GI Symptoms None Last BM 10/24 x 2 Difficult in: None Skin Integrity/Comment: intact Current %PO Good (75-100%) Estimated Nutritional Goals BEE in Kcals: Adj wt of IBW Calories/Kcals/Kg 25-30 Kcals Calculated 7169-2589 Protein: Adj wt of IBW Protein g/k.8-1 Protein Calculated 62-78 Fluid: ml 1950-2340ml (1ml/kcal) Nutritional Problem 1. Problem Problem altered nutrition related lab values Etiology hx of DM Signs/Symptoms: glucose 209. A1c 7.9 Intervention/Recommendation Comments 1. Continue with current diet as ordered. 2. Monitor PO intake, wt, labs and skin integrity 3. F/U as moderate risk in 3-5 days, 10/28-10/30 Expected Outcomes/Goals Expected Outcomes/Goals 1. PO intake to meet at least 75% of nutritional needs. 2. Wt stability, skin to remain intact, labs to approach WNL.
[2017-10-29] MEDS: Atorvastatin Calcium 10 MG TAB PO SCH (20:25)
--- NOTE | 2017-10-29 22:28 | Progress Notes ---
DATE: 10/29/2017 SUBJECTIVE: Staff was spoken to. The patient is interviewed. Mood is irritable. Affect is constricted. Coping skills are noted to be still poor. Insight and judgment are noted to be very much impaired. ASSESSMENT: The patient is very paranoid and has been accusing the staff for doing things behind her back. PLAN: The patient is currently on 10 mg of the olanzapine and since the patient has been having difficult time with the impulsivity, it is decided to add a low dose of the Depakote to contain her mood swings and follow the patient with supportive therapy. The patient is not ready to be discharged to a lower level of care yet. JOB# [id number]
[2017-10-30] MEDS: INSULIN ASPART, RECOMBINANT 100 UNITS/ML SUBQ SCH ×4 (06:45→22:00)
[2017-10-30] MEDS: Levothyroxine 0.15 Mg Tab PO SCH (07:03)
[2017-10-30] MEDS: Calcium Carb/Vit D 500 mg/200 U Tab PO SCH (10:20)
--- NOTE | 2017-10-30 14:36 | Internal Medicine Prog Note ---
Internal Medicine Subjective - Subjective Service Date: 10/30/17 Patient is:: awake, verbal, interactive Per staff patient has:: no adverse event, no episodes of fall, poor appetite, agitated, combative, tolerating meds Internal Medicine Objective - Results Result Diagrams: 10/24/17 00:29 10/24/17 00: Recent Labs: Laboratory Last Values WBC 7.1 Th/cmm (4.8-10.8) 10/24/17: RBC 3.71 Mil/cmm (3.80-5.20) L 10/24/17: Hgb 11.7 gm/dL (12-16) L 10/24/17: Hct 33.9 % (41.0-60) L 10/24/17: MCV 91.5 fl (81-100) 10/24/17 00: MCH 31.7 pg (27.0-31.0) H 10/24/17: MCHC Differential 34.6 pg (28.0-36.0) 10/24/17: RDW 13.0 % (11.5-20.0) 10/24/17: Plt Count 237 Th/cmm (150-400) 10/24/17: MPV 9.1 fl 10/24/17: Neutrophils % 51.7 % (40.0-80.0) 10/24/17: Lymphocytes % 30.9 % (20.0-50.0) 10/24/17: Monocytes % 11.7 % (2.0-10.0) H 10/24/17: Eosinophils % 5.2 % (0.0-5.0) H 10/24/17: Basophils % 0.5 % (0.0-2.0) 10/24/17: PT 9.9 SECONDS (9.5-11.5) 10/24/17: INR 0.95 (0.5-1.4) 10/24/17 00: Sodium 139 mEq/L (136-145) 10/24/17: Potassium 3.5 mEq/L (3.5-5.1) 10/24/17: Chloride 100 mEq/L (98-107) 10/24/17 00: Carbon Dioxide 30.9 mEq/L (21.0-31.0) 10/24/17: Anion Gap 11.6 (7.0-16.0) 10/24/17 00: BUN 24 mg/dL (7-25) 10/24/17: Creatinine 0.8 mg/dL (0.6-1.2) 10/24/17: Est GFR ( Amer) > 60.0 ml/min (>90) 10/24/17: Est GFR (Non-Af Amer) > 60.0 ml/min 10/24/17: BUN/Creatinine Ratio 30.0 10/24/17 00: Glucose 209 mg/dL (70-105) H 10/24/17 00: POC Glucose 175 MG/DL (70 - 105) H 10/30/17 06:35 Hemoglobin A1c % 7.9 % (4.0-6.0) H 10/24/17: Calcium 9.5 mg/dL (8.6-10.3) 10/24/17 00: Total Bilirubin 0.4 mg/dL (0.3-1.0) 10/24/17 00: AST 14 U/L (13-39) 10/24/17 00: ALT 11 U/L (7-52) 10/24/17 00: Alkaline Phosphatase 109 U/L (34-104) H 10/24/17 00: Troponin I < 0.01 ng/mL (0.01-0.05) L 10/24/17: Total Protein 7.3 gm/dL (6.0-8.3) 10/24/17 00: Albumin 4.1 gm/dL (3.7-5.3) 10/24/17: Globulin 3.2 gm/dL 10/24/17: Albumin/Globulin Ratio 1.3 (1.0-1.8) 10/24/17 00: TSH 52.16 uIU/ml (0.34-5.60) H 10/24/17: Valproic Acid 36.2 ug/mL (50.0-100.0) L 10/24/17 00:29 Levetiracetam 6.0 ug/mL (10.0-40.0) L 10/24/17 00:29 RPR NONREACTIVE (NONREACTIVE) 10/24/17 00:29 - Physical Exam Vitals and I&O: Vital Signs Temp 98 F 10/30/17 06:48 Pulse 66 10/30/17 06:48 Resp 20 10/30/17 06:48 BP 129/70 10/30/17 06:48 Pulse Ox 98 10/30/17 06:48 Intake & Output 10/29/17 10/30/17 10/30/17 18:59 06:59 18:59 Intake Total 1000 360 0 Balance 1000 360 0 Intake: Oral 1000 360 0 Other: # Voids 3 2 # Bowel Movements 0 Active Medications: Current Medications Acetaminophen (Tylenol) 650 mg PO Q4HR PRN PRN Reason: Mild Pain / Temp above 100 Stop: 12/23/17 02:46 Acetaminophen (Tylenol) 650 mg PO Q4H PRN PRN Reason: Mild Pain Or Fever above 101 Stop: 12/23/17 10:25 Al Hydrox/Mg Hydrox/Simethicone (Maalox) 30 ml PO Q4HR PRN PRN Reason: GI DISTRESS Stop: 12/23/17 10:25 Anastrozole (Arimidex) 1 mg PO DAILY [facility] PRN Reason: Protocol Stop: 12/23/17 08:59 Last Admin: 10/30/17 10:20 Dose: Not Given Atorvastatin Calcium (Lipitor) 10 mg PO HS [facility] PRN Reason: Protocol Stop: 12/23/17 20:59 Last Admin: 10/29/17 20:25 Dose: 10 mg Calcium/Vitamin D (Oscal W/Vitamin D) 1 tab PO DAILY [facility] Stop: 12/23/17 08:59 Last Admin: 10/30/17 10:20 Dose: Not Given Docusate Sodium (Colace) 100 mg PO DAILY [facility] Stop: 12/23/17 08:59 Last Admin: 10/30/17 10:20 Dose: Not Given Donepezil HCl (Aricept) 5 mg PO HS [facility] Stop: 12/23/17 20:59 Last Admin: 10/29/17 20:25 Dose: 5 mg Furosemide (Lasix) 20 mg PO DAILY [facility] Stop: 12/23/17 08:59 Last Admin: 03/24/18 10:20 Dose: Not Given Gemfibrozil (Lopid) 600 mg PO BID [facility] Stop: 12/23/17 08:59 Last Admin: 10/30/17 10:20 Dose: Not Given Insulin Aspart (Novolog) 0 units SUBQ ACHS [facility] PRN Reason: Protocol Stop: 12/24/17 16:29 Last Admin: 10/30/17 12:04 Dose: Not Given Levetiracetam (Keppra) 500 mg PO BID [facility] Stop: 12/23/17 08:59 Last Admin: 10/30/17 10:20 Dose: Not Given Levothyroxine Sodium (Synthroid) 0.15 mg PO QDAC [facility] Stop: 12/23/17 07:29 Last Admin: 10/30/17 07:03 Dose: Not Given Lorazepam (Ativan) 0.5 mg PO Q4HR PRN; Protocol PRN Reason: Anxiety Stop: 11/23/17 02:46 Last Admin: 10/28/17 08:20 Dose: 0.5 mg Magnesium Hydroxide (Milk Of Magnesia) 30 ml PO HS PRN PRN Reason: Constipation Magnesium Hydroxide (Milk Of Magnesia) 30 ml PO HS PRN PRN Reason: Constipation Stop: 12/23/17 10:25 Olanzapine (Zyprexa) 10 mg PO BID [facility] PRN Reason: Protocol Stop: 12/23/17 14:01 Last Admin: 10/30/17 10:20 Dose: Not Given Valproate Sodium (Depakene) 500 mg PO BID [facility] PRN Reason: Protocol Stop: 12/27/17 08:59 Last Admin: 10/30/17 10:21 Dose: Not Given Zolpidem Tartrate (Ambien) 5 mg PO HS PRN PRN Reason: Insomnia Stop: 12/23/17 02:46 Last Admin: 10/28/17 20:49 Dose: 5 mg General: alert HEENT: NC/AT, PERRLA Neck: Supple Lungs: CTAB Cardiovascular: RRR, Normal S1, Normal S2, without murmur Abdomen: soft, non-tender, non-distended, positive bowel sound Extremities: excoriation Neurological: alert, disorganized Internal Medicine Assmt/Plan - Assessment Assessment: dm2 htn hypothyroidism hypercholesteremia dementia - Plan Plan: continue with ada diet monitor glucose continue current plan of care Nutritional Asmnt/Malnutr-PDOC - Dietary Evaluation Malnutrition Findings (Please click <Entered> for more info): Nutritional Asmnt/Malnutrition Start: 10/25/17 11: 29 Text: Status: Complete Freq: Document 10/25/17 11:29 RAYMUNDO (Rec: 10/25/17 11:36 LCHEN [email or web address]) Nutritional Asmnt/Malnutrition Patient General Information Nutritional Screening High Risk Diagnosis psychosis NOS Pertinent Medical Hx/Surgical Hx HTN, DM, hyperchlesterolemia, hypothroidism, dementia Subjective Information Per EMR, PO intake 100% x 3 meals on 10/24. Per nurse note, pt is confused and forgetful. Current Diet Order/ Nutrition Support RIAZ, CCHO, mech soft chopped Pertinent Medications oscal w/vit D, colace, lasix, synthroid Pertinent Labs 10/24 glucose 209. A1c 7.9 Nutritional Hx/Data Height 5 ft 7 in Height (Calculated Centimeters) 170.2 Current Weight (lbs) 243 lb Weight (Calculated Kilograms) 110.2 Weight (Calculated Grams) 549869.9 [place] Body Weight 148 Body Mass Index (BMI) 38.0 Weight Status Obese GI Symptoms GI Symptoms None Last BM 10/24 x 2 Difficult in: None Skin Integrity/Comment: intact Current %PO Good (75-100%) Estimated Nutritional Goals BEE in Kcals: Adj wt of IBW Calories/Kcals/Kg 25-30 Kcals Calculated 9631-7260 Protein: Adj wt of IBW Protein g/k.8-1 Protein Calculated 62-78 Fluid: ml 1950-2340ml (1ml/kcal) Nutritional Problem 1. Problem Problem altered nutrition related lab values Etiology hx of DM Signs/Symptoms: glucose 209. A1c 7.9 Intervention/Recommendation Comments 1. Continue with current diet as ordered. 2. Monitor PO intake, wt, labs and skin integrity 3. F/U as moderate risk in 3-5 days, 10/28-10/30 Expected Outcomes/Goals Expected Outcomes/Goals 1. PO intake to meet at least 75% of nutritional needs. 2. Wt stability, skin to remain intact, labs to approach WNL.
--- NOTE | 2017-10-30 16:29 | Progress Notes ---
DATE: 10/30/2017 SUBJECTIVE: Staff was spoken to. The patient is interviewed. Mood is noted to be irritable. Affect is constricted. The patient's coping skills are noted to be still poor. The patient has been having difficult time to cope with the stress. The patient is currently on 500 mg of Depakote twice a day and has been able to tolerate. No side effects to the medications are noted at this time. The patient is also very paranoid and is receiving the olanzapine 10 mg twice a day. No side effect to medications are noted. ASSESSMENT: The patient is still psychotic and having mood swings. PLAN: To continue patient with the supportive therapy and closely monitor the patient for any side effects. [facility]# [id number]
[2017-10-30] MEDS: Atorvastatin Calcium 10 MG TAB PO SCH (21:47)
[2017-10-31] MEDS: Levothyroxine 0.15 Mg Tab PO SCH (07:03)
[2017-10-31] MEDS: INSULIN ASPART, RECOMBINANT 100 UNITS/ML SUBQ SCH ×4 (07:03→21:17)
[2017-10-31] MEDS: Calcium Carb/Vit D 500 mg/200 U Tab PO SCH (12:40)
--- NOTE | 2017-10-31 15:23 | Internal Medicine Prog Note ---
Internal Medicine Subjective - Subjective Service Date: 10/31/17 Patient is:: awake, verbal, interactive Per staff patient has:: no adverse event, no episodes of fall, poor appetite, agitated, combative, tolerating meds Internal Medicine Objective - Results Result Diagrams: 10/24/17 00:29 10/24/17 00: Recent Labs: Laboratory Last Values WBC 7.1 Th/cmm (4.8-10.8) 10/24/17 00: RBC 3.71 Mil/cmm (3.80-5.20) L 10/24/17: Hgb 11.7 gm/dL (12-16) L 10/24/17: Hct 33.9 % (41.0-60) L 10/24/17: MCV 91.5 fl (81-100) 10/24/17 00: MCH 31.7 pg (27.0-31.0) H 10/24/17: MCHC Differential 34.6 pg (28.0-36.0) 10/24/17: RDW 13.0 % (11.5-20.0) 10/24/17: Plt Count 237 Th/cmm (150-400) 10/24/17: MPV 9.1 fl 10/24/17: Neutrophils % 51.7 % (40.0-80.0) 10/24/17: Lymphocytes % 30.9 % (20.0-50.0) 10/24/17: Monocytes % 11.7 % (2.0-10.0) H 10/24/17: Eosinophils % 5.2 % (0.0-5.0) H 10/24/17: Basophils % 0.5 % (0.0-2.0) 10/24/17: PT 9.9 SECONDS (9.5-11.5) 10/24/17: INR 0.95 (0.5-1.4) 10/24/17 00: Sodium 139 mEq/L (136-145) 10/24/17: Potassium 3.5 mEq/L (3.5-5.1) 10/24/17: Chloride 100 mEq/L (98-107) 10/24/17 00: Carbon Dioxide 30.9 mEq/L (21.0-31.0) 10/24/17: Anion Gap 11.6 (7.0-16.0) 10/24/17 00: BUN 24 mg/dL (7-25) 10/24/17: Creatinine 0.8 mg/dL (0.6-1.2) 10/24/17: Est GFR ( Amer) > 60.0 ml/min (>90) 10/24/17: Est GFR (Non-Af Amer) > 60.0 ml/min 10/24/17 00: BUN/Creatinine Ratio 30.0 10/24/17 00: Glucose 209 mg/dL (70-105) H 10/24/17 00: POC Glucose 187 MG/DL (70 - 105) H 10/31/17 12:19 Hemoglobin A1c % 7.9 % (4.0-6.0) H 10/24/17: Calcium 9.5 mg/dL (8.6-10.3) 10/24/17 00: Total Bilirubin 0.4 mg/dL (0.3-1.0) 10/24/17 00: AST 14 U/L (13-39) 10/24/17: ALT 11 U/L (7-52) 10/24/17 00: Alkaline Phosphatase 109 U/L (34-104) H 10/24/17 00: Troponin I < 0.01 ng/mL (0.01-0.05) L 10/24/17: Total Protein 7.3 gm/dL (6.0-8.3) 10/24/17 00: Albumin 4.1 gm/dL (3.7-5.3) 10/24/17: Globulin 3.2 gm/dL 10/24/17: Albumin/Globulin Ratio 1.3 (1.0-1.8) 10/24/17 00: TSH 52.16 uIU/ml (0.34-5.60) H 10/24/17: Valproic Acid 36.2 ug/mL (50.0-100.0) L 10/24/17 00:29 Levetiracetam 6.0 ug/mL (10.0-40.0) L 10/24/17 00:29 RPR NONREACTIVE (NONREACTIVE) 10/24/17 00:29 - Physical Exam Vitals and I&O: Vital Signs Temp 98.7 F 10/31/17 06:33 Pulse 93 10/31/17 06:33 Resp 20 10/31/17 06:33 BP 125/68 10/31/17 06:33 Pulse Ox 98 10/31/17 06:33 Intake & Output 10/30/17 10/31/17 10/31/17 18:59 06:59 18:59 Intake Total 1200 880 360 Balance 1200 880 360 Intake: Oral 1200 880 360 Other: # Voids 4 1 1 # Bowel Movements 1 Active Medications: Current Medications Acetaminophen (Tylenol) 650 mg PO Q4HR PRN PRN Reason: Mild Pain / Temp above 100 Stop: 12/23/17 02:46 Acetaminophen (Tylenol) 650 mg PO Q4H PRN PRN Reason: Mild Pain Or Fever above 101 Stop: 12/23/17 10:25 Al Hydrox/Mg Hydrox/Simethicone (Maalox) 30 ml PO Q4HR PRN PRN Reason: GI DISTRESS Stop: 12/23/17 10:25 Anastrozole (Arimidex) 1 mg PO DAILY [facility] PRN Reason: Protocol Stop: 12/23/17 08:59 Last Admin: 10/31/17 12:49 Dose: 1 mg Atorvastatin Calcium (Lipitor) 10 mg PO HS [facility] PRN Reason: Protocol Stop: 12/23/17 20:59 Last Admin: 10/30/17 21:47 Dose: 10 mg Calcium/Vitamin D (Oscal W/Vitamin D) 1 tab PO DAILY [facility] Stop: 12/23/17 08:59 Last Admin: 10/31/17 12:40 Dose: Not Given Docusate Sodium (Colace) 100 mg PO DAILY [facility] Stop: 12/23/17 08:59 Last Admin: 10/31/17 12:42 Dose: 100 mg Donepezil HCl (Aricept) 5 mg PO HS [facility] Stop: 12/23/17 20:59 Last Admin: 10/30/17 21:47 Dose: 5 mg Furosemide (Lasix) 20 mg PO DAILY [facility] Stop: 12/23/17 08:59 Last Admin: 10/31/17 12:40 Dose: 20 mg Gemfibrozil (Lopid) 600 mg PO BID [facility] Stop: 12/23/17 08:59 Last Admin: 10/31/17 12:43 Dose: 600 mg Insulin Aspart (Novolog) 0 units SUBQ ACHS [facility] PRN Reason: Protocol Stop: 12/24/17 16:29 Last Admin: 10/31/17 12:32 Dose: Not Given Levetiracetam (Keppra) 500 mg PO BID [facility] Stop: 12/23/17 08:59 Last Admin: 10/31/17 12:40 Dose: 500 mg Levothyroxine Sodium (Synthroid) 0.15 mg PO QDAC [facility] Stop: 12/23/17 07:29 Last Admin: 10/31/17 07:03 Dose: Not Given Magnesium Hydroxide (Milk Of Magnesia) 30 ml PO HS PRN PRN Reason: Constipation Magnesium Hydroxide (Milk Of Magnesia) 30 ml PO HS PRN PRN Reason: Constipation Stop: 12/23/17 10:25 Olanzapine (Zyprexa) 10 mg PO BID [facility] PRN Reason: Protocol Stop: 12/23/17 14:01 Last Admin: 10/31/17 12:43 Dose: 10 mg Valproate Sodium (Depakene) 500 mg PO BID [facility] PRN Reason: Protocol Stop: 12/27/17 08:59 Last Admin: 10/31/17 12:49 Dose: 500 mg General: alert HEENT: NC/AT, PERRLA Neck: Supple Lungs: CTAB Cardiovascular: RRR, Normal S1, Normal S2, without murmur Abdomen: soft, non-tender, non-distended, positive bowel sound Extremities: excoriation Neurological: alert, disorganized Internal Medicine Assmt/Plan - Assessment Assessment: dm2 htn hypothyroidism hypercholesteremia dementia - Plan Plan: continue with ada diet monitor glucose continue current plan of care Nutritional Asmnt/Malnutr-PDOC - Dietary Evaluation Malnutrition Findings (Please click <Entered> for more info): Nutritional Asmnt/Malnutrition Start: 10/25/17 11: 29 Text: Status: Complete Freq: Document 10/25/17 11:29 RAYMUNDO (Rec: 10/25/17 11:36 RAYMUNDO DYAN-FN) Nutritional Asmnt/Malnutrition Patient General Information Nutritional Screening High Risk Diagnosis psychosis NOS Pertinent Medical Hx/Surgical Hx HTN, DM, hyperchlesterolemia, hypothroidism, dementia Subjective Information Per EMR, PO intake 100% x 3 meals on 10/24. Per nurse note, pt is confused and forgetful. Current Diet Order/ Nutrition Support RIAZ, CCHO, mech soft chopped Pertinent Medications oscal w/vit D, colace, lasix, synthroid Pertinent Labs 10/24 glucose 209. A1c 7.9 Nutritional Hx/Data Height 5 ft 7 in Height (Calculated Centimeters) 170.2 Current Weight (lbs) 243 lb Weight (Calculated Kilograms) 110.2 Weight (Calculated Grams) 042121.9 [place] Body Weight 148 Body Mass Index (BMI) 38.0 Weight Status Obese GI Symptoms GI Symptoms None Last BM 10/24 x 2 Difficult in: None Skin Integrity/Comment: intact Current %PO Good (75-100%) Estimated Nutritional Goals BEE in Kcals: Adj wt of IBW Calories/Kcals/Kg 25-30 Kcals Calculated 1306-1398 Protein: Adj wt of IBW Protein g/k.8-1 Protein Calculated 62-78 Fluid: ml 1950-2340ml (1ml/kcal) Nutritional Problem 1. Problem Problem altered nutrition related lab values Etiology hx of DM Signs/Symptoms: glucose 209. A1c 7.9 Intervention/Recommendation Comments 1. Continue with current diet as ordered. 2. Monitor PO intake, wt, labs and skin integrity 3. F/U as moderate risk in 3-5 days, 10/28-10/30 Expected Outcomes/Goals Expected Outcomes/Goals 1. PO intake to meet at least 75% of nutritional needs. 2. Wt stability, skin to remain intact, labs to approach WNL.
--- NOTE | 2017-10-31 17:06 | Progress Notes ---
DATE: 10/31/2017 PSYCHIATRIC PROGRESS NOTE SUBJECTIVE: Staff was spoken to. The patient is interviewed. Mood is noted to be irritable. Affect is constricted. Coping skills are noted to be still poor. The patient is still testing the limits. Continues to be paranoid. No side effects to the medications are noted. ASSESSMENT: The patient is still psychotic and impulsive. PLAN: Continue the patient with supportive therapy and follow. [facility]# [id number]
[2017-10-31] MEDS: Atorvastatin Calcium 10 MG TAB PO SCH (21:12)
[2017-11-01] MEDS: INSULIN ASPART, RECOMBINANT 100 UNITS/ML SUBQ SCH ×4 (06:44→20:40)
[2017-11-01] MEDS: Levothyroxine 0.15 Mg Tab PO SCH (06:45)
[2017-11-01] MEDS: Calcium Carb/Vit D 500 mg/200 U Tab PO SCH (08:20)
--- NOTE | 2017-11-01 13:12 | Internal Medicine Prog Note ---
Internal Medicine Subjective - Subjective Service Date: 11/01/17 Patient is:: awake, verbal, interactive Per staff patient has:: no adverse event, no episodes of fall, poor appetite, agitated, combative, tolerating meds Internal Medicine Objective - Results Result Diagrams: 10/24/17 00:29 10/24/17 00: Recent Labs: Laboratory Last Values WBC 7.1 Th/cmm (4.8-10.8) 10/24/17 00: RBC 3.71 Mil/cmm (3.80-5.20) L 10/24/17: Hgb 11.7 gm/dL (12-16) L 10/24/17: Hct 33.9 % (41.0-60) L 10/24/17: MCV 91.5 fl (81-100) 10/24/17 00: MCH 31.7 pg (27.0-31.0) H 10/24/17: MCHC Differential 34.6 pg (28.0-36.0) 10/24/17: RDW 13.0 % (11.5-20.0) 10/24/17: Plt Count 237 Th/cmm (150-400) 10/24/17: MPV 9.1 fl 10/24/17: Neutrophils % 51.7 % (40.0-80.0) 10/24/17: Lymphocytes % 30.9 % (20.0-50.0) 10/24/17: Monocytes % 11.7 % (2.0-10.0) H 10/24/17: Eosinophils % 5.2 % (0.0-5.0) H 10/24/17: Basophils % 0.5 % (0.0-2.0) 10/24/17: PT 9.9 SECONDS (9.5-11.5) 10/24/17: INR 0.95 (0.5-1.4) 10/24/17 00: Sodium 139 mEq/L (136-145) 10/24/17: Potassium 3.5 mEq/L (3.5-5.1) 10/24/17: Chloride 100 mEq/L (98-107) 10/24/17 00: Carbon Dioxide 30.9 mEq/L (21.0-31.0) 10/24/17: Anion Gap 11.6 (7.0-16.0) 10/24/17 00: BUN 24 mg/dL (7-25) 10/24/17: Creatinine 0.8 mg/dL (0.6-1.2) 10/24/17: Est GFR ( Amer) > 60.0 ml/min (>90) 10/24/17: Est GFR (Non-Af Amer) > 60.0 ml/min 10/24/17: BUN/Creatinine Ratio 30.0 10/24/17: Glucose 209 mg/dL (70-105) H 10/24/17 00: POC Glucose 143 MG/DL (70 - 105) H 11/01/17 06:17 Hemoglobin A1c % 7.9 % (4.0-6.0) H 10/24/17: Calcium 9.5 mg/dL (8.6-10.3) 10/24/17 00: Total Bilirubin 0.4 mg/dL (0.3-1.0) 10/24/17 00: AST 14 U/L (13-39) 10/24/17: ALT 11 U/L (7-52) 10/24/17 00: Alkaline Phosphatase 109 U/L (34-104) H 10/24/17 00: Troponin I < 0.01 ng/mL (0.01-0.05) L 10/24/17: Total Protein 7.3 gm/dL (6.0-8.3) 10/24/17 00: Albumin 4.1 gm/dL (3.7-5.3) 10/24/17: Globulin 3.2 gm/dL 10/24/17: Albumin/Globulin Ratio 1.3 (1.0-1.8) 10/24/17 00: TSH 52.16 uIU/ml (0.34-5.60) H 10/24/17: Valproic Acid 36.2 ug/mL (50.0-100.0) L 10/24/17 00:29 Levetiracetam 6.0 ug/mL (10.0-40.0) L 10/24/17 00:29 RPR NONREACTIVE (NONREACTIVE) 10/24/17 00:29 - Physical Exam Vitals and I&O: Vital Signs Temp 97.4 F 11/01/17 06:43 Pulse 60 11/01/17 06:43 Resp 19 11/01/17 06:43 BP 123/62 11/01/17 08:19 Pulse Ox 97 11/01/17 06:43 Intake & Output 10/31/17 11/01/17 11/01/17 18:59 06:59 18:59 Intake Total 1360 240 Balance 1360 240 Intake: Oral 1360 240 Other: # Voids 1 1 # Bowel Movements 0 Active Medications: Current Medications Acetaminophen (Tylenol) 650 mg PO Q4H PRN PRN Reason: Mild Pain Or Fever above 101 Stop: 12/23/17 10:25 Al Hydrox/Mg Hydrox/Simethicone (Maalox) 30 ml PO Q4HR PRN PRN Reason: GI DISTRESS Stop: 12/23/17 10:25 Anastrozole (Arimidex) 1 mg PO DAILY [facility] PRN Reason: Protocol Stop: 12/23/17 08:59 Last Admin: 11/01/17 08:20 Dose: 1 mg Atorvastatin Calcium (Lipitor) 10 mg PO HS [facility] PRN Reason: Protocol Stop: 12/23/17 20:59 Last Admin: 10/31/17 21:12 Dose: 10 mg Calcium/Vitamin D (Oscal W/Vitamin D) 1 tab PO DAILY [facility] Stop: 12/23/17 08:59 Last Admin: 11/01/17 08:20 Dose: 1 tab Docusate Sodium (Colace) 100 mg PO DAILY [facility] Stop: 12/23/17 08:59 Last Admin: 11/01/17 08:19 Dose: 100 mg Donepezil HCl (Aricept) 5 mg PO HS [facility] Stop: 12/23/17 20:59 Last Admin: 10/31/17 21:13 Dose: 5 mg Furosemide (Lasix) 20 mg PO DAILY [facility] Stop: 12/23/17 08:59 Last Admin: 11/01/17 08:19 Dose: 20 mg Gemfibrozil (Lopid) 600 mg PO BID [facility] Stop: 12/23/17 08:59 Last Admin: 11/01/17 09:00 Dose: Not Given Insulin Aspart (Novolog) 0 units SUBQ ACHS [facility] PRN Reason: Protocol Stop: 12/24/17 16:29 Last Admin: 11/01/17 11:09 Dose: Not Given Levetiracetam (Keppra) 500 mg PO BID [facility] Stop: 12/23/17 08:59 Last Admin: 11/01/17 08:19 Dose: 500 mg Levothyroxine Sodium (Synthroid) 0.15 mg PO QDAC [facility] Stop: 12/23/17 07:29 Last Admin: 11/01/17 06:45 Dose: Not Given Magnesium Hydroxide (Milk Of Magnesia) 30 ml PO HS PRN PRN Reason: Constipation Stop: 12/23/17 10:25 Olanzapine (Zyprexa) 10 mg PO BID [facility] Stop: 12/31/17 16:59 Valproate Sodium (Depakene) 500 mg PO BID [facility] PRN Reason: Protocol Stop: 12/27/17 08:59 Last Admin: 11/01/17 08:18 Dose: 500 mg General: alert HEENT: NC/AT, PERRLA Neck: Supple Lungs: CTAB Cardiovascular: RRR, Normal S1, Normal S2, without murmur Abdomen: soft, non-tender, non-distended, positive bowel sound Extremities: excoriation Neurological: alert, disorganized Internal Medicine Assmt/Plan - Assessment Assessment: dm2 htn hypothyroidism hypercholesteremia dementia - Plan Plan: continue with ada diet monitor glucose continue current plan of care Nutritional Asmnt/Malnutr-PDOC - Dietary Evaluation Malnutrition Findings (Please click <Entered> for more info): Nutritional Asmnt/Malnutrition Start: 10/25/17 11: 29 Text: Status: Complete Freq: Document 10/25/17 11:29 RAYMUNDO (Rec: 10/25/17 11:36 RAYMUNDO [email or web address]) Nutritional Asmnt/Malnutrition Patient General Information Nutritional Screening High Risk Diagnosis psychosis NOS Pertinent Medical Hx/Surgical Hx HTN, DM, hyperchlesterolemia, hypothroidism, dementia Subjective Information Per EMR, PO intake 100% x 3 meals on 10/24. Per nurse note, pt is confused and forgetful. Current Diet Order/ Nutrition Support RIAZ, CCHO, mech soft chopped Pertinent Medications oscal w/vit D, colace, lasix, synthroid Pertinent Labs 10/24 glucose 209. A1c 7.9 Nutritional Hx/Data Height 5 ft 7 in Height (Calculated Centimeters) 170.2 Current Weight (lbs) 243 lb Weight (Calculated Kilograms) 110.2 Weight (Calculated Grams) 092013.9 [place] Body Weight 148 Body Mass Index (BMI) 38.0 Weight Status Obese GI Symptoms GI Symptoms None Last BM 10/24 x 2 Difficult in: None Skin Integrity/Comment: intact Current %PO Good (75-100%) Estimated Nutritional Goals BEE in Kcals: Adj wt of IBW Calories/Kcals/Kg 25-30 Kcals Calculated 3238-8804 Protein: Adj wt of IBW Protein g/k.8-1 Protein Calculated 62-78 Fluid: ml 1950-2340ml (1ml/kcal) Nutritional Problem 1. Problem Problem altered nutrition related lab values Etiology hx of DM Signs/Symptoms: glucose 209. A1c 7.9 Intervention/Recommendation Comments 1. Continue with current diet as ordered. 2. Monitor PO intake, wt, labs and skin integrity 3. F/U as moderate risk in 3-5 days, 10/28-10/30 Expected Outcomes/Goals Expected Outcomes/Goals 1. PO intake to meet at least 75% of nutritional needs. 2. Wt stability, skin to remain intact, labs to approach WNL.
[2017-11-01] MEDS: Atorvastatin Calcium 10 MG TAB PO SCH (20:29)
--- NOTE | 2017-11-02 01:34 | Progress Notes ---
DATE: 11/01/2017 SUBJECTIVE: Staff was spoken to. The patient is interviewed. Mood is noted to be less irritable. Affect is appropriate. The patient is not that intrusive like before. Insight and judgment at this time are noted to be improving. Impulse control seems to be improving. Mood swings are coming under control. No side effects to the medications are noted. The patient has paranoid delusions. Sleep and appetite are noted to be improving. ASSESSMENT: The patient's psychosis is resolving. PLAN: To continue the patient with the supportive therapy and followup. JOB# [id number]
[2017-11-02] MEDS: INSULIN ASPART, RECOMBINANT 100 UNITS/ML SUBQ SCH ×4 (06:39→21:27)
[2017-11-02] MEDS: Levothyroxine 0.15 Mg Tab PO SCH (06:40)
[2017-11-02] MEDS: Calcium Carb/Vit D 500 mg/200 U Tab PO SCH (09:51)
--- NOTE | 2017-11-02 13:36 | Internal Medicine Prog Note ---
Internal Medicine Subjective - Subjective Service Date: 11/02/17 Patient is:: awake, verbal, interactive Per staff patient has:: no adverse event, no episodes of fall, poor appetite, agitated, combative, tolerating meds Internal Medicine Objective - Results Result Diagrams: 10/24/17 00:29 10/24/17 00: Recent Labs: Laboratory Last Values WBC 7.1 Th/cmm (4.8-10.8) 10/24/17 00: RBC 3.71 Mil/cmm (3.80-5.20) L 10/24/17: Hgb 11.7 gm/dL (12-16) L 10/24/17: Hct 33.9 % (41.0-60) L 10/24/17: MCV 91.5 fl (81-100) 10/24/17 00: MCH 31.7 pg (27.0-31.0) H 10/24/17: MCHC Differential 34.6 pg (28.0-36.0) 10/24/17: RDW 13.0 % (11.5-20.0) 10/24/17 00: Plt Count 237 Th/cmm (150-400) 10/24/17: MPV 9.1 fl 10/24/17: Neutrophils % 51.7 % (40.0-80.0) 10/24/17: Lymphocytes % 30.9 % (20.0-50.0) 10/24/17: Monocytes % 11.7 % (2.0-10.0) H 10/24/17: Eosinophils % 5.2 % (0.0-5.0) H 10/24/17: Basophils % 0.5 % (0.0-2.0) 10/24/17: PT 9.9 SECONDS (9.5-11.5) 10/24/17: INR 0.95 (0.5-1.4) 10/24/17 00: Sodium 139 mEq/L (136-145) 10/24/17: Potassium 3.5 mEq/L (3.5-5.1) 10/24/17: Chloride 100 mEq/L (98-107) 10/24/17 00: Carbon Dioxide 30.9 mEq/L (21.0-31.0) 10/24/17: Anion Gap 11.6 (7.0-16.0) 10/24/17 00: BUN 24 mg/dL (7-25) 10/24/17: Creatinine 0.8 mg/dL (0.6-1.2) 10/24/17: Est GFR ( Amer) > 60.0 ml/min (>90) 10/24/17 00: Est GFR (Non-Af Amer) > 60.0 ml/min 10/24/17 00: BUN/Creatinine Ratio 30.0 10/24/17 00: Glucose 209 mg/dL (70-105) H 10/24/17 00: POC Glucose 185 MG/DL (70 - 105) H 11/01/17 20:38 Hemoglobin A1c % 7.9 % (4.0-6.0) H 10/24/17: Calcium 9.5 mg/dL (8.6-10.3) 10/24/17 00: Total Bilirubin 0.4 mg/dL (0.3-1.0) 10/24/17 00: AST 14 U/L (13-39) 10/24/17 00: ALT 11 U/L (7-52) 10/24/17 00: Alkaline Phosphatase 109 U/L (34-104) H 10/24/17 00: Troponin I < 0.01 ng/mL (0.01-0.05) L 10/24/17: Total Protein 7.3 gm/dL (6.0-8.3) 10/24/17 00: Albumin 4.1 gm/dL (3.7-5.3) 10/24/17: Globulin 3.2 gm/dL 10/24/17: Albumin/Globulin Ratio 1.3 (1.0-1.8) 10/24/17 00: TSH 52.16 uIU/ml (0.34-5.60) H 10/24/17: Valproic Acid 36.2 ug/mL (50.0-100.0) L 10/24/17 00:29 Levetiracetam 6.0 ug/mL (10.0-40.0) L 10/24/17 00:29 RPR NONREACTIVE (NONREACTIVE) 10/24/17 00:29 - Physical Exam Vitals and I&O: Vital Signs Temp 0 F 11/02/17 06:34 Pulse 71 11/01/17 20:16 Resp 18 11/01/17 20:16 BP 128/73 11/02/17 09:50 Pulse Ox 96 11/01/17 20:16 Intake & Output 11/01/17 11/02/17 11/02/17 18:59 06:59 18:59 Intake Total 1200 480 Balance 1200 480 Intake: Oral 1200 480 Other: # Voids 5 3 # Bowel Movements 1 0 Active Medications: Current Medications Acetaminophen (Tylenol) 650 mg PO Q4H PRN PRN Reason: Mild Pain Or Fever above 101 Stop: 12/23/17 10:25 Al Hydrox/Mg Hydrox/Simethicone (Maalox) 30 ml PO Q4HR PRN PRN Reason: GI DISTRESS Stop: 12/23/17 10:25 Anastrozole (Arimidex) 1 mg PO DAILY [facility] PRN Reason: Protocol Stop: 12/23/17 08:59 Last Admin: 11/02/17 09:59 Dose: 1 mg Atorvastatin Calcium (Lipitor) 10 mg PO HS [facility] PRN Reason: Protocol Stop: 12/23/17 20:59 Last Admin: 11/01/17 20:29 Dose: 10 mg Calcium/Vitamin D (Oscal W/Vitamin D) 1 tab PO DAILY [facility] Stop: 12/23/17 08:59 Last Admin: 11/02/17 09:51 Dose: 1 tab Docusate Sodium (Colace) 100 mg PO DAILY [facility] Stop: 12/23/17 08:59 Last Admin: 11/02/17 09:49 Dose: 100 mg Donepezil HCl (Aricept) 5 mg PO HS [facility] Stop: 12/23/17 20:59 Last Admin: 11/01/17 20:30 Dose: 5 mg Furosemide (Lasix) 20 mg PO DAILY [facility] Stop: 12/23/17 08:59 Last Admin: 11/02/17 09:50 Dose: 20 mg Gemfibrozil (Lopid) 600 mg PO BID [facility] Stop: 12/23/17 08:59 Last Admin: 11/01/17 16:39 Dose: Not Given Insulin Aspart (Novolog) 0 units SUBQ ACHS [facility] PRN Reason: Protocol Stop: 12/24/17 16:29 Last Admin: 11/02/17 06:39 Dose: Not Given Levetiracetam (Keppra) 500 mg PO BID [facility] Stop: 12/23/17 08:59 Last Admin: 11/02/17 09:50 Dose: 500 mg Levothyroxine Sodium (Synthroid) 0.15 mg PO QDAC [facility] Stop: 12/23/17 07:29 Last Admin: 11/02/17 06:40 Dose: Not Given Magnesium Hydroxide (Milk Of Magnesia) 30 ml PO HS PRN PRN Reason: Constipation Stop: 12/23/17 10:25 Olanzapine (Zyprexa) 10 mg PO BID [facility] Stop: 12/31/17 16:59 Last Admin: 11/02/17 09:50 Dose: 10 mg Valproate Sodium (Depakene) 500 mg PO BID [facility] PRN Reason: Protocol Stop: 12/27/17 08:59 Last Admin: 11/02/17 09:49 Dose: 500 mg General: alert HEENT: NC/AT, PERRLA Neck: Supple Lungs: CTAB Cardiovascular: RRR, Normal S1, Normal S2, without murmur Abdomen: soft, non-tender, non-distended, positive bowel sound Extremities: excoriation Neurological: alert, disorganized Internal Medicine Assmt/Plan - Assessment Assessment: dm2 htn hypothyroidism hypercholesteremia dementia - Plan Plan: continue with ada diet monitor glucose continue current plan of care Nutritional Asmnt/Malnutr-PDOC - Dietary Evaluation Malnutrition Findings (Please click <Entered> for more info): Nutritional Asmnt/Malnutrition Start: 10/25/17 11: 29 Text: Status: Complete Freq: Document 10/25/17 11:29 RAYMUNDO (Rec: 10/25/17 11:36 RAYMUNDO [email or web address]) Nutritional Asmnt/Malnutrition Patient General Information Nutritional Screening High Risk Diagnosis psychosis NOS Pertinent Medical Hx/Surgical Hx HTN, DM, hyperchlesterolemia, hypothroidism, dementia Subjective Information Per EMR, PO intake 100% x 3 meals on 10/24. Per nurse note, pt is confused and forgetful. Current Diet Order/ Nutrition Support RIAZ, CCHO, mech soft chopped Pertinent Medications oscal w/vit D, colace, lasix, synthroid Pertinent Labs 10/24 glucose 209. A1c 7.9 Nutritional Hx/Data Height 5 ft 7 in Height (Calculated Centimeters) 170.2 Current Weight (lbs) 243 lb Weight (Calculated Kilograms) 110.2 Weight (Calculated Grams) 211105.9 [place] Body Weight 148 Body Mass Index (BMI) 38.0 Weight Status Obese GI Symptoms GI Symptoms None Last BM 10/24 x 2 Difficult in: None Skin Integrity/Comment: intact Current %PO Good (75-100%) Estimated Nutritional Goals BEE in Kcals: Adj wt of IBW Calories/Kcals/Kg 25-30 Kcals Calculated 9822-9057 Protein: Adj wt of IBW Protein g/k.8-1 Protein Calculated 62-78 Fluid: ml 1950-2340ml (1ml/kcal) Nutritional Problem 1. Problem Problem altered nutrition related lab values Etiology hx of DM Signs/Symptoms: glucose 209. A1c 7.9 Intervention/Recommendation Comments 1. Continue with current diet as ordered. 2. Monitor PO intake, wt, labs and skin integrity 3. F/U as moderate risk in 3-5 days, 10/28-10/30 Expected Outcomes/Goals Expected Outcomes/Goals 1. PO intake to meet at least 75% of nutritional needs. 2. Wt stability, skin to remain intact, labs to approach WNL.
[2017-11-02] MEDS: Atorvastatin Calcium 10 MG TAB PO SCH (21:26)
--- NOTE | 2017-11-03 03:46 | Progress Notes ---
DATE: 11/02/2017 PSYCHIATRIC PROGRESS NOTE SUBJECTIVE: Staff was spoken to. The patient is interviewed. Mood is noted to be less irritable. Affect is constricted. The patient, however, has been pacing most of the time on the unit. Coping skills at this time are noted to be still impaired. No side effects to the medications are noted. ASSESSMENT: The patient's psychosis is resolving. PLAN: To continue the patient with the current medications. I encouraged the patient to verbalize the concerns rather than to act out. JOB# [id number]
[2017-11-03] MEDS: INSULIN ASPART, RECOMBINANT 100 UNITS/ML SUBQ SCH ×2 (06:42→11:11)
[2017-11-03] MEDS: Levothyroxine 0.15 Mg Tab PO SCH (06:42)
[2017-11-03] MEDS: Calcium Carb/Vit D 500 mg/200 U Tab PO SCH (08:20)
--- NOTE | 2017-11-03 10:30 | Internal Medicine Prog Note ---
Internal Medicine Subjective - Subjective Service Date: 11/03/17 Patient is:: awake, verbal, interactive Per staff patient has:: no adverse event, no episodes of fall, poor appetite, agitated, combative, tolerating meds Internal Medicine Objective - Results Result Diagrams: 10/24/17 00:29 10/24/17 00: Recent Labs: Laboratory Last Values WBC 7.1 Th/cmm (4.8-10.8) 10/24/17: RBC 3.71 Mil/cmm (3.80-5.20) L 10/24/17: Hgb 11.7 gm/dL (12-16) L 10/24/17: Hct 33.9 % (41.0-60) L 10/24/17: MCV 91.5 fl (81-100) 10/24/17 00: MCH 31.7 pg (27.0-31.0) H 10/24/17: MCHC Differential 34.6 pg (28.0-36.0) 10/24/17: RDW 13.0 % (11.5-20.0) 10/24/17: Plt Count 237 Th/cmm (150-400) 10/24/17: MPV 9.1 fl 10/24/17: Neutrophils % 51.7 % (40.0-80.0) 10/24/17: Lymphocytes % 30.9 % (20.0-50.0) 10/24/17: Monocytes % 11.7 % (2.0-10.0) H 10/24/17: Eosinophils % 5.2 % (0.0-5.0) H 10/24/17: Basophils % 0.5 % (0.0-2.0) 10/24/17: PT 9.9 SECONDS (9.5-11.5) 10/24/17: INR 0.95 (0.5-1.4) 10/24/17 00: Sodium 139 mEq/L (136-145) 10/24/17: Potassium 3.5 mEq/L (3.5-5.1) 10/24/17: Chloride 100 mEq/L (98-107) 10/24/17 00: Carbon Dioxide 30.9 mEq/L (21.0-31.0) 10/24/17: Anion Gap 11.6 (7.0-16.0) 10/24/17 00: BUN 24 mg/dL (7-25) 10/24/17: Creatinine 0.8 mg/dL (0.6-1.2) 10/24/17: Est GFR ( Amer) > 60.0 ml/min (>90) 10/24/17 00: Est GFR (Non-Af Amer) > 60.0 ml/min 10/24/17 00: BUN/Creatinine Ratio 30.0 10/24/17 00: Glucose 209 mg/dL (70-105) H 10/24/17 00: POC Glucose 185 MG/DL (70 - 105) H 11/01/17 20:38 Hemoglobin A1c % 7.9 % (4.0-6.0) H 10/24/17: Calcium 9.5 mg/dL (8.6-10.3) 10/24/17 00: Total Bilirubin 0.4 mg/dL (0.3-1.0) 10/24/17 00: AST 14 U/L (13-39) 10/24/17 00: ALT 11 U/L (7-52) 10/24/17 00: Alkaline Phosphatase 109 U/L (34-104) H 10/24/17 00: Troponin I < 0.01 ng/mL (0.01-0.05) L 10/24/17: Total Protein 7.3 gm/dL (6.0-8.3) 10/24/17 00: Albumin 4.1 gm/dL (3.7-5.3) 10/24/17: Globulin 3.2 gm/dL 10/24/17: Albumin/Globulin Ratio 1.3 (1.0-1.8) 10/24/17 00: TSH 52.16 uIU/ml (0.34-5.60) H 10/24/17: Valproic Acid 36.2 ug/mL (50.0-100.0) L 10/24/17 00:29 Levetiracetam 6.0 ug/mL (10.0-40.0) L 10/24/17 00:29 RPR NONREACTIVE (NONREACTIVE) 10/24/17 00:29 - Physical Exam Vitals and I&O: Vital Signs Temp 97.2 F 11/03/17 06:24 Pulse 57 11/03/17 06:24 Resp 19 11/03/17 06:24 BP 110/66 11/03/17 08:20 Pulse Ox 95 11/03/17 06:24 Intake & Output 11/02/17 11/03/17 11/03/17 18:59 06:59 18:59 Intake Total 1000 360 Balance 1000 360 Intake: Oral 1000 360 Other: # Voids 5 2 # Bowel Movements 0 0 Active Medications: Current Medications Acetaminophen (Tylenol) 650 mg PO Q4H PRN PRN Reason: Mild Pain Or Fever above 101 Stop: 12/23/17 10:25 Al Hydrox/Mg Hydrox/Simethicone (Maalox) 30 ml PO Q4HR PRN PRN Reason: GI DISTRESS Stop: 12/23/17 10:25 Anastrozole (Arimidex) 1 mg PO DAILY [facility] PRN Reason: Protocol Stop: 12/23/17 08:59 Last Admin: 11/03/17 08:20 Dose: 1 mg Atorvastatin Calcium (Lipitor) 10 mg PO HS [facility] PRN Reason: Protocol Stop: 12/23/17 20:59 Last Admin: 11/02/17 21:26 Dose: 10 mg Calcium/Vitamin D (Oscal W/Vitamin D) 1 tab PO DAILY [facility] Stop: 12/23/17 08:59 Last Admin: 11/03/17 08:20 Dose: 1 tab Docusate Sodium (Colace) 100 mg PO DAILY [facility] Stop: 12/23/17 08:59 Last Admin: 11/03/17 08:19 Dose: 100 mg Donepezil HCl (Aricept) 5 mg PO HS [facility] Stop: 12/23/17 20:59 Last Admin: 11/02/17 21:26 Dose: 5 mg Furosemide (Lasix) 20 mg PO DAILY [facility] Stop: 12/23/17 08:59 Last Admin: 11/03/17 08:20 Dose: 20 mg Gemfibrozil (Lopid) 600 mg PO BID [facility] Stop: 12/23/17 08:59 Last Admin: 11/03/17 08:27 Dose: 600 mg Insulin Aspart (Novolog) 0 units SUBQ ACHS [facility] PRN Reason: Protocol Stop: 12/24/17 16:29 Last Admin: 11/03/17 06:42 Dose: Not Given Levetiracetam (Keppra) 500 mg PO BID [facility] Stop: 12/23/17 08:59 Last Admin: 11/03/17 08:19 Dose: 500 mg Levothyroxine Sodium (Synthroid) 0.15 mg PO QDAC [facility] Stop: 12/23/17 07:29 Last Admin: 11/03/17 06:42 Dose: Not Given Magnesium Hydroxide (Milk Of Magnesia) 30 ml PO HS PRN PRN Reason: Constipation Stop: 12/23/17 10:25 Olanzapine (Zyprexa) 10 mg PO BID [facility] Stop: 12/31/17 16:59 Last Admin: 11/03/17 08:20 Dose: 10 mg Valproate Sodium (Depakene) 500 mg PO BID [facility] PRN Reason: Protocol Stop: 12/27/17 08:59 Last Admin: 11/03/17 08:19 Dose: 500 mg General: alert HEENT: NC/AT, PERRLA Neck: Supple Lungs: CTAB Cardiovascular: RRR, Normal S1, Normal S2, without murmur Abdomen: soft, non-tender, non-distended, positive bowel sound Extremities: excoriation Neurological: alert, disorganized Internal Medicine Assmt/Plan - Assessment Assessment: dm2 htn hypothyroidism hypercholesteremia dementia - Plan Plan: continue with ada diet monitor glucose continue current plan of care Nutritional Asmnt/Malnutr-PDOC - Dietary Evaluation Malnutrition Findings (Please click <Entered> for more info): Nutritional Asmnt/Malnutrition Start: 10/25/17 11: 29 Text: Status: Complete Freq: Document 10/25/17 11:29 RAYMUNDO (Rec: 10/25/17 11:36 RAYMUNDO [email or web address]) Nutritional Asmnt/Malnutrition Patient General Information Nutritional Screening High Risk Diagnosis psychosis NOS Pertinent Medical Hx/Surgical Hx HTN, DM, hyperchlesterolemia, hypothroidism, dementia Subjective Information Per EMR, PO intake 100% x 3 meals on 10/24. Per nurse note, pt is confused and forgetful. Current Diet Order/ Nutrition Support RIAZ, CCHO, [facility] soft chopped Pertinent Medications oscal w/vit D, colace, lasix, synthroid Pertinent Labs 10/24 glucose 209. A1c 7.9 Nutritional Hx/Data Height 5 ft 7 in Height (Calculated Centimeters) 170.2 Current Weight (lbs) 243 lb Weight (Calculated Kilograms) 110.2 Weight (Calculated Grams) 393369.9 [place] Body Weight 148 Body Mass Index (BMI) 38.0 Weight Status Obese GI Symptoms GI Symptoms None Last BM 10/24 x 2 Difficult in: None Skin Integrity/Comment: intact Current %PO Good (75-100%) Estimated Nutritional Goals BEE in Kcals: Adj wt of IBW Calories/Kcals/Kg 25-30 Kcals Calculated 9529-5271 Protein: Adj wt of IBW Protein g/k.8-1 Protein Calculated 62-78 Fluid: ml 1950-2340ml (1ml/kcal) Nutritional Problem 1. Problem Problem altered nutrition related lab values Etiology hx of DM Signs/Symptoms: glucose 209. A1c 7.9 Intervention/Recommendation Comments 1. Continue with current diet as ordered. 2. Monitor PO intake, wt, labs and skin integrity 3. F/U as moderate risk in 3-5 days, 10/28-10/30 Expected Outcomes/Goals Expected Outcomes/Goals 1. PO intake to meet at least 75% of nutritional needs. 2. Wt stability, skin to remain intact, labs to approach WNL.
--- NOTE | 2017-11-03 22:07 | Progress Notes ---
DATE: 11/03/2017 SUBJECTIVE: Staff was spoken to. The patient is interviewed. Mood is anxious. Affect is constricted. Insight and judgment are noted to be impaired. Impulse control seems to be improving. No side effects to the medications are noted. The patient is currently on olanzapine and has been able to tolerate the medication. ASSESSMENT: The patient is stabilizing. PLAN: To discharge the patient today for followup on outpatient basis. The patient is still on Depakote and Zyprexa and is able to tolerate the medications. JOB# [id number]
== END 2017-11-03 13:55 | DRG 885 ==
LOC: ER 23:35 → GERO 10-24 01:15
PROVIDERS: ADMIT Psychiatry & Neurology Psychiatry; ATTEND Psychiatry & Neurology Psychiatry
DX: F25.9 Schizoaffective disorder, unspecified (principal); E11.65 Type 2 diabetes mellitus with hyperglycemia; F03.91 Unspecified dementia, unspecified severity, with behavioral disturbance; E03.9 Hypothyroidism, unspecified; R45.87 Impulsiveness; F29 Unspecified psychosis not due to a substance or known physiological condition; E78.00 Pure hypercholesterolemia, unspecified; F41.9 Anxiety disorder, unspecified; I10 Essential (primary) hypertension; E78.5 Hyperlipidemia, unspecified; E66.9 Obesity, unspecified; Z68.38 Body mass index [BMI] 38.0-38.9, adult; Z88.8 Allergy status to other drugs, medicaments and biological substances; Z79.899 Other long term (current) drug therapy
CPT/HCPCS: 36415-UA; 80053-TC; 80164-TC; 80299-90; 82948-90; 83036-90; 84443-TC; 84484-TC; 85025-TC; 85610-TC; 86592-TC; 90899; G0410; J1815; J2060; J7051; Z7610